=== PATIENT | female | born 1955 | race Caucasian/White ===

== ENCOUNTER 2020-05-28 08:36 | Outpatient (REF) | payer MEDICARE, OTHER, SELFPAY ==
--- NOTE | 2020-05-28 08:40 | MM_ITS ---
EXAMINATION: MM SCREENING DIGITAL BREAST TOMOSYNTHESIS, BILATERAL CLINICAL INFORMATION: Screening. Asymptomatic. The lifetime risk of breast cancer based on the Tyrer-Cuzick Model is 6.4%. COMPARISON: Mammography: April 06, 2019 and studies dating back to December 16, 2009 TECHNIQUE: Digital breast tomosynthesis is performed in both the craniocaudal and mediolateral oblique views along with computer-aided detection (CAD). Synthesized 2D images are generated from the tomosynthesis. FINDINGS: The breasts are almost entirely fatty (ACR BI-RADS breast composition Category a). There are no significant masses, abnormal calcifications, or other abnormalities. MM/MM tomosynthesis screening BI IMPRESSION: There are no significant changes from prior study. ASSESSMENT: BI-RADS 1: Negative RECOMMENDATION: Routine annual mammography screening. This patient's information was entered into a reminder system with a target due date for their next mammogram.
== END 2020-05-28 08:37 | disposition home or self-care (01) ==
LOC: HO.MAMMO 08:36
PROVIDERS: PCP Family Medicine; Visit Provider Family Medicine
DX: Z12.31 Encounter for screening mammogram for malignant neoplasm of breast (principal)
CPT/HCPCS: 77063; 77067

== ENCOUNTER 2021-03-03 17:36 | Emergency (ER) | payer MEDICARE, OTHER, SELFPAY ==
--- NOTE | ~2021-03-03 | XR_ITS ---
EXAMINATION: XR CHEST, 2 VIEWS CLINICAL INFORMATION: Right-sided pleuritic chest pain. COMPARISON: 03/21/2020 TECHNIQUE: PA and lateral views of the chest were obtained. FINDINGS: Lungs are clear. No consolidation, pneumothorax, or pleural effusion. Sternal wires and surgical clips overlie the cardiac and mediastinal contours. Cardiac and mediastinal contours are normal. Pulmonary vasculature is unremarkable. Trachea is midline. Osseous structures are unremarkable. ACDF hardware overlies the lower cervical spine. Minimal degenerative disc disease in the thoracic spine. No acute osseous findings. XR/XR chest 2V IMPRESSION: No acute cardiopulmonary findings.
[2021-03-03 17:42] VITALS: BP 156/60; PULSE 75; RESP 18; TEMP 36.8; O2SAT 97; BMI 30.1
--- NOTE | 2021-03-03 17:45 | ECG_ITS ---
Test Reason : DYSPNEA Blood Pressure : / mmHG Vent. Rate : 056 BPM Atrial Rate : 056 BPM P-R Int : 088 ms QRS Dur : 110 ms QT Int : 464 ms P-R-T Axes : 035 028 056 degrees QTc Int : 447 ms Sinus bradycardia with short NM ST & T wave abnormality, consider lateral ischemia Abnormal ECG When compared with ECG of 21-MAR-2020 15:48, T wave inversion now evident in Lateral leads Referred By: Deyvi Millard Electronically Signed By:BONNIE CLIFTON MD
--- NOTE | 2021-03-03 17:48 | ED.GENADULT ---
HPI - General Adult General Chief complaint: General Medical <KB Puentes - Last Filed: 03/05/21 00:10> Stated complaint: back pain from fall <KB Puentes - Last Filed: 03/05/21 00:10> Time Seen by Provider: 03/03/21 17:45 <KB Puentes - Last Filed: 03/05/21 00:10> Related Data Home medications: Previous Rx's Medication Instructions Recorded cyclobenzaprine 10 mg tablet 10 mg PO TID PRN #10 tab 03/04/21 tramadol 50 mg tablet 50 mg PO TID PRN #10 tab 03/04/21 <KB Puentes - Last Filed: 03/05/21 00:10> Allergies/adverse reactions: Allergies Allergy/AdvReac Type Severity Reaction Status Date / Time No Known Allergies Allergy Mild N/A Verified 03/03/21 17:42 <KB Puentes - Last Filed: 03/05/21 00:10> [facility], [facility] Past Medical History Medical History: Medical History Depression Heart disease High cholesterol Hypertension Insomnia <KB Puentes - Last Filed: 03/05/21 00:10> Social History Social History: Social History Advance Directives: No Advance Directives Information Provided: No <KB Puentes - Last Filed: 03/05/21 00:10> Physical Exam Vital Signs: Vital Signs: Last Vital Signs Temp 98.3 F 03/03/21 17:42 Pulse 75 03/03/21 17:42 Resp 18 03/03/21 17:42 BP 156/60 H 03/03/21 17:42 Pulse Ox 97 03/03/21 17:42 Body Mass Index 30.1 <KB Puentes - Last Filed: 03/05/21 00:10> Vital Signs: Last Vital Signs Temp 98.3 F 03/03/21 17:42 Pulse 75 03/03/21 17:42 Resp 18 03/03/21 17:42 BP 156/60 H 03/03/21 17:42 Pulse Ox 97 03/03/21 17:42 Body Mass Index 30.1 <Melia Alberts MD - Last Filed: 03/04/21 02:05> Course Course Course Narrative: Patient presents to the ED for right sided pleuretic chest pain. Patient denies any leg swelling or coughing up blood. EKG, labs and 2 view chest xray ordered. This is a rapid medical screening <KB Puentes - Last Filed: 03/05/21 00:10> Medical Decision Making Lab Data Result diagrams: : 03/03/21 20:39 03/03/21 20:39 <KB Puentes - Last Filed: 03/05/21 00:10> Labs: Lab Results 03/03/21 03/03/21 03/03/21 Range/Units 20:39 20:39 20:39 WBC 11.9 H (4.8-10.8) X10*3/uL RBC 4.05 L (4.20-5.50) X10*6/uL Hgb 13.3 (12.0-16.0) g/dl Hct 39.2 (37-47) % MCV 96.8 (80-98) fL MCH 32.8 (27.0-33.0) pg MCHC 33.9 (31.0-35.0) g/dl RDW 12.6 (11.0-16.0) % Plt Count 202 (160-400) X10*3/uL MPV 10.2 (9.4-12.3) fL Immature Gran % (Auto) 0.5 H (0.0-0.4) % Neut % (Auto) 64.8 (45-73) % Lymph % (Auto) 23.8 (20-40) % Cloud % (Auto) 6.9 (2-11) % Eos % (Auto) 3.3 (0-4) % Baso % (Auto) 0.7 (0-2) % Lymph # (Auto) 2.8 (1.2-4.9) X10*3/uL [place] # (Auto) 0.8 (0.1-1.2) X10*3/uL Eos # (Auto) 0.4 (0.0-0.4) X10*3/uL Baso # (Auto) 0.1 (0.0-0.2) X10*3/uL Abs Immat Gran (auto) 0.06 H (0.00-0.03) X10*3/uL Absolute Neuts (auto) 7.7 (2.0-8.3) X10*3/uL Absolute Nucleated RBC 0.000 (0.0-0.012) X10*3/uL Nucleated RBC % (auto) 0.0 (0.0-0.2) /100WBC Sodium 142 (135-145) mmol/L Potassium 4.0 (3.3-5.1) mmol/L Chloride 111 H (96-108) mmol/L Carbon Dioxide 23 (22-29) mmol/L Anion Gap 12 (12-20) BUN 17 H (9-16) mg/dL Creatinine 0.79 (0.5-1.4) mg/dL Estim Creat Clear Calc 69.8 Estimated GFR > 60 Random Glucose 96 (60-115) mg/dL Calcium 9.1 (8.4-10.2) mg/dL Total Bilirubin 0.3 (0.0-1.0) mg/dL AST 17 (5-31) U/L ALT 15 (0-31) U/L Alkaline Phosphatase 72 (39-117) U/L Troponin I High Sens 6.3 (<3.5-17.0) ng/L B-Natriuretic Peptide (<100) pg/mL Total Protein 6.4 L (6.5-8.0) g/dL Albumin 4.2 (3.5-5.0) g/dL 03/03/21 03/04/21 Range/Units 20:39 01:31 WBC (4.8-10.8) X10*3/uL RBC (4.20-5.50) X10*6/uL Hgb (12.0-16.0) g/dl Hct (37-47) % MCV (80-98) fL MCH (27.0-33.0) pg MCHC (31.0-35.0) g/dl RDW (11.0-16.0) % Plt Count (160-400) X10*3/uL MPV (9.4-12.3) fL Immature Gran % (Auto) (0.0-0.4) % Neut % (Auto) (45-73) % Lymph % (Auto) (20-40) % Cloud % (Auto) (2-11) % Eos % (Auto) (0-4) % Baso % (Auto) (0-2) % Lymph # (Auto) (1.2-4.9) X10*3/uL [place] # (Auto) (0.1-1.2) X10*3/uL Eos # (Auto) (0.0-0.4) X10*3/uL Baso # (Auto) (0.0-0.2) X10*3/uL Abs Immat Gran (auto) (0.00-0.03) X10*3/uL Absolute Neuts (auto) (2.0-8.3) X10*3/uL Absolute Nucleated RBC (0.0-0.012) X10*3/uL Nucleated RBC % (auto) (0.0-0.2) /100WBC Sodium (135-145) mmol/L Potassium (3.3-5.1) mmol/L Chloride (96-108) mmol/L Carbon Dioxide (22-29) mmol/L Anion Gap (12-20) BUN (9-16) mg/dL Creatinine (0.5-1.4) mg/dL Estim Creat Clear Calc Estimated GFR Random Glucose (60-115) mg/dL Calcium (8.4-10.2) mg/dL Total Bilirubin (0.0-1.0) mg/dL AST (5-31) U/L ALT (0-31) U/L Alkaline Phosphatase (39-117) U/L Troponin I High Sens 5.8 (<3.5-17.0) ng/L B-Natriuretic Peptide 101 H (<100) pg/mL Total Protein (6.5-8.0) g/dL Albumin (3.5-5.0) g/dL <KB Puentes - Last Filed: 03/05/21 00:10> Lab Results 03/03/21 03/03/21 03/03/21 Range/Units 20:39 20:39 20:39 WBC 11.9 H (4.8-10.8) X10*3/uL RBC 4.05 L (4.20-5.50) X10*6/uL Hgb 13.3 (12.0-16.0) g/dl Hct 39.2 (37-47) % MCV 96.8 (80-98) fL MCH 32.8 (27.0-33.0) pg MCHC 33.9 (31.0-35.0) g/dl RDW 12.6 (11.0-16.0) % Plt Count 202 (160-400) X10*3/uL MPV 10.2 (9.4-12.3) fL Immature Gran % (Auto) 0.5 H (0.0-0.4) % Neut % (Auto) 64.8 (45-73) % Lymph % (Auto) 23.8 (20-40) % Cloud % (Auto) 6.9 (2-11) % Eos % (Auto) 3.3 (0-4) % Baso % (Auto) 0.7 (0-2) % Lymph # (Auto) 2.8 (1.2-4.9) X10*3/uL [place] # (Auto) 0.8 (0.1-1.2) X10*3/uL Eos # (Auto) 0.4 (0.0-0.4) X10*3/uL Baso # (Auto) 0.1 (0.0-0.2) X10*3/uL Abs Immat Gran (auto) 0.06 H (0.00-0.03) X10*3/uL Absolute Neuts (auto) 7.7 (2.0-8.3) X10*3/uL Absolute Nucleated RBC 0.000 (0.0-0.012) X10*3/uL Nucleated RBC % (auto) 0.0 (0.0-0.2) /100WBC Sodium 142 (135-145) mmol/L Potassium 4.0 (3.3-5.1) mmol/L Chloride 111 H (96-108) mmol/L Carbon Dioxide 23 (22-29) mmol/L Anion Gap 12 (12-20) BUN 17 H (9-16) mg/dL Creatinine 0.79 (0.5-1.4) mg/dL Estim Creat Clear Calc 69.8 Estimated GFR > 60 Random Glucose 96 (60-115) mg/dL Calcium 9.1 (8.4-10.2) mg/dL Total Bilirubin 0.3 (0.0-1.0) mg/dL AST 17 (5-31) U/L ALT 15 (0-31) U/L Alkaline Phosphatase 72 (39-117) U/L Troponin I High Sens 6.3 (<3.5-17.0) ng/L B-Natriuretic Peptide (<100) pg/mL Total Protein 6.4 L (6.5-8.0) g/dL Albumin 4.2 (3.5-5.0) g/dL 03/03/21 03/04/21 Range/Units 20:39 01:31 WBC (4.8-10.8) X10*3/uL RBC (4.20-5.50) X10*6/uL Hgb (12.0-16.0) g/dl Hct (37-47) % MCV (80-98) fL MCH (27.0-33.0) pg MCHC (31.0-35.0) g/dl RDW (11.0-16.0) % Plt Count (160-400) X10*3/uL MPV (9.4-12.3) fL Immature Gran % (Auto) (0.0-0.4) % Neut % (Auto) (45-73) % Lymph % (Auto) (20-40) % Cloud % (Auto) (2-11) % Eos % (Auto) (0-4) % Baso % (Auto) (0-2) % Lymph # (Auto) (1.2-4.9) X10*3/uL Cloud # (Auto) (0.1-1.2) X10*3/uL Eos # (Auto) (0.0-0.4) X10*3/uL Baso # (Auto) (0.0-0.2) X10*3/uL Abs Immat Gran (auto) (0.00-0.03) X10*3/uL Absolute Neuts (auto) (2.0-8.3) X10*3/uL Absolute Nucleated RBC (0.0-0.012) X10*3/uL Nucleated RBC % (auto) (0.0-0.2) /100WBC Sodium (135-145) mmol/L Potassium (3.3-5.1) mmol/L Chloride (96-108) mmol/L Carbon Dioxide (22-29) mmol/L Anion Gap (12-20) BUN (9-16) mg/dL Creatinine (0.5-1.4) mg/dL Estim Creat Clear Calc Estimated GFR Random Glucose (60-115) mg/dL Calcium (8.4-10.2) mg/dL Total Bilirubin (0.0-1.0) mg/dL AST (5-31) U/L ALT (0-31) U/L Alkaline Phosphatase (39-117) U/L Troponin I High Sens 5.8 (<3.5-17.0) ng/L B-Natriuretic Peptide 101 H (<100) pg/mL Total Protein (6.5-8.0) g/dL Albumin (3.5-5.0) g/dL <Melia Alberts MD - Last Filed: 03/04/21 02:05> Discharge Plan Discharge Clinical Impression: Back pain <KB Puentes - Last Filed: 03/05/21 00:10> Patient Disposition: Home, Self-Care <KB Puentes - Last Filed: 03/05/21 00:10> Instructions: Back Pain (ED) <KB Puentes - Last Filed: 03/05/21 00:10> Additional Instructions: Please follow-up with your primary care physician tomorrow. If you have any worsening or new symptoms, please return to the emergency room or call 911 <KB Puentes - Last Filed: 03/05/21 00:10> Prescriptions: New cyclobenzaprine 10 mg tablet 10 mg PO TID PRN (Reason: muscle spasm) Qty: 10 RF: 0 tramadol 50 mg tablet 50 mg PO TID PRN (Reason: pain) Qty: 10 RF: 0 <KB Puentes - Last Filed: 03/05/21 00:10> Interventions: ED Discharge Assessment Last Done: 03/04/21 02:08 <KB Puentes - Last Filed: 03/05/21 00:10> Discharge Date/Time: 03/04/21 02:08 <KB Puentes - Last Filed: 03/05/21 00:10>
[2021-03-03 20:46] LABS: MANUAL DIFF FLAG NO
[2021-03-03 20:58] LABS: Basophils Absolute Auto 0.1 X10*3/uL (0.0-0.2); Basophils Percent Auto 0.7 % (0-2); Eosinophils Absolute Auto 0.4 X10*3/uL (0.0-0.4); Eosinophils Percent Auto 3.3 % (0-4); Hematocrit 39.2 % (37-47); Hemoglobin 13.3 g/dl (12.0-16.0); Imm Gran Abs Auto 0.06 X10*3/uL (0.00-0.03); Imm Gran Pct Auto 0.5 % (0.0-0.4); Lymphocytes Absolute Auto 2.8 X10*3/uL (1.2-4.9); Lymphocytes Percent Auto 23.8 % (20-40); Mean Corpuscular HGB Conc 33.9 g/dl (31.0-35.0); Mean Corpuscular Hemoglobin 32.8 pg (27.0-33.0); Mean Corpuscular Volume 96.8 fL (80-98); Mean Platelet Volume 10.2 fL (9.4-12.3); Monocytes Absolute Auto 0.8 X10*3/uL (0.1-1.2); Monocytes Percent Auto 6.9 % (2-11); Neutrophils Absolute Auto 7.7 X10*3/uL (2.0-8.3); Neutrophils Percent Auto 64.8 % (45-73); Platelet Count 202 X10*3/uL (160-400); Red Blood Count 4.05 X10*6/uL (4.20-5.50); Red Cell Distribution Width 12.6 % (11.0-16.0); White Blood Count 11.9 X10*3/uL (4.8-10.8)
[2021-03-03 21:11] LABS: Alanine Aminotransferase 15 U/L (0-31); Albumin Level 4.2 g/dL (3.5-5.0); Alkaline Phosphatase 72 U/L (39-117); Anion Gap 12 (12-20); Aspartate Amino Transferase 17 U/L (5-31); Bilirubin Total 0.3 mg/dL (0.0-1.0); Blood Urea Nitrogen 17 mg/dL (9-16); Calcium 9.1 mg/dL (8.4-10.2); Carbon Dioxide 23 mmol/L (22-29); Chloride 111 mmol/L (96-108); Creatinine Clr Calc Pharmacy 69.8; Estimated Glomerular Filt Rate > 60; Glucose Random 96 mg/dL (60-115); Sodium 142 mmol/L (135-145); Total Protein 6.4 g/dL (6.5-8.0)
[2021-03-03 21:13] LABS: Troponin-I High Sensitivity 6.3 ng/L (<3.5-17.0)
[2021-03-03 21:14] LABS: B Type Natriuretic Peptide 101 pg/mL (<100)
--- NOTE | 2021-03-04 00:24 | ED.FALL ---
HPI - Fall General Chief Complaint: General Medical Stated Complaint: back pain from fall Time Seen by Provider: 03/03/21 17:45 Source: patient Mode of arrival: ambulatory Limitations: no limitations History of Present Illness HPI Narrative: Patient comes emergency room complaining of right-sided back pain. Patient the February 23 she had a mechanical fall, landing on her right side posteriorly. Patient states that the pain has been present since then in the right side of the back and right middle back. Patient states that she does not move she has no pain, but if she turns certain ways or lays on her back it hurts significantly. Patient denies chest pain, no shortness of breath, it hurts the right side of the lower back when she takes a big breath. Patient denies hematuria or dysuria Related Data Allergies Allergy/AdvReac Type Severity Reaction Status Date / Time No Known Allergies Allergy Mild N/A Verified 03/03/21 17:42 Review of Systems Review of Systems: Constitutional : No Weight loss, No Fever, No Chills, No Night Sweats, No Fatigue, No Malaise ENT/Mouth : No Hearing loss, No Ear Pain, No Nasal Congestion, No Sinus Pain, No Hoarseness, No sore throat, No Rhinorrhea, No Swallowing Difficulty Eyes: No Eye Pain, No Swelling, No Redness, No Foreign Body, No Discharge, No Vision Changes Cardiovascular : No Chest Pain, No SOB, No Dyspnea on Exertion, No Orthopnea, No Edema, No Palpitations Respiratory : No Cough, No Sputum, No Wheezing, No Smoke Exposure, No Dyspnea Gastrointestinal : No Nausea, No Vomiting, No Diarrhea, No Constipation, No abdominal Pain, No Hematochezia, No Melena Genitourinary : no irregular bleeding, No Dysuria, No Urinary Frequency, No Hematuria, No Urinary Incontinence, No Urgency, No Flank Pain, No Urinary Flow Changes, No Hesitancy Musculoskeletal : Complaining of middle right back pain, No joint pain, No Myalgias, No Joint Swelling Skin : No Skin Lesions, No rash Neuro : No Weakness, No Numbness, No Paresthesias, No Loss of Consciousness, No Dizziness, No Headache Psych : No Anxiety/Panic, No Depression, No SI/HI/AH/VH, No Social Issues, Heme/Lymph: No Bruising, No Bleeding,No Lymphadenopathy Endocrine : No Polyuria, No Polydipsia, No Temperature Intolerance PMF Past Medical History Medical History Depression Heart disease High cholesterol Hypertension Insomnia Social History Social History Advance Directives: No Advance Directives Information Provided: No Physical Exam Vital Signs: Vital Signs: Last Vital Signs Temp 98.3 F 03/03/21 17:42 Pulse 75 03/03/21 17:42 Resp 18 03/03/21 17:42 BP 156/60 H 03/03/21 17:42 Pulse Ox 97 03/03/21 17:42 Body Mass Index 30.1 Const: Other: Appearance: Alert. Oriented X3. No acute distress. Eyes: Pupils equal, round and reactive to light. ENT: Pharynx normal. Neck: Normal inspection. Neck supple. No lymph nodes noted. No crepitus CVS: Normal heart rate and rhythm. Pulses normal. Normal S1 and S2 Respiratory: No respiratory distress. Breath sounds normal. No Wheezing. No rales Abdomen: Soft and nontender. No rigidity. No distention. Back: Mild pain to palpation over the thoracic back on the right side, pain to palpation over paraspinal muscles on the right side, no thoracic or lumbar spine pain Skin: Skin warm and dry. Normal skin color. Normal skin turgor. Extremities: No lower extremity edema. No lower extremity edema. No Lacerations. No Rash Neuro: Oriented X 3. No motor deficit. No sensory deficit. Moving all extermities. No slurred speech. Course Course Course Narrative: I discussed the x-rays and the labs with the patient, no acute findings. White blood cell count likely secondary to reactive leukocytosis. Patient's troponin was slightly bumped. EKG shows no changes. Troponin 2. Pending. Patient has no chest pain, no shortness of breath, unlikely to be of cardiac etiology. Patient's back pain consistent with injury/fall Ureterolithiasis not suspected, PE not suspected either, wells score for PE is 0 MDM - Fall Lab Data Result diagrams: 03/03/21 20:39 03/03/21 20:39 Labs: Lab Results 03/03/21 03/03/21 03/03/21 Range/Units 20:39 20:39 20:39 WBC 11.9 H (4.8-10.8) X10*3/uL RBC 4.05 L (4.20-5.50) X10*6/uL Hgb 13.3 (12.0-16.0) g/dl Hct 39.2 (37-47) % MCV 96.8 (80-98) fL MCH 32.8 (27.0-33.0) pg MCHC 33.9 (31.0-35.0) g/dl RDW 12.6 (11.0-16.0) % Plt Count 202 (160-400) X10*3/uL MPV 10.2 (9.4-12.3) fL Immature Gran % (Auto) 0.5 H (0.0-0.4) % Neut % (Auto) 64.8 (45-73) % Lymph % (Auto) 23.8 (20-40) % [place] % (Auto) 6.9 (2-11) % Eos % (Auto) 3.3 (0-4) % Baso % (Auto) 0.7 (0-2) % Lymph # (Auto) 2.8 (1.2-4.9) X10*3/uL [place] # (Auto) 0.8 (0.1-1.2) X10*3/uL Eos # (Auto) 0.4 (0.0-0.4) X10*3/uL Baso # (Auto) 0.1 (0.0-0.2) X10*3/uL Abs Immat Gran (auto) 0.06 H (0.00-0.03) X10*3/uL Absolute Neuts (auto) 7.7 (2.0-8.3) X10*3/uL Absolute Nucleated RBC 0.000 (0.0-0.012) X10*3/uL Nucleated RBC % (auto) 0.0 (0.0-0.2) /100WBC Sodium 142 (135-145) mmol/L Potassium 4.0 (3.3-5.1) mmol/L Chloride 111 H (96-108) mmol/L Carbon Dioxide 23 (22-29) mmol/L Anion Gap 12 (12-20) BUN 17 H (9-16) mg/dL Creatinine 0.79 (0.5-1.4) mg/dL Estim Creat Clear Calc 69.8 Estimated GFR > 60 Random Glucose 96 (60-115) mg/dL Calcium 9.1 (8.4-10.2) mg/dL Total Bilirubin 0.3 (0.0-1.0) mg/dL AST 17 (5-31) U/L ALT 15 (0-31) U/L Alkaline Phosphatase 72 (39-117) U/L Troponin I High Sens 6.3 (<3.5-17.0) ng/L B-Natriuretic Peptide (<100) pg/mL Total Protein 6.4 L (6.5-8.0) g/dL Albumin 4.2 (3.5-5.0) g/dL 03/03/21 Range/Units 20:39 WBC (4.8-10.8) X10*3/uL RBC (4.20-5.50) X10*6/uL Hgb (12.0-16.0) g/dl Hct (37-47) % MCV (80-98) fL MCH (27.0-33.0) pg MCHC (31.0-35.0) g/dl RDW (11.0-16.0) % Plt Count (160-400) X10*3/uL MPV (9.4-12.3) fL Immature Gran % (Auto) (0.0-0.4) % Neut % (Auto) (45-73) % Lymph % (Auto) (20-40) % [place] % (Auto) (2-11) % Eos % (Auto) (0-4) % Baso % (Auto) (0-2) % Lymph # (Auto) (1.2-4.9) X10*3/uL [place] # (Auto) (0.1-1.2) X10*3/uL Eos # (Auto) (0.0-0.4) X10*3/uL Baso # (Auto) (0.0-0.2) X10*3/uL Abs Immat Gran (auto) (0.00-0.03) X10*3/uL Absolute Neuts (auto) (2.0-8.3) X10*3/uL Absolute Nucleated RBC (0.0-0.012) X10*3/uL Nucleated RBC % (auto) (0.0-0.2) /100WBC Sodium (135-145) mmol/L Potassium (3.3-5.1) mmol/L Chloride (96-108) mmol/L Carbon Dioxide (22-29) mmol/L Anion Gap (12-20) BUN (9-16) mg/dL Creatinine (0.5-1.4) mg/dL Estim Creat Clear Calc Estimated GFR Random Glucose (60-115) mg/dL Calcium (8.4-10.2) mg/dL Total Bilirubin (0.0-1.0) mg/dL AST (5-31) U/L ALT (0-31) U/L Alkaline Phosphatase (39-117) U/L Troponin I High Sens (<3.5-17.0) ng/L B-Natriuretic Peptide 101 H (<100) pg/mL Total Protein (6.5-8.0) g/dL Albumin (3.5-5.0) g/dL ECG Data Attestation: I personally reviewed and interpreted this ECG as follows: (Sinus bradycardia, heart rate 56, no ST segment depression or elevation, nonspecific T-wave inversion in lead V2, QTC 447) Discharge Plan Discharge Clinical Impression: Back pain
[2021-03-04] MEDS: Ketorolac Tromethamine 60 MG/2 ML VIAL IM (00:34)
[2021-03-04 02:00] LABS: Troponin-I High Sensitivity 5.8 ng/L (<3.5-17.0)
== END 2021-03-04 02:08 | disposition home or self-care (01) ==
PROVIDERS: Physician Assistant; Emergency Provider Emergency Medicine
DX: M54.9 Dorsalgia, unspecified (principal); I10 Essential (primary) hypertension; R00.0 Tachycardia, unspecified
CPT/HCPCS: 36415; 71046; 80053; 83880; 84484; 85025; 93005; 96372; 99283; 99284; J1885

== ENCOUNTER 2021-05-23 08:00 | Outpatient (REF) | payer MEDICARE, OTHER, SELFPAY ==
--- NOTE | ~2021-05-23 | US_ITS ---
EXAMINATION: US ABDOMEN COMPLETE CLINICAL INFORMATION: Right upper quadrant pain. COMPARISON: No images are available for comparison. Comparison is made with reports from abdominal ultrasound April [address] of the abdomen and pelvis March 2012 TECHNIQUE: Real-time imaging of the abdominal viscera. FINDINGS: PANCREAS: Normal. ABDOMINAL AORTA: There is evidence of atherosclerotic disease. The abdominal aorta is normal in caliber. INFERIOR VENA CAVA: Visualized portions are normal. LIVER: Normal. The liver is normal in size. The liver contour is normal. Parenchymal echogenicity is normal. No focal hepatic lesion. There is no intrahepatic biliary duct dilatation seen. GALLBLADDER: There is a small amount of echogenic debris seen in the gallbladder. The gallbladder is physiologically distended without evidence of stones, polyps, wall thickening or pericholecystic fluid. COMMON BILE DUCT: Normal in caliber measuring 0.3 cm in diameter. RIGHT KIDNEY: There is a 9 x 6 x 7 mm echogenic lesion in the midpole. 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 Ultrasound and CT images from April 2012 are not available for comparison, however, 5 mm echogenic lesion in the cortex of the right kidney is described on ultrasound report. No hydronephrosis. No renal calculi. The kidney measures 11.2 cm in maximum dimension. LEFT KIDNEY: Normal. No hydronephrosis. No renal calculi or focal parenchymal lesions. The kidney measures 11.3 cm in maximum dimension. SPLEEN: Normal. The spleen measures 10.3 cm in maximum dimension. FREE FLUID: None. US/US abdomen complete IMPRESSION: 9 x 6 x 7 mm echogenic lesion in the midpole of the right kidney. 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
== END 2021-05-23 08:01 | disposition home or self-care (01) ==
LOC: HO.US 08:00
PROVIDERS: PCP Family Medicine; Visit Provider Family Medicine
DX: R10.11 Right upper quadrant pain (principal)
CPT/HCPCS: 76700

== ENCOUNTER 2022-01-26 16:11 | Emergency (ER) | payer MEDICARE, OTHER, SELFPAY ==
--- NOTE | ~2022-01-26 | XR_ITS ---
EXAMINATION: XR SHOULDER, LEFT CLINICAL INFORMATION: Left shoulder pain after fall COMPARISON: None TECHNIQUE: Four views of the left shoulder. FINDINGS: No fracture or dislocation is seen. Subchondral cystic changes are present overlying the area of the greater tubercle, significantly worse when compared to 2013. No calcifications seen in the rotator cuff. XR/XR shoulder LT min 2V IMPRESSION: No evidence of fracture or dislocation.
[2022-01-26 16:56] VITALS: BP 107/56; PULSE 58; RESP 16; TEMP 36.6; O2SAT 97; BMI 30.4
[2022-01-26 19:26] VITALS: BP 139/65; PULSE 62; RESP 18; TEMP 36.8; O2SAT 98
--- NOTE | 2022-01-26 19:36 | ED.EXTPRO ---
HPI - Extremity Problem General Chief complaint: Extremity Injury, Upper Stated complaint: shoulder pain Time Seen by Provider: 01/26/22 19:20 Source: patient Mode of arrival: ambulatory Limitations: no limitations History of Present Illness HPI Narrative: 66 yold female presents for left shoulder pain after falling unto shoulder 2 days ago. patient states fell down the stairs and hit her left shoulder. patient states ever since falling on left shoulder she has pain. patietnt denies hitting head, loss of conscisouness, nausea, emesis, fever, chills, chest pain, shortness of breath, or headache. Related Data Previous Rx's Medication Instructions Recorded cyclobenzaprine 10 mg tablet 10 mg PO TID PRN muscle spasm #10 03/04/21 tabs tramadol 50 mg tablet 50 mg PO TID PRN pain #10 tabs 03/04/21 naproxen 500 mg tablet 500 mg PO BID PRN pain 10 days #20 01/26/22 tabs prednisone 20 mg tablet 60 mg PO DAILY 5 days #15 tabs 01/26/22 Allergies Allergy/AdvReac Type Severity Reaction Status Date / Time No Known Allergies Allergy Mild N/A Verified 01/26/22 16:56 Review of Systems Review of Systems: left shoulder pain after fall Yes all other systems are reviewed and are negative [facility] Past Medical History Medical History Depression Heart disease High cholesterol Hypertension Insomnia Social History Social History Advance Directives: No Advance Directives Information Provided: No Physical Exam Vital Signs: Vital Signs: Last Vital Signs Temp 98.2 F 01/26/22 19:26 Pulse 62 01/26/22 19:26 Resp 18 01/26/22 19:26 BP 139/65 01/26/22 19:26 Pulse Ox 98 01/26/22 19:26 O2 Del Method 01/26/22 19:26 BMI result Body Mass Index 30.4 Const: General: cooperative, healthy appearing, comfortable, no acute distress, well developed, alert, awake and Physically active Orientation/consciousness: oriented to time and patient oriented x3 HEENT: Head: Yes normal to inspection, Yes No palpable skull fracture present, Yes normocephalic, Yes atraumatic, No abrasion, No Acrocyanosis present, No Pereyra's sign, No contusion, No cranial bruits, No hematoma, No laceration, No occipital foramen tenderness, No palpable skull fracture, No raccoon eyes, No scalp lesion, No scalp tenderness, No Temporal artery tenderness present and No periorbital ecchymosis Ears: hearing grossly normal bilaterally, external ears normal, TM's normal bilaterally, TM normal on the right, TM normal on the left, EAC's normal, mastoids normal and no periauricular adenopathy Eyes: General: appearance normal, both eyes and all related structures Neck: Neck: Yes normal visual inspection, Yes full ROM, Yes no lymphadenopathy, Yes no meningeal signs, Yes trachea midline, Yes supple, No anterior neck swelling and No tender Chest: Chest palpation & inspection: normal inspection of the chest and normal palpation of entire chest wall Resp: Effort & Inspection: normal respiratory effort and able to speak in complete sentences Auscultation: clear to auscultation bilaterally Cardio: Jugular venous distension: no JVD Heart sounds: S1 normal heart sound present and S2 normal heart sound present GI: Inspection: Yes normal to inspection and No abdominal wall ecchymosis Palpation (GI): Soft to palpation, not firm, nontender, no guarding and not rigid : General: No CVA tenderness and Yes no CVA tenderness Back/Spine/Pelvis: Back: no CVA tenderness, No CVA tenderness and No back tenderness Skin: General skin exam: no rashes or lesions noted and elasticity normal Neuro: General: oriented to time, patient oriented x3, gait normal, tone normal, moves all extremities, Normal light touch and pain sensation, no meningeal signs, no focal motor deficits and CN's II-XI intact bilaterally Extrem: General: Yes normal to inspection and Yes full ROM Shoulder/upper arm images: 1. tenderness on palpation. pain on range of motion. negative for any ecchymosis or erythema. Neuro/vascular/motor exam of whole extremity intact Psych: Appearance: grossly normal, well kempt and not disheveled Course Course Course Narrative: Shoulder xray ordered Reevaluation(s) Reevaluation #1: left shoulder xray negative for any fracutres or disclocation. Xray shows subcondrol cysts on greater tuburule which may indicate supraspinatur tear. Not suspecting any cardiac etiology. Time: 19:45 MDM - Extremity (Nontraumatic) MDM Narrative Medical decision making narrative: Shoulder contusion/srpain Discharge Plan Discharge Clinical Impression: Shoulder sprain, Contusion of shoulder, left Patient Disposition: Home, Self-Care Instructions: Contusion in Adults (ED), Shoulder Sprain (ED) Additional Instructions: X-ray came back negative for fracture or dislocation but does show subchondral cyst on on shoulder. You may need MRI to rule out any muscle tear of the shoulder. Please follow-up primary care provider. Return to the ED for any chest pain, shortness of breath, swelling of left upper extremity, paralysis, numbness, left jaw pain, left neck pain, hotness, coldness, numbness/tingling, or any other concerning symptoms. Prescriptions: New prednisone 20 mg tablet 60 mg PO DAILY 5 Days Qty: 15 0RF naproxen 500 mg tablet 500 mg PO BID PRN (Reason: pain) 10 Days Qty: 20 0RF No Action cyclobenzaprine 10 mg tablet 10 mg PO TID PRN (Reason: muscle spasm) Qty: 10 0RF tramadol 50 mg tablet 50 mg PO TID PRN (Reason: pain) Qty: 10 0RF Interventions: ED Discharge Assessment Last Done: 01/26/22 19:59 Discharge Date/Time: 01/26/22 19:59 Print Language: Citizen Of [place]
== END 2022-01-26 19:59 | disposition home or self-care (01) ==
PROVIDERS: Emergency Provider Internal Medicine; PCP Family Medicine
DX: S43.402A Unspecified sprain of left shoulder joint, initial encounter (principal); S40.012A Contusion of left shoulder, initial encounter; W10.8XXA Fall (on) (from) other stairs and steps, initial encounter; Y93.89 Activity, other specified; Y92.9 Unspecified place or not applicable; Y99.9 Unspecified external cause status
CPT/HCPCS: 73030; 99282; 99283

== ENCOUNTER 2022-02-25 14:49 | Outpatient (REF) | payer MEDICARE, OTHER, SELFPAY ==
--- NOTE | ~2022-02-25 | XR_ITS ---
EXAMINATION: XR CERVICAL SPINE CLINICAL INFORMATION: Neck pain. COMPARISON: None TECHNIQUE: 3 views of the cervical spine were obtained. FINDINGS: There is normal cervical lordosis. There are bone grafts for fusion at the C5-C6 and C6-C7 disc levels stabilized with ventral plate and screws from the C5 through C7 vertebrae. At the rest of the disc levels, all vertebral heights and alignment are preserved. There is moderate ventral spondylosis at the C4-C5 disc level. There is mild narrowing of the left neural foramina at the C5-C6 and right C6-C7 disc levels from uncovertebral hypertrophic changes. There is moderate facet joint arthropathy at the C2-C3, C3-C4 and C4-C5 disc levels. No lytic or sclerotic process seen. XR/XR cervical spine 4V IMPRESSION: C5-C6 and C6-C7 disc fusion stabilized with ventral plate and screws. There is no loosening. There is mild narrowing of the right C5-C6 and left C6-C7 neural foramina from uncovertebral hypertrophic changes. Moderate ventral spondylosis seen at the C4-C5 disc level.
== END 2022-02-25 14:50 | disposition home or self-care (01) ==
LOC: HO.XRAY 14:49
PROVIDERS: Absent Provider Family Medicine; PCP Family Medicine; Visit Provider Emergency Medicine
DX: M54.2 Cervicalgia (principal)
CPT/HCPCS: 72050

== ENCOUNTER → 2022-03-09 09:41 | Outpatient (BNVA) | payer MEDICARE, OTHER, SELFPAY | PROVIDERS: PCP Family Medicine; Visit Provider Orthopaedic Surgery | DX: M25.512 Pain in left shoulder (principal) | CPT/HCPCS: 20610; 99202; J1100 ==

== ENCOUNTER 2022-03-25 10:34 | Emergency (ER) | payer MEDICARE, OTHER, SELFPAY ==
--- NOTE | ~2022-03-25 | CT_ITS ---
EXAMINATION: CT CERVICAL SPINE WITHOUT CONTRAST CLINICAL INFORMATION: Neck pain, trauma COMPARISON: None TECHNIQUE: Axial imaging with coronal and sagittal reformatted images. This CT examination was performed using dose optimization techniques as appropriate, variously including the following: *Automated exposure control *Adjustment of mA and/or kV according to patient size (this includes techniques or standardized protocols for targeted exams where dose is matched to indication/reason for exam; i.e. extremities or head) *Use of iterative reconstruction technique DLP: 404 mGy-cm FINDINGS: Hardware is seen here from C5 to C7. There is no evidence for underlying fracture or dislocation. Some limitation from artifact from the hardware. CT/CT cervical spine wo IV con IMPRESSION: Hardware is noted. No evidence for fracture or dislocation of the cervical spine. Fleischner guidelines were followed.
--- NOTE | ~2022-03-25 | CT_ITS ---
EXAMINATION: CT HEAD WITHOUT CONTRAST CLINICAL INFORMATION: Patient fell in the shower and hit her head COMPARISON: None TECHNIQUE: Contiguous axial imaging was performed from the skull base to vertex without intravenous administration of contrast. This CT examination was performed using dose optimization techniques as appropriate, variously including the following: *Automated exposure control *Adjustment of mA and/or kV according to patient size (this includes techniques or standardized protocols for targeted exams where dose is matched to indication/reason for exam; i.e. extremities or head) *Use of iterative reconstruction technique DLP: 890.42 mGy-cm FINDINGS: There is no intra or extra-axial fluid collection or hemorrhage, mass or mass effect. Sulci and ventricles are normal. Calvarium intact. No fracture. There is mucoperiosteal thickening in the right maxillary sinus. The retrobulbar regions are intact. There is dense atherosclerotic calcification in the left vertebral artery. CT/CT head/brain wo IV con IMPRESSION: No acute intracranial abnormality.
[2022-03-25 10:37] VITALS: BP 115/62; PULSE 62; RESP 18; TEMP 36.9; O2SAT 100; BMI 31.1
--- NOTE | 2022-03-25 12:33 | ED_ITS ---
HPI - Fall General Chief Complaint: Fall Stated Complaint: fall, hit head 03/25/22 Time Seen by Provider: 03/25/22 11:22 Source: patient Mode of arrival: ambulatory History of Present Illness HPI Narrative: 66yo F with PMHx depression, heart disease, HLD, HTN, on baby ASA, presenting to the ED c/o TALAVERA and acute on chronic L sided neck pain s/p mechanical slip and fall while in the shower [employer]. Denies LOC. Denies sx prior to fall including lightheadedness, CP/SOB or TALAVERA. Denies numbness, tingling, weakness, N/V, abdominal pain, visual changes complaint: fall Onset (ago): hour(s) Related Data Home Medications Medication Instructions Recorded Confirmed amlodipine 5 mg tablet 5 mg PO DAILY 03/09/22 03/09/22 atorvastatin 80 mg tablet 80 mg PO DAILY 03/09/22 03/09/22 bupropion HCl 150 mg tablet,12 hr 150 mg PO BID 03/09/22 03/09/22 sustained-release fluoxetine 20 mg capsule 20 mg PO BID 03/09/22 03/09/22 isosorbide mononitrate 60 mg 60 mg PO DAILY 03/09/22 03/09/22 tablet,extended release 24 hr metoprolol succinate 25 mg 12.5 mg PO DAILY 03/09/22 03/09/22 tablet,extended release 24 hr ranolazine 1,000 mg 1,000 mg PO BID 03/09/22 03/09/22 tablet,extended release,12 hr trazodone 100 mg tablet 100 mg PO DAILY 03/09/22 03/09/22 Previous Rx's Medication Instructions Recorded cyclobenzaprine 10 mg tablet 10 mg PO TID PRN muscle spasm #10 03/04/21 tabs tramadol 50 mg tablet 50 mg PO TID PRN pain #10 tabs 03/04/21 naproxen 500 mg tablet 500 mg PO BID PRN pain 10 days #20 01/26/22 tabs prednisone 20 mg tablet 60 mg PO DAILY 5 days #15 tabs 01/26/22 acetaminophen 500 mg tablet 500 mg PO Q6H PRN fever or pain 03/25/22 (Tylenol Extra Strength) #14 tabs cyclobenzaprine 5 mg tablet 5 mg PO Q8H PRN pain (scale score 03/25/22 7-10) 5 days #14 tabs lidocaine 5 % topical patch 1 patch topical DAILY PRN pain #30 03/25/22 (Lidoderm) ea naproxen 500 mg tablet 500 mg PO BID PRN pain 10 days #20 03/25/22 tabs Allergies Allergy/AdvReac Type Severity Reaction Status Date / Time No Known Allergies Allergy Mild N/A Verified 03/09/22 09:48 Review of Systems Review of Systems: Constitutional: No Fever, No Chills, No Fatigue, No Malaise ENT/Mouth: No Ear Pain, No sore throat, No Rhinorrhea, No Swallowing Difficulty Eyes: No Eye Pain, No Swelling, No Redness, No Foreign Body, No Vision Changes Cardiovascular: No Chest Pain, No SOB, No Edema Respiratory: No Cough, No Sputum, No Dyspnea Gastrointestinal: No Nausea, No Vomiting, No Diarrhea, No Constipation, No Abdominal pain Genitourinary: No Dysuria, No Hematuria, No Urinary Incontinence/retention Musculoskeletal: No joint pain, No Myalgias, No Joint Swelling Skin: No Skin Lesions, No rash Neuro: No Weakness, No Numbness, No Loss of Consciousness, No Dizziness, + Headache, +head strike Yes all other systems are reviewed and are negative Constitutional: Constitutional: Reports as per HPI Neurologic: Denies Abnormal speech present [facility], [facility] Past Medical History Attestation statement: The following information was validated with the patient. Medical History Depression Heart disease High cholesterol Hypertension Insomnia Social History Social History Advance Directives: Yes Advance Directives Information Provided: No Advance Directives on File: No Physical Exam Vital Signs: Vital Signs: Last Vital Signs Temp 98.4 F 03/25/22 10:37 Pulse 62 03/25/22 10:37 Resp 18 03/25/22 10:37 BP 115/62 03/25/22 10:37 Pulse Ox 100 03/25/22 10:37 O2 Del Method 03/25/22 10:37 BMI result Body Mass Index 31.1 Const: General: cooperative, healthy appearing, comfortable and no acute di stress Orientation/consciousness: patient oriented x3 Limitations: no limitations HEENT: Head: Yes normal to inspection, Yes normocephalic, Yes atraumatic, No Pereyra's sign and No raccoon eyes Ears: hearing grossly normal bilaterally General nose exam: Normal external nose present Face and sinus: Yes normal facial exam Mouth: Normal oral and palatal mucosa present Throat: Yes posterior oropharynx normal and Yes uvula midline Eyes: General: appearance normal, both eyes and all related structures Pupils: Equal, round and reactive pupils present EOM: EOMs intact bilaterally Neck: Other: no midline spinous ttp, +L trapezius muscle ttp Neck: Yes normal visual inspection and Yes no meningeal signs Resp: Effort & Inspection: normal respiratory effort and no respiratory distress Auscultation: clear to auscultation bilaterally Cardio: Rate: regular rate Heart sounds: S1 normal heart sound present and S2 normal heart sound present GI: Inspection: Yes normal to inspection Palpation (GI): Soft to palpation, nontender, no guarding and not rigid Back/Spine/Pelvis: Other: No midline thoracic/lumbar spinous tenderness/step-off or deformity Skin: Rashes: no rashes Wounds: no wounds Neuro: Other: Strength intact throughout. No saddle anesthesia. Sensation intact to light t ouch. Neurovascular intact distally General: patient oriented x3, gait normal, tone normal, moves all extremities, no meningeal signs, no focal motor deficits and CN's II-XI intact bilaterally Cranial nerves: Yes CN's II-XII intact bilaterally and Yes Equal, round and reactive pupils present Cognition (Neuro): normal cognition Speech: No Abnormal speech present Gait exam (Neuro): Normal gait present Motor exam (neuro): 5/5 motor strength present throughout and no tremor noted Extrem: General: Yes normal to inspection Course Course Course Narrative: CT head/brain wo IV con IMPRESSION: No acute intracranial abnormality. CT cervical spine wo IV con IMPRESSION: Hardware is noted. No evidence for fracture or dislocation of the cervical spine.? ? Fleischner guidelines were followed. Results discussed with patient including worrisome signs and symptoms and strict return precautions, and when to return to the emergency department. They verbalized understanding and feel safe for discharge at this time. MDM - Fall MDM Narrative Medical decision making narrative: 66yo F with PMHx depression, heart disease, HLD, HTN, on baby ASA, presenting to the ED c/o TALAVERA and acute on chronic L sided neck pain s/p mechanical slip and fall while in the shower [employer]. On exam VSS, NAD, well appearing, no midline spinous ttp or red flag sx. PE as above. Concern for MSK pain/spasming or strain vs ICH vs concussion Plan: Head/C-spine CT, sx tx, reassess Differential Diagnosis Differential diagnosis: Likely concussion without loss of consciousness Medical Records Attestation: I reviewed the patient's medical records. Lab Data Attestation: I reviewed the patient's lab results. Discharge Plan Discharge Clinical Impression: Head injury, Acute neck pain Patient Disposition: Home, Self-Care Instructions: Head Injury (ED), Acute Neck Pain (ED) Additional Instructions: Your CAT scans do not show any acute fractures or bleeding Flexeril is a muscle relaxer, take at night as it makes you drowsy, do not drive, drink alcohol, or operate machinery while taking it Naproxen as an anti-inflammatory / pain medication, take with food Lidoderm patches are numbing patches, apply to painful area In addition take Tylenol at home If symptoms persist or worsen, pain becomes unbearable, you developed urinary retention or incontinence, or weakness return to the ED Prescriptions: New cyclobenzaprine 5 mg tablet 5 mg PO Q8H PRN (Reason: pain (scale score 7-10)) 5 Days Qty: 14 0RF lidocaine [Lidoderm] 5 % adhesive patch,medicated 1 patch topical DAILY MDD remove after 12 hours PRN (Reason: pain) Qty: 30 0RF Rx Instructions: leave on most painful area for up to 12 hrs acetaminophen [Tylenol Extra Strength] 500 mg tablet 500 mg PO Q6H PRN (Reason: fever or pain) Qty: 14 0RF naproxen 500 mg tablet 500 mg PO BID PRN (Reason: pain) 10 Days Qty: 20 0RF No Action cyclobenzaprine 10 mg tablet 10 mg PO TID PRN (Reason: muscle spasm) Qty: 10 0RF tramadol 50 mg tablet 50 mg PO TID PRN (Reason: pain) Qty: 10 0RF prednisone 20 mg tablet 60 mg PO DAILY 5 Days Qty: 15 0RF naproxen 500 mg tablet 500 mg PO BID PRN (Reason: pain) 10 Days Qty: 20 0RF bupropion HCl 150 mg tablet sustained-release 12 hr 150 mg PO BID trazodone 100 mg tablet 100 mg PO DAILY ranolazine 1,000 mg tablet extended release 12 hr 1,000 mg PO BID atorvastatin 80 mg tablet 80 mg PO DAILY isosorbide mononitrate 60 mg tablet extended release 24 hr 60 mg PO DAILY metoprolol succinate 25 mg tablet extended release 24 hr 12.5 mg PO DAILY amlodipine 5 mg tablet 5 mg PO DAILY fluoxetine 20 mg capsule 20 mg PO BID Rx Instructions: administer in the morning and at noon/midday Referrals: Jennifer Stewart MD [Primary Care Provider] - 5 days Interventions: ED Discharge Assessment Last Done: 03/25/22 14:51 Discharge Date/Time: 03/25/22 14:53
[2022-03-25] MEDS: Lidocaine 4 % Patch ADH..PATCH 1 PATCH TRANSDERMA (12:41)
[2022-03-25] MEDS: Cyclobenzaprine HCl 10 MG TABLET PO (12:41)
== END 2022-03-25 14:53 | disposition home or self-care (01) ==
PROVIDERS: Emergency Provider Emergency Medicine; PCP Family Medicine
DX: S09.90XA Unspecified injury of head, initial encounter (principal); R51.9 Headache, unspecified; M54.2 Cervicalgia; W18.2XXA Fall in (into) shower or empty bathtub, initial encounter; Y93.9 Activity, unspecified; Y92.002 Bathroom of unspecified non-institutional (private) residence as the place of occurrence of the external cause; Y99.9 Unspecified external cause status
CPT/HCPCS: 70450; 72125; 99283; 99284

== ENCOUNTER 2022-04-24 09:00 | Outpatient (RCR) | payer MEDICARE, OTHER, SELFPAY ==
--- NOTE | 2022-04-03 12:18 | MHC.PT.EP ---
[facility] [place] Office [place] Office [place] Office [address] Angela Morocho [address] [phone] F: [phone] F: [phone] F: [phone] F: [phone] Physical Therapy Plan of Care Date of Evaluation: Date of Surgery: NA Diagnosis: IMPINGEMENT SYNCROME L SHOULDER Assessment: Pt IS 66 YO RHD F REFERRED TO PT FROM [facility] (DR NOONAN) WITH L SHLDER IMPINGEMENT OF >6 MONTH DURATION THAT STARTED WHEN Pt PLAYING WITH GRANDCHILD. PRESENTS WITH LIMITED ROM AND STRENGTH L SHLDER. OF NOTE, Pt HAS HX OF CERVICAL FUSION AND RECENT TRIP TO ER BECAUSE OF NECK PAIN. PRESENTS WITH LIMITED CERVICAL ROM. Pt HAD CORTISONE INJECTION L SHLDER PER DR NOONAN WITHOUT RELIEF. GOOD PT CANDIDATE TO ADDRESS THESE ISSUES Frequency and Duration: The patient will be seen 2X/WK X 6 WKS Short Term Goals: 1. INCREASED POSTURE AWARENESS AND AWARENESS NECK/SHLDER CARE 2. IMPROVED SLEEP Mcfp Goals: 1. INCREASED L SHLDER ROM 10-20 DEGREES T/O 2. DECREASED L SHLDER PAIN AT LEAST 50% WITH ADLS 3. I HEP WITH DC EX PLAN 4. IMPROVED SPADI Treatment Plan: Modalities to reduce pain, spasms and effusion. Manual therapy to restore motion and function. Therapeutic exercise to improve strength and flexibility. Neuromuscular re-education for posture and balance. Therapeutic activities to return to functional activities of daily living. Electronically signed by: ADITYA SOLORZANO PT Please sign and return to therapist. Thank you for your referral.
--- NOTE | 2022-05-15 16:12 | MHC.PT.DC ---
[facility] [place] Office [place] Office [place] Office [address] Angela Morocho [address] [phone] F: [phone] F: [phone] F: [phone] F: [phone] Physical Therapy Discharge Report Diagnosis: IMPINGEMENT SYNCROME L SHOULDER Date of Surgery: NA Date of Evaluation: 04/03/22 Date of Discharge: 05/15/22 Treatments to Date: 5 Cancellations to Date: No Shows to Date: Discharge Status: Improved Function Independent with HEP Patient Elected to Stop Discharge Summary: Pt LAST SEEN ON 04/24/22 WITH ASSESSMENT GOOD PERFORMANCE OF EXS, MAY BE READY FOR DC SOON..REV GOALS NEXT SESSION . Pt THEN HAD 3 CANCELS (SHINGLES). SPOKE WITH Pt ON 05/15 WHO REPORTS OK FOR DC AT THIS TIME. ED TO CONTACT [facility]TH[facility] IF RETURN OR INCREASE IN SXS Electronically signed by: ADITYA SOLORZANO PT Please sign and return to therapist. Thank you for your referral.
== END 2022-05-15 16:12 | disposition home or self-care (01) ==
LOC: HO.PT 09:00
PROVIDERS: PCP Family Medicine; Visit Provider Orthopaedic Surgery
DX: M75.42 Impingement syndrome of left shoulder (principal)
CPT/HCPCS: 97110; 97140; 97162

== ENCOUNTER 2023-01-19 18:14 | Emergency (ER) | payer MEDICARE, OTHER, SELFPAY ==
[2023-01-19 18:21] VITALS: BP 156/95; PULSE 89; RESP 20; TEMP 36.3; O2SAT 97; BMI 28.7
--- NOTE | 2023-01-19 18:21 | ED_ITS ---
HPI - General Adult General Chief complaint: Dental/Oral Stated complaint: toothache Time Seen by Provider: 01/19/23 18:43 Source: patient Mode of arrival: ambulatory Limitations: no limitations History of Present Illness HPI narrative: Patient was seen by dentist on Wednesday, started on clindamycin 150mg QIDx 7 days and a mouthwash for dental abscess, as well as extra strength Tylenol. States pain has not improved at all and is now radiating to right ear. Did not call dentist today because she was hoping symptoms would improve. Chills yesterday and the night before. States has not been able to eat related to the pain. Denies drainage or discharge. States plan is to have tooth extracted. Patient states she is able to take NSAIDs but is unsure why dentist did not advise her to use this. States she is scheduled to have the affected tooth removed on the . MD complaint: dental pain Onset (ago): day(s) Location: mouth Radiation: other (right ear) Severity scale (1-10): 10 Quality: constant Relieving factors: none Exacerbating factors: eating Treatments prior to arrival: other (Tylenol, abx) Related Data Home Medications Medication Instructions Recorded Confirmed amlodipine 5 mg tablet 5 mg PO DAILY 03/09/22 03/09/22 atorvastatin 80 mg tablet 80 mg PO DAILY 03/09/22 03/09/22 bupropion HCl 150 mg tablet,12 hr 150 mg PO BID 03/09/22 03/09/22 sustained-release fluoxetine 20 mg capsule 20 mg PO BID 03/09/22 03/09/22 isosorbide mononitrate 60 mg 60 mg PO DAILY 03/09/22 03/09/22 tablet,extended release 24 hr metoprolol succinate 25 mg 12.5 mg PO DAILY 03/09/22 03/09/22 tablet,extended release 24 hr ranolazine 1,000 mg 1,000 mg PO BID 03/09/22 03/09/22 tablet,extended release,12 hr trazodone 100 mg tablet 100 mg PO DAILY 03/09/22 03/09/22 Previous Rx's Medication Instructions Recorded cyclobenzaprine 10 mg tablet 10 mg PO TID PRN muscle spasm #10 03/04/21 tabs tramadol 50 mg tablet 50 mg PO TID PRN pain #10 tabs 03/04/21 naproxen 500 mg tablet 500 mg PO BID PRN pain 10 days #20 01/26/22 tabs prednisone 20 mg tablet 60 mg PO DAILY 5 days #15 tabs 01/26/22 acetaminophen 500 mg tablet 500 mg PO Q6H PRN fever or pain 03/25/22 (Tylenol Extra Strength) #14 tabs cyclobenzaprine 5 mg tablet 5 mg PO Q8H PRN pain (scale score 03/25/22 7-10) 5 days #14 tabs lidocaine 5 % topical patch 1 patch topical DAILY PRN pain #30 03/25/22 (Lidoderm) ea naproxen 500 mg tablet 500 mg PO BID PRN pain 10 days #20 03/25/22 tabs clindamycin HCl 150 mg capsule 150 mg PO QID #12 caps 01/19/23 oxycodone 5 mg tablet 5 mg PO Q8H PRN pain #8 tabs 01/19/23 Allergies Allergy/AdvReac Type Severity Reaction Status Date / Time No Known Allergies Allergy Mild N/A Verified 01/19/23 18:20 Review of Systems Review of Systems: As per HPI. Yes all other systems are reviewed and are negative Constitutional: Constitutional: Reports as per HPI [facility] Past Medical History Medical History Depression Heart disease High cholesterol Hypertension Insomnia Social History Social History Advance Directives: No Advance Directives Information Provided: Yes Physical Exam ED Vital Signs: Vital Signs - 24 hr 01/19/23 18:21 Temperature 97.4 F Pulse Rate 89 Respiratory Rate 20 Blood Pressure 156/95 H Pulse Oximetry 97 Oxygen Delivery Method Room Air BMI result Body Mass Index 28.7 Vital signs have been reviewed and appear to be correct. Blood pressure elevated, likely related to pain. Heart rate normal. Respiratory rate normal. Temperature normal. Oxygen saturation normal. Const General: cooperative and healthy appearing Orientation/consciousness: oriented to person, oriented to place, oriented to time and patient oriented x3 Limitations: no limitations HENMT Head: Yes normocephalic and Yes atraumatic Ears: external ears normal, TM's normal bilaterally and EAC's normal General nose exam: Normal external nose present Face and sinus: Yes normal facial exam, Yes face symmetric, No edema, No fluctuance and Yes Facial tenderness on exam of face and sinuses (right posterior jaw) Mouth: oropharynx normal and moist mucous membranes Teeth and gingiva: abnormal tooth and associated gingiva lower right third molar tender; without sulcal bleeding, without any associated gingival edema and without associated gingival fluctuance and poor dentition Throat: Yes posterior oropharynx normal, Yes uvula midline and No uvular edema Eyes Pupils: Equal, round and reactive pupils present Neck Neck: Yes normal visual inspection and Yes supple Resp Effort & Inspection: normal respiratory effort and able to speak in complete sentences Auscultation: clear to auscultation bilaterally Cardio Rate: regular rate Rhythm: regular rhythm Heart sounds: S1 normal heart sound present and S2 normal heart sound present GI Palpation (GI): Soft to palpation and nontender Auscultation: normoactive bowel sounds General: Yes no CVA tenderness Back/Spine/Pelvis Back: no CVA tenderness Skin General skin exam: elasticity normal and turgor normal Neuro General: oriented to person, oriented to place, oriented to time, patient oriented x3, moves all extremities, no focal motor deficits and CN's II-XI intact bilaterally Cranial nerves: Yes Equal, round and reactive pupils present Cognition (Neuro): normal cognition Extrem General: Yes full ROM, Yes no pedal edema and Yes no calf tenderness Psych Mental Status: mental status grossly normal Affect: normal affect Thought process: Normal thought process present Medical Decision Making Medical Decision Making MDM Narrative: Patient was seen by dentist on Wednesday, started on clindamycin 150mg QIDx 7 days and a mouthwash for dental abscess, as well as extra strength Tylenol. On exam patient does not have erythema, fluctuance, or edema in area of tenderness, no external swelling to face. No lymphadenopathy. Will prescribe short course of oxycodone and instruct patient to follow up with dentist tomorrow morning. Will also extend clindamycin prescription to 10 days from 7. Return precautions discussed. Differential Diagnosis Differential Diagnoses: The differential diagnosis associated with the presentation includes dental pain, dental abscess External Record Review External record reviewed: Inpatient record, Office record and Outpatient record Prescription Management I considered prescription management with: Pain Medication (oxycodone) and Antibiotic (clindamycin) Discharge Plan Discharge Clinical Impression: Pain due to dental caries Patient Disposition: Home, Self-Care Instructions: Toothache (ED) Additional Instructions: Please call your dentist first thing in the morning to advise them of your ongoing pain. You are being prescribed additional antibiotics to extend your prescription to ten days. Return to the emergency department with worsening pain, swelling to your mouth or throat, difficulty managing your saliva, shortness of breath, or any other concerning symptoms. Prescriptions: New clindamycin HCl 150 mg capsule 150 mg PO QID Qty: 12 0RF Rx Instructions: Please being taking this when your prior prescription is complete to extend your treatment to a total of 10 days. oxycodone 5 mg tablet 5 mg PO Q8H PRN (Reason: pain) Qty: 8 0RF Rx Instructions: Partial Fill upon patient request. No Action cyclobenzaprine 10 mg tablet 10 mg PO TID PRN (Reason: muscle spasm) Qty: 10 0RF tramadol 50 mg tablet 50 mg PO TID PRN (Reason: pain) Qty: 10 0RF prednisone 20 mg tablet 60 mg PO DAILY 5 Days Qty: 15 0RF naproxen 500 mg tablet 500 mg PO BID PRN (Reason: pain) 10 Days Qty: 20 0RF cyclobenzaprine 5 mg tablet 5 mg PO Q8H PRN (Reason: pain (scale score 7-10)) 5 Days Qty: 14 0RF lidocaine [Lidoderm] 5 % adhesive patch,medicated 1 patch topical DAILY MDD remove after 12 hours PRN (Reason: pain) Qty: 30 0RF Rx Instructions: leave on most painful area for up to 12 hrs acetaminophen [Tylenol Extra Strength] 500 mg tablet 500 mg PO Q6H PRN (Reason: fever or pain) Qty: 14 0RF naproxen 500 mg tablet 500 mg PO BID PRN (Reason: pain) 10 Days Qty: 20 0RF bupropion HCl 150 mg tablet sustained-release 12 hr 150 mg PO BID trazodone 100 mg tablet 100 mg PO DAILY ranolazine 1,000 mg tablet extended release 12 hr 1,000 mg PO BID atorvastatin 80 mg tablet 80 mg PO DAILY isosorbide mononitrate 60 mg tablet extended release 24 hr 60 mg PO DAILY metoprolol succinate 25 mg tablet extended release 24 hr 12.5 mg PO DAILY amlodipine 5 mg tablet 5 mg PO DAILY fluoxetine 20 mg capsule 20 mg PO BID Rx Instructions: administer in the morning and at noon/midday
== END 2023-01-19 19:29 | disposition home or self-care (01) ==
PROVIDERS: Emergency Provider Emergency Medicine; PCP Family Medicine
DX: K02.9 Dental caries, unspecified (principal)
CPT/HCPCS: 99282; 99283

== ENCOUNTER 2023-05-17 10:58 | Outpatient (REF) | payer MEDICARE, OTHER, SELFPAY ==
[2023-05-17 13:30] LABS: MANUAL DIFF FLAG NO
[2023-05-17 13:43] LABS: Basophils Absolute Auto 0.1 X10*3/uL (0.0-0.2); Basophils Percent Auto 1.1 % (0-2); Eosinophils Absolute Auto 0.4 X10*3/uL (0.0-0.4); Eosinophils Percent Auto 4.7 % (0-4); Hemoglobin 13.8 g/dl (12.0-16.0); Imm Gran Abs Auto 0.03 X10*3/uL (0.00-0.03); Imm Gran Pct Auto 0.3 % (0.0-0.4); Lymphocytes Absolute Auto 2.1 X10*3/uL (1.2-4.9); Lymphocytes Percent Auto 23.9 % (20-40); Mean Corpuscular HGB Conc 32.9 g/dl (31.0-35.0); Mean Corpuscular Hemoglobin 32.2 pg (27.0-33.0); Mean Corpuscular Volume 97.9 fL (80.0-98.0); Mean Platelet Volume 10.4 fL (9.4-12.3); Monocytes Absolute Auto 0.6 X10*3/uL (0.1-1.2); Monocytes Percent Auto 6.9 % (2-11); Neutrophils Absolute Auto 5.5 x10*3/uL (2.0-8.3); Neutrophils Percent Auto 63.1 % (45-73); Platelet Count 224 X10*3/uL (160-400); Red Blood Count 4.29 X10*6/uL (4.20-5.50); Red Cell Distribution Width 13.2 % (11.0-16.0); White Blood Count 8.7 X10*3/uL (4.8-10.8)
[2023-05-17 14:10] LABS: Anion Gap 12 (12-20); Blood Urea Nitrogen 11 mg/dL (9-16); Calcium 9.5 mg/dL (8.4-10.2); Carbon Dioxide 26 mmol/L (22-29); Chloride 106 mmol/L (96-108); Cholesterol 259 mg/dL (<200); Estimated Glomerular Filt Rate > 60; Glucose Random 76 mg/dL (60-115); HDL Cholesterol 57 mg/dL (>40); LDL Cholesterol Calculated 162 mg/dL (<100); Potassium 4.4 mmol/L (3.3-5.1); Sodium 140 mmol/L (135-145); Triglycerides 200 mg/dL (<150)
[2023-05-17 14:28] LABS: TSH reflex Free T4 0.84 uIU/mL (0.32-4.0)
[2023-05-18 09:21] LABS: ~HepC Num1 0.05 S/CO (0.00-0.79); ~Hepatitis C Antibody Nonreactive (Nonreactive)
[2023-05-21 14:09] LABS: VITAMIN D (1,25 OH) D3 35 pg/mL; Vit D (1,25-Dihydroxy) Total 35 pg/mL (18-72); Vitamin D (1,25 OH) D2 <8 pg/mL
== END 2023-05-17 10:59 | disposition home or self-care (01) ==
LOC: HO.HHCL 10:58
PROVIDERS: Visit Provider Family Medicine
DX: I48.91 Unspecified atrial fibrillation (principal); I11.0 Hypertensive heart disease with heart failure; I50.9 Heart failure, unspecified; E55.9 Vitamin D deficiency, unspecified; Z11.59 Encounter for screening for other viral diseases
CPT/HCPCS: 36415; 80048; 80061; 82652; 84443; 85025; 86803

== ENCOUNTER 2023-07-01 10:25 | Observation (INO) | payer MEDICARE, OTHER, SELFPAY ==
[2023-07-01] VITALS (8 sets, daily range): BP systolic 101–138; BP diastolic 54–87; PULSE 68–91; RESP 17–32; TEMP 36.4–37.2; O2SAT 94–96; BMI 27.6; BMI 27.0
--- NOTE | ~2023-07-01 | XR_ITS ---
EXAMINATION: XR CHEST CLINICAL INFORMATION: Difficulty breathing COMPARISON: Chest 03/03/2021 TECHNIQUE: 2 views of the chest were obtained. FINDINGS: No significant abnormality is noted involving the heart, lungs, mediastinum, bony thorax or soft tissues. There are median sternotomy sutures and mediastinal spencer from previous CABG. There is lower cervical spine fusion with ventral hardware. XR/XR chest 2V IMPRESSION: No acute cardiopulmonary process seen.
--- NOTE | 2023-07-01 10:32 | ECG_ITS ---
Test Reason : diff breathing Blood Pressure : / mmHG Vent. Rate : 068 BPM Atrial Rate : 068 BPM P-R Int : 152 ms QRS Dur : 096 ms QT Int : 432 ms P-R-T Axes : 077 036 079 degrees QTc Int : 459 ms Normal sinus rhythm Nonspecific ST and T wave abnormality Borderline ECG When compared with ECG of 03-MAR-2021 20:31, No significant changes seen Referred By: Generic ED Physician Electronically Signed By:WINSTON CAPPS
[2023-07-01] MEDS: Albuterol Sulfate 2.5 MG, Albuterol Sulfate (0.083%) 2.5 MG 5 MG INHALE ×2 (11:05→12:05)
[2023-07-01 11:14] LABS: MANUAL DIFF FLAG NO
[2023-07-01 11:21] LABS: Basophils Absolute Auto 0.1 X10*3/uL (0.0-0.2); Eosinophils Absolute Auto 0.6 X10*3/uL (0.0-0.4); Eosinophils Percent Auto 7.1 % (0-4); Hematocrit 37.4 % (37.0-47.0); Hemoglobin 12.9 g/dl (12.0-16.0); Imm Gran Abs Auto 0.02 X10*3/uL (0.00-0.03); Imm Gran Pct Auto 0.2 % (0.0-0.4); Lymphocytes Absolute Auto 1.8 X10*3/uL (1.2-4.9); Lymphocytes Percent Auto 19.7 % (20-40); Mean Corpuscular HGB Conc 34.5 g/dl (31.0-35.0); Mean Corpuscular Hemoglobin 32.2 pg (27.0-33.0); Mean Corpuscular Volume 93.3 fL (80.0-98.0); Monocytes Absolute Auto 0.8 X10*3/uL (0.1-1.2); Monocytes Percent Auto 8.6 % (2-11); Neutrophils Absolute Auto 5.7 x10*3/uL (2.0-8.3); Neutrophils Percent Auto 63.4 % (45-73); Platelet Count 207 X10*3/uL (160-400); Red Blood Count 4.01 X10*6/uL (4.20-5.50); Red Cell Distribution Width 12.8 % (11.0-16.0)
--- NOTE | 2023-07-01 11:22 | ED_ITS ---
HPI - SOB/Dyspnea General Chief Complaint: Dyspnea Stated Complaint: Difficulty breathing Time Seen by Provider: 07/01/23 10:46 Source: patient, RN notes reviewed and old records reviewed Mode of arrival: ambulatory History of Present Illness HPI Narrative: 67-year-old female with a past medical history of HLD, HTN, insomnia, depression, presenting to the ED complaining of increasing SOB/difficulty breathing and cough x3 days. Denies known history of asthma/COPD. Reports associated chest tightness. Denies fever/chills, abdominal pain, pedal edema, calf tenderness, recent travel, sick contacts. MD elicited complaint: shortness of breath and cough Related Data Home Medications Medication Instructions Recorded Confirmed amlodipine 5 mg tablet 5 mg PO DAILY 03/09/22 07/01/23 atorvastatin 80 mg tablet 80 mg PO DAILY 03/09/22 07/01/23 bupropion HCl 150 mg tablet,12 hr 150 mg PO BID 03/09/22 07/01/23 sustained-release fluoxetine 20 mg capsule 40 mg PO DAILY 03/09/22 07/01/23 isosorbide mononitrate 60 mg 60 mg PO DAILY 03/09/22 07/01/23 tablet,extended release 24 hr metoprolol succinate 25 mg 25 mg PO DAILY 03/09/22 07/01/23 tablet,extended release 24 hr ranolazine 1,000 mg 1,000 mg PO BID 03/09/22 07/01/23 tablet,extended release,12 hr trazodone 100 mg tablet 100 mg PO BEDTIME 03/09/22 07/01/23 amoxicillin 500 mg capsule 500 mg PO Q8H 07/01/23 07/01/23 aspirin 81 mg tablet,delayed 81 mg PO QAM 07/01/23 07/01/23 release Previous Rx's Medication Instructions Recorded acetaminophen 500 mg tablet 500 mg PO Q6H PRN fever or pain 03/25/22 (Tylenol Extra Strength) #14 tabs Allergies Allergy/AdvReac Type Severity Reaction Status Date / Time No Known Allergies Allergy Mild N/A Verified 01/19/23 18:20 Review of Systems 2 Review of Systems: Constitutional: No Fever, No Chills ENT/Mouth: No Ear Pain, No Nasal Congestion, No sore throat, No Rhinorrhea, No Swallowing Difficulty Cardiovascular: + Chest Pain, + SOB Respiratory: + Cough, No Sputum, + Wheezing Gastrointestinal: No Nausea, No Vomiting, No Diarrhea, No Constipation, No Abdominal pain Musculoskeletal: No joint pain, No Myalgias, No Joint Swelling Skin: No Skin Lesions, No rash Neuro: No Weakness, No Numbness, No Paresthesias Yes all other systems are reviewed and are negative Constitutional: Constitutional: Reports as per [facility] Past Medical History Attestation statement: The following information was validated with the patient. Source: old records reviewed Medical History Depression High cholesterol Hypertension Insomnia Heart disease Social History Social History Advance Directives: No Physical Exam 2 Vital Signs: Vital Signs: Last Vital Signs Temp 98.2 F 07/01/23 10:28 Pulse 68 07/01/23 12:05 Resp 18 07/01/23 12:05 BP 138/87 07/01/23 10:28 Pulse Ox 96 07/01/23 10:28 O2 Del Method Room Air 07/01/23 10:28 BMI result Body Mass Index 27.6 Const: General: cooperative, healthy appearing and no acute distress O rientation/consciousness: patient oriented x3 Limitations: no limitations HEENT: Head: Yes normal to inspection and Yes atraumatic Ears: hearing grossly normal bilaterally General nose exam: Normal external nose present Face and sinus: Yes normal facial exam Eyes: General: appearance normal, both eyes and all related structures EOM: EOMs intact bilaterally Neck: Neck: Yes normal visual inspection and Yes no meningeal signs Resp: Effort & Inspection: no respiratory distress Auscultation: rhonchi throughout and wheezes expiratory wheezes and throughout Cardio: Rate: regular rate Heart sounds: S1 normal heart sound present and S2 normal heart sound present GI: Inspection: Yes normal to inspection Palpation (GI): Soft to palpation, nontender, no guarding and not rigid Skin: Rashes: no rashes Wounds: no wounds Neuro: General: patient oriented x3, tone normal and no meningeal signs C ranial nerves: Yes CN's II-XII intact bilaterally Gait exam (Neuro): Normal gait present Extrem: General: Yes normal to inspection, Yes no pedal edema and Yes no calf tenderness Course Course Course Narrative: -1240--no leukocytosis. Labs otherwise reassuring. COVID/flu/RSV negative >1241--on re-evaluation after 2nd DuoNeb and IV Solu-Medrol patient still with diffuse expiratory wheeze. IV magnesium an additional DuoNeb ordered. Anticipate admission >1414--on re-evaluation patient is still with diffuse expiratory wheeze/rhonchi. Plan for admission XR chest 2V IMPRESSION: No acute cardiopulmonary process seen. Medications Administered Discontinued Medications Generic Name Dose Route Start Last Admin Trade Name German PRN Reason Stop Dose Admin Albuterol Sulfate 2.5 mg/ 5 mg 07/01/23 11:02 07/01/23 11:05 Albuterol Sulfate 2.5 mg INHALE 07/01/23 11:03 5 mg ONCE ONE Administration Albuterol Sulfate 2.5 mg/ 5 mg 07/01/23 12:01 07/01/23 12:05 Albuterol Sulfate 2.5 mg INHALE 07/01/23 12:02 5 mg ONCE ONE Administration Albuterol Sulfate 5 mg 07/01/23 12:41 07/01/23 13:35 Albuterol Sulfate 2.5 Mg/0.5 Ml Vial.Neb INHALE 07/01/23 12:42 5 mg ONCE ONE Administration Magnesium Sulfate 2 gm in 50 mls @ 25 mls/hr 07/01/23 12:41 07/01/23 13:24 Magnesium Sulfate/H2o IV 07/01/23 14:40 Infused ONCE ONE Infusion Methylprednisolone Sodium Succinate 125 mg 07/01/23 11:04 07/01/23 11:40 Methylprednisolone Sod Succ 125 Mg/2 Ml Vial IVPUSH 07/01/23 11:05 125 mg ONCE ONE Administration Medical Decision Making Medical Decision Making MDM Narrative: 67-year-old female with a past medical history of HLD, HTN, insomnia, depression, presenting to the ED complaining of increasing SOB/difficulty breathing and cough x3 days. On exam initially tachypneic, NAD/nontoxic appearing, diffuse expiratory wheeze and rhonchi noted. No pitting edema or calf tenderness. Concern for viral illness vs pneumonia/bronchitis vs CHF. Low suspicion for ACS/PE or dissection Plan: EKG, labs, CXR, viral testing, ED bronch protocol, IV Solu-Medrol, re- evaluate Please refer to course for remaining clinical decision making, interpretation of labs/imaging results, and discussions with consultants and/or family members. Differential Diagnosis Differential Diagnoses: The differential diagnosis associated with the presentation includes As above Admission/Observation Consideration of admission/observation: Escalation of care including admission/observation considered Lab Data MDM Lab Attestation statement: I reviewed the patient's lab results. 07/01/23 11:07 07/01/23 11:07 Labs: Lab Results 07/01/23 07/01/23 07/01/23 Range/Units 11:07 11:08 14:29 WBC 9.0 (4.8-10.8) X10*3/uL RBC 4.01 L (4.20-5.50) X10*6/uL Hgb 12.9 (12.0-16.0) g/dl Hct 37.4 (37.0-47.0) % MCV 93.3 (80.0-98.0) fL MCH 32.2 (27.0-33.0) pg MCHC 34.5 (31.0-35.0) g/dl RDW 12.8 (11.0-16.0) % Plt Count 207 (160-400) X10*3/uL MPV 10.0 (9.4-12.3) fL Immature Gran % (Auto) 0.2 (0.0-0.4) % Neut % (Auto) 63.4 (45-73) % Lymph % (Auto) 19.7 L (20-40) % Finney % (Auto) 8.6 (2-11) % Eos % (Auto) 7.1 H (0-4) % Baso % (Auto) 1.0 (0-2) % Lymph # (Auto) 1.8 (1.2-4.9) X10*3/uL Finney # (Auto) 0.8 (0.1-1.2) X10*3/uL Eos # (Auto) 0.6 H (0.0-0.4) X10*3/uL Baso # (Auto) 0.1 (0.0-0.2) X10*3/uL Abs Immat Gran (auto) 0.02 (0.00-0.03) X10*3/uL Absolute Neuts (auto) 5.7 (2.0-8.3) x10*3/uL Absolute Nucleated RBC 0.000 (0.0-0.012) X10*3/uL Nucleated RBC % (auto) 0.0 (0.0-0.2) /100WBC PT 11.7 (11.1-13.3) SEC INR 1.0 (0.9-1.1) VBG pH 7.49 H (7.32-7.43) VBG pCO2 30 mmHg VBG pO2 67 mmHg VBG HCO3 23 (22-26) mmol/L VBG O2 Saturation 94.0 % VBG Base Excess 0.8 mmol/L Sodium 141 (135-145) mmol/L Potassium 3.9 (3.3-5.1) mmol/L Chloride 107 (96-108) mmol/L Carbon Dioxide 24 (22-29) mmol/L Anion Gap 14 (12-20) BUN 11 (9-16) mg/dL Creatinine 0.74 (0.5-1.4) mg/dL Estim Creat Clear Calc 69.5 Estimated GFR > 60 Random Glucose 98 (60-115) mg/dL Calcium 9.5 (8.4-10.2) mg/dL Total Bilirubin 0.4 (0.0-1.0) mg/dL Direct Bilirubin 0.2 (0.0-0.5) mg/dL AST 17 (5-31) U/L ALT 14 (0-31) U/L Alkaline Phosphatase 72 (39-117) U/L Troponin I High Sens 8.0 (<3.5-17.0) ng/L B-Natriuretic Peptide 40 (<100) pg/mL Total Protein 6.6 (6.5-8.0) g/dL Albumin 4.1 (3.5-5.0) g/dL Influenza Type A (PCR) NEGATIVE (Negative) Influenza Type B (PCR) NEGATIVE (Negative) RSV RNA Qual (PCR) NEGATIVE (Negative) SARS-CoV-2 RNA (RT-PCR) NEGATIVE (Negative) Independent Interpretation I performed an independent interpretation of an: EKG (My interpretation normal sinus rhythm inverted T-wave in V1 and V2. [place] interval 152. No STEMI.) Radiology Impression Discussion of test interpretation with radiology: I have reviewed the radiologist's reading. External Record Review External record reviewed: Inpatient record, Office record, Outpatient record, Prior outpatient labs, Prior outpatient radiology, Primary care record and Outside ED record Tests considered The following testing was considered but not selected: As above Critical Care Time Critical Care Time Critical Care Time: Yes Total Critical Care Time: 40 Attestation: I have personally provided critical care time exclusive of time spent on separately billable procedures. Time includes review of lab data, radiology results, discussion with consultants, and monitoring for potential decompensation. Intervention performed as documented. Discharge Plan Discharge Clinical Impression: Bronchitis Patient Disposition: Admitted As Inpatient
[2023-07-01 11:29] LABS: Prothrombin Time 11.7 SEC (11.1-13.3)
[2023-07-01 11:32] LABS: Anion Gap 14 (12-20); Blood Urea Nitrogen 11 mg/dL (9-16); Calcium 9.5 mg/dL (8.4-10.2); Carbon Dioxide 24 mmol/L (22-29); Chloride 107 mmol/L (96-108); Creatinine Clr Calc Pharmacy 69.5; Estimated Glomerular Filt Rate > 60; Glucose Random 98 mg/dL (60-115); Potassium 3.9 mmol/L (3.3-5.1); Sodium 141 mmol/L (135-145)
[2023-07-01] MEDS: methylPREDNISolone Sod Succ 125 MG/2 ML VIAL IVPUSH (11:40)
[2023-07-01 11:43] LABS: Alanine Aminotransferase 14 U/L (0-31); Albumin Level 4.1 g/dL (3.5-5.0); Alkaline Phosphatase 72 U/L (39-117); Aspartate Amino Transferase 17 U/L (5-31); Bilirubin Direct 0.2 mg/dL (0.0-0.5); Bilirubin Total 0.4 mg/dL (0.0-1.0); Total Protein 6.6 g/dL (6.5-8.0)
[2023-07-01 12:00] LABS: B Type Natriuretic Peptide 40 pg/mL (<100)
[2023-07-01 12:02] LABS: Influenza A PCR NEGATIVE (Negative); Influenza B PCR NEGATIVE (Negative); Resp Syncy Virus RNA Qual PCR NEGATIVE (Negative); SARS COV2 PCR INHOUSE NEGATIVE (Negative)
[2023-07-01] MEDS: Magnesium Sulfate/H2O 2 GM/50 ML PIGGYBACK IV (13:06)
[2023-07-01] MEDS: Albuterol Sulfate 2.5 MG/0.5 ML VIAL.NEB 5 MG INHALE (13:35)
[2023-07-01 14:35] LABS: Venous Blood Gas Refer to POC result
[2023-07-01 14:35] LABS: VBG Base Excess 0.8 mmol/L; VBG HCO3 23 mmol/L (22-26); VBG pCO2 30 mmHg; VBG pH 7.49 (7.32-7.43); VBG pO2 67 mmHg
--- NOTE | 2023-07-01 14:38 | PHA.MEDREC ---
Pharmacy Consult ? Medication Reconciliation Pharmacy has completed the medication reconciliation. Patient confirmed medications. Reports 3 more day of amoxicillin due to a tooth infection. Licha Flowers, RigobertoD
[2023-07-01 14:56] LABS: Troponin-I High Sensitivity 5.9 ng/L (<3.5-17.0)
--- NOTE | 2023-07-01 16:00 | PM.IMHP ---
History of Present Illness Date of Service: 07/01/23 Attending physician on admission: [facility] Chief Complaint: SOB Pt is a 67-year-old female with a PMH significant for?HTN, HLD, CAD s/p CABG, anxiety, and depression who presents to the ED with?shortness of breath, difficulty breathing, and PALMA for the past 3 days. Patient states symptoms began at night when she awoke from sleep; they persisted throughout the day and were not alleviated by inhalers. Also complains of wheezing, chest tightness associated with breathing, and occasional nonproductive cough. Patient presents today after symptoms worsened and patient felt like she could not breathe at all. Patient states she has had at least 1 similar episode in her past where she has been hospitalized. Has apparently tested negative for both asthma and COPD. Is a lifelong nonsmoker. Denies chest pain/pressure, palpitations. No fever, chills, nausea, vomiting, abdominal pain. Of note, patient recently had 2 teeth extracted and 1 site of extraction became infected. Patient is on day 7 of doxycycline. In the ED pt was initially tachypneic up to 32, but otherwise vitals WNL, satting at 96% on RA. Labs were grossly unremarkable. Tested negative for influenza type a and B, RSV, COVID. CXR showed no acute cardiopulmonary process seen. EKG demonstrated normal sinus rhythm with nonspecific T-wave inversions in V1 and V2 but no significant ST elevations or depressions. Pt was treated with DuoNebs, Solu-Medrol, and Mag sulfate. Pt will be admitted to the hospital under observation for treatment of acute bronchitis. Review of Systems Review of Systems: Shortness of breath, PALMA, wheezing Nonproductive cough Chest tightness associated with breathing Denies fever, chills, nausea,, diarrhea, abdominal pain No chest pain/pressure, palpitations [facility] Medical History (Updated 07/01/23 @ 16:38 by KB Michele) CAD (coronary artery disease) Depression High cholesterol Hypertension Insomnia Heart disease Surgical History (Updated 07/01/23 @ 16:38 by KB Michele) Hx of CABG Social History Advance Directives: No Meds Allergies Allergy/AdvReac Type Severity Reaction Status Date / Time No Known Allergies Allergy Mild N/A Verified 01/19/23 18:20 Home Medications Medication Instructions Recorded Confirmed Last Taken Type amlodipine 5 mg tablet 5 mg PO DAILY 03/09/22 07/01/23 06/30/23 History atorvastatin 80 mg tablet 80 mg PO DAILY 03/09/22 07/01/23 06/30/23 History bupropion HCl 150 mg tablet,12 hr 150 mg PO BID 03/09/22 07/01/23 06/30/23 History sustained-release fluoxetine 20 mg capsule 40 mg PO DAILY 03/09/22 07/01/23 06/30/23 History isosorbide mononitrate 60 mg 60 mg PO DAILY 03/09/22 07/01/23 06/30/23 History tablet,extended release 24 hr metoprolol succinate 25 mg 25 mg PO DAILY 03/09/22 07/01/23 06/30/23 History tablet,extended release 24 hr ranolazine 1,000 mg 1,000 mg PO BID 03/09/22 07/01/23 06/30/23 History tablet,extended release,12 hr trazodone 100 mg tablet 100 mg PO BEDTIME 03/09/22 07/01/23 06/30/23 History amoxicillin 500 mg capsule 500 mg PO Q8H 07/01/23 07/01/23 06/30/23 History aspirin 81 mg tablet,delayed 81 mg PO QAM 07/01/23 07/01/23 06/30/23 History release Physical Exam Vital Signs and Narrative: Vital Signs: Last Vital Signs Temp 98.2 F 07/01/23 10:28 Pulse 68 07/01/23 12:05 Resp 18 07/01/23 12:05 BP 138/87 07/01/23 10:28 Pulse Ox 96 07/01/23 10:28 O2 Del Method Room Air 07/01/23 10:28 BMI result Body Mass Index 27.6 Constitutional: Alert, in no acute distress. Mental Status: Oriented to person, place and time. Eyes: Pupils are equal, round, and reactive to light. Ear, Nose, and Throat: Oropharynx clear, mucous membranes moist. No signs of dental infection or abscess. Ears and nose without deformities. Trachea midline. Respiratory: Audibly wheezing with no increased work of breathing. Capable of speaking in complete sentences. Diffuse wheezing and rhonchi upon auscultation. Cardiovascular: S1, S2 regular. No murmurs, rubs, or gallops. Gastrointestinal: Abdomen soft, non-tender, non-distended. Normal bowel sounds. Neurologic: Cranial nerves II-XII are grossly intact bilaterally. No focal neurological deficits. Moves all extremities spontaneously. Skin: Warm, dry. Musculoskeletal: No cyanosis or clubbing. Extremities: No edema. Psychiatric: Normal mood and affect. Results Labs 07/01/23 11:07 07/01/23 11:07 Labs: Laboratory Results - last 24 hr 07/01/23 07/01/23 07/01/23 11:07 11:08 14:29 MCV 93.3 MCH 32.2 MCHC 34.5 RDW 12.8 Plt Count 207 MPV 10.0 Immature Gran % (Auto) 0.2 Neut % (Auto) 63.4 Lymph % (Auto) 19.7 L [place] % (Auto) 8.6 Eos % (Auto) 7.1 H Baso % (Auto) 1.0 Lymph # (Auto) 1.8 [place] # (Auto) 0.8 Eos # (Auto) 0.6 H Baso # (Auto) 0.1 Abs Immat Gran (auto) 0.02 Absolute Neuts (auto) 5.7 Absolute Nucleated RBC 0.000 Nucleated RBC % (auto) 0.0 PT 11.7 INR 1.0 VBG pH 7.49 H VBG pCO2 30 VBG pO2 67 VBG HCO3 23 VBG O2 Saturation 94.0 VBG Base Excess 0.8 Anion Gap 14 Estim Creat Clear Calc 69.5 Estimated GFR > 60 Random Glucose 98 Calcium 9.5 Total Bilirubin 0.4 Direct Bilirubin 0.2 AST 17 ALT 14 Alkaline Phosphatase 72 B-Natriuretic Peptide 40 Total Protein 6.6 Albumin 4.1 Influenza Type A (PCR) NEGATIVE Influenza Type B (PCR) NEGATIVE RSV RNA Qual (PCR) NEGATIVE SARS-CoV-2 RNA (RT-PCR) NEGATIVE Imaging Radiologist's Impressions: Impressions Chest X-Ray 07/01/23 10:48 IMPRESSION: No acute cardiopulmonary process seen. Assessment and Plan (1) Bronchitis: Status: Acute Plan Pt is a 67-year-old female with a PMH significant for?HTN, HLD, CAD s/p CABG, anxiety, and depression who presents to the ED with?shortness of breath, difficulty breathing, and PALMA for the past 3 days. Pt will be admitted to the hospital under observation for treatment of acute bronchitis. Bronchitis Patient with SOB, PALMA, wheezing, nonproductive cough x3 days Received DuoNebs, Solu-Medrol, Mag sulfate in ED, but still diffusely rhonchorous on auscultation and with continued SOB Will continue to treat with DuoNebs and Solu-Medrol Patient not hypoxic, not on supplemental O2 HLD/CAD Continue ranolazine, isosorbide mononitrate Continue aspirin, statin Dental infection Two teeth pulled 2 weeks ago, one site became infected Continue amoxicillin, currently on day 7 of 10 Mood disorder Continue home meds Full Code Attending:?Dr. Montoya DVT Prophylaxis: Lovenox Pt will be admitted to the hospital under observation for treatment of bronchitis. Quality Stroke Does the patient have a stroke diagnosis?: No VTE Prior VTE?: No VTE Risk Level:: Medical - moderate - high VTE Device Contraindication: Treatment Not Indicated VTE Drug Contraindication: N/A - Med Ordered
[2023-07-01] MEDS: Enoxaparin Sodium 40 MG/0.4 ML SYRINGE SUBCUT (17:38)
[2023-07-01] MEDS: Isosorbide Mononitrate 60 MG TAB.ER.24H PO (17:38)
[2023-07-01] MEDS: Aspirin Enteric Coated 81 MG TABLET.DR PO (17:39)
[2023-07-01] MEDS: Atorvastatin Calcium 80 MG TABLET PO (17:39)
[2023-07-01] MEDS: FLUoxetine HCl 20 MG CAPSULE 40 MG PO (17:39)
[2023-07-01] MEDS: Metoprolol Succinate ER 25 MG TAB.ER.24H PO (17:40)
--- NOTE | 2023-07-01 17:45 | PC.NURSE ---
p medicated per Sep meds- pt is calm and cooperative- plan to move to ID for cont obs
[2023-07-01] MEDS: Albuterol/Iprat 2.5/0.5MG 3 ML AMPUL.NEB INHALE (19:18)
[2023-07-01] MEDS: Acetaminophen 325 MG TABLET 650 MG PO (19:56)
[2023-07-01] MEDS: 0.9 % Sodium Chloride Flush 3 ML SYRINGE IVFLUSH (19:57)
[2023-07-01] MEDS: traZODone HCL 100 MG TABLET PO (20:45)
[2023-07-01] MEDS: Ranolazine 500 MG TAB.ER.12H 1000 MG PO (20:45)
[2023-07-01] MEDS: Amoxicillin 500 MG CAPSULE PO (20:46)
[2023-07-01] MEDS: methylPREDNISolone Sod Succ 40 MG/ML VIAL IVPUSH (22:38)
[2023-07-02 04:00] VITALS: BP 130/59; PULSE 77; RESP 18; TEMP 36.7; O2SAT 97
[2023-07-02] MEDS: Amoxicillin 500 MG CAPSULE PO (04:54)
[2023-07-02 07:19] VITALS: BP 149/68; PULSE 77; RESP 18; TEMP 36.8; O2SAT 95
[2023-07-02] MEDS: Albuterol/Iprat 2.5/0.5MG 3 ML AMPUL.NEB INHALE (07:30)
[2023-07-02] MEDS: FLUoxetine HCl 20 MG CAPSULE 40 MG PO (08:49)
[2023-07-02] MEDS: Metoprolol Succinate ER 25 MG TAB.ER.24H PO (08:49)
[2023-07-02] MEDS: 0.9 % Sodium Chloride Flush 3 ML SYRINGE IVFLUSH (08:49)
[2023-07-02] MEDS: Atorvastatin Calcium 80 MG TABLET PO (08:49)
[2023-07-02] MEDS: Ranolazine 500 MG TAB.ER.12H 1000 MG PO (08:49)
[2023-07-02] MEDS: amLODIPine Besylate 5 MG TABLET PO (08:49)
[2023-07-02] MEDS: Aspirin Enteric Coated 81 MG TABLET.DR PO (08:50)
[2023-07-02] MEDS: Isosorbide Mononitrate 60 MG TAB.ER.24H PO (08:50)
[2023-07-02] MEDS: buPROPion HCl XL 300 MG TAB.ER.24H PO (08:50)
--- NOTE | 2023-07-02 09:57 | MHC.CM.PN ---
IMM DELIVERED. PATIENT FROM HOME ALONE, INDEPENDENT, NO SERVICES OR EQUIPMENT. PCP: MORA MILLAN HCP: CM PROVIDED ASSISTANCE TO COMPLETE, PT NAMED AGENTS: 1) SON BALWINDER AND 2) DAUGHTER MAGGY DP: GOAL IS HOME SELF CARE, ? TODAY, DAUGHTER TO TRANSPORT. CM WILL FOLLOW.
--- NOTE | 2023-07-02 10:29 | P.DS_ITS ---
DS: Providers Provider Date of Service: 07/02/23 Date of admission: 07/01/23 16:53 Primary care physician: Jennifer Stewart MD DS: Diagnosis Discharge Diagnosis (1) Bronchitis: Status: Acute DS: Summary Hospital Course Hospital Course: from initial hpi: 67-year-old female with a PMH significant for?HTN, HLD, CAD s/p CABG, anxiety, and depression who presents to the ED with?shortness of breath, difficulty breathing, and PALMA for the past 3 days. Patient states symptoms began at night when she awoke from sleep; they persisted throughout the day and were not alleviated by inhalers. Also complains of wheezing, chest tightness associated with breathing, and occasional nonproductive cough. Patient presents today after symptoms worsened and patient felt like she could not breathe at all. Patient states she has had at least 1 similar episode in her past where she has been hospitalized. Has apparently tested negative for both asthma and COPD. Is a lifelong nonsmoker. Denies chest pain/pressure, palpitations. No fever, chills, nausea, vomiting, abdominal pain. Of note, patient recently had 2 teeth extracted and 1 site of extraction became infected. Patient is on day 7 of doxycycline. In the ED pt was initially tachypneic up to 32, but otherwise vitals WNL, satting at 96% on RA. Labs were grossly unremarkable. Tested negative for influenza type a and B, RSV, COVID. CXR showed no acute cardiopulmonary process seen. EKG demonstrated normal sinus rhythm with nonspecific T-wave inversions in V1 and V2 but no significant ST elevations or depressions. Pt was treated with DuoNebs, Solu-Medrol, and Mag sulfate. Pt will be admitted to the hospital under observation for treatment of acute bronchitis. hospital course: patient was admitted for acute bronchitis. She was treated with IV Solu-Medrol, DuoNebs, magnesium. Symptoms significantly improved. Will be discharged on 5 more days of prednisone. For coronary disease was continued on Ranexa, Imdur, aspirin, statin. Recent dental infection will continue on Amoxil. For mood disorder was continued on bupropion and fluoxetine. Time Attestation Discharge coordination time: Greater than 30 minutes Quality: Safe Use of Opioids Does Pt have an Active Cancer Diagnosis on the Problem List?: No Quality: Stroke Does the patient have a stroke diagnosis?: No Physical Exam Vital Signs: Vital Signs: Last Vital Signs Temp 98.2 F 07/02/23 07:19 Pulse 77 07/02/23 07:19 Resp 18 07/02/23 07:19 BP 149/68 H 07/02/23 07:19 Pulse Ox 95 07/02/23 07:19 O2 Del Method Room Air 07/02/23 07:19 BMI result Body Mass Index 27.0 General: AO X 3, no acute distress Resp: mild exp wheezes bilateral, no accessory muscles used CVS: S1,S2,RRR GI: soft, non tender, non distended Neuro: motor grossly intact, alert Psych: appropriate affect, appropriate insight DS: Data Data Completed and Pending Labs on day of discharge: Laboratory Results - last 24 hr 07/01/23 07/01/23 07/01/23 11:07 11:08 14:26 WBC 9.0 RBC 4.01 L Hgb 12.9 Hct 37.4 MCV 93.3 MCH 32.2 MCHC 34.5 RDW 12.8 Plt Count 207 MPV 10.0 Immature Gran % (Auto) 0.2 Neut % (Auto) 63.4 Lymph % (Auto) 19.7 L [place] % (Auto) 8.6 Eos % (Auto) 7.1 H Baso % (Auto) 1.0 Lymph # (Auto) 1.8 [place] # (Auto) 0.8 Eos # (Auto) 0.6 H Baso # (Auto) 0.1 Abs Immat Gran (auto) 0.02 Absolute Neuts (auto) 5.7 Absolute Nucleated RBC 0.000 Nucleated RBC % (auto) 0.0 PT 11.7 INR 1.0 VBG pH VBG pCO2 VBG pO2 VBG HCO3 VBG O2 Saturation VBG Base Excess Sodium 141 Potassium 3.9 Chloride 107 Carbon Dioxide 24 Anion Gap 14 BUN 11 Creatinine 0.74 Estim Creat Clear Calc 69.5 Estimated GFR > 60 Random Glucose 98 Calcium 9.5 Total Bilirubin 0.4 Direct Bilirubin 0.2 AST 17 ALT 14 Alkaline Phosphatase 72 Troponin I High Sens 8.0 5.9 B-Natriuretic Peptide 40 Total Protein 6.6 Albumin 4.1 Influenza Type A (PCR) NEGATIVE Influenza Type B (PCR) NEGATIVE RSV RNA Qual (PCR) NEGATIVE SARS-CoV-2 RNA (RT-PCR) NEGATIVE 07/01/23 14:29 WBC RBC Hgb Hct MCV MCH MCHC RDW Plt Count MPV Immature Gran % (Auto) Neut % (Auto) Lymph % (Auto) [place] % (Auto) Eos % (Auto) Baso % (Auto) Lymph # (Auto) [place] # (Auto) Eos # (Auto) Baso # (Auto) Abs Immat Gran (auto) Absolute Neuts (auto) Absolute Nucleated RBC Nucleated RBC % (auto) PT INR VBG pH 7.49 H VBG pCO2 30 VBG pO2 67 VBG HCO3 23 VBG O2 Saturation 94.0 VBG Base Excess 0.8 Sodium Potassium Chloride Carbon Dioxide Anion Gap BUN Creatinine Estim Creat Clear Calc Estimated GFR Random Glucose Calcium Total Bilirubin Direct Bilirubin AST ALT Alkaline Phosphatase Troponin I High Sens B-Natriuretic Peptide Total Protein Albumin Influenza Type A (PCR) Influenza Type B (PCR) RSV RNA Qual (PCR) SARS-CoV-2 RNA (RT-PCR) Discharge Plan Discharge Anticipated Discharge Date/Time: 07/02/23 10:27 Patient Disposition: Home, Self-Care Discharge Diagnosis: bronchitis Referrals: Jennifer Stewart MD [Primary Care Provider] - 1 Week Discharge Medications: New prednisone 20 mg tablet 40 mg PO DAILY Qty: 10 0RF Continued acetaminophen [Tylenol Extra Strength] 500 mg tablet 500 mg PO Q6H PRN (Reason: fever or pain) Qty: 14 0RF amoxicillin 500 mg capsule 500 mg PO Q8H Rx Instructions: FINISH 0N 07/03/23 aspirin 81 mg tablet,delayed release (DR/EC) 81 mg PO QAM bupropion HCl 150 mg tablet sustained-release 12 hr 150 mg PO BID trazodone 100 mg tablet 100 mg PO BEDTIME ranolazine 1,000 mg tablet extended release 12 hr 1,000 mg PO BID atorvastatin 80 mg tablet 80 mg PO DAILY isosorbide mononitrate 60 mg tablet extended release 24 hr 60 mg PO DAILY metoprolol succinate 25 mg tablet extended release 24 hr 25 mg PO DAILY amlodipine 5 mg tablet 5 mg PO DAILY fluoxetine 20 mg capsule 40 mg PO DAILY Rx Instructions: administer in the morning and at noon/midday Discharge Orders: Discharge Order (Routine); Ordered 07/02/23 Ordered By: Jose Mcneal Diet: Advance to usual diet Activity on Discharge: As tolerated Stand Alone Forms: Patient Portal Discharge page Care Plan Goals: recovery Health Concerns: bronchitis Plan of Treatment: prednisone 5 days Assessment: see above
--- NOTE | 2023-07-02 10:45 | MHC.CM.PN ---
Patient is discharged to home today self care. She has arranged transportation home.
[2023-07-02] MEDS: methylPREDNISolone Sod Succ 40 MG/ML VIAL IVPUSH (10:47)
== END 2023-07-02 11:44 | disposition home or self-care (01) ==
LOC: HO.ED 14:15 → HO.EDOVER 17:02 → HO.S3 17:31
PROVIDERS: Physician Assistant; Admitting Provider Student in an Organized Health Care Education/Training Program; Emergency Provider Emergency Medicine Emergency Medical Services; PCP Family Medicine; Visit Provider Internal Medicine
DX: J40 Bronchitis, not specified as acute or chronic (principal); K04.7 Periapical abscess without sinus; R05.9 Cough, unspecified; I10 Essential (primary) hypertension; E78.5 Hyperlipidemia, unspecified; I25.10 Atherosclerotic heart disease of native coronary artery without angina pectoris; Z95.1 Presence of aortocoronary bypass graft; Z20.822 Contact with and (suspected) exposure to COVID-19; Z20.828 Contact with and (suspected) exposure to other viral communicable diseases
CPT/HCPCS: 0241U; 36415; 71046; 80048; 80076; 82803; 83880; 84484; 85025; 85610; 93005; 94640; 96365; 96372; 96375; 96376; 99221; 99285; J1650; J2920; J2930; J3475

== ENCOUNTER → 2023-07-01 10:32 | Outpatient (BNV) | payer MEDICARE, SELFPAY | PROVIDERS: Emergency Provider Emergency Medicine Emergency Medical Services; PCP Family Medicine; Visit Provider Internal Medicine | DX: R06.02 Shortness of breath (principal) | CPT/HCPCS: 93010 ==

== ENCOUNTER → 2023-07-01 16:53 | Outpatient (BNV) | payer MEDICARE, MEDICAID, SELFPAY | PROVIDERS: Admitting Provider Student in an Organized Health Care Education/Training Program; Emergency Provider Emergency Medicine Emergency Medical Services; PCP Family Medicine; Visit Provider Internal Medicine | DX: J20.9 Acute bronchitis, unspecified (principal) | CPT/HCPCS: 99222; 99239 ==

== ENCOUNTER 2024-03-17 11:25 | Outpatient (REF) | payer MEDICARE, MEDICAID, SELFPAY ==
[2024-03-17 13:23] LABS: MANUAL DIFF FLAG NO
[2024-03-17 13:37] LABS: Basophils Absolute Auto 0.1 X10*3/uL (0.0-0.2); Basophils Percent Auto 0.6 % (0-2); Eosinophils Absolute Auto 0.2 X10*3/uL (0.0-0.4); Hematocrit 36.4 % (37.0-47.0); Hemoglobin 12.4 g/dl (12.0-16.0); Imm Gran Abs Auto 0.05 X10*3/uL (0.00-0.03); Imm Gran Pct Auto 0.5 % (0.0-0.4); Lymphocytes Absolute Auto 1.7 X10*3/uL (1.2-4.9); Lymphocytes Percent Auto 16.9 % (20-40); Mean Corpuscular HGB Conc 34.1 g/dl (31.0-35.0); Mean Corpuscular Hemoglobin 32.5 pg (27.0-33.0); Mean Corpuscular Volume 95.5 fL (80.0-98.0); Mean Platelet Volume 10.4 fL (9.4-12.3); Monocytes Absolute Auto 0.5 X10*3/uL (0.1-1.2); Monocytes Percent Auto 5.2 % (2-11); Neutrophils Absolute Auto 7.6 x10*3/uL (2.0-8.3); Neutrophils Percent Auto 74.8 % (45-73); Platelet Count 218 X10*3/uL (160-400); Red Blood Count 3.81 X10*6/uL (4.20-5.50); Red Cell Distribution Width 13.2 % (11.0-16.0); White Blood Count 10.2 X10*3/uL (4.8-10.8)
[2024-03-17 14:05] LABS: Alanine Aminotransferase 13 U/L (0-31); Albumin Level 4.2 g/dL (3.5-5.0); Alkaline Phosphatase 71 U/L (39-117); Anion Gap 13 (12-20); Aspartate Amino Transferase 16 U/L (5-31); Bilirubin Direct 0.2 mg/dL (0.0-0.5); Bilirubin Total 0.6 mg/dL (0.0-1.0); Blood Urea Nitrogen 12 mg/dL (9-16); Calcium 9.6 mg/dL (8.4-10.2); Carbon Dioxide 23 mmol/L (22-29); Chloride 108 mmol/L (96-108); Cholesterol 138 mg/dL (<200); Estimated Glomerular Filt Rate > 60; Glucose Random 91 mg/dL (60-115); HDL Cholesterol 57 mg/dL (>40); LDL Cholesterol Calculated 63 mg/dL (<100); Potassium 3.9 mmol/L (3.3-5.1); Sodium 140 mmol/L (135-145); Total Protein 6.5 g/dL (6.5-8.0); Triglycerides 92 mg/dL (<150)
== END 2024-03-17 11:26 | disposition home or self-care (01) ==
LOC: HO.HHCL 11:25
PROVIDERS: Referring Provider Nurse Practitioner Family; Visit Provider Family Medicine
DX: I21.4 Non-ST elevation (NSTEMI) myocardial infarction (principal); I25.10 Atherosclerotic heart disease of native coronary artery without angina pectoris
CPT/HCPCS: 36415; 80048; 80061; 80076; 85025

== ENCOUNTER 2024-04-17 07:03 | Emergency (ER) | payer MEDICARE, OTHER, SELFPAY ==
--- NOTE | ~2024-04-17 | XR_ITS ---
EXAMINATION: XR KNEE, RIGHT CLINICAL INFORMATION: Status post fall. Right knee pain. COMPARISON: April 11, 2015 TECHNIQUE: Four views of the right knee. FINDINGS: Alignment is anatomic. Moderate patellofemoral cartilage space loss. Tricompartmental osteophytes are present. There is possible loss of normal contour of the quadriceps tendon insertion on the lateral projection. Large suprapatellar joint effusion. Arterial vascular calcifications are present. There is a surgical clip in the posterior soft tissues. XR/XR knee RT 4V IMPRESSION: Possible loss of contour of the quadriceps tendon insertion on the lateral projection. Large suprapatellar joint effusion. The possibility of tendon rupture cannot be excluded. Advise clinical correlation and MRI as clinically indicated. Electronically signed by: Jarad Walton MD 04/17/2024 08:50 AM EDT
[2024-04-17 07:23] VITALS: BP 124/56; PULSE 65; RESP 18; TEMP 36.9; O2SAT 98; BMI 26.6
--- NOTE | 2024-04-17 07:36 | ED_ITS ---
HPI - General Adult General Chief complaint: Extremity Injury, Lower Stated complaint: fall r knee inj Time Seen by Provider: 04/17/24 07:32 Source: patient Mode of arrival: ambulatory Limitations: no limitations History of Present Illness ED Provider: Marianela AMARO HPI narrative: This is a 68-year-old female hx htn,hld, depression presenting to the emergency department complaints of right knee pain status post trip and fall on Wednesday, patient reports she fell right onto her right knee, no head strike no loss of consciousness, she states she fell when she was trying to step over a baby gate. She tells me she is on blood thinners however on her med rec I can only see aspirin. She tells me since then she has been having pain and swelling, swelling fluctuates throughout the day. Pain is worse with movement and better at rest. She has not been taking anything for pain or discomfort. Has not been icing or elevating her extremity. Denies numbness and tingling. No fevers or chills. Denies headache, chest pain, shortness of breath, vision changes, dizziness, weakness, preceding symptoms to fall Related Data Home Medications ?Medication ?Instructions ?Recorded ?Confirmed amlodipine 5 mg tablet 5 mg PO DAILY 03/09/22 07/01/23 atorvastatin 80 mg tablet 80 mg PO DAILY 03/09/22 07/01/23 bupropion HCl 150 mg tablet,12 hr 150 mg PO BID 03/09/22 07/01/23 sustained-release fluoxetine 20 mg capsule 40 mg PO DAILY 03/09/22 07/01/23 isosorbide mononitrate 60 mg 60 mg PO DAILY 03/09/22 07/01/23 tablet,extended release 24 hr metoprolol succinate 25 mg 25 mg PO DAILY 03/09/22 07/01/23 tablet,extended release 24 hr ranolazine 1,000 mg 1,000 mg PO BID 03/09/22 07/01/23 tablet,extended release,12 hr trazodone 100 mg tablet 100 mg PO BEDTIME 03/09/22 07/01/23 amoxicillin 500 mg capsule 500 mg PO Q8H 07/01/23 07/01/23 aspirin 81 mg tablet,delayed 81 mg PO QAM 07/01/23 07/01/23 release Previous Rx's ?Medication ?Instructions ?Recorded acetaminophen 500 mg tablet 500 mg PO Q6H PRN fever or pain 03/25/22 (Tylenol Extra Strength) #14 tabs prednisone 20 mg tablet 40 mg (2 x 20 mg) PO DAILY #10 tabs 07/02/23 acetaminophen 325 mg capsule 650 mg (2 x 325 mg) PO Q6H PRN 04/17/24 (Tylenol) pain #30 caps prednisone 20 mg tablet 40 mg (2 x 20 mg) PO DAILY 5 days 04/17/24 #10 tabs Allergies Allergy/AdvReac Type Severity Reaction Status Date / Time No Known Allergies Allergy Mild N/A Verified 04/17/24 07:26 Review of Systems Review of Systems: Yes all other systems are reviewed and are negative [facility] Past Medical History Attestation statement: The following information was validated with the patient. Source: old records reviewed and nursing notes reviewed Medical History (Updated 04/17/24 @ 07:58 by KB Duong) CAD (coronary artery disease) Depression High cholesterol Hypertension Insomnia Heart disease Surgical History (Updated 07/01/23 @ 16:38 by KB Mihcele) Hx of CABG Social History Social History Comment: independently ambulate Patient Tobacco Use Status: Never used Tobacco Advance Directives: Yes Advance Directives Information Provided: Yes Advance Directives on File: No Do you have a plan to hurt others: No Plan service: No Physical Exam ED Vital Signs: Vital Signs - 24 hr 04/17/24 07:23 Temperature 98.5 F Pulse Rate 65 Respiratory Rate 18 Blood Pressure 124/56 L Pulse Oximetry 98 Oxygen Delivery Method Room Air BMI result Body Mass Index 26.6 vss Appearance: Alert.? Oriented X3.? No acute distress.? Head: Normocephalic, atraumatic, no step-offs or deformities Eyes: Pupils equal, round and reactive to light.? Neck: Normal inspection.? Neck supple.? CVS: Normal heart rate and rhythm.? Pulses normal.? Respiratory: No respiratory distress.? Breath sounds normal.? Abdomen: Soft and nontender.? Skin: Skin warm and dry.? Normal skin color.? Normal skin turgor.? Extremities: No lower extremity edema.? No calf ttp. 5/5 strength to bilateral upper and lower extremities Neuro: Oriented X 3.? No motor deficit.? No sensory deficit. CN 2-12 intact Course Reevaluation(s) Reevaluation #1: X-ray pending, Myron wrap placed to right knee by nursing. Time: 07:56 Reevaluation #2: Patient evaluated by the orthopedic team, she will follow up with them outpatient. Minimal weight-bearing with a knee immobilizer. Educated patient on diagnosis and treatment plan, answered all question, patient verbalizes understanding. At this time patient will be discharged home, advised to return with new or worsening symptoms. Educated on worrisome signs and symptoms and when to return. At this time I feel comfortable discharge home. Time: 11:13 Medications Administered Discontinued Medications Generic Name Dose Route Start Last Admin Trade Name Freq PRN Reason Stop Dose Admin Acetaminophen 650 mg 04/17/24 07:54 04/17/24 08:12 Acetaminophen 325 Mg Tablet PO 04/17/24 07:55 650 mg ONCE ONE Administration Medical Decision Making Medical Decision Making MDM Narrative: 60-year-old female presents with right knee pain, she fell onto her right knee Wednesday complaining of pain at this time. On exam moderate to large r knee effusion w/ mild overlying ecchymosiis. Normal distal sensation b/l. 2+ DP,AT,PT pulses equal and b/l. No foot drop. Full rom b/l but r knee w/ painful rom. Patient ambulating w/ cane. History and physical exam concerning for traumatic bursitis with possible contusion versus sprain or strain. Unlikely fracture, dislocation no signs of neurovascular compromise or acute threat to limb. No signs of septic joint. Plan imaging, pain control Differential Diagnosis Differential Diagnoses: The differential diagnosis associated with the presentation includes (History and physical exam concerning for traumatic bursitis with possible contusion versus sprain or strain. Unlikely fracture, dislocation no signs of neurovascular compromise or acute threat to limb. No signs of septic joint.) Admission/Observation Consideration of admission/observation: Escalation of care including admission/observation considered (no indication ) Independent Interpretation I performed an independent interpretation of an: Plain X-Ray ( XR/XR knee RT 4V IMPRESSION: Possible loss of contour of the quadriceps tendon insertion on the lateral projection. Large suprapatellar joint effusion. The possibility of tendon rupture cannot be excluded. Advise clinical correlation and MRI as clinically indicated.) Radiology Impression Discussion of test interpretation with radiology: I have reviewed the radiologist's reading. External Record Review External record reviewed: Inpatient record, Office record, Outpatient record, Prior outpatient labs, Prior outpatient radiology and Primary care record Tests considered The following testing was considered but not selected: I considered doing a knee aspiration however this is a traumatic bursitis, patient is on aspirin, she has not yet tried compression. First will try compression and steroids if it worsened she has been advised to return. No signs of septic joint or threat to limb. Discharge Plan Discharge Clinical Impression: Bursitis due to trauma Patient Disposition: Home, Self-Care Instructions: R.I.C.E. Treatment (ED) Additional Instructions: Take your medications as prescribed. If you were prescribed antibiotics today, it is important that you take your medication to their entirety, do not skip any doses, do not finish them early. Follow-up with your primary care provider this week. Return to the emergency department with new or worsening symptoms. Such as fevers, chills, chest pain, shortness of breath, nausea, vomiting, dizziness, headache, vision changes, lethargy In case of emergency call 911 Follow up with orthopedics within a week you can take the brace of to sleep Minimal weightbearing recommended XR/XR knee RT 4V IMPRESSION: Possible loss of contour of the quadriceps tendon insertion on the lateral projection. Large suprapatellar joint effusion. The possibility of tendon rupture cannot be excluded. Advise clinical correlation and MRI as clinically indicated. Prescriptions: New acetaminophen [Tylenol] 325 mg capsule 650 mg PO Q6H PRN (Reason: pain) Qty: 30 0RF prednisone 20 mg tablet 40 mg PO DAILY 5 Days Qty: 10 0RF No Action acetaminophen [Tylenol Extra Strength] 500 mg tablet 500 mg PO Q6H PRN (Reason: fever or pain) Qty: 14 0RF amoxicillin 500 mg capsule 500 mg PO Q8H Rx Instructions: FINISH 0N 07/03/23 aspirin 81 mg tablet,delayed release (DR/EC) 81 mg PO QAM prednisone 20 mg tablet 40 mg PO DAILY Qty: 10 0RF bupropion HCl 150 mg tablet sustained-release 12 hr 150 mg PO BID trazodone 100 mg tablet 100 mg PO BEDTIME ranolazine 1,000 mg tablet extended release 12 hr 1,000 mg PO BID atorvastatin 80 mg tablet 80 mg PO DAILY isosorbide mononitrate 60 mg tablet extended release 24 hr 60 mg PO DAILY metoprolol succinate 25 mg tablet extended release 24 hr 25 mg PO DAILY amlodipine 5 mg tablet 5 mg PO DAILY fluoxetine 20 mg capsule 40 mg PO DAILY Rx Instructions: administer in the morning and at noon/midday Referrals: [facility] Orth[facility] Surgeons [Provider Group] - 2 days Jennifer Stewart MD [Primary Care Provider] - 1 day Print Language: [place]
[2024-04-17] MEDS: Acetaminophen 325 MG TABLET 650 MG PO (08:12)
[2024-04-17 11:50] VITALS: BP 124/56; PULSE 65; RESP 18; TEMP 36.9; O2SAT 98
== END 2024-04-17 11:50 | disposition home or self-care (01) ==
PROVIDERS: Emergency Provider Emergency Medicine Emergency Medical Services; PCP Family Medicine
DX: M71.561 Other bursitis, not elsewhere classified, right knee (principal); M25.561 Pain in right knee
CPT/HCPCS: 73564; 99283

== ENCOUNTER 2024-04-28 09:55 | Outpatient (REF) | payer MEDICARE, OTHER, SELFPAY ==
--- NOTE | ~2024-04-28 | XR_ITS ---
EXAMINATION: XR KNEE, RIGHT CLINICAL INFORMATION: M25.569 - Pain in unspecified knee COMPARISON: 04/17/2024. TECHNIQUE: Two views of the right knee. FINDINGS: There is normal bone mineralization. No fracture, dislocation, or suspicious bone lesion. Probable bone island in the lateral tibial plateau. There is normal alignment. Moderate medial compartment joint space narrowing, mild lateral compartment and moderate patellofemoral compartment narrowing. Marginal osteophytic spurs most prominent patellofemoral and lateral compartment. Mild spurring of the tibial spines. Cannot assess for joint effusion without a lateral projection. Soft tissues demonstrate vascular calcifications. There is a solitary surgical clip overlying the medial knee. IMPRESSION: 1. No acute findings right knee. 2. Tricompartmental osteoarthritis, moderate in the medial and patellofemoral compartments. Electronically signed by: Casper Pereira MD 07/06/2024 03:52 PM NABILA
== END 2024-04-28 09:56 | disposition home or self-care (01) ==
LOC: HO.HOSX 09:55
PROVIDERS: Visit Provider Physician Assistant
DX: M25.569 Pain in unspecified knee (principal); M17.11 Unilateral primary osteoarthritis, right knee
CPT/HCPCS: 73560; 99212

== ENCOUNTER 2024-04-28 10:31 | Outpatient (AMB) | payer MEDICARE, SELFPAY ==
--- NOTE | 2024-04-28 10:43 | MHC.OFFVIS ---
Intake Visit Reasons: NewProb- right knee pain Intake Note: Vivian is a 68 year old female who presents today for a new problem visit with complaints of right knee pain s/p fall DOI: 04/15/2024. Pt states she tripped over a baby gate and fell on her knee. Pt states the pain has improved but states she has difficulty using the stairs and when she drives it becomes painful when she is pushing the gas and brake pedals. Allergies No Known Allergies Allergy (Mild, Verified 04/28/24 10:43) N/A HPI HPI NewProb- right knee pain: Details: 68-year-old female who presents in the office today for an evaluation of right knee pain. The patient presented to the ED on 04/17/24 status post a trip and fall when trying to step over a baby gate which occurred on 04/15/24. She reported experiencing fluctuating right knee pain and edema. X-rays of the right knee were obtained. She was placed in an BARTOLOME wrap. She was prescribed acetaminophen 325 mg 2 tabs PO Q6H and prednisone 40 mg PO daily for 5 days. She was recommended minimal weight bearing. While in the office today, the patient reports improved right knee pain; however, she has difficulty ambulating the stairs. She complains that the pain aggravates with driving and when she pushes the gas and brake pedals. The patient is on aspirin 81 mg PO QAM. PFS Medical History (Updated 04/28/24 @ 12:04 by Bela Soto) CAD (coronary artery disease) Depression High cholesterol Hypertension Insomnia Heart disease Surgical History (Updated 07/01/23 @ 16:38 by KB Michele) Hx of CABG Social History Comment: independently ambulate Patient Tobacco Use Status: Never used Tobacco service: No Review of Systems Const All systems reviewed & are unremarkable except as noted in HPI and below Physical Exam Const General: cooperative, healthy appearing and no acute distress Resp Effort & Inspection: normal respiratory effort and able to speak in complete sentences Cardio Rate: regular rate Peripheral pulses: Peripheral pulses 2+ throughout GI Palpation (GI): Soft to palpation Skin Lesions: no lesions Rashes: no rashes Extrem Other: Right knee: Normal to inspection. No ecchymosis, erythema, or joint effusion. No tenderness to palpation along the medial or lateral joint lines. Full knee extension and flexion. NVI. Assessment & Plan Assessment & Plan (1) Osteoarthritis of right knee: Code(s): M17.11 - Unilateral primary osteoarthritis, right knee Category: Medical (2) Contusion of knee, right: Code(s): S80.01XA - Contusion of right knee, initial encounter Category: Medical Plan Ms. Hayes is a 68-year-old female who presents in the office today for an evaluation of right knee pain. The patient presented to the ED on 04/17/24 status post a trip and fall when trying to step over a baby gate which occurred on 04/15/24. She reported experiencing fluctuating right knee pain and edema. X-rays of the right knee were obtained. She was placed in an BARTOLOME wrap. She was prescribed acetaminophen 325 mg 2 tabs PO Q6H and prednisone 40 mg PO daily for 5 days. She was recommended minimal weight bearing. While in the office today, the patient reports improved right knee pain; however, she has difficulty ambulating the stairs. She complains that the pain aggravates with driving and when she pushes the gas and brake pedals. The patient is on aspirin 81 mg PO QAM. We discussed the role of physical therapy and cortisone injections; however, the patient deferred at this time. She can return back to normal activities as tolerated. Follow up will be PRN, or sooner if needed. X-rays of the right knee which were obtained while in the office today and were reviewed by me, Alina Lynch PA-C, revealed: Patellofemoral arthritis. X-rays of the right knee, obtained on 04/17/24, revealed: Possible loss of contour of the quadriceps tendon insertion on the lateral projection. Large suprapatellar joint effusion. The possibility of tendon rupture cannot be excluded. Advise clinical correlation and MRI as clinically indicated. Patient Instructions: Scribed by Bela Soto phlebotomist medical lab assistant, for Alina Lynch PA-C on 04/28/24 at 10:58 am EST. Coding Level of Care Code Est Pt Level 3 (04099) Diagnoses Osteoarthritis of right knee M17.11 Contusion of knee, right S80.01XA
== END 2024-04-28 11:10 | disposition home or self-care (01) ==
PROVIDERS: PCP Family Medicine; Visit Provider Physician Assistant
DX: M17.11 Unilateral primary osteoarthritis, right knee (principal); S80.01XA Contusion of right knee, initial encounter; W01.0XXA Fall on same level from slipping, tripping and stumbling without subsequent striking against object, initial encounter
CPT/HCPCS: 99213

== ENCOUNTER → 2024-04-28 10:36 | Outpatient (BNV) | payer MEDICARE, SELFPAY | PROVIDERS: Visit Provider Radiology Diagnostic Radiology | DX: M25.561 Pain in right knee (principal) | CPT/HCPCS: 73560 ==

== ENCOUNTER 2024-05-20 19:41 | Emergency (ER) | payer MEDICARE, OTHER, SELFPAY ==
--- NOTE | ~2024-05-20 | XR_ITS ---
EXAMINATION: XR ANKLE, RIGHT CLINICAL INFORMATION: Pain. COMPARISON: Radiographs dated 07/31/2015. TECHNIQUE: AP, lateral, and mortise views of the right ankle. FINDINGS: Bony alignment and mineralization are normal. The ankle mortise is intact. No fracture or dislocation is seen. There is a moderately large right ankle joint effusion, with anterior teardrop sign. Boehler's angle is normal. There is a small plantar calcaneal spur. There is moderate soft tissue swelling adjacent to the lateral malleolus. No soft tissue gas or foreign body is seen. XR/XR ankle RT min 3V IMPRESSION: 1. No fracture or dislocation is seen. 2. There is a moderately large right ankle joint effusion. 3. There is moderate soft tissue swelling adjacent to the lateral malleolus. Electronically signed by: Fredrick Rao MD 05/20/2024 09:35 PM EDT
--- NOTE | ~2024-05-20 | CT_ITS ---
EXAMINATION: CT HEAD WITHOUT CONTRAST CLINICAL INFORMATION: Headache status-post fall; anticoagulant therapy. COMPARISON: CT head dated 03/25/2022. TECHNIQUE: Contiguous axial imaging was performed from the skull base to vertex without intravenous administration of contrast. Multiplanar reformatted images are submitted. This CT examination was performed using dose optimization techniques as appropriate, variously including the following: *Automated exposure control *Adjustment of mA and/or kV according to patient size (this includes techniques or standardized protocols for targeted exams where dose is matched to indication/reason for exam; i.e. extremities or head) *Use of iterative reconstruction technique DLP: 1304 mGy-cm FINDINGS: There is no acute intracranial hemorrhage or evidence of territorial infarction. No abnormal mass effect or midline shift is seen. Larry to white matter differentiation is well preserved. There is no abnormal attenuation within the brain parenchyma. The ventricles are normal in size. No extra-axial fluid collections are identified. The calvarium and scalp soft tissues are normal. The middle ear cavity and mastoid air cells are clear. There is mild left maxillary sinusitis. CT/CT head/brain wo IV con IMPRESSION: 1. No acute intracranial pathology. 2. There is mild left maxillary sinusitis. Electronically signed by: Fredrick Rao MD 05/20/2024 09:27 PM EDT
--- NOTE | ~2024-05-20 | XR_ITS ---
EXAMINATION: XR SHOULDER, RIGHT CLINICAL INFORMATION: Pain status-post fall. COMPARISON: None available. TECHNIQUE: AP external rotation, Grashey and scapular Y views of the right. FINDINGS: The bones and soft tissues are normal. No fracture. Glenohumeral and acromioclavicular alignment is anatomic with normal joint space. No abnormal soft tissue calcifications. Cervicothoracic orthopedic hardware is incompletely covered in the [id number]. XR/XR shoulder RT min 2V IMPRESSION: Normal right shoulder. Electronically signed by: Fredrick Rao MD 05/20/2024 09:38 PM EDT
--- NOTE | ~2024-05-20 | CT_ITS ---
EXAMINATION: CT CERVICAL SPINE WITHOUT CONTRAST CLINICAL INFORMATION: Pain status-post fall. COMPARISON: CT cervical spine dated 03/25/2022. TECHNIQUE: Without the addition of intravenous contrast, multiple contiguous multidetector axial sections are obtained through the cervical spine. Multiplanar reformatted images are submitted. This CT examination was performed using dose optimization techniques as appropriate, variously including the following: *Automated exposure control *Adjustment of mA and/or kV according to patient size (this includes techniques or standardized protocols for targeted exams where dose is matched to indication/reason for exam; i.e. extremities or head) *Use of iterative reconstruction technique DLP: 928 mGy-cm FINDINGS: Vertebral body heights are normal. At C2-3, a 3 mm anterolisthesis is seen. At C3-4, a 2 mm anterolisthesis is seen. At C4-5, a 2 mm anterolisthesis is seen. There is well-maintained alignment status-post C5-C7 anterior fusions and discectomies, with intact anterior fixator plate and fixator screws. No hardware failure or loosening is seen. At C7-T1, a 2 mm anterolisthesis is seen. At T1-2, there is mild to moderate disc space narrowing and a 3 mm anterolisthesis. No acute fracture or spondylolisthesis is seen. The posterior elements are intact. The dens is intact. No prevertebral soft tissue swelling or gas is seen. The lung apices are clear. CT/CT cervical spine wo IV con IMPRESSION: There is well-maintained alignment status-post C5-C7 anterior fusions and discectomies. No acute fracture or spondylolisthesis is seen. Fleischner guidelines were followed. Electronically signed by: Fredrick Rao MD 05/20/2024 09:32 PM EDT
[2024-05-20 19:46] VITALS: BP 129/63; PULSE 62; RESP 18; TEMP 36.8; O2SAT 97; BMI 26.7
--- NOTE | 2024-05-20 19:49 | ED_ITS ---
HPI - Fall General Chief Complaint: Fall Stated Complaint: fell backwards down stairs Time Seen by Provider: 05/20/24 20:16 History of Present Illness ED Provider: Marko HAIR Narrative: The patient is a 68-year-old female who was on clopidogrel because she had a cardiac stent placed several months ago. This afternoon she was at her daughter's house. Her daughter's house has a winding stair case. She says that she was going up the stair case carrying a bag. She says that going up the stair case caring the bag was difficult. Her daughter called up to hurt a put down the bag. The patient says that she turned to look at her daughter while she was putting down the bag when she lost her balance and fell backwards. She fell down several steps and ultimately landed on the wooden floor at the base of the stair case. She assumed she hit her head. She does not have loss of consciousness. She laid on the floor for awhile before her daughter helped her get up. She had some pain in her right shoulder right away. She also had some right ankle pain. The patient initially did not want to come to the hospital because she had to go to a different family members [facility]. She went to the libertarian but had worsening pain in her right shoulder and her right ankle and ultimately came to the emergency room. Related Data Home Medications ?Medication ?Instructions ?Recorded ?Confirmed amlodipine 5 mg tablet 5 mg PO DAILY 03/09/22 07/01/23 atorvastatin 80 mg tablet 80 mg PO DAILY 03/09/22 07/01/23 bupropion HCl 150 mg tablet,12 hr 150 mg PO BID 03/09/22 07/01/23 sustained-release fluoxetine 20 mg capsule 40 mg PO DAILY 03/09/22 07/01/23 ranolazine 1,000 mg 1,000 mg PO BID 03/09/22 07/01/23 tablet,extended release,12 hr trazodone 100 mg tablet 100 mg PO BEDTIME 03/09/22 07/01/23 aspirin 81 mg tablet,delayed 81 mg PO QAM 07/01/23 07/01/23 release Previous Rx's ?Medication ?Instructions ?Recorded acetaminophen 500 mg tablet 500 mg PO Q6H PRN fever or pain 03/25/22 (Tylenol Extra Strength) #14 tabs acetaminophen 325 mg capsule 650 mg (2 x 325 mg) PO Q6H PRN 04/17/24 (Tylenol) pain #30 caps Allergies Allergy/AdvReac Type Severity Reaction Status Date / Time No Known Allergies Allergy Mild N/A Verified 05/20/24 19:51 Review of Systems Review of Systems: Yes all other systems are reviewed and are negative [facility] Past Medical History Medical History (Updated 05/20/24 @ 22:24 by Terry Zhu MD) CAD (coronary artery disease) Depression High cholesterol Hypertension Insomnia Heart disease Surgical History (Updated 07/01/23 @ 16:38 by KB Michele) Hx of CABG Social History Social History Comment: independently ambulate Patient Tobacco Use Status: Never used Tobacco Smoked in Last 30 Days: No Use of substances other than those prescribed or required for medical reasons: No Advance Directives: No Advance Directives Information Provided: No service: No Physical Exam Vital Signs: Vital Signs: Last Vital Signs Temp 98 F 05/20/24 22:44 Pulse 66 05/20/24 22:44 Resp 18 05/20/24 22:44 BP 130/66 05/20/24 22:44 Pulse Ox 97 05/20/24 22:44 O2 Del Method Room Air 05/20/24 22:44 BMI result Body Mass Index 26.7 Const: Other: The patient is awake and alert. She has a fairly vigorous appearance. She does not appear in acute distress or seem obviously significantly injured. HEENT: Other: No obvious signs of trauma to the head or the face. Face is symmetrical. No raccoon eyes or davis sign. Mucous membranes moist. Eyes: General: appearance normal, both eyes and all related structures Neck: Other: Mild posterior C-spine tenderness, there is also right-sided paraspinous tenderness. Chest: Other: No crepitus or subcutaneous emphysema or significant chest wall tenderness. Resp: Effort & Inspection: normal respiratory effort Auscultation: clear to auscultation bilaterally Cardio: Rate: regular rate Rhythm: regular rhythm Heart sounds: S1 normal heart sound present and S2 normal heart sound present GI: Other: Abdomen is soft and nontender Back/Spine/Pelvis: Other: No midline vertebral tenderness in the back Skin: Other: There is swelling over the right lateral malleolus. Otherwise the skin is unremarkable. The skin is intact. Neuro: Other: The patient is awake and alert with a normal mental status. She has a very pleasant demeanor. Cranial nerves 2-12 are grossly intact. She has intact strength and sensation in her extremities. Extrem: Other: The patient has tenderness about the right shoulder without gross deformity. The patient has soft tissue swelling of the lateral malleolus without associated additional deformities. She is able to move the hip swell and the knees well. She moves the arms well despite the right shoulder tenderness. Course Course Course Narrative: This is a Rapid Medical Examination (RME) performed by Taz Rios PA-C in triage. Full HPI, ROS, assessment and treatment plan per primary provider in the Main ED. 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 Patient reports recent surgery on knee. since this time has had her medications adjusted which has caused her to feel dizzy. reports walking up stairs today when her daughter said something to her, causing her to turn around abruptly and feel dizzy. she stumbled down a few steps. cannot recall if she hit her head however denies LOC. endorses TALAVERA. on eliquis. + no midline spinous tenderness. exam nonfocal. ambulating with limping gait. Plan: xr, ct Medications Administered Discontinued Medications Generic Name Dose Route Start Last Admin Trade Name German PRN Reason Stop Dose Admin Acetaminophen 975 mg 05/20/24 21:15 05/20/24 21:23 Acetaminophen 325 Mg Tablet PO 05/20/24 21:16 975 mg ONCE ONE Administration Medical Decision Making Medical Decision Making MDM Narrative: The patient describes a fairly impressive fall downstairs that seems to have been a mechanical fall. She is on clopidogrel. She believes that she hit her head. She has a right-sided neck pain and right shoulder pain. Head CT is negative. A cervical spine CT is negative. Right shoulder x-ray is negative. The patient has primary injury seems to be swelling to the lateral malleolus of the right leg. X-ray of the right ankle is negative. The patient was given a walking boot and a cane. She believes she will be able to access a walker at her building where there are a lot of elderly people. She should follow up with her PCP. Discharge Plan Discharge Clinical Impression: Right ankle sprain, Contusion of right shoulder, Fall, Head injury, Cervical strain Patient Disposition: Home, Self-Care Instructions: Ankle Sprain (ED) Additional Instructions: Your most significant injury seems to be the injury to your right ankle, an ankle sprain. Please wear the orthopedic boot for support. You has been given a cane to help you walk around with the orthopedic boot but if you are able to get a walker that would be even better. That will probably allow you to take more weight off the foot. Over the next few days please try to stay off her feet as much as possible and keep the right leg elevated. You may ice the ankle several times a day. Use acetaminophen (Tylenol) as needed for pain. Please follow up with your regular doctor this week for a recheck. Return to the emergency room if significantly worse at any time. Prescriptions: No Action acetaminophen [Tylenol Extra Strength] 500 mg tablet 500 mg PO Q6H PRN (Reason: fever or pain) Qty: 14 0RF aspirin 81 mg tablet,delayed release (DR/EC) 81 mg PO QAM acetaminophen [Tylenol] 325 mg capsule 650 mg PO Q6H PRN (Reason: pain) Qty: 30 0RF bupropion HCl 150 mg tablet sustained-release 12 hr 150 mg PO BID trazodone 100 mg tablet 100 mg PO BEDTIME ranolazine 1,000 mg tablet extended release 12 hr 1,000 mg PO BID atorvastatin 80 mg tablet 80 mg PO DAILY amlodipine 5 mg tablet 5 mg PO DAILY fluoxetine 20 mg capsule 40 mg PO DAILY Rx Instructions: administer in the morning and at noon/midday Referrals: Jennifer Stewart MD [Primary Care Provider] - (Right ankle sprain) Interventions: ED Discharge Assessment Last Done: 05/20/24 22:44 Discharge Date/Time: 05/20/24 22:44 Print Language: Sinhala
--- NOTE | 2024-05-20 20:40 | ECG_ITS ---
Test Reason : FALL Blood Pressure : / mmHG Vent. Rate : 060 BPM Atrial Rate : 060 BPM P-R Int : 162 ms QRS Dur : 100 ms QT Int : 454 ms P-R-T Axes : 072 011 071 degrees QTc Int : 454 ms Normal sinus rhythm Normal ECG When compared with ECG of 01-JUL-2023 10:41, No significant change was found Referred By: Terry Zhu Electronically Signed By:Vincent Edwards
[2024-05-20] MEDS: Acetaminophen 325 MG TABLET 975 MG PO (21:23)
[2024-05-20 21:27] VITALS: BP 134/59; PULSE 58; RESP 18; TEMP 36.6; O2SAT 96
[2024-05-20 22:09] VITALS: BP 130/66; PULSE 66; RESP 18; TEMP 36.6; O2SAT 97
[2024-05-20 22:44] VITALS: BP 130/66; PULSE 66; RESP 18; TEMP 36.6; O2SAT 97
== END 2024-05-20 22:44 | disposition home or self-care (01) ==
PROVIDERS: Emergency Provider Emergency Medicine; PCP Family Medicine
DX: S93.401A Sprain of unspecified ligament of right ankle, initial encounter (principal); S40.011A Contusion of right shoulder, initial encounter; S16.1XXA Strain of muscle, fascia and tendon at neck level, initial encounter; W10.8XXA Fall (on) (from) other stairs and steps, initial encounter; Y93.89 Activity, other specified; Y92.018 Other place in single-family (private) house as the place of occurrence of the external cause; Y99.9 Unspecified external cause status
CPT/HCPCS: 70450; 72125; 73030; 73610; 93005; 99284; 99285

== ENCOUNTER → 2024-05-20 20:40 | Outpatient (BNV) | payer MEDICARE, SELFPAY | PROVIDERS: Emergency Provider Emergency Medicine; PCP Family Medicine; Visit Provider Internal Medicine Cardiovascular Disease | DX: M25.511 Pain in right shoulder (principal) | CPT/HCPCS: 93010 ==

== ENCOUNTER 2024-10-04 15:37 | Outpatient (REF) | payer MEDICARE, SELFPAY ==
--- OUTSIDE RECORDS SUMMARY | 2024-10-04 18:19 | XMS_ITS | Encounter Summary ---
Author Organization [employer] Address [address] [place] [address] Care Team Providers Care Advisory Software Engineer Name Role Phone Jennifer Stewart MD Primary Care Provider + [phone] Zayda Rader PharmD Unavailable [phone] Alina Lynch Unavailable Moshe Bran MD Unavailable [phone] Reason for Visit * Reason Comments Pre-op Exam Encounter Details Date Type Department Care Team (Late st Contact Info) Description 10/04/2024 2:45 PM EDT Office Visit [facility] [address], [place] [id number] Darcy Ordonez FNP [address] [place], [place] [phone] Preop examination (Primary Dx); Congestive heart failure, unspecified HF chronicity, unspecified heart failure type (CMS/HCC); Hypertension, unspecified type; Systolic and diastolic CHF, chronic (CMS/HCC); Atrial fibrillation, unspecified type (CMS/HCC) Social History Tobacco Use Types Packs/Day Years Used Date Smoking Tobacco: Never Passive Smoke Exposure: Never Smokeless Tobacco: Never Alcohol Use Standard Drinks/Week Comments Never 0 (1 standard drink = 0.6 oz pur e alcohol) Alcohol Answer Date Recorded Frequency of Alcohol Consumption Not on file 02/03/2024 Average Number of Drinks Not on file 024 Frequency of Binge Drinking Not on file 01/23 Score 0 02/03/2024 Depression Answer Date Recorded Patient Health Questionnaire-9 Score 0 02/03/2024 Patient Health Questionnaire-9 Score 0 02/03/2024 Last PHQ-9: Questionnaire Data Not on file 0 02/03/2024 Housing Stability Answer Date Recorded What is your housing situation today? I have gus van 02/03/[address] you li ve. Do you have problems with any of the following? None of the above 02/03/2024 Food Insecurity Answer Date Recorded Within the past 12 months, y ou worried that your food would run out before you got money to buy more: Often true 03/15/2024 Within the past 12 months,th e food you bought just didn't last and you didn't have enough money to get more: Often true Transportation Answer Date Recorded In the past 12 months, has l ack of transportation kept you from medical appts, meetings, work or from getting things needed for daily living? No 02/03/2024 Utilities Answer Date Recorded In the past 12 months, has t he electric, gas, oil or water company threatened to shut off services in your home? No 02/03/2024 Depression Answer Date Recorded Patient Health Questionnaire-2 Score 0 02/03/2024 Internet Access Answer Date Recorded Internet Access Q1 Yes 03/27/2024 Internet Access Q2 I do not want or need it 08/2023 Comments Unknown Sex and Gender Information Value Date Recorded Sex Assigned at Female 05/25/2022 10:19 AM EDT Legal Sex Female 10:19 AM EDT Gender Identity Female 05/25/2022 10:19 AM EDT Sexual Orientation Straight 05/25/2022 10 :19 AM EDT documented as of this encounter Last Filed Vital Signs Vital Sign Reading Time Taken Comments Blood Pressure 114/64 10/04/2024 2:40 PM EDT Pulse 68 10/04/2024 2:40 PM EDT Temperature 36.8 ??C (98.2 ??F) 10/04/2024 2:40 PM ED T Respiratory Rate 17 10/04/2024 2:40 PM EDT Oxygen Saturation 98% 10/04/2024 2:40 PM EDT Inhaled Oxygen Concentration - - Weight 66 kg (145 lb 9.6 oz) 10/04/2024 2:40 PM EDT Height 160 cm (5' 3 ) 10/04/2024 2:40 PM EDT Body Mass Index 25.79 10/04/2024 2:40 PM EDT documented in this encounter Progress Notes * WON Galloway - 10/04/2024 2:45 PM EDT Vivian Hayes is a 69 y.o. year old female patient who presents for preop evaluation prior to Cataract Surgery Date of Surgery: 10/25/24 and 11/08/24 Surgical procedure being done: Cataract Surgery bilaterally Type of anesthesia: local anesthesia Lab needed: Yes EKG: Yes Surgeon's name: Dr. Brarios Facility name: [facility] Surgeon's office number: [phone] Surgeon's office fax number: [phone] (per paperwork pt brought with her: [facility], attn: Surgical Dept fax [phone], not # as noted in TC for scheduling) Contact name (person you spoke with): Vivian Hayes Last office note from surgeon requested: No Cardiac Risk History of ischemic heart disease: Yes (history of myocardial infarction or a positive exercise test, current complaint of chest pain considered to be secondary to myocardial ischemia, use of nitratetherapy, or ECG with pathological Q waves): NSTEMI 02/23/2024. History of heart failure: Yes History of cerebrovascular disease: NO Diabetes mellitus requiring treatment with insulin: NO Preoperative serum creatinine >2.0 mg/dL : NO Activity tolerance >4 METS: Yes climb up a flight of stairs, walk up a hill, walk at ground level at 4 miles per hour, or perform heavy work around the house. Bleeding Risk: Chronic anticoagulation: DAPT Daily aspirin: YES Blood clotting disorder: NO Pulmonary History: Negative BMI > 40: NO Smoking History: Denies current/former tobacco use ETOH: None Substance Use: None Personal or family history of anesthesia reaction: NO Chronic Medical Conditions: AFIB HTN (hypertension) Congestive heart failure (CMS/HCC) Systolic and diastolic CHF, chronic (CMS/HCC) Review of Systems Constitutional: Negative for appetite change, diaphoresis, fatigue and fever. Respiratory: Negative for cough, chest tightness, shortness of breath and wheezing. Cardiovascular: Negative for chest pain and palpitations. Gastrointestinal: Negative for abdominal distention, abdominal pain, constipation and vomiting. Neurological: Negative for dizziness, syncope, speech difficulty, weakness, light-headedness, numbness and headaches. OBJECTIVE Visit Vitals BP 114/64 (BP Location: Right arm, Patient Position: Sitting, BP Cuff Size: Large adult) Pulse 68 Temp 98.2 ??F (36.8 ??C) (Oral) Resp 17 Ht 5' 3 (1.6 m) Wt 145 lb 9.6 oz (66 kg) SpO2 98% BMI 25.79 kg/m?? Smoking Status Never BSA 1.71 m?? Physical Exam Vitals reviewed. Constitutional: Appearance: Normal appearance. HENT: Head: Atraumatic. Cardiovascular: Rate and Rhythm: Normal rate and regular rhythm. Pulses: Normal pulses. Heart sounds: Normal heart sounds. No murmur heard. Pulmonary: Effort: Pulmonary effort is normal. Breath sounds: Normal breath sounds. No wheezing. Skin: Capillary Refill: Capillary refill takes less than 2 seconds. Neurological: Mental Status: She is alert and oriented to person, place, and time. Psychiatric: Mood and Affect: Mood normal. Behavior: Behavior normal. Problem List Items Addressed This Visit Preop examination - Primary - Provider considers procedure to be low risk -Reviewed cardiac risk factors based on RCRI. Patient has 3 risk factors corresponding to 5.4%risk of a major cardiac event during surgery. - Pt was advised to call her cardiology to clarify aspirin instructions before surgery and avoid NSAIDs starting 3 days before surgery - Pt may safely hold all other medications day of surgery - Patient may proceed with surgery and anesthesia without further risk stratification at this time - Pt will contact health center with questions or concerns Atrial fibrillation (CMS/HCC) Denies recent episodes HR 68 CAD, Congestive heart failure (CMS/HCC) Systolic and diastolic CHF, chronic (CMS/HCC) Stable, asymptomatic today On Imdur, clopidogrel and aspirin No edema, lung sound clear HTN (hypertension) BP: 114/64 with in goal Stable, 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 I, Sully FONTANA , have reviewed the resident's note and agree with the assessment & plan of care as documented above. documented in this encounter Plan of Treatment Scheduled Orders Name Type Priority Associated Diagnoses Orde r Schedule Basic Metabolic Panel Lab Routine Preop examination Hypertension, unspecified type Expected: 10/04/2024 (Approximate), Expires: 10/04/2025 documented as of this encounter Procedures Procedure Name Priority Date/Time Associated Diagnosis Comments ECG 12-LEAD Routine 10/04/2024 5:12 PM EDT Preop examination documented in this encounter Results * ECG 12 lead (10/04/2024 5:12 PM EDT) Narrative Darcy Ordonez FNP - 10/04/2024 5:12 PM EDT Sinus rhythm Normal ECG HR 68 bpm Darcy Ordonez CALCINER FEEDER ECG ORDERABLES Final Result documented in this encounter Visit Diagnoses Diagnosis Preop examination- Primary Unspecified pre-operative examination Congestive heart failure, unspecified HF chronicity, unspecified heart failure type (CMS/HCC) Hypertension, unspecified type Systolic and diastolic CHF, chronic (CMS/HCC) Atrial fibrillation, unspecified type (CMS/HCC) documented in this encounter Additional Health Concerns Assessment Noted Time PHQ-9 Depression Total Score: 0 02/03/20 24 10:01 AM EDT documented as of this encounter Care Teams Advisory Software Engineer Relationship Specialty Start Date End Date Jennifer Stewart MD [address] [place] [id number] PCP - General Family Medicine 07/26/18 Zayda Rader, PharmD [address] [place] [phone] Pharmacist Internal Medicine 04/27/24 Alina Lynch [address] [place] [phone] Orthopaedic Surgery 09/26/24 Moshe Bran MD [address] [place] [phone] Cardiology 09/26/24 Wade Tyson MD [facility] [address] [place] [id number] Ophthalmology 08/22/24 documented as of this encounter
--- OUTSIDE RECORDS SUMMARY | 2024-10-04 18:19 | XMS_ITS | Encounter Summary ---
Author Organization [employer] Address [address] 7t [place] [address] Care Team Providers Care Classroom Teacher Name Role Phone Jennifer Stewart MD Primary Care Provider + [phone] Zayda Rader PharmD Unavailable [phone] Alina Lynch Unavailable Moshe Bran MD Unavailable +[phone] Encounter Details Date Type Department Care Team (Late st Contact Info) Description 05/04/2024 Orders Only [facility] [address] [place], [place] [phone] Jennifer Stewart MD [address] [place], [place] [phone] Major depressive disorder with single episode, in full remission (CMS/HCC) (Primary Dx) Social History Tobacco Use Types Packs/Day Years [...] AM EDT documented as of this encounter Plan of Treatment Not on file documented as of this encounter Procedures Procedure Name Priority Date/Time Associated Diagnosis Comments CT CERVICAL SPINE WO CONTRAST Routine 05/20/2024 8:[address] HEAD WO CONTRAST Routine 05/20/2024 8 :22 PM EDT XR ANKLE 3+ VIEWS RIGHT Routine 05/20/2024 7:48 PM EDT XR SHOULDER 2+ VIEWS RIGHT Routine 05/20/2024 7:48 PM EDT documented in this encounter Results * CT Cervical Spine w/o Contrast (05/20/2024 8:22 PM EDT) Anatomical Region Laterality Modality Spine, C-spine Computed Tomogra phy 05/20/2024 8:22 PM EDT Narrative 05/20/2024 9:36 PM EDT ? [facility] ?[address] ?[place] [address] ? CT Scan Report ? Signed ? Patient: Gavrdelia,Vivian ?MR#: [id number] ?? 879 ? : 1955 ?Acct:[id number] ? Age/Sex: 68 / F ?ADM Date: 05/20/24 ? Loc: HO.ED ? Attending Dr: ? Ordering Physician: Ondina Rios ?? Date of Service: 05/20/24 ?? Procedure(s): CT cervical spine wo IV con ?? Accession Number(s): [id number] ? cc: Jennifer Stewart MD; Ondina Rios ? EXAMINATION: ?? CT CERVICAL SPINE WITHOUT CONTRAST ? CLINICAL INFORMATION: ?? Pain status-post fall. ? COMPARISON: ?? CT cervical spine dated 03/25/2022. ? TECHNIQUE: ?? Without the addition of intravenous contrast, multiple contiguous ?? multidetector axial sections are obtained through the cervical spine. ?? Multiplanar reformatted images are submitted. ? This CT examination was performed using dose optimization techniques as ?? appropriate, variously including the following: ?? *Automated exposure control ?? *Adjustment of mA and/or kV according to patient size (this includes ?? techniques or standardized protocols for targeted exams where dose is ?? matched to indication/reason for exam; i.e. extremities or head) ?? *Use of iterative reconstruction technique ? DLP: ?? 928 mGy-cm ? FINDINGS: ?? Vertebral body heights are normal. At C2-3, a 3 mm anterolisthesis is ?? seen. At C3-4, a 2 mm anterolisthesis is seen. At C4-5, a 2 mm ?? anterolisthesis is seen. There is well-maintained alignment status-post ?? C5-C7 anterior fusions and discectomies, with intact anterior fixator ?? plate and fixator screws. No hardware failure or loosening is seen. At ?? C7-T1, a 2 mm anterolisthesis is seen. At T1-2, there is mild to ?? moderate disc space narrowing and a 3 mm anterolisthesis. No acute ?? fracture or spondylolisthesis is seen. The posterior elements are ?? intact. The dens is intact. No prevertebral soft tissue swelling or gas ?? is seen. ? The lung apices are clear. ? CT/CT cervical spine wo IV con ?? IMPRESSION: ?? There is well-maintained alignment status-post C5-C7 anterior fusions ?? and discectomies. No acute fracture or spondylolisthesis is seen. ? Fleischner guidelines were followed. ? Electronically signed by: ??Fredrick Rao MD ??05/20/2024 09:32 PM EDT RP ? Dictated By: ?Fredrick Rao MD ? Signed By: ?<Electronically signed by Fredrick Rao MD in OV> ? 05/20/242131 ? DD/ 21 ? TD/TT: 05/20/242021 ? Burial Vault Setter: JEANNETTE ? Procedure Note Erika Vaz - 05/20/[address] [address] [address] Scan Report Signed Patient: Vivian HayesMR#: [id number] 879 : 1955cct:[id number] Age/Sex: 68 / FADM Date: 05/20/24 Loc: HO.ED Attending Dr: Ordering Physician: Ondina Rios Date of Service: 05/20/24 Procedure(s): CT cervical spine wo IV con Accession Number(s): [id number] cc: Jennifer Stewart MD; Ondina Rios EXAMINATION: CT CERVICAL SPINE WITHOUT CONTRAST CLINICAL INFORMATION: Pain status-post fall. COMPARISON: CT cervical spine dated 03/25/2022. TECHNIQUE: Without the addition of intravenous contrast, multiple contiguous multidetector axial sections are obtained through the cervical spine. Multiplanar reformatted images are submitted. This CT examination was performed using dose optimization techniques as appropriate, variously including the following: *Automated exposure control *Adjustment of mA and/or kV according to patient size (this includes techniques or standardized protocols for targeted exams where dose is matched to indication/reason for exam; i.e. extremities or head) *Use of iterative reconstruction technique DLP: 928 mGy-cm FINDINGS: Vertebral body heights are normal. At C2-3, a 3 mm anterolisthesis is seen. At C3-4, a 2 mm anterolisthesis is seen. At C4-5, a 2 mm anterolisthesis is seen. There is well-maintained alignment status-post C5-C7 anterior fusions and discectomies, with intact anterior fixator plate and fixator screws. No hardware failure or loosening is seen. At C7-T1, a 2 mm anterolisthesis is seen. At T1-2, there is mild to moderate disc space narrowing and a 3 mm anterolisthesis. No acute fracture or spondylolisthesis is seen. The posterior elements are intact. The dens is intact. No prevertebral soft tissue swelling or gas is seen. The lung apices are clear. CT/CT cervical spine wo IV con IMPRESSION: There is well-maintained alignment status-post C5-C7 anterior fusions and discectomies. No acute fracture or spondylolisthesis is seen. Fleischner guidelines were followed. Electronically signed by: Fredrick Rao MD 05/20/2024 09:32 PM EDT Dictated By: Fredrick Rao MD Signed By: <Electronically signed by Fredrick Rao MD in OV> 05/20/242131 DD/ 21 TD/TT: 05/20/242021 Burial Vault Setter: JEANNETTE [facility] External Provider IMG CT PROCEDURES Final Result * CT Head w/o Contrast (05/20/2024 8:22 PM EDT) Anatomical Region Laterality Modality Head, Neck Computed Tomogra phy 05/20/2024 8:22 PM EDT Narrative 05/20/2024 9:30 PM EDT ? [facility] ?[address] ?[place] [address] ? CT Scan Report ? Signed ? Patient: Gavron,Vivian ?MR#: [id number] ?? 879 ? : 1955 ?Acct:[id number] ? Age/Sex: 68 / F ?ADM Date: 10/26/24 ? Loc: HO.ED ? Attending Dr: ? Ordering Physician: Ondina Rios ?? Date of Service: 05/20/24 ?? Procedure(s): CT head/brain wo IV con ?? Accession Number(s): [id number] ? cc: Jennifer Stewart MD; Ondina Rios ? EXAMINATION: ?? CT HEAD WITHOUT CONTRAST ? CLINICAL INFORMATION: ?? Headache status-post fall; anticoagulant therapy. ? COMPARISON: ?? CT head dated 03/25/2022. ? TECHNIQUE: ?? Contiguous axial imaging was performed from the skull base to vertex ?? without intravenous administration of contrast. Multiplanar reformatted ?? images are submitted. ? This CT examination was performed using dose optimization techniques as ?? appropriate, variously including the following: ?? *Automated exposure control ?? *Adjustment of mA and/or kV according to patient size (this includes ?? techniques or standardized protocols for targeted exams where dose is ?? matched to indication/reason for exam; i.e. extremities or head) ?? *Use of iterative reconstruction technique ? DLP: ?? 1304 mGy-cm ? FINDINGS: ?? There is no acute intracranial hemorrhage or evidence of territorial ?? infarction. No abnormal mass effect or midline shift is seen. Larry to ?? white matter differentiation is well preserved. There is no abnormal ?? attenuation within the brain parenchyma. ? The ventricles are normal in size. No extra-axial fluid collections are ?? identified. ? The calvarium and scalp soft tissues are normal. ? The middle ear cavity and mastoid air cells are clear. ? There is mild left maxillary sinusitis. ? CT/CT head/brain wo IV con ?? IMPRESSION: ? 1. No acute intracranial pathology. ? 2. There is mild left maxillary sinusitis. ? Electronically signed by: ??Fredrick Rao MD ??05/20/2024 09:27 PM EDT RP ? Dictated By: ?Fredrick Rao MD ? Signed By: ?<Electronically signed by Fredrick Rao MD in OV> ? 05/20/242126 ? DD/ 21 ? TD/TT: 05/20/242021 ? Burial Vault Setter: JEANNETTE ? Procedure Note Donotuseinterpreter, Image - 05/20/[address] [address] [address] Scan Report Signed Patient: Vivian HayesMR#: [id number] 879 : 6Acct:[id number] Age/Sex: 68 / FADM Date: 05/20/24 Loc: HO.ED Attending Dr: Ordering Physician: Ondina Rios Date of Service: 05/20/24 Procedure(s): CT head/brain wo IV con Accession Number(s): [id number] cc: Jennifer Stewart MD; Ondina Rios EXAMINATION: CT HEAD WITHOUT CONTRAST CLINICAL INFORMATION: Headache status-post fall; anticoagulant therapy. COMPARISON: CT head dated 03/25/2022. TECHNIQUE: Contiguous axial imaging was performed from the skull base to vertex without intravenous administration of contrast. Multiplanar reformatted images are submitted. This CT examination was performed using dose optimization techniques as appropriate, variously including the following: *Automated exposure control *Adjustment of mA and/or kV according to patient size (this includes techniques or standardized protocols for targeted exams where dose is matched to indication/reason for exam; i.e. extremities or head) *Use of iterative reconstruction technique DLP: 1304 mGy-cm FINDINGS: There is no acute intracranial hemorrhage or evidence of territorial infarction. No abnormal mass effect or midline shift is seen. Larry to white matter differentiation is well preserved. There is no abnormal attenuation within the brain parenchyma. The ventricles are normal in size. No extra-axial fluid collections are identified. The calvarium and scalp soft tissues are normal. The middle ear cavity and mastoid air cells are clear. There is mild left maxillary sinusitis. CT/CT head/brain wo IV con IMPRESSION: 1. No acute intracranial pathology. 2. There is mild left maxillary sinusitis. Electronically signed by: Fredrick Rao MD 05/20/2024 09:27 PM EDT Dictated By: Fredrick Rao MD Signed By: <Electronically signed by Fredrick Rao MD in OV> 05/20/242126 DD/ 21 TD/TT: 05/20/242021 Burial Vault Setter: JEANNETTE us [facility] External Provider IMG CT PROCEDURES Final Result * XR Shoulder 2+ Views Right (05/20/2024 7:48 PM EDT) Anatomical Region Laterality Modality Upper Extremities, Shoulder Right Radi ographic Imaging 05/20/2024 7:48 PM EDT Narrative 05/20/2024 9:40 PM EDT ? [facility] ?[address] ?[place] [address] ?XRay Report ? Signed ? Patient: JosiasfranciscodeliaVivian ?MR#: [id number] ?? 879 ? : 1955 ?Acct:[id number] ? Age/Sex: 68 / F ?ADM Date: 05/20/24 ? Loc: HO.ED ? Attending Dr: ? Ordering Physician: Ondina Rios ?? Date of Service: 05/20/24 ?? Procedure(s): XR shoulder RT min 2V ?? Accession Number(s): [id number] ? cc: Jennifer Stewart MD; Ondina Rios ? EXAMINATION: ?? XR SHOULDER, RIGHT ? CLINICAL INFORMATION: ?? Pain status-post fall. ? COMPARISON: ?? None available. ? TECHNIQUE: ?? AP external rotation, Grashey and scapular Y views of the right. ? FINDINGS: ?? The bones and soft tissues are normal. No fracture. Glenohumeral and ?? acromioclavicular alignment is anatomic with normal joint space. No ?? abnormal soft tissue calcifications. Cervicothoracic orthopedic ?? hardware is incompletely covered in the [id number]. ? XR/XR shoulder RT min 2V ?? IMPRESSION: ?? Normal right shoulder. ? Electronically signed by: ??Fredrick Rao MD ??05/20/2024 09:38 PM EDT RP ? Dictated By: ?Fredrick Rao MD ? Signed By: ?<Electronically signed by Fredrick Rao MD in OV> ? 05/20/248 ? DD/ 47 ? TD/TT: 05/20/242032 ? Burial Vault Setter: JEANNETTE ? Procedure Note Donotuseinterpreter, Image - 05/20/[address] [address] XRay Report Signed Patient: Vivian HayesMR#: [id number] 879 : 6Acct:[id number] Age/Sex: 68 / FADM Date: 05/20/24 Loc: HO.ED Attending Dr: Ordering Physician: Ondina Rios Date of Service: 05/20/24 Procedure(s): XR shoulder RT min 2V Accession Number(s): [id number] cc: Jennifer Stewart MD; Ondina Rios EXAMINATION: XR SHOULDER, RIGHT CLINICAL INFORMATION: Pain status-post fall. COMPARISON: None available. TECHNIQUE: AP external rotation, Grashey and scapular Y views of the right. FINDINGS: The bones and soft tissues are normal. No fracture. Glenohumeral and acromioclavicular alignment is anatomic with normal joint space. No abnormal soft tissue calcifications. Cervicothoracic orthopedic hardware is incompletely covered in the [id number]. XR/XR shoulder RT min 2V IMPRESSION: Normal right shoulder. Electronically signed by: Fredrick Rao MD 05/20/2024 09:38 PM EDT Dictated By: Fredrick Rao MD Signed By: <Electronically signed by Fredrick Rao MD in OV> 05/20/242137 DD/ 47 TD/TT: 05/20/242032 Burial Vault Setter: JEANNETTE [facility] External Provider IMG XR PROCEDURES Final Result * XR Ankle 3+ Views Right (05/20/2024 7:48 PM EDT) Anatomical Region Laterality Modality Lower Extremities, Ankle Right Radiogr aphic Imaging 05/20/2024 7:48 PM EDT Narrative 05/20/2024 9:38 PM EDT ? [facility] ?[address] ?[place] [address] ?XRay Report ? Signed ? Patient: Gavron,Vivian ?MR#: [id number] ?? 879 ? : 1955 ?Acct:[id number] ? Age/Sex: 68 / F ?ADM Date: 05/20/24 ? Loc: HO.ED ? Attending Dr: ? Ordering Physician: Ondina Rios ?? Date of Service: 05/20/24 ?? Procedure(s): XR ankle RT min 3V ?? Accession Number(s): [id number] ? cc: Jennifer Stewart MD; Ondina Rios ? EXAMINATION: ?? XR ANKLE, RIGHT ? CLINICAL INFORMATION: ?? Pain. ? COMPARISON: ?? Radiographs dated 07/31/2015. ? TECHNIQUE: ?? AP, lateral, and mortise views of the right ankle. ? FINDINGS: ?? Bony alignment and mineralization are normal. The ankle mortise is ?? intact. No fracture or dislocation is seen. There is a moderately large ?? right ankle joint effusion, with anterior teardrop sign. Boehler's ?? angle is normal. There is a small plantar calcaneal spur. There is ?? moderate soft tissue swelling adjacent to the lateral malleolus. No ?? soft tissue gas or foreign body is seen. ? XR/XR ankle RT min 3V ?? IMPRESSION: ? 1. No fracture or dislocation is seen. ? 2. There is a moderately large right ankle joint effusion. ? 3. There is moderate soft tissue swelling adjacent to the lateral ?? malleolus. ? Electronically signed by: ??Fredrick Rao MD ??05/20/2024 09:35 PM EDT RP ? Dictated By: ?Fredrick Rao MD ? Signed By: ?<Electronically signed by Fredrick Rao MD in OV> ? 05/20/245 ? DD/ ? TD/TT: 05/20/242032 ? Burial Vault Setter: JEANNETTE ? Procedure Note Erika Vaz - 05/20/20[address] [place] [address] XRay Report Signed Patient: Vivian HayesMR#: [id number] 879 : 6Acct:[id number] Age/Sex: 68 / FADM Date: 05/20/24 Loc: HO.ED Attending Dr: Ordering Physician: Ondina Rios Date of Service: 05/20/24 Procedure(s): XR ankle RT min 3V Accession Number(s): [id number] cc: Jennifer Stewart MD; Ondina Rios EXAMINATION: XR ANKLE, RIGHT CLINICAL INFORMATION: Pain. COMPARISON: Radiographs dated 07/31/2015. TECHNIQUE: AP, lateral, and mortise views of the right ankle. FINDINGS: Bony alignment and mineralization are normal. The ankle mortise is intact. No fracture or dislocation is seen. There is a moderately large right ankle joint effusion, with anterior teardrop sign. Boehler's angle is normal. There is a small plantar calcaneal spur. There is moderate soft tissue swelling adjacent to the lateral malleolus. No soft tissue gas or foreign body is seen. XR/XR ankle RT min 3V IMPRESSION: 1. No fracture or dislocation is seen. 2. There is a moderately large right ankle joint effusion. 3. There is moderate soft tissue swelling adjacent to the lateral malleolus. Electronically signed by: Fredrick Rao MD 05/20/2024 09:35 PM EDT Dictated By: Fredrick Rao MD Signed By: <Electronically signed by Fredrick Rao MD in OV> 05/20/242134 DD/ 47 TD/TT: 05/20/242032 Burial Vault Setter: JEANNETTE Authorvimal Provider Result Type Result Stat [facility] External Provider IMG XR PROCEDURES Final Result documented in this encounter Visit Diagnoses Diagnosis Major depressive disorder with single episode, in full remission (CMS/HCC)- Primary documented in this encounter Additional Health Concerns Assessment Noted Time PHQ-9 Depression Total Score: 0 02/03/20 24 10:01 AM EDT documented as of this encounter Care Teams Classroom Teacher Relationship Specialty Start Date End Date Jennifer Stewart MD [address] [place] [address] PCP - General Family Medicine 07/26/18 Zayda Rader, PharmD [address] [place] [address] Pharmacist Internal Medicine 04/27/24 Alina Lynch [address] [place] [address] Orthopaedic Surgery 09/26/24 Moshe Bran MD [address] [place] [address] Cardiology 09/26/24 Wade Tyson MD [facility] [address] [place] [address] Ophthalmology 08/22/24 documented as of this encounter
--- OUTSIDE RECORDS SUMMARY | 2024-10-04 18:19 | XMS_ITS | Encounter Summary ---
Author Organization [employer] Address [address] [facility] 7t [place] [address] Care Team Providers Care Scout Name Role Phone Jennifer Stewart MD Primary Care Provider +- [phone] Zayda Rader PharmD Unavailable Alina Lynch Unavailable Moshe Bran MD Unavailable [phone] Reason for Visit * Reason Onset Date Comments Appointment 01/21/2023 Encounter Details Date Type Department Care Team (Late st Contact Info) Description 01/21/2023 Telephone [facility] [address] [place], [place] [phone] Alma March DDS [address] [place], [place] [phone] Appointment Social History Tobacco Use Types Packs/Day Years Used Date Smoking Tobacco: Never Smokeless Tobacco: Never Depression Answer Date Recorded Patient Health Questionnaire-9 Score 0 09/24/2022 Depression Answer Date Recorded Patient Health Questionnaire-2 Score 0 09/24/2022 Comments Unknown Sex and Gender Information Value Date Recorded Sex Assigned at Female 05/25/2022 10:19 AM EDT Legal Sex Female 10:19 AM EDT Gender Identity Female 05/25/2022 10:19 AM EDT Sexual Orientation Straight 05/25/2022 10 :19 AM EDT COVID-19 Exposure Response Date Recorded In the last 10 days, have yo u been in contact with someone who was confirmed or suspected to have Coronavirus/COVID-19? No / Unsure 01/15/2023 11:15 AM EDT documented as of this encounter Miscellaneous Notes * Telephone Encounter - Alma March DDS - 01/21/2023 11:18 AM EDT Perfect, thank you. I have reached the patient as well and she will wait until the appt day. Thanks, Dr. Finnegan * Telephone Encounter - Mira Montenegro - 01/21/2023 10:26 AM EDT Vivian Josiastherese 1955 Patient called in this morning for Emergency visit and stated that she was seen on 12/16/2022 and 01/15/[address] Finnegan patient received antibiotic and stated that she took all the medication and still hasn't felt better so I give patient emergency appt for 01/21/23with Dr Finnegan and Kain called me and stated that patient will not feel better into patient has extraction. Patient has a appt for extraction with Dr Rodriges on 02/05/2023 so I reached out to patient and explained what Kain told me so I canceled emergency appt for today. documented in this encounter Plan of Treatment Not on file documented as of this encounter Visit Diagnoses Not on filedocumented in this encounter Additional Health Concerns Assessment Noted Time PHQ-9 Depression Total Score: 0 09/25/19 10:58 AM EST documented as of this encounter Care Teams Scout Relationship Specialty Start Date End Date Jennifer Stewart MD [address] [place] [address] PCP - General Family Medicine 07/26/18 Zayda Rader PharmD [address] [place] [address] Pharmacist Internal Medicine 04/27/24 [facility] Alina [address] [place] [address] [place] [address] Orthopaedic Surgery 09/26/24 Moshe Bran MD [address] [place] [address] Cardiology 09/26/24 Wade Tyson MD [facility] [address] [place] [phone] Ophthalmology 08/22/24 documented as of this encounter
--- OUTSIDE RECORDS SUMMARY | 2024-10-04 18:19 | XMS_ITS | Encounter Summary ---
Author Organization [employer] Address [address] [facility] 7t [place] [address] Care Team Providers Care Enterprise Software Developer Name Role Phone Jennifer Stewart MD Primary Care Provider +- [phone] Zayda Rader PharmD Unavailable [phone] Alina Lynch Unavailable Moshe Bran MD Unavailable [phone] Encounter Details Date Type Department Care Team (Latest Contact Info) Description 10/04/2024 Travel Social History Tobacco Use Types Packs/Day Years [...] documented as of this encounter Care Teams Enterprise Software Developer Relationship Specialty Start Date End Date Jennifer Stewart MD [address] [place] [address] PCP - General Family Medicine 07/26/18 Zayda Rader, PharmD [address] [place] [address] Pharmacist Internal Medicine 04/27/24 Alina Lynch [address] [place] [address] Orthopaedic Surgery 09/26/24 Moshe Bran MD [address] [place] [address] Cardiology 09/26/24 Wade Tyson MD [facility] [address] [place] [address] Ophthalmology 08/22/24 documented as of this encounter
--- OUTSIDE RECORDS SUMMARY | 2024-10-04 18:19 | XMS_ITS | Encounter Summary ---
Author Organization [employer] Address [address] [facility] 7t [place] [address] Care Team Providers Care Cod Clerk Name Role Phone Jennifer Stewart MD Primary Care Provider [phone] Zayda Rader PharmD Unavailable Alina Lynch Unavailable Moshe Bran MD Unavailable [phone] Encounter Details Date Type Department Care Team (Late st Contact Info) Description 08/12/2022 Abstract [facility] [address] [place] [address] Jennifer Stewart MD [address] [place], [place] [phone] Social History Tobacco Use Types Packs/Day Years Used Date Smoking Tobacco: Never Assessed Comments Unknown Sex and Gender Information Value Date Recorded Sex Assigned at Female 05/25/2022 10:19 AM EDT Legal Sex Female 10:19 AM EDT Gender Identity Female 05/25/2022 10:19 AM EDT Sexual Orientation Straight 05/25/2022 10 :19 AM EDT documented as of this encounter Plan of Treatment Not on file documented as of this encounter Procedures Procedure Name Priority Date/Time Associated Diagnosis Comments MAMMOGRAPHY Routine 05/28/2020 COLONOSCOPY Routine 12/27/2019 PAP SMEAR Routine 09/19/2014 12:00 AM EST documented in this encounter Results * Mammography (05/28/2020) Mammogram BIRADS 1 Anatomical Region Laterality Modality Other Historical Provider HEALTH MAINTENANCE Final Result * Colonoscopy (12/27/2019) Colonoscopy Tubular Adenoma with Dr. Angel Historical Provider HEALTH MAINTENANCE Final Result * Pap Smear (09/19/2014 12:00 AM EST) Swab Historical Provider LAB CYTOLOGY ORDERABLES F inal Result IMAGING documented in this encounter Visit Diagnoses Not on filedocumented in this encounter Care Teams Cod Clerk Relationship Specialty Start Date End Date Jennifer Stewart MD [address] [place] [address] PCP - General Family Medicine 07/26/18 Zayda Rader, RigobertoD [address] [place] [address] Pharmacist Internal Medicine 04/27/24 Alina Lynch [address] [place] [address] Orthopaedic Surgery 09/26/24 Moshe Bran MD [address] [place] [address] Cardiology 09/26/24 Wade Tyson MD [facility] [address] [place] [address] Ophthalmology 08/22/24 documented as of this encounter
--- OUTSIDE RECORDS SUMMARY | 2024-10-04 18:19 | XMS_ITS | Encounter Summary ---
Author Organization [employer] Address [address] 7t [place] [address] Care Team Providers Care Upholstery Technician Name Role Phone Jennifer Stewart MD Primary Care Provider +- [phone] Zayda Rader PharmD Unavailable [phone]- [phone] Alina Lynch Unavailable Moshe Bran MD Unavailable [phone] Reason for Visit * Reason Onset Date Comments Appointment Request 07/31/2024 Encounter Details Date Type Department Care Team (Late st Contact Info) Description 07/31/2024 Telephone [facility] MED[facility]INE [address] [place], [place] [phone] Jennifer Stewart MD [address] [place], [place] [phone] Appointment Request Social History Tobacco Use Types Packs/Day Years [...] encounter Miscellaneous Notes * Telephone Encounter - Zayda Rader PharmD - 07/31/2024 9:39 AM EST Please see request of patient to r/s apt. Thank you! * Telephone Encounter - Conrado Gates - 07/31/2024 8:23 AM EST Tc from pt requesting to r/s appt from 07/31. Contact pt to R/s at [phone] documented in this encounter Plan of Treatment Not on file documented as of this encounter Visit Diagnoses Not on filedocumented in this encounter Additional Health Concerns Assessment Noted Time PHQ-9 Depression Total Score: 0 02/03/20 24 10:01 AM EDT documented as of this encounter Care Teams Upholstery Technician Relationship Specialty Start Date End Date Jennifer Stewart MD [address] [place] [address] PCP - General Family Medicine 07/26/18 Zayda Rader, PharmD [address] [place] [address] Pharmacist Internal Medicine 04/27/24 Alina Lynch [address] [place] [address] Orthopaedic Surgery 09/26/24 Moshe Bran MD [address] [place] [address] Cardiology 09/26/24 Wade Tyson MD [facility] [address] [place] [address] Ophthalmology 08/22/24 documented as of this encounter
--- OUTSIDE RECORDS SUMMARY | 2024-10-04 18:19 | XMS_ITS | Encounter Summary ---
Author Organization [employer] Address [address] 7t [place] [address] Care Team Providers Care Waste Collection Driver Name Role Phone Jennifer Stewart MD Primary Care Provider + [phone] Zayda Rader PharmD Unavailable [phone] Alina Lynch Unavailable Moshe Bran MD Unavailable [phone] Encounter Details Date Type Department Care Team (Late st Contact Info) Description 04/17/2024 Telephone [facility] MEDICINE 230 [place], [place] [phone] Zayda Rader, PharmD [address] [place] [address] Social History Tobacco Use Types Packs/Day Years [...] Telephone Encounter - Zayda Rader PharmD - 04/17/2024 8:28 AM EDT Please consider providing a new CDTM referral for HTN which has been pended onto this TC note. Thank you! documented in this encounter Plan of Treatment Not on file documented as of this encounter Visit Diagnoses Not on filedocumented in this encounter Additional Health Concerns Assessment Noted Time PHQ-9 Depression Total Score: 0 02/03/20 24 10:01 AM EDT documented as of this encounter Care Teams Waste Collection Driver Relationship Specialty Start Date End Date Jennifer Stewart MD [address] [place] [address] PCP - General Family Medicine 07/26/18 Zayda Rader, RigobertoD [address] [place] [address] Pharmacist Internal Medicine 04/27/24 Alina Lynch [address] [address] Orthopaedic Surgery 09/26/24 Moshe Bran MD [address] [place] [address] Cardiology 09/26/24 Wade Tyson MD [facility] [address] [place] [address] Ophthalmology 08/22/24 documented as of this encounter
--- OUTSIDE RECORDS SUMMARY | 2024-10-04 18:19 | XMS_ITS | Encounter Summary ---
Author Organization [employer] Address [address] 7[address] [place] [address] Care Team Providers Care Security Infrastructure Engineer Name Role Phone Jennifer Stewart MD Primary Care Provider +- [phone] Zayda Rader PharmD Unavailable [phone] Reason for Visit * Reason Onset Date Comments Chart Prep 09/25/2024 Encounter Details Date Type Department Care Team ([facility] st Contact Info) Description 09/25/[address] [facility] MEDICINE [address] [place], [place] [phone] Bernadette Singh MA Chart Prep Social History Tobacco Use Types Packs/Day Years [...] encounter Miscellaneous Notes * Telephone Encounter - Bernadette Singh MA - 09/25/2024 11:20 AM EST Chart Prep Labs: not applicable Images: done Vaccines due: Jeana Gilbert Referrals: Radiology no show on 04/12/2024 at 1pm Screenings: none Overdue care gaps: none documented in this encounter Plan of Treatment Not on file documented as of this encounter Visit Diagnoses Not on filedocumented in this encounter Additional Health Concerns Assessment Noted Time PHQ-9 Depression Total Score: 0 02/03/20 24 10:01 AM EDT documented as of this encounter Care Teams Security Infrastructure Engineer Relationship Specialty Start Date End Date Jennifer Stewart MD 230 [place] [address] PCP - General Family Medicine 07/26/18 Zayda Rader PharmD [address] [place] [address] Pharmacist Internal Medicine 04/27/24 Wade Tyson MD [facility] [place] [address] Ophthalmology 08/22/24 documented as of this encounter
--- OUTSIDE RECORDS SUMMARY | 2024-10-04 18:19 | XMS_ITS | Encounter Summary ---
Author Organization [employer] Address [address] [facility] 7t [place] [address] Care Team Providers Care Lab Asst Name Role Phone Jennifer Stewart MD Primary Care Provider +- [phone] Zayda Rader PharmD Unavailable [phone]- [phone] Alina Lynch Unavailable Moshe Bran MD Unavailable [phone] Reason for Visit * Reason Comments SDOH Concerns C3CM/CHW GUILLERMINA Pope SDOH food insecurities Encounter Details Date Type Department Care Team (Late st Contact Info) Description 09/28/2024 Patient Outreach [facility] MEDICINE 230 [place], [place] [phone] Jennifer Stewart MD 230 [place], [place] [phone] SDOH Concerns (ZackCM/GUILLERMINA Flores SDOH food insecurities) Social History Tobacco Use Types Packs/Day Years [...] AM EDT documented as of this encounter Progress Notes * Tacho Henry - 09/28/2024 3:41 PM EST Patient came in to [facility] inquiring about food vouchers for food as patient has some food insecurities. Patient was receiving food voucher from [employer] last year. Patient was eligible in the past as patient had [employer]. Patient no longer has [employer]. Patient no longereligible. Patient stated that she will work on getting [employer] as a secondary insurance and call [facility] back. [facility] mailed a food pantry list to the patient today. Patient verbalized understanding andagrees with today's encounter. documented in this encounter Plan of Treatment Not on file documented as of this encounter Visit Diagnoses Not on filedocumented in this encounter Additional Health Concerns Assessment Noted Time PHQ-9 Depression Total Score: 0 02/03/20 24 10:01 AM EDT documented as of this encounter Care Teams Lab Asst Relationship Specialty Start Date End Date Jennifer Stewart MD [address] [place] [address] PCP - General Family Medicine 07/26/18 Zayda Rader, RigobertoD 230 [place] [address] Pharmacist Internal Medicine 04/27/24 Alina Lynch [address] [place] [address] Orthopaedic Surgery 09/26/24 Moshe Bran MD [address] [place] [address] Cardiology 09/26/24 Wade Tyson MD [facility] [address] [place] [address] Ophthalmology 08/22/24 documented as of this encounter
--- OUTSIDE RECORDS SUMMARY | 2024-10-04 18:19 | XMS_ITS | Encounter Summary ---
Author Organization [employer] Address [address] 7t [place] [address] Care Team Providers Care Paper Reclaiming Machine Operator Name Role Phone Jennifer Stewart MD Primary Care Provider + [phone] Zayda Rader PharmD Unavailable [phone] Alina Lynch Unavailable Moshe Bran MD Unavailable [phone] Encounter Details Date Type Department Care Team (Late st Contact Info) Description 09/26/2024 Orders Only [facility] 230 [place], [place] [phone] Jennifer Stewart MD [address] [place], [place] [phone] Social History Tobacco Use Types Packs/Day Years [...] documented as of this encounter Care Teams Paper Reclaiming Machine Operator Relationship Specialty Start Date End Date Jennifer Stewart MD [address] [place] [address] PCP - General Family Medicine 07/26/18 Zayda Rader PharmD [address] [place] [address] Pharmacist Internal Medicine 04/27/24 Alina Lynch [address] [place] [address] [place] [address] Orthopaedic Surgery 09/26/24 Moshe Bran MD [address] [place] [address] Cardiology 09/26/24 Wade Tyson MD [facility] [address] [place] [address] Ophthalmology 08/22/24 documented as of this encounter
--- OUTSIDE RECORDS SUMMARY | 2024-10-04 18:19 | XMS_ITS | Encounter Summary ---
Author Organization [employer] Address [address] [facility] 7t [place] [address] Care Team Providers Care Line Closer Name Role Phone Jennifer Stewart MD Primary Care Provider +- [phone] Zayda Rader PharmD Unavailable [phone] Alina Lynch Unavailable Moshe Bran MD Unavailable [phone] Reason for Visit * Reason Onset Date Comments appt Oral Surgery 06/01/2023 Encounter Details Date Type Department Care Team (Late st Contact Info) Description 06/01/2023 Telephone [facility] [address] [place], [place] [phone] Osmin Correia, SRAVANTHI [address] [place], [place] [phone] appt Oral Surgery Social History Tobacco Use Types Packs/Day Years Used Date Smoking Tobacco: Never Passive Smoke Exposure: Never Smokeless Tobacco: Never Alcohol Use Standard Drinks/Week Comments Never 0 (1 standard drink = 0.6 oz pur e alcohol) Depression Answer Date Recorded Patient Health Questionnaire-9 Score 0 09/24/2022 Housing Stability Answer Date Recorded What is your housing situation today? I have gus van 05/17/[address] you li ve. Do you have problems with any of the following? None of the above 05/17/2023 Food Insecurity Answer Date Recorded Within the past 12 months, y ou worried that your food would run out before you got money to buy more: Never True 05/17/2023 Within the past 12 months,th e food you bought just didn't last and you didn't have enough money to get more: Never True Transportation Answer Date Recorded In the past 12 months, has l ack of transportation kept you from medical appts, meetings, work or from getting things needed for daily living? No 05/17/2023 Utilities Answer Date Recorded In the past 12 months, has t he electric, gas, oil or water company threatened to shut off services in your home? No 05/17/2023 Depression Answer Date Recorded Patient Health Questionnaire-2 Score 0 09/24/2022 Comments Unknown Sex and Gender Information Value Date Recorded Sex Assigned at Female 05/25/2022 10:19 AM EDT Legal Sex Female 10:19 AM EDT Gender Identity Female 05/25/2022 10:19 AM EDT Sexual Orientation Straight 05/25/2022 10 :19 AM EDT documented as of this encounter Miscellaneous Notes * Telephone Encounter - Priyanka Schmitt - 06/01/2023 11:48 AM EST Patient on waiting list/active request with Dr. Correia since November through the [facility]. She didhave to have an emergency ext done but is now still waiting for the other appts for continued treatment DR documented in this encounter Plan of Treatment Not on file documented as of this encounter Visit Diagnoses Not on filedocumented in this encounter Additional Health Concerns Assessment Noted Time PHQ-9 Depression Total Score: 0 09/25/19 10:58 AM EST documented as of this encounter Care Teams Line Closer Relationship Specialty Start Date End Date Jennifer Stewart MD [address] [place] [address] PCP - General Family Medicine 07/26/18 Zayda Rader, Georgie [address] [place] [address] Pharmacist Internal Medicine 04/27/24 Alina Lynch [address] [place] [address] [address] [place] [address] Orthopaedic Surgery 09/26/24 Moshe Bran MD [address] [place] [address] Cardiology 09/26/24 Wade Tyson MD [facility] Eye [address] [address] Ophthalmology 08/22/24 documented as of this encounter
--- OUTSIDE RECORDS SUMMARY | 2024-10-04 18:19 | XMS_ITS | Encounter Summary ---
Author Organization [employer] Address [address] [facility] 7t [place] [address] Care Team Providers Care Grad Intern Name Role Phone Jennifer Stewart MD Primary Care Provider +1- [phone] Zayda Rader PharmD Unavailable [phone] Reason for Visit * Reason Onset Date Comments Pre-op Visit 09/05/2024 Encounter Details Date Type Department Care Team ([facility] Contact Info) Description 09/05/2024 Telephone [facility] MEDICINE [address] [place], [place] [phone] Jennifer Stewart MD [address] [place], [place] [phone] Pre-op Visit Social History Tobacco Use Types Packs/Day Years [...] encounter Miscellaneous Notes * Telephone Encounter - Herrera Anderson - 09/07/2024 11:39 AM EST Agreed to 10/04 with LAILA Taveras * Telephone Encounter - Conrado Gates - 09/05/2024 2:25 PM EST Date of Surgery: 10/25/24 Surgical procedure being done: Cataract Surgery Type of anesthesia: local anesthesia Lab needed: Yes EKG: Yes Surgeon's name: Facility name: [facility] Surgeon's office number: [phone] Surgeon's office fax number: [phone] Contact name (person you spoke with): Vivian Hayes Last office note from surgeon requested: No Send Message to Anastacia Nicole and Herrera Anderson Contact pt at [phone] documented in this encounter Plan of Treatment Not on file documented as of this encounter Visit Diagnoses Not on filedocumented in this encounter Additional Health Concerns Assessment Noted Time PHQ-9 Depression Total Score: 0 02/03/20 10:01 AM EDT documented as of this encounter Care Teams Grad Intern Relationship Specialty Start Date End Date Jennifer Stewart MD [address] [place] [address] PCP - General Family Medicine 07/26/18 Zayda Rader, RigobertoD [address] [place] [address] Pharmacist Internal Medicine 04/27/24 Wade Tyson MD [facility] [address] [place] [address] Ophthalmology 08/22/24 documented as of this encounter
--- OUTSIDE RECORDS SUMMARY | 2024-10-04 18:19 | XMS_ITS | Encounter Summary ---
Author Organization [employer] Address [address] 7t [place] [address] Care Team Providers Care Computer Network Specialist Name Role Phone Jennifer Stewart MD Primary Care Provider +- [phone] Zayda Rader PharmD Unavailable [phone] Alina Lynch Unavailable Moshe Bran MD Unavailable [phone] Encounter Details Date Type Department Care Team (Late st Contact Info) Description 03/16/2024 Orders Only [facility] MEDICINE 230 [place] [address] Jennifer Stewart MD [address] [place] [address] Social History Tobacco Use Types Packs/Day Years [...] Recorded Patient Health Questionnaire-2 Score 0 02/03/2024 Comments Unknown Sex and Gender Information Value [...] documented as of this encounter Care Teams Computer Network Specialist Relationship Specialty Start Date End Date Jennifer Stewart MD [address] [place] [address] PCP - General Family Medicine 07/26/18 Zayda Rader, PharmD [address] [place] [address] Pharmacist Internal Medicine 04/27/24 Alina Lynch [address] [place] [address] [place] [address] Orthopaedic Surgery 09/26/24 Moshe Bran MD [address] [place] [address] Cardiology 09/26/24 Wade Tyson MD [facility] [address] [place] [address] Ophthalmology 08/22/24 documented as of this encounter
--- OUTSIDE RECORDS SUMMARY | 2024-10-04 18:19 | XMS_ITS | Clinical Summary ---
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 aspirin (Edmund Low Dose) 81 MG EC tabletIndications :Atrial fibrillation, unspecified type (CMS/HCC),History of coronary artery bypass surgery Take 1 tablet (81 mg) by mouth Once per day. 90 tablet 3 024 Active atorvastatin (Lipitor) 80 MG tabletIndications :History of coronary artery bypass surgery Take 1 tablet (80 mg) by mouth Once per day. 90 tablet 3 024 Active amLODIPine (Norvasc) 5 MG tabletIndications :Hypertension, unspecified type Take 1 tablet (5 mg) by mouth Once per day. 90 tablet 024 Active buPROPion SR (Wellbutrin SR) 150 MG 12 hr tabletIndications :Major depressive disorder with single episode, in full remission (CMS/HCC) Take 1 tablet (150 mg) by mouth 2 times daily. 180 tablet 024 Active isosorbide mononitrate ER (Imdur) 60 MG 24 hr tabletIndications :Hypertension, unspecified type,Coronary artery disease, unspecified vessel or lesion type, unspecified whether angina present, unspecified whether [place] or transplanted heart Take 1 tablet (60 mg) by mouth Once per day. 90 tablet 3 Active ranolazine (Ranexa) 1000 MG 12 hr tabletIndications :Coronary artery disease, unspecified vessel or lesion type, unspecified whether angina present, unspecified whether [place] or transplanted heart Take 1 tablet (1,000 mg) by mouth every 12 (twelve) hours. 180 tablet 3 Active nitroglycerin (Nitrostat) 0.4 MG SL tabletIndications :Coronary artery disease, unspecified vessel or lesion type, unspecified whether angina present, unspecified whether [place] or transplanted heart Place 1 tablet (0.4 mg) under the tongue every 5 (five) minutes if needed for chest pain. 25 tablet Active clopidogrel (Plavix) 75 MG tabletIndications :Coronary artery disease, unspecified vessel or lesion type, unspecified whether angina present, unspecified whether [place] or transplanted heart Take 75 mg by mouth 2 times daily. Per cardiology Active famotidine (Pepcid) 40 MG tabletIndications :Gastroesophageal reflux disease without esophagitis Take 0.5 tablets (20 mg) by mouth 2 times daily. 30 tablet 11 024 2024 Active sertraline (Zoloft) 50 MG tabletIndications :Major depressive disorder with single episode, in full remission (CMS/[facility]) Take 1 tablet (50 mg) by mouth Once per day. waiting 7 days after stopping fluoxetine before starting sertraline 50mg once daily 90 tablet 3 024 2024 Active traZODone (Desyrel) 100 MG tabletIndications :Primary insomnia TAKE 1 TABLET BY MOUTH AT BEDTIME 30 tablet 3 Active ezetimibe (Zetia) 10 MG tabletIndications :Hyperlipidemia, unspecified hyperlipidemia type TAKE 1 TABLET BY MOUTH EVERY MORNING 90 tablet Active acetaminophen (Tylenol) 325 MG tablet Take 650 mg by mouth every 6 (six) hours if needed. 024 2024 Discontinued(M ed list cleanup (will not trigger notification to Pharmacy)) Active Problems Problem Noted Date Diagnosed Date Preop examination 10/04/2024 Cervical strain 09/25/2024 Contusion of knee, right 09/25/2024 Contusion of right shoulder 09/25/2024 Osteoarthritis of right knee 09/25/2024 History of fall 04/19/2024 Overview (04/19/2024): -seen in [facility] ER 04/19/24 for fall Gastroesophageal reflux disease without esophagi tis 04/05/2024 Overview (04/05/2024): -refilled Pepcid 04/05/24 Assessment & Plan (04/05/2024 9:21 AM EDT): -refilled Pepcid 04/05/24 Encounter for screening for malignant neoplasm o f colon 04/05/2024 Abnormal bone density screening 04/05/2024 Overview (04/05/2024): Never had DEXA previously. Meets requirements. -ordered DEXA 04/05/24 Assessment & Plan (04/05/2024 9:19 AM EDT): Never had DEXA previously. Meets requirements. -ordered DEXA 04/05/24 Gastroesophageal reflux disease with esophagitis 03/17/2024 NSTEMI (non-ST elevated myocardial infarction) 0 03/17/2024 Assessment & Plan (04/02/2024 5:36 PM EDT): Pt with likely orthostatic hypotension given bps in office. Metoprolol reduced to 12.5 mg, if symptoms persist return or worsen, reminded pt of urgency of immediate evaluation given recent nstemi Continue plavix and aspirin, meds reconciled Postprocedural hypotension 03/17/2024 Assessment & Plan (04/02/2024 5:35 PM EDT): Hold losartan, continue home bp readings Primary insomnia 02/04/2024 Breast cancer screening by mammogram 02/04/2024 Overview (04/05/2024): -mammo ordered 02/03/24, no done yet 04/05/24 -replaced order 04/05/24 Assessment & Plan (04/05/2024 9:20 AM EDT): -mammo ordered 02/03/24, no done yet 04/05/24 -replaced order 04/05/24 Major depressive disorder wi th single episode, in full remission 02/02/2024 Overview (05/04/2024): Doing better. Had exacerbation of symptom 09/2023. No suicidial or homacidial ideation. -behavior health referral placed 02/03/24, I continued to prescribe her psychiatric meds but changed due to potential drug interaction. potential DDIs with her: fluoxetine and ranexa (potential DDI is increased risk of QTc prolongation with major level of DDI per clinical pharmacology ). She agrees for SSRI switch to sertraline which does not have the same potential DDI if sertraline is dosed within the usual dosing range. Due to fluoxetine's long half life, consider discontinuation of fluoxetine and waiting 7 days for washout to start sertraline 50mg once daily (starting dose). Assessment & Plan (02/04/2024 8:40 AM EDT): Doing better. Had exacerbation of symptom 09/2023. No suicidial or homacidial ideation. -behavior health referral placed 02/03/24 Preventative health care 05/19/2023 Overview (02/03/2024): -next physical exam due after 05/19/2024 -eye care facilitated by [facility] -health care proxy filed 02/03/24 Assessment & Plan (02/04/2024 8:41 AM EDT): -next physical exam due after 05/19/2024 -eye care facilitated by [facility] -health care proxy filed 02/03/24 Assessment & Plan (05/19/2023 10:47 AM EDT): -next physical exam due after -eye care facilitated by [facility] Dental caries 02/05/2023 Periodontal disease 02/05/2023 Dyspnea 01/31/2018 Overview (05/19/2023): Likely multifactorial, I suspect related to cardiovascular disease, vocal cord paralysis, obesity and deconditioning. The good news is that her chest CT, PFT, spirometry and methacholine challenge testing are all unremarkable, and therefore there is no evidence of clinically significant pulmonary parenchymal or airways disease (no asthma, no COPD). In that context, bronchodilators or other inhalers are likely not indicated. Assessment & Plan (05/19/2023 10:35 AM EDT): Likely multifactorial, I suspect related to cardiovascular disease, vocal cord paralysis, obesity and deconditioning. The good news is that her chest CT, PFT, spirometry and methacholine challenge testing are all unremarkable, and therefore there is no evidence of clinically significant pulmonary parenchymal or airways disease (no asthma, no COPD). In that context, bronchodilators or other inhalers are likely not indicated. Snoring 01/31/2018 Overview (05/19/2023): Suspect LUZ, will refer to sleep medicine as she would be willing to consider nasal pillows. Educated patient on risks of stroke / heart attacks related to untreated sleep apnea. Assessment & Plan (05/19/2023 10:34 AM EDT): Suspect LUZ, will refer to sleep medicine as she would be willing to consider nasal pillows. Educated patient on risks of stroke / heart attacks related to untreated sleep apnea. Systolic and diastolic CHF, chronic 01/31/2018 Unilateral vocal cord paralysis 01/31/2018 Overview (05/19/2023): Defer to ENT for further management. Assessment & Plan (05/19/2023 10:35 AM EDT): Defer to ENT for further management. History of coronary artery bypass surgery 2014 Atrial fibrillation 08/28/2013 Overview (04/21/2023): New onset during hospitalization for CHF Jul 2013. Possibly due to CHF in the setting of holding metoprolol during hospitlation. S/p 30 day holter. If negative for a fib. Coumadin discontued per cardiology after 3 months of Tx. Assessment & Plan (02/04/2024 8:40 AM EDT): New onset during hospitalization for CHF Jul 2013. Possibly due to CHF in the setting of holding metoprolol during hospitlation. S/p 30 day holter. If negative for a fib. Coumadin discontued per cardiology after 3 months of Tx. Assessment & Plan (05/19/2023 10:36 AM EDT): New onset during hospitalization for CHF Jul 2013. Possibly due to CHF in the setting of holding metoprolol during hospitlation. S/p 30 day holter. If negative for a fib. Coumadin discontued per cardiology after 3 months of Tx. Assessment & Plan (09/24/2022 11:32 AM EST): New onset during hospitalization for CHF Jul 2013. Possibly due to CHF in the setting of holding metoprolol during hospitlation. S/p 30 day holter. If negative for a fib. Coumadin discontued per cardiology after 3 months of Tx. Congestive heart failure 08/28/2013 Coronary artery disease 08/23/2013 Overview (04/05/2024): Patient followed at [facility] with Dr. Judah Bran DO. Note from 03/30/24 refoewed/ -s/p CABG x [address] 06[address] Cho -s/p NSTEMI s/p LMCA atherectomy and ERWIN Dr Diop -grade 1 diastolic congestive heart failure with LVEF 50-55% JESI -admitted for chest pain to [facility] 03/18/24 neg for ACS -continue ASA, plavix, amlodipine, isosorbide, ranolazine, atrovastatin, ezetimbine -Per Dr Bran at cardiology (per TAMERA Martin), patient to first take HR and if >50 BPM, to take metoprolol. Metoprolol previously decreased to ER 12.5mg once daily by [facility]. Per Mario, no response regarding losartan so to hold in the meantime. Cardiology follow up scheduled 03/30/24 1pm and holter monitor application appointment 03/31/24 at 11:45am. Pulse ox prescribed by CD[facility]. Patient made aware of this plan and stated understanding. Assessment & Plan (04/05/2024 9:21 AM EDT): Patient followed at [facility] with Dr. Judah Bran DO. Note from 03/30/24 refoewed/ -s/p CABG x 2 06/[address] Cho -s/p NSTEMI s/p LMCA atherectomy and ERWIN Dr Diop -grade 1 diastolic congestive heart failure with LVEF 50-55% JESI -admitted for chest pain to [facility] 03/18/24 neg for ACS -continue ASA, plavix, amlodipine, isosorbide, ranolazine, atrovastatin, ezetimbine -Per Dr Bran at cardiology (per TAMERA Martin), patient to first take HR and if >50 BPM, to take metoprolol. Metoprolol previously decreased to ER 12.5mg once daily by [facility]. Per Mario, no response regarding losartan so to hold in the meantime. Cardiology follow up scheduled 03/30/24 1pm and holter monitor application appointment 03/31/24 at 11:45am. Pulse ox prescribed by [facility]. Patient made aware of this plan and stated understanding. Assessment & Plan (05/19/2023 10:36 AM EDT): Follow up with cardiology as scheduled. Appears stable at this time. Assessment & Plan (09/24/2022 11:32 AM EST): Hx CABG x 26 Jun 2012 and Afib in the setting of CHF Jul 2013. Repeat cath at [facility] 02/2016 revealed very short left main stenosis difficult to ascertain, probably 60% stenosis of left main, diffuse 75% mid LCx, 50% mid LAD and patent SVG to OM. CRAVEN to LAD is atretic and did not perfuse to the LAD. Normal LVEDP. It was advised to manage with aggressive medical therapy at this point as no easy stenting option for her left main disease. Hospitalized 04/2019 for non-ST elevation [place]. Continue ASA, bisoprolol, statin, and ranolazine and follow up with Dr. Bran HLD (hyperlipidemia) 05/05/2012 HTN (hypertension) 05/05/2012 Overview (04/05/2024): -Blood pressure is at goal -Follows with [facility] -Continue lifestyle modifications -Continue current medications Assessment & Plan (04/05/2024 9:09 AM EDT): -Blood pressure is at goal -Follows with [facility] -Continue lifestyle modifications -Continue current medications Assessment & Plan (02/04/2024 8:40 AM EDT): -Blood pressure is not at goal -She was not able to take her meds for several months due to depression that is now improving. We sent refills on meds and MTM referral for med box 02/03/24 -Collaborative Drug Therapy Managment Program with our PharmD referral placed 02/03/24 -Continue lifestyle modifications -Continue current medications Assessment & Plan (09/24/2022 11:28 AM EST): BP at goal. Obesity 05/05/2012 Allergic rhinitis 03/30/2012 Anxiety 03/30/2012 Cervical spondylosis 03/30/2012 Elevated fasting glucose 03/30/2012 Vertigo 03/30/2012 Tubular adenoma 04/05/2008 Overview (09/24/2022): Hx tubular adenoma 2007. Overdue for follow up with Dr. Angel. Stool cards sent but she understands she is to call Dr. Angel for colonoscopy. Repeat colonoscopy on 12/27/2019 which showed another tubular adenoma. Next colonoscopy due 12/26/2024. Assessment & Plan (04/05/2024 9:21 AM EDT): Hx tubular adenoma 2007. Overdue for follow up with Dr. Angel. Stool cards sent but she understands she is to call Dr. Angel for colonoscopy. Repeat colonoscopy on 12/27/2019 which showed another tubular adenoma. Next colonoscopy due 12/26/2024. Assessment & Plan (05/19/2023 10:44 AM EDT): Hx tubular adenoma 2007. Overdue for follow up with Dr. Angel. Stool cards sent but she understands she is to call Dr. Angel for colonoscopy. Repeat colonoscopy on 12/27/2019 which showed another tubular adenoma. Next colonoscopy due 12/26/2024. Assessment & Plan (09/24/2022 11:31 AM EST): Hx tubular adenoma 2007. Overdue for follow up with Dr. Angel. Stool cards sent but she understands she is to call Dr. Angel for colonoscopy. Repeat colonoscopy on 12/27/2019 which showed another tubular adenoma. Next colonoscopy due 12/26/2024. Resolved Problems Problem Noted Date Diagnosed Date Resolved Date Fall 09/25/2024 09/26/2024 Right ankle sprain 09/25/2024 Physical exam 05/19/2023 09/26/2024 Overview (05/19/2023): -Normal growth and development. -Anticipatory guidance discussed. -Preventative care / harm reduction discussed. Assessment & Plan (05/19/2023 10:47 AM EDT): -Normal growth and development. -Anticipatory guidance discussed. -Preventative care / harm reduction discussed. Hypotension 09/24/2022 05/19/2023 Assessment & Plan (09/24/2022 11:35 AM EST): BP at goal. Not currently on metoprolo, she will call for refill and monitoring. Depression 03/30/2012 09/26/2024 Encounters Date Type Department Care Team Description 10/04/2024 2:45 PM EDT Office Visit [facility] [address] [place] [phone] Darcy Ordonez FNP Preop examination (Primary Dx); Congestive heart failure, unspecified HF chronicity, unspecified heart failure type (CMS/HCC); Hypertension, unspecified type; Systolic and diastolic CHF, chronic (CMS/HCC); Atrial fibrillation, unspecified type (CMS/HCC) 10/04/2024 Travel 09/28/2024 Patient Outreach [facility] [address] [place] [phone] Jennifer Stewart MD SDOH Concerns (C3CM/CHW GUILLERMINA Mera SDOH food insecurities) 09/26/2024 Orders Only [facility] [address] [place] [phone] Jennifer Stewart MD 09/25/2024 Telephone [facility] [address] [place] [phone] Bernadette Singh MA Chart Prep 09/05/[address] [phone] Jennifer Stewart MD Pre-op Visit 08/24/[address] [phone] Zayda Rader, RigobertoD Hyperlipidemia, unspecified hyperlipidemia type 08/11/2024 Telephone [facility] [address] [place], [place] [phone] Caprice Foley MA Breast Cancer Screening 07/31/[address] [phone] Jennifer Stewart MD Appointment Request from Last 3 Months Immunizations Name Administration Dates Next Due Influenza High-dose Quadriva lent Preservative Free 05/19/2023 Influenza injectable quadriv alent IIV4 with preservative 06/03/2017,06/08/2016 Influenza injectable quadriv alent preservative free 09/24/2022,04/26/2019,05/31/2018,05/01 Influenza, High Dose Seasona l, Preservative Free 04/05/2024 Influenza, IIV3, injectable 05/25/2014, 0 Influenza, Split (incl. tasha fied surface antigen) 05/01/2013,05/05/2012 Moderna Covid-19 Vaccine 12+ 03/14/2021 Pfizer Covid-19 Vaccine 12+ 03/14/2021 Pneumococcal Conjugate PCV 20 09/24/2022 Pneumococcal Polysaccharide PPSV23 08/10/2014, RSV Bivalent 05/17/2024 TD (adult), 2 Lf tetanus tox oid, preservative free, adsorbed 04/20/2019 Tdap 05/05/2012 Zoster, Recombinant 05/17/2024 Social History Tobacco Use Types Packs/Day Years Used Date Smoking Tobacco: Never Passive Smoke Exposure: Never Smokeless Tobacco: Never Tobacco Cessation:Counseling Given: Not Answered Alcohol Use Standard Drinks/Week Comments Never 0 [...] Orientation Straight 05/25/2022 10 :19 AM EDT Last Filed Vital Signs Vital Sign Reading [...] Mass Index 25.79 10/04/2024 2:40 PM EDT Plan of Treatment Health Maintenance Due Date Last Done Comments CT Colonography 1955 Dental Prophylaxis 1955 FIT DNA/Cologuard 1955 FIT 1955 FOBT 1955 Sigmoidoscopy 1955 Mammogram 05/28/2022 05/28/2020, 09/2019, 04/07/2019 Dental Oral Exam 06/19/2023 12/16/2022 Dental X-Ray: Bitewings 12/18/2023 12/16/2022 COVID-19 Vaccine ( season) 2024 03/14/2021, 03/14/2021, 10/22/2020, Additional history exists Zoster Vaccines (2 of 2) 07/12/2024 05/17/2024 Colonoscopy 12/26/2024 12/27/2019 Colorectal Cancer Screening 12/26/2024 Alcohol/Substance Use Screening 02/02/2025 02/03/2024 Depression Screening 02/02/2025 02/03/2024, 02/03/20 SDOH Screening 03/15/2025 03/15/2024 Tobacco Screening 10/04/2025 10/04/2024 Dental X-Ray: Full Mouth 12/17/2025 12/16/2022 Lipid Panel 03/17/2029 03/17/2024, 05/17/2023 DTaP/Tdap/Td Vaccines (3 - Td or Tdap) 04/20/2029 04/20/2019, 05/05/2012 Pneumococcal Vaccine: 50+ Years Completed 09/24/2022, 08/10/2014, 03/03/2007 Hepatitis C Screening Completed 05/17/2023 Influenza Vaccine Completed 04/05/2024, , 09/24/2022, Additional history exists RSV Patients and Patients Aged 60 years or older Completed 05/17/2024 HIB Vaccines Aged Out No longer eligi ble based on patient's age to complete this topic HPV Vaccines Aged Out No longer eligi ble based on patient's age to complete this topic Hepatitis A Vaccines Aged Out No long er eligible based on patient's age to complete this topic Hepatitis B Vaccines Aged Out No long er eligible based on patient's age to complete this topic IPV Vaccines Aged Out No longer eligi ble based on patient's age to complete this topic Meningococcal Vaccine Aged Out No alesha jose eligible based on patient's age to complete this topic RSV under 20 months Aged Out No longe r eligible based on patient's age to complete this topic Rotavirus Vaccines Aged Out No longer eligible based on patient's age to complete this topic Procedures Procedure Name Priority Date/Time Associated Diagnosis Comments ECG 12-LEAD Routine 10/04/2024 5:12 PM EDT Preop examination LIPID PANEL, STANDARD Routine 03/17/2024 11:32 AM EDT HEPATITIS C ANTIBODY Routine 05/17/2023 11:01 AM EDT Encounter for hepatitis C screening test for low risk patient INTRAORAL - COMPLETE SERIES OF RADIOGRAPHIC IMAGES Routine 12/16/2022 11:30 AM EDT Encounter for dental examination Dental abscess Dental caries Bruxism COMPREHENSIVE ORAL EVALUATION - NEW OR ESTABLISHED PATIENT Routine 12/16/2022 11:30 AM EDT Encounter for dental examination Dental abscess Dental caries Bruxism HM MAMMOGRAPHY Routine 05/28/2020 HM COLONOSCOPY Routine 12/27/2019 from Last 3 Months or Most Recently Relevant to Health Maintenance Results * ECG 12 lead (10/04/2024 5:12 PM EDT) Narrative Darcy Ordonez FNP - 10/04/2024 5:12 PM EDT Sinus rhythm Normal ECG HR 68 bpm Darcy Ordonez [employer]LECT[employer]LE [employer]IVER ECG ORDERABLES Final Result * Lipid Panel, Standard (03/17/2024 11:32 AM EDT) Triglycerides 92 <150 mg/dL [facility] Comment:Desirable Triglyceri de: less than 150 mg/dLBorderline High Triglyceride 150-199 mg/dLHigh Triglyceride: 200-499 mg/dLVery High Triglyceride: greater than or equal to 5OO mg/dL Cholesterol 138 <200 mg/dL [facility] Comment:Desirable Cholestero l: less than 200 mg/dLBorderline High Cholesterol: 200-239 mg/dLHigh Cholesterol: greater than 239 mg/dL LDL Cholesterol Calculated 63 <100 mg/dL [facility] Comment:Desirable LDL: less than 100 mg/dLNear Optimal/Above Optimal LDL: 110- 129 mg/dLBorderline High LDL: 130-159 mg/dLHigh LDL: 160-189 mg/dLVery High LDL: greater than or equal to 190 mg/dL HDL Cholesterol 57 >40 mg/dL [facility] Comment:Desirable HDL: great er than 40 mg/dL Note: This HDL assay may give artificially low results in patients with liver disease. 03/17/2024 11:3 2 AM EDT 03/17/2024 1:15 PM EDT us Jennifer Stewart MD LAB BLOOD ORDERABLES Final Result [facility] [address] [place] [address] [phone] * Hepatitis C Ab (05/17/2023 11:01 AM EDT) Hepatitis C Antibody Nonreactive Nonreactive [facility] Comment:Antibodies to HCV no t detected; does not exclude early acuteHCV infection. Blood 05/17/2023 11:0 1 AM EDT 05/17/2023 1:28 PM EDT Jennifer Stewart MD LAB BLOOD ORDERABLES Final Result [facility] [address] [place] [address] [phone] * Mammography (05/28/2020) Mammogram BIRADS 1 Anatomical Region Laterality Modality Other Historical Provider HEALTH MAINTENANCE Final Result * Colonoscopy (12/27/2019) Colonoscopy Tubular Adenoma with Dr. 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
[2024-10-04 18:39] LABS: Anion Gap 11 (12-20); Blood Urea Nitrogen 14 mg/dL (9-16); Calcium 9.6 mg/dL (8.4-10.2); Carbon Dioxide 26 mmol/L (22-29); Chloride 105 mmol/L (96-108); Estimated Glomerular Filt Rate > 60; Glucose Random 87 mg/dL (60-115); Potassium 4.8 mmol/L (3.3-5.1); Sodium 137 mmol/L (135-145)
== END 2024-10-04 15:38 | disposition home or self-care (01) ==
LOC: HO.HHCL 15:37
PROVIDERS: Visit Provider Nurse Practitioner Primary Care
DX: Z01.818 Encounter for other preprocedural examination (principal); I10 Essential (primary) hypertension
CPT/HCPCS: 36415; 80048

== ENCOUNTER 2025-01-24 08:26 | Outpatient (REF) | payer MEDICARE, OTHER, SELFPAY ==
--- OUTSIDE RECORDS SUMMARY | 2025-01-24 08:30 | XMS_ITS | Patient Health Record ---
Author Organization [facility] Address [address] [place] [address] Care Team Providers Care Bottle Gauger Name Role Phone Jennifer Stewart MD Primary Care Provider Zoila Bhupendra Guzman Unavailable [phone] Reason For Referral No Information Medications Medication SIG (Take, Route, Frequency, Duration) Notes Start Date End Date Status Ranexa 500 MG 1 tablet Orally Twice a day Cardiac medication Active FLUoxetine HCl 20 MG 2 capsule Orally a day Active Aspirin Adult Low Dose 81 MG 1 tablet Orally Once a day Active Atorvastatin Calcium 40 MG 1 tablet Orally Once a day Active Nitrostat 0.3 MG Sublingual Ac tive Wellbutrin SR 150 MG 1 tablet Orally Twice a day Active traZODone HCl 100 MG 1 tablet at bedtime Orally Once a day Active Metoprolol Succinate ER 25 MG TAKE 1 TABLET BY MOUTH EVERY DAY Oral for 30 Active buPROPion HCl ER (SR) 150 MG TAKE 1 TABLET BY MOUTH TWICE DAILY Oral for 30 Active Isosorbide Mononitrate 10 MG 1 tablet Orally Twice a day Active Immunizations Vaccine Route Administration Date Status Comme nts Influenza Unknown 03/26/2019 Administered Social History Tobacco Use: Social History Observation Description Date Details (start date - stop date) Never Smoker NA - NA Tobacco Use/Smoking Question Answer Notes Patient is a nonsmoker Alcohol Screen Question Answer Notes Did you have a drink containing alcohol in the p ast year? No Points 0 Interpretation Negative Section Notes: Nonsmoker; no sig alcohol Nonsmoker; no sig alcohol Problems Problem Type SNOMED Code ICD Code Onset Dates Problem Status W/U Status Risk Notes Problem 051073613 Encounter for screening for malignant neoplasm of colon (Z12.11) Active confirmed Problem 188239845 History of adenomatous polyp of colon (Z86.010) Active confirmed Problem 772526170270920 Preprocedural examination (Z01.818) Active confirmed Problem 208431709 Aspirin long-ter m use (Z79.82) Active confirmed Problem 009818748 Long-term use of aspirin therapy (Z79.82) Active confirmed Problem 271312584 Hx of adenomatou s colonic polyps (Z86.010) Active confirmed Plan Of Treatment Future Test Test Name Order Date COLONOSCOPY 12/23/2016 COLONOSCOPY 12/22/2019 Insurance Providers Payer Name Payer Address Payer Phone Subscriber Number Group Number Insured Name Patient Relationship to Insured Coverage Start Date Coverage End Date MEDICARE OF [place] [address] [place] [address] [id number] RAZA ESTRADA Self - patient is the insured [facility] [facility] [employer] [facility] [address] [place] [address] [id number] RAZA ESTRADA Self - patient is the insured Medical (General) History Medical History History ICD Code Screening Colonoscopy 04-02-20 08--1 small tubular adenoma removed, diverticulosis, internal hemorrhoids Anxiety/depression Vertigo Hypertension Hypercholesterolemia CHF Afib--resolved LUNG COLLAPSED X 2 Denies SC,DM,CVA,Lung disease,renal dise ase CAD with previous CABG--Dr. Wong--ETT in 2015--cardiac cath with blockage of 1 graft---no stent nor angioplasty Takotsubo Cardiomyopathy- Br oken heart syndrome -- in 04/2019--no problems since-she reports that her heart has improved since then Surgical History Surgery Date(Month/Year) x 2 Umbilical hernia surgery Anal fissure that was treated surgically C-spine disc 2V-CABG 2012
--- OUTSIDE RECORDS SUMMARY | 2025-01-24 08:30 | XMS_ITS | Encounter Summary ---
Author Organization [employer] Address [address] [facility] [address] [place] [address] Care Team Providers Care Floor Associate Name Role Phone Jennifer Stewart MD Primary Care Provider + [phone] Zayda Rader PharmD Unavailable Alina Lynch Unavailable Moshe Bran MD Unavailable [phone] Reason for Visit * Reason Onset Date Comments appt Oral Surgery 06/01/2023 Encounter Details Date Type Department Care Team (Late st Contact Info) Description 06/01/2023 Telephone [facility] ADULT DENTAL [address] [place], [place] [id number] Osmin Correia, SRAVANTHI [address] [place], [place] [id number] appt Oral Surgery Social History Tobacco Use [...] with Dr. Correia since November through the [place] office. She didhave to have an emergency ext done but is now still waiting for the other appts for continued treatment DR documented in this encounter Plan of Treatment Upcoming Encounters Date Type Department Care Team (Late st Contact Info) Description 01/24/2025 9:30 AM EDT Office Visit [facility] MEDICINE [address] [place] [address] Jennifer Stewart MD [address] [place] [address] documented as of this encounter Visit Diagnoses Not on filedocumented in this encounter Additional Health Concerns Assessment Noted Time PHQ-9 Depression Total Score: 0 09/25/19 10:58 AM EST documented as of this encounter Care Teams Floor Associate Relationship Specialty Start Date End Date Jennifer Stewart MD [address] [place] [id number] PCP - General Family Medicine 07/26/18 Zayda Rader, Georgie [address] [place] [address] Pharmacist Internal Medicine 04/27/24 Alina Lynch [facility] Perla [address] [place] [address] Orthopaedic Surgery 09/26/24 Moshe Bran MD [address] [place] [address] Cardiology 09/26/24 Wade Tyson MD [facility] [address] [place] [address] Ophthalmology 08/22/24 documented as of this encounter
[2025-01-24 12:35] LABS: Cholesterol 140 mg/dL (<200); HDL Cholesterol 58 mg/dL (>40); Triglycerides 64 mg/dL (<150)
== END 2025-01-24 08:27 | disposition home or self-care (01) ==
LOC: HO.HHCL 08:26
PROVIDERS: PCP Family Medicine; Visit Provider Internal Medicine Cardiovascular Disease
DX: R06.02 Shortness of breath (principal); I51.81 Takotsubo syndrome
CPT/HCPCS: 36415; 80061

== ENCOUNTER 2025-01-31 09:42 | Emergency (ER) | payer MEDICARE, OTHER, SELFPAY ==
--- OUTSIDE RECORDS SUMMARY | 2025-01-25 23:59 | XMS_ITS | Continuity of Care Document ---
Author Organization [facility] Address [address] [place] [address] Care Team Providers Care Supervisor Jewelry Department Name Role Phone Terry Jennifer VELAZQUEZ Primary Care Physician Encounter [facility] ACCT R [id number] Date(s): 12/17/24 - 01/25/[address] [address] [[email or web address]] Attending Physician: Moshe Bran DO Admitting Physician: Moshe Bran DO Referring Physician: Moshe Bran DO Encounter Type: Pre-Outpt Allergies, Adverse Reactions, Alerts No Known Allergies Medications aspirin 81 mg oral delayed release tablet 81 mg, By Mouth, Daily, # 30 tablet, Refills 0, Tot. Refills 0, Maintenance, 11/15/24 10:30:00 AM EDT, Route to Pharmacy Electronically, [facility], 159, cm, 11/15/24 10:18:00 EDT, Height, 64.497, kg, 11/11/24 14:31:00 EDT, Dry Weight Start Date: 11/15/24 Stop Date: 12/15/24 Status: Ordered Quantity: 30.0 Unit: tablet Repeat number: 1 atorvastatin 80 mg oral tablet 1 tablet = 80 mg, By Mouth, Daily at bedtime, 0 Refills, Maintenance, Tablet Start Date: 02/28/16 Status: Ordered Repeat number: 1 isosorbide mononitrate 30 mg oral tablet, extended release = 30 mg, By Mouth, Daily, # 30 tablet, 0 Refills, Maintenance, 11/15/24 10:33:00 AM EDT, ER Tablet, [facility], Partial fill upon patient request if the prescription is for a schedule IIopioid drug., 159, cm, 11/15/24 10:18:00 EDT, Height, 64.497, kg, 11/11/24 14:31:00 EDT, Dry Weight Start Date: 11/15/24 Status: Ordered Quantity: 30.0 Unit: tablet Repeat number: 1 metoprolol 25 mg oral tablet, extended release 25 mg, By Mouth, Daily, # 30 tablet, Refills 0, Tot. Refills 0, Maintenance, 10/16/18 1:26:01 PM EDT, Route to Pharmacy Electronically, [facility] Start Date: 10/16/18 Status: Ordered Quantity: 30.0 Unit: tablet Repeat number: 1 nitroglycerin 0.4 mg sublingual tablet = 0.4 mg, Sublingual, Every 5 minutes, PRN Chest Pain, Call MD after 3 doses, # 100 tablet, 0 Refills, Maintenance, 04/20/14 12:19:12 PM EDT, Tablet, [facility] Start Date: 04/20/14 Status: Ordered Quantity: 100.0 Unit: tablet Repeat number: 1 Norvasc 5 mg oral tablet 5 mg, 1, tablet, By Mouth, Daily, # 30 tablet, Refills 0, Tot. Refills 0, Maintenance, 02/04/22 3:36:00 PM EDT, Route to Pharmacy Electronically, [facility], Partial fill upon patient request if the prescription is for a schedule II opioid drug., 160, cm, 02/04/22 15:21:00 EDT, Height, 76.2, kg, 02/03/22 22:20:00 EDT, Dry Weight Start Date: 02/04/22 Status: Ordered Quantity: 30.0 Unit: tablet Repeat number: 1 Plavix 75 mg oral tablet 75 mg, By Mouth, Daily, # 90 tablet, Refills 0, Tot. Refills 0, Maintenance, 02/23/24 8:37:00 AM EDT, Route to Pharmacy Electronically, [facility], Partial fill upon patient request if the prescription is for a schedule II opioid drug., 160, cm, 02/23/24 7:29:00 EDT, Height, 69, kg, 02/17/24 17:20:00 EDT, Dry Weight Start Date: 02/23/24 Stop Date: 05/23/24 Status: Ordered Quantity: 90.0 Unit: tablet Repeat number: 1 Ranexa 1000 mg oral tablet, extended release 1 tablet = 1,000 mg, By Mouth, 2 times a day, # 60 tablet, 0 Refills, Maintenance, 12/25/16 10:16:16 AM EDT, ER Tablet, [facility] Start Date: 12/25/16 Status: Ordered Quantity: 60.0 Unit: tablet Repeat number: 1 trazodone 100 mg oral tablet 1 tablet = 100 mg, By Mouth, Daily at bedtime, # 30 tablet, 0 Refills, Maintenance, 08/23/13 12:10:11 PM EST, Tablet Start Date: 08/23/13 Status: Ordered Quantity: 30.0 Unit: tablet Repeat number: 1 Wellbutrin SR 150 mg/12 hours oral tablet, extended release 1 tablet = 150 mg, By Mouth, 2 times a day, 0 Refills, Maintenance, 02/27/16 4:36:55 PM EDT Start Date: 02/27/16 Status: Ordered Repeat number: 1 Zetia 10 mg oral tablet 1 tablet = 10 mg, By Mouth, Daily, # 90 tablet, 0 Refills, Maintenance, 02/23/24 8:38:00 AM EDT, Tablet, [facility], Partial fill upon patient request if the prescription is for a schedule II opioid drug., 160, cm, 02/23/24 7:29:00 EDT, Height, 69, kg, 02/17/24 17:20:00 EDT, Dry Weight Start Date: 02/23/24 Status: Ordered Quantity: 90.0 Unit: tablet Repeat number: 1 Problem List Condition Confirmation Course Effective Dates Status Health St atus Informant Anxiety Confirmed 08/23/13 Active Coronary artery disease (CAD) Confirmed 08/23/13 Active History of atrial fibrillation Confirmed Active HLD (hyperlipidemia) Confirmed 08/23/13 Active HTN (hypertension) Confirmed 08/23/13 Active Obesity Confirmed 08/23/13 Active Social History Social History Type Response Smoking Status Never smoker entered on: 02/27/16 Sex Sex Representation Female (finding) Patient Care team information Care Team Personnel Name: Jennifer Stewart MD Position: [facility] Outreach Member Role: PCP Address: [address] [place] [address] [address] [place], [place] [address] [[email or web address]] Telecom: Name: Kia Dawn RN Position: [facility] RN Member Role: Primary Care Nurse Name: Yen Yañez RN Position: [facility] SN RN Member Role: Primary Care Nurse Name: Kelsey Perez RN Position: [facility] RN Member Role: Primary Care Nurse Name: Ludivina Tracy RN Position: [facility] Onco RN Member Role: Primary Care Nurse Name: Jennifer Peacock RN Position: [facility] RN Member Role: Primary Care Nurse Name: Steph Scott RN Position: [facility] RN Member Role: Primary Care Nurse Name: Jessika Patrick RN Position: [facility] SN RN Member Role: Primary Care Nurse Name: Dion Rock RN Position: [facility] RN Member Role: Primary Care Nurse Name: Ludiivna Zamora Position: [facility] RN Member Role: Primary Care Nurse Name: Ami tSrong RN Position: [facility] RN Member Role: Primary Care Nurse Name: Galileo Owens RN Position: [facility] RN Member Role: Primary Care Nurse Name: Buck Espinosa RN Position: [facility] AMB Nurse Member Role: Primary Care Nurse Name: Hortensia Gonzalez RN Position: [facility] RN Member Role: Primary Care Nurse Name: Elizabeth Díaz RN Position: [facility] RN Member Role: Primary Care Nurse Name: Bev Alberts RN Position: [facility] RN Member Role: Primary Care Nurse Name: Macey Kwan RN Position: [facility] RN Member Role: Primary Care Nurse Name: Bassam Foley RN Position: [facility] RN Member Role: Primary Care Nurse Name: Casper Cornelius RN Position: [facility] RN Member Role: Primary Care Nurse Name: Ashia Blankenship RN Position: [facility] RN Member Role: Primary Care Nurse Care Team Related Persons Name: MAGGY ESTRADA Name: BALWINDER ESTRADA Name: LUIS FORREST Name: BRYAN FORREST Insurance Providers Guarantor name: RAZA ESTRADA Tripl Plan Information #: 1 Payer: MEDICARE B Payer Identifier: KEARA Member Number: [id number] Group Number: [id number] Subscriber Identifier: [id number] Relationship to Subscriber: self Coverage Type: NA Coverage Verification Date: NA Telecom: KEARA Address: NA
[2025-01-31] VITALS (8 sets, daily range): BP systolic 97–111; BP diastolic 50–59; PULSE 58–63; RESP 15–18; TEMP 36.6–36.7; O2SAT 97–98; BMI 25.6
--- NOTE | ~2025-01-31 | XR_ITS ---
EXAMINATION: XR CHEST CLINICAL INFORMATION: dyspnea COMPARISON: July 01, 2023. TECHNIQUE: 2 views of the chest were obtained. FINDINGS: Pulmonary reticular pattern. Opacities in the costophrenic angles bilaterally. No pneumothorax. Cardiomediastinal silhouette size is normal. Sternal wires and mediastinal vascular clips likely CABG procedure. Calcified plaque thoracic aorta. Multilevel thoracolumbar spondylosis. Osteopenia versus osteoporosis. Metallic plate lower cervical spine no fully included in the [id number]. XR/XR chest 2V IMPRESSION: Mild interstitial edema and bilateral small volume pleural effusions. Consider cardiogenic. Probable chronic interstitial lung disease. Electronically signed by: Bijan Schneider MD 01/31/2025 10:52 AM EDT
--- NOTE | 2025-01-31 09:44 | ECG_ITS ---
Test Reason : cp Blood Pressure : */* mmHG Vent. Rate : 59 BPM Atrial Rate : 59 BPM P-R Int : 152 ms QRS Dur : 98 ms QT Int : 450 ms P-R-T Axes : 77 23 51 degrees QTcB Int : 445 ms Sinus bradycardia Otherwise normal ECG When compared with ECG of 20-May-2024 21:54, No significant change was found Referred By: Generic ED Physician Electronically Signed By: Vincent Edwards
--- NOTE | 2025-01-31 09:56 | ED.CHESTPAIN ---
HPI - Chest Pain General Chief Complaint: Chest Pain Stated Complaint: from cardiac rehab, Time Seen by Provider: 01/31/25 09:50 Source: patient Mode of arrival: ambulatory Limitations: no limitations History of Present Illness ED Provider: HPI narrative: 69-year-old woman with history of CABG, reports 2 MIs after that, last a my reported to be in October of 2024, sees tire design engineer Dr. Moshe Bran who started her on cardiac rehab, she had a session 2 days ago which was unremarkable but the day after she started having persistent chest pressure it has been fairly continuous, she does take medications for angina and has been using all her regular medications without relief. Related Data Home Medications ?Medication ?Instructions ?Recorded ?Confirmed amlodipine 5 mg tablet 5 mg PO DAILY 03/09/22 07/01/23 atorvastatin 80 mg tablet 80 mg PO DAILY 03/09/22 07/01/23 bupropion HCl 150 mg tablet,12 hr 150 mg PO BID 03/09/22 07/01/23 sustained-release fluoxetine 20 mg capsule 40 mg PO DAILY 03/09/22 07/01/23 ranolazine 1,000 mg 1,000 mg PO BID 03/09/22 07/01/23 tablet,extended release,12 hr trazodone 100 mg tablet 100 mg PO BEDTIME 03/09/22 07/01/23 aspirin 81 mg tablet,delayed 81 mg PO QAM 07/01/23 07/01/23 release Previous Rx's ?Medication ?Instructions ?Recorded acetaminophen 500 mg tablet 500 mg PO Q6H PRN fever or pain 03/25/22 (Tylenol Extra Strength) #14 tabs acetaminophen 325 mg capsule 650 mg (2 x 325 mg) PO Q6H PRN 04/17/24 (Tylenol) pain #30 caps Allergies Allergy/AdvReac Type Severity Reaction Status Date / Time No Known Allergies Allergy Mild N/A Verified 01/31/25 09:57 Review of Systems Constitutional: Constitutional: Reports as per [facility] Past Medical History Medical History (Updated 01/31/25 @ 14:13 by Placido Garcia DO) CAD (coronary artery disease) Depression High cholesterol Hypertension Insomnia Heart disease Surgical History (Updated 07/01/23 @ 16:38 by KB Michele) Hx of CABG Social History Social History Comment: independently ambulate Patient Tobacco Use Status: Never used Tobacco Smoked in Last 30 Days: No Use of substances other than those prescribed or required for medical reasons: No Advance Directives: No Advance Directives Information Provided: Yes service: No Physical Exam Vital Signs: Vital Signs: Last Vital Signs Temp 98.1 F 01/31/25 13:59 Pulse 59 01/31/25 13:59 Resp 17 01/31/25 13:59 BP 99/50 L 01/31/25 13:59 Pulse Ox 97 01/31/25 13:59 O2 Del Method Room Air 01/31/25 13:59 BMI result Body Mass Index 25.6 Const: Other: Gen: ?Overall well-appearing patient HEENT: PERRLA, EOMI, MMM, Neck: Supple, no LAD CV: RRR, no obvious murmurs appreciated, scar from prior open heart surgery appreciated Resp: ?No wheezing rales rhonchi no stridor moving air well Abd: ?Bowel sounds are present, no tenderness no rebound no rigidity MSK: FROM, strength 5/5 all extremities Skin: Warm, dry, intact, Neuro: ?Alert and oriented x3, moving upper and lower extremities symmetrically, no obvious facial asymmetry noted Medications Administered Generic Name Dose Route Start Last Admin Trade Name Freq PRN Reason Stop Dose Admin Nitroglycerin 0.4 mg 01/31/25 10:14 01/31/25 12:13 Nitroglycerin 0.4 Mg Tab.Subl SUBLINGUAL 0.4 mg Q5MX3 PRN Administration Chest Pain Discontinued Medications Generic Name Dose Route Start Last Admin Trade Name Freq PRN Reason Stop Dose Admin Al Hydroxide/Mg Hydroxide 30 ml 01/31/25 13:15 01/31/25 14:01 Magnesium Hydrox/Alum Hydrox 30 Ml Oral.Susp PO 01/31/25 13:16 30 ml ONCE ONE Administration Lidocaine HCl 15 ml 01/31/25 13:15 01/31/25 14:01 Lidocaine Hcl Viscous 2 % 15 Ml Solution PO 01/31/25 13:16 15 ml ONCE ONE Administration Medical Decision Making Medical Decision Making MDM Narrative: Patient does have significant cardiac history, does take aspirin in the morning, she also takes ranolazine and has history of angina, but states this angina has been persistent usually she has a exertional angina, no ECG changes at this time to suspect underlying ACS, we will provide with nitro for her symptoms, will consult Cardiology after cardiac workup to determine disposition and she continues to have chest discomfort I suspect she will need to be admitted. 12:00 patient re-evaluated, she is still having chest pressure, consulting Cardiology, she did receive nitroglycerin, but no EKG changes no trop elevation, anticipated admission and we will consider additional medications for her symptoms 1222: Patient's 2nd ECG 58 beats per minute, no changes that would make me suspect underlying ACS, Dr. Edwards is going to evaluate the patient shortly 14:10 had a very extensive discussion with Dr. Edwards about patient's prior cardiac history and workup and procedures that she has had, given the fact that she has had symptoms for the past 2 days with no cardiac enzyme elevation, no EKG changes he feels comfortable this patient can be discharged, I agree with that, I spoke to patient's she also feels comfortable with the if which recommendation she states she is going to follow up with the tire design engineer but we are going to hold her off from cardiac rehab Differential Diagnosis Differential Diagnoses: The differential diagnosis associated with the presentation includes ACS, pneumothorax, aortic dissection, PE, Boerhaave syndrome Admission/Observation Consideration of admission/observation: Escalation of care including admission/observation considered Consult Healthcare Provider Management of the patient was discussed with: Commercial Kitchen Service Technician (Dr. Edwards cardiology) Lab Data MDM Lab Attestation statement: I reviewed the patient's lab results. 01/31/25 10:14 01/31/25 10:14 Labs: Lab Results 01/31/25 01/31/25 Range/Units 10:14 12:23 WBC 9.3 (4.8-10.8) X10*3/uL RBC 3.87 L (4.20-5.50) X10*6/uL Hgb 12.8 (12.0-16.0) g/dl Hct 36.9 L (37.0-47.0) % MCV 95.3 (80.0-98.0) fL MCH 33.1 H (27.0-33.0) pg MCHC 34.7 (31.0-35.0) g/dl RDW 12.5 (11.0-16.0) % Plt Count 228 (160-400) X10*3/uL MPV 9.7 (9.4-12.3) fL Immature Gran % (Auto) 0.4 (0.0-0.4) % Neut % (Auto) 64.6 (45-73) % Lymph % (Auto) 23.6 (20-40) % [place] % (Auto) 6.6 (2-11) % Eos % (Auto) 3.8 (0-4) % Baso % (Auto) 1.0 (0-2) % Lymph # (Auto) 2.2 (1.2-4.9) X10*3/uL [place] # (Auto) 0.6 (0.1-1.2) X10*3/uL Eos # (Auto) 0.4 (0.0-0.4) X10*3/uL Baso # (Auto) 0.1 (0.0-0.2) X10*3/uL Abs Immat Gran (auto) 0.04 H (0.00-0.03) X10*3/uL Absolute Neuts (auto) 6.0 (2.0-8.3) x10*3/uL Absolute Nucleated RBC 0.000 (0.0-0.012) X10*3/uL Nucleated RBC % (auto) 0.0 (0.0-0.2) /100WBC Sodium 140 (135-145) mmol/L Potassium 4.0 (3.3-5.1) mmol/L Chloride 108 (96-108) mmol/L Carbon Dioxide 25 (22-29) mmol/L Anion Gap 11 L (12-20) BUN 14 (9-16) mg/dL Creatinine 0.90 (0.5-1.4) mg/dL Estim Creat Clear Calc 51.7 Estimated GFR > 60 Random Glucose 100 (60-115) mg/dL Calcium 9.3 (8.4-10.2) mg/dL Troponin I High Sens < 2.7 D 2.9 (<3.5-17.0) ng/L B-Natriuretic Peptide 79 (<100) pg/mL Independent Interpretation I performed an independent interpretation of an: EKG (59 beats per minute otherwise normal ECG without dysrhythmia, AV dinora blocks or ST-T changes to suspect underlying ACS, my independent interpretation) Critical Care Time Critical Care Time Total Critical Care Time: 60 Attestation: Time is exclusive of separately billable procedures. Time includes: direct patient care, patient reassessment, coordination of patient care, interpretation of data (laboratory data, pulse oximetry, arterial blood gases and chest xrays), review of patient's medical records, medical consultation and documentation of patient care. Procedures excluded from critical care time: central intravenous line placement and electrocardiography. Discharge Plan Discharge Clinical Impression: Chest pressure, CAD (coronary artery disease) Patient Disposition: Home, Self-Care Additional Instructions: As discussed your workup today has been reassuring which included EKG x2, cardiac enzymes chest x-ray among other blood work, I also discussed the case with the tire design engineer, we both feel comfortable that giving your prior workup and workup in the emergency department that your symptoms are not affecting your heart, we do recommend that you hold off cardiac rehab and follow up with your tire design engineer for re-evaluation and an echo before returning to cardiac rehab, of course if anything else changes in you have worsening symptoms please do not hesitate to come back to the ER for re-evaluation Prescriptions: No Action acetaminophen [Tylenol Extra Strength] 500 mg tablet 500 mg PO Q6H PRN (Reason: fever or pain) Qty: 14 0RF aspirin 81 mg tablet,delayed release (DR/EC) 81 mg PO QAM acetaminophen [Tylenol] 325 mg capsule 650 mg PO Q6H PRN (Reason: pain) Qty: 30 0RF bupropion HCl 150 mg tablet sustained-release 12 hr 150 mg PO BID trazodone 100 mg tablet 100 mg PO BEDTIME ranolazine 1,000 mg tablet extended release 12 hr 1,000 mg PO BID atorvastatin 80 mg tablet 80 mg PO DAILY amlodipine 5 mg tablet 5 mg PO DAILY fluoxetine 20 mg capsule 40 mg PO DAILY Rx Instructions: administer in the morning and at noon/midday Print Language: Tamazight
[2025-01-31 10:22] LABS: MANUAL DIFF FLAG NO
[2025-01-31 10:25] LABS: Hematocrit 36.9 % (37.0-47.0); Hemoglobin 12.8 g/dl (12.0-16.0); Imm Gran Abs Auto 0.04 X10*3/uL (0.00-0.03); Imm Gran Pct Auto 0.4 % (0.0-0.4); Lymphocytes Absolute Auto 2.2 X10*3/uL (1.2-4.9); Mean Corpuscular HGB Conc 34.7 g/dl (31.0-35.0); Mean Corpuscular Hemoglobin 33.1 pg (27.0-33.0); Mean Corpuscular Volume 95.3 fL (80.0-98.0); NRBC Abs Auto 0.000 X10*3/uL (0.0-0.012); NRBC Pct Auto 0.0 /100WBC (0.0-0.2); Platelet Count 228 X10*3/uL (160-400); Red Blood Count 3.87 X10*6/uL (4.20-5.50); White Blood Count 9.3 X10*3/uL (4.8-10.8)
--- NOTE | 2025-01-31 10:29 | PC.NURSE ---
Pt brought down to the ED from cardiac rehab. She is alert and oriented. Stated she began having chest pain, tightness and pressure since yesterday. She stated to wanted to go to cardiac rehab today and see if pain would subside, no change in pain so she told cardiac rehab staff and they brought her to ED. She reports pain being a 4/10, experiencing slight shortness of breath and lightheadedness. She took 81 mg of ASA this AM and her prescribed nitro x3 in cardiac rehab with little change. Pt is breathing normally, unlabored. Skin is pink, warm and dry. Pt placed on tele. 20g IV placed in right AC. Blood work obtained and sent to lab. BPs are soft, Pt given another nitro per MD order. No change after one dose.
[2025-01-31 10:49] LABS: Anion Gap 11 (12-20); Blood Urea Nitrogen 14 mg/dL (9-16); Calcium 9.3 mg/dL (8.4-10.2); Carbon Dioxide 25 mmol/L (22-29); Chloride 108 mmol/L (96-108); Creatinine Clr Calc Pharmacy 51.7; Estimated Glomerular Filt Rate > 60; Potassium 4.0 mmol/L (3.3-5.1); Sodium 140 mmol/L (135-145)
[2025-01-31 10:55] LABS: B Type Natriuretic Peptide 79 pg/mL (<100)
[2025-01-31 11:04] LABS: Troponin-I High Sensitivity < 2.7 ng/L (<3.5-17.0)
--- NOTE | 2025-01-31 12:02 | ECG_ITS ---
Test Reason : CP Blood Pressure : */* mmHG Vent. Rate : 58 BPM Atrial Rate : 58 BPM P-R Int : 160 ms QRS Dur : 96 ms QT Int : 464 ms P-R-T Axes : 66 0 49 degrees QTcB Int : 455 ms Sinus bradycardia Otherwise normal ECG When compared with ECG of 31-Jan-2025 09:52, No significant change was found Referred By: Placido Garcia Electronically Signed By: Vincent Edwards
--- OUTSIDE RECORDS SUMMARY | 2025-01-31 12:15 | XMS_ITS | Encounter Summary ---
Author Organization [employer] Address [address] [facility] [address] [place] [address] Care Team Providers Care Roof Foreman Name Role Phone Jennifer Stewart MD Primary Care Provider + [phone] Zayda Rader PharmD Unavailable Alina Lynch Unavailable Moshe Bran MD Unavailable +[phone] Bhupendra Angel MD Unavailable Reason for Visit * Reason Onset Date Comments appt Oral Surgery 06/01/2023 Encounter Details Date Type Department Care Team (Late st Contact Info) Description 06/01/2023 Telephone [facility] ADULT DENTAL [address] [place], [place] [id number] Osmin Correia, DMD [address] [place], [place] [id number] appt Oral Surgery Social History Tobacco Use [...] with Dr. Correia since November through the [facility] office. She didhave to have an emergency ext done but is now still waiting for the other appts for continued treatment DR documented in this encounter Plan of Treatment Not on file documented as of this encounter Visit Diagnoses Not on filedocumented in this encounter Additional Health Concerns Assessment Noted Time PHQ-9 Depression Total Score: 0 09/25/19 23 10:58 AM EST documented as of this encounter Care Teams Roof Foreman Relationship Specialty Start Date End Date Jennifer Stewart MD [address] [place] [address] PCP - General Family Medicine 07/26/18 Zayda Rader, Georgie [address] [place] [address] Pharmacist Internal Medicine 04/27/24 Alina Lynch [address] [place] [address] Dr [address] [place] [address] Orthopaedic Surgery 09/26/24 Moshe Bran MD [address] [place] [address] Cardiology 09/26/24 Bhupendra Angel MD [address] [place] [address] Drive [address] [place] [address] Gastroenterology 01/24/25 Wade Tyson MD [facility] [address] [address] Ophthalmology 08/22/24 documented as of this encounter
--- OUTSIDE RECORDS SUMMARY | 2025-01-31 12:15 | XMS_ITS | Patient Health Record ---
Author Organization [facility] Address [address] [place] [address] Care Team Providers Care Line Helper Name Role Phone Jennifer Stewart MD Primary Care Provider Zoila Bhupendra Guzman Unavailable [phone] Reason For Referral No Information Medications Medication [...] Problem Status W/U Status Risk Notes Problem 048944819 Encounter for screening for malignant neoplasm of colon (Z12.11) Active confirmed Problem 042758778 History of adenomatous polyp of colon (Z86.010) Active confirmed Problem 201332407909380 Preprocedural examination (Z01.818) Active confirmed Problem 232032689 Aspirin long-ter m use (Z79.82) Active confirmed Problem 906698731 Long-term use of aspirin therapy (Z79.82) Active confirmed Problem 016137552 Hx of adenomatou s colonic polyps (Z86.010) Active confirmed Plan Of Treatment Future Test Test Name Order Date COLONOSCOPY 12/23/2016 COLONOSCOPY 12/22/2019 Insurance Providers Payer Name Payer Address Payer Phone Subscriber Number Group Number Insured Name Patient Relationship to Insured Coverage Start Date Coverage End Date MEDICARE OF [place] [address] [place] [address] [id number] RAZA ESTRADA Self - patient is the insured [facility] [address] [place] [address] [id number] RAZA ESTRADA Self - patient is the insured Medical (General) History Medical History History ICD Code Screening Colonoscopy 04-02-20 08--1 small tubular adenoma removed, diverticulosis, internal hemorrhoids Anxiety/depression Vertigo Hypertension Hypercholesterolemia CHF Afib--resolved LUNG COLLAPSED X 2 Denies IN,DM,CVA,Lung disease,renal dise ase CAD with previous CABG--Dr. [...]
[2025-01-31 12:52] LABS: Troponin-I High Sensitivity 2.9 ng/L (<3.5-17.0)
[2025-01-31] MEDS: Lidocaine HCl Viscous 2 % 15 ML SOLUTION PO (14:01)
[2025-01-31] MEDS: Magnesium Hydrox/Alum Hydrox 30 ML ORAL.SUSP PO (14:01)
--- NOTE | 2025-01-31 14:05 | PM.CNCAR ---
History of Present Illness History of Present Illness Date of Service: 01/31/25 Requesting physician: Placido Garcia Chief complaint: from cardiac rehab, Narrative: [age] year female with history of coronary artery disease with previous CRAVEN to LAD and vein graft to OM for left main stenosis. She was subsequently found to have atretic CRAVEN and underwent left main into LAD PCI. October 2024 she had episode of chest pain and ruled in for NSTEMI and underwent cardiac catheterization showing patent left main stent with diffuse moderate disease in the mid LAD. She also had a patent graft to OM at that time. No significant RCA stenosis. She has been underwent cardiac rehabilitation and today presented from cardiac rehabilitation with chest discomfort ongoing since yesterday afternoon. She is describing a pressure-like feeling in the chest which is 3 to 5/10 in intensity. She is saying that when she walks the pain appears to be little worse. No relationship with food. She took nitroglycerin at home and also received nitroglycerin here in the emergency department without any change in the pressure. She also received a GI cocktail which did not improve his symptoms. Her EKGs has nonspecific T-wave changes but no evolution noticed on serial EKGs. Her high sensitivity troponin levels are negative at less than 2.7 and 2.9. She is saying when she had heart attack previously the pain was excruciating and this pain is different than her previous presentations. [facility] Past Medical History Medical History (Updated 01/31/25 @ 14:12 by Vincent Edwards MD) CAD (coronary artery disease) Depression High cholesterol Hypertension Insomnia Heart disease Surgical History Surgical History (Updated 07/01/23 @ 16:38 by KB Michele) Hx of CABG Social History Social History Comment: independently ambulate Patient Tobacco Use Status: Never used Tobacco Smoked in Last 30 Days: No Use of substances other than those prescribed or required for medical reasons: No Advance Directives: No Advance Directives Information Provided: Yes service: No Meds Allergies Allergy/AdvReac Type Severity Reaction Status Date / Time No Known Allergies Allergy Mild N/A Verified 01/31/25 09:57 Active Medications: Current Medications Nitroglycerin (Nitroglycerin 0.4 Mg Tab.Subl) 0.4 mg SUBLINGUAL Q5MX3 PRN PRN Reason: Chest Pain Last Admin: 01/31/25 12:13 Dose: 0.4 mg Home Medications ?Medication ?Instructions ?Recorded ?Confirmed ?Last Taken ?Type amlodipine 5 mg tablet 5 mg PO DAILY 03/09/22 07/01/23 06/30/23 History atorvastatin 80 mg tablet 80 mg PO DAILY 03/09/22 07/01/23 06/30/23 History bupropion HCl 150 mg tablet,12 hr 150 mg PO BID 03/09/22 07/01/23 06/30/23 History sustained-release fluoxetine 20 mg capsule 40 mg PO DAILY 03/09/22 07/01/23 06/30/23 History ranolazine 1,000 mg 1,000 mg PO BID 03/09/22 07/01/23 06/30/23 History tablet,extended release,12 hr trazodone 100 mg tablet 100 mg PO BEDTIME 03/09/22 07/01/23 06/30/23 History aspirin 81 mg tablet,delayed 81 mg PO QAM 07/01/23 07/01/23 06/30/23 History release Physical Exam Vital Signs: Vital Signs: Last Vital Signs Temp 98.1 F 01/31/25 13:59 Pulse 59 01/31/25 13:59 Resp 17 01/31/25 13:59 BP 99/50 L 01/31/25 13:59 Pulse Ox 97 01/31/25 13:59 O2 Del Method Room Air 01/31/25 13:59 BMI result Body Mass Index 25.6 GENERAL APPEARANCE: in no acute distress, pleasant. NECK: no carotid bruit, no jugular venous distention. SKIN: no suspicious lesions, warm and dry. HEART: no murmurs, regular rate and rhythm. LUNGS: clear to auscultation bilaterally. ABDOMEN: soft, nontender. EXTREMITIES: no edema. PERIPHERAL PULSES: equal. NEUROLOGIC: No gross deficits, AAO X 3 Objective Labs and Meds 01/31/25 10:14 01/31/25 10:14 Lab results: Laboratory Results - last 24 hr 01/31/25 01/31/25 10:14 12:23 WBC 9.3 RBC 3.87 L Hgb 12.8 Hct 36.9 L MCV 95.3 MCH 33.1 H MCHC 34.7 RDW 12.5 Plt Count 228 MPV 9.7 Immature Gran % (Auto) 0.4 Neut % (Auto) 64.6 Lymph % (Auto) 23.6 Gulf % (Auto) 6.6 Eos % (Auto) 3.8 Baso % (Auto) 1.0 Lymph # (Auto) 2.2 Gulf # (Auto) 0.6 Eos # (Auto) 0.4 Baso # (Auto) 0.1 Abs Immat Gran (auto) 0.04 H Absolute Neuts (auto) 6.0 Absolute Nucleated RBC 0.000 Nucleated RBC % (auto) 0.0 Sodium 140 Potassium 4.0 Chloride 108 Carbon Dioxide 25 Anion Gap 11 L BUN 14 Creatinine 0.90 Estim Creat Clear Calc 51.7 Estimated GFR > 60 Random Glucose 100 Calcium 9.3 Troponin I High Sens < 2.7 D 2.9 B-Natriuretic Peptide 79 Imaging Radiologist's impression: Impressions Chest X-Ray 01/31/25 09:49 IMPRESSION: Mild interstitial edema and bilateral small volume pleural effusions. Consider cardiogenic. Probable chronic interstitial lung disease. Electronically signed by: Bijan Schneider MD 01/31/2025 10:52 AM EDT Assessment and Plan (1) Chest pain: Status: Acute Plan Chest pain in his 69-year-old female with known history of coronary disease with previous bypass surgery, atretic CRAVEN and left main into LAD PCI and recent NSTEMI in October of 2024 with no obvious culprit was noted on angiography. EKG does not have any dynamic changes. Her biomarkers are negative despite having symptoms close to 24 hours in duration. Overall her presentation does not appear to be due to acute coronary syndrome at this point. She can continue her medications and can be discharged back home. Would consider a trial of omeprazole. She follows with Dr. Bran and will follow with him. Thank you for allowing me to participate in the care of your patient. Please feel free to contact me if you have any questions. Procedures Date of Service Date of Service: 01/31/25
--- NOTE | 2025-01-31 14:13 | PC.NURSE ---
Pt medicated per SEP. Continuing to report chest tightness. Provider aware. VSS. Pt OOB ambulating independently to bathroom, denies any dizziness. No new orders at this time.
== END 2025-01-31 14:23 | disposition home or self-care (01) ==
PROVIDERS: Emergency Provider Emergency Medicine; PCP Family Medicine
DX: R07.89 Other chest pain (principal); I25.10 Atherosclerotic heart disease of native coronary artery without angina pectoris; R00.1 Bradycardia, unspecified; Z79.899 Other long term (current) drug therapy
CPT/HCPCS: 36415; 71046; 80048; 83880; 84484; 85025; 93005; 99285; 99291

== ENCOUNTER → 2025-01-31 09:57 | Outpatient (BNV) | payer MEDICARE, MEDICAID, SELFPAY | PROVIDERS: Emergency Provider Emergency Medicine; PCP Family Medicine; Visit Provider Radiology Diagnostic Radiology | DX: R06.00 Dyspnea, unspecified (principal) | CPT/HCPCS: 71046 ==

== ENCOUNTER → 2025-01-31 10:59 | Outpatient (BNV) | payer MEDICARE, MEDICAID, SELFPAY | PROVIDERS: Emergency Provider Emergency Medicine; PCP Family Medicine; Visit Provider Internal Medicine Cardiovascular Disease | DX: R07.9 Chest pain, unspecified (principal); Z95.1 Presence of aortocoronary bypass graft | CPT/HCPCS: 99284 ==

== ENCOUNTER 2025-03-02 07:00 | Outpatient (RCR) | payer MEDICARE, OTHER, SELFPAY | END 2025-03-23 06:33 | disposition home or self-care (01) | LOC: HO.CR 07:00 | PROVIDERS: PCP Family Medicine; Visit Provider Internal Medicine Cardiovascular Disease | DX: I25.10 Atherosclerotic heart disease of native coronary artery without angina pectoris (principal); I21.4 Non-ST elevation (NSTEMI) myocardial infarction; I42.9 Cardiomyopathy, unspecified | CPT/HCPCS: 93798 ==

== ENCOUNTER 2025-03-16 10:43 | Emergency (ER) | payer MEDICARE, MEDICAID, SELFPAY ==
[2025-03-16 10:50] VITALS: BP 137/63; PULSE 86; RESP 16; TEMP 36.7; O2SAT 96; BMI 27.5
--- NOTE | 2025-03-16 11:17 | ED.GENADULT ---
HPI - General Adult General Chief complaint: Wound/Laceration Stated complaint: Left Leg Lac Time Seen by Provider: 03/16/25 11:17 Source: patient Mode of arrival: ambulatory Limitations: no limitations History of Present Illness ED Provider: Mally Barraza PA-C HPI narrative: Patient is a 69 year old assigned female at with a history of CAD, HTN, and HLD presenting to the emergency department today with a left lower leg laceration. 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 Patient states that she has no other complaints and she is up to date on her vaccinations - including tetanus. Patient denies any left lower leg numbness or tingling. Patient denies any other complaints at this time. Relieving factors: none Exacerbating factors: none Associated symptoms: denies other symptoms Treatments prior to arrival: none Related Data Home Medications ?Medication ?Instructions ?Recorded ?Confirmed amlodipine 5 mg tablet 5 mg PO DAILY 03/09/22 07/01/23 atorvastatin 80 mg tablet 80 mg PO DAILY 03/09/22 07/01/23 bupropion HCl 150 mg tablet,12 hr 150 mg PO BID 03/09/22 07/01/23 sustained-release fluoxetine 20 mg capsule 40 mg PO DAILY 03/09/22 07/01/23 ranolazine 1,000 mg 1,000 mg PO BID 03/09/22 07/01/23 tablet,extended release,12 hr trazodone 100 mg tablet 100 mg PO BEDTIME 03/09/22 07/01/23 aspirin 81 mg tablet,delayed 81 mg PO QAM 07/01/23 07/01/23 release Previous Rx's ?Medication ?Instructions ?Recorded acetaminophen 500 mg tablet 500 mg PO Q6H PRN fever or pain 03/25/22 (Tylenol Extra Strength) #14 tabs acetaminophen 325 mg capsule 650 mg (2 x 325 mg) PO Q6H PRN 04/17/24 (Tylenol) pain #30 caps amoxicillin 875 mg-potassium 1 tab PO BID 5 days #10 tabs 03/16/25 clavulanate 125 mg tablet Allergies Allergy/AdvReac Type Severity Reaction Status Date / Time No Known Allergies Allergy Mild N/A Verified 03/16/25 10:50 Review of Systems Constitutional: Constitutional: Reports as per HPI Eyes: Eyes: Reports as per HPI ENT: Reports as per HPI Cardiovascular: Cardiovascular: Reports as per HPI Respiratory: Respiratory: Reports as per HPI Gastrointestinal: Gastrointestinal: Reports as per HPI Genitourinary: Genitourinary: Reports as per HPI Musculoskeletal: Comments: left lower leg laceration Integumentary/Breasts: Skin/Breast: Reports as per HPI Neurologic: Reports as per HPI Psychiatric: Psychiatric: Reports as per HPI Endocrine: Endocrine: Reports as per HPI Hematologic/Lymphatic: Hematologic/Lymphatic: Reports as per HPI Allergic/Immunologic: Allergic/Immunologic: Reports as per HPI [facility] Past Medical History Attestation statement: The following information was validated with the patient. Source: old records reviewed and nursing notes reviewed Medical History CAD (coronary artery disease) Depression High cholesterol Hypertension Insomnia Heart disease Surgical History Hx of CABG Social History Social History Comment: independently ambulate Patient Tobacco Use Status: Never used Tobacco Advance Directives: Yes Advance Directives on File: Yes Advance Directives Date on File: 07/05/23 service: No Physical Exam ED Vital Signs: Vital Signs - 24 hr 03/16/25 10:50 03/16/25 11:41 Temperature 98.0 F 98.0 F Pulse Rate 86 86 Respiratory Rate 16 16 Blood Pressure 137/63 137/63 Pulse Oximetry 96 96 Oxygen Delivery Method Room Air Room Air BMI result Body Mass Index 27.5 Const General: cooperative, no acute distress, alert and awake Nutritional Appearance: well nourished Orientation/consciousness: patient oriented x3 HENMT Head: Yes normal to inspection and Yes atraumatic Ears: hearing grossly normal bilaterally and external ears normal General nose exam: Normal external nose present, no nasal discharge noted and no epistaxis Face and sinus: Yes normal facial exam, No abrasion and No laceration Mouth: Normal oral and palatal mucosa present, no drooling and no muffled voice Eyes General: appearance normal, both eyes and all related structures Periorbital: periorbital findings normal Eyelids: Yes eyelids normal Conjunctivae: conjunctivae normal Pupils: Equal, round and reactive pupils present EOM: EOMs intact bilaterally Neck Neck: Yes normal visual inspection and Yes full ROM Resp Effort & Inspection: normal respiratory effort and able to speak in complete sentences Neuro General: patient oriented x3, moves all extremities and CN's II-XI intact bilaterally Cranial nerves: Yes Equal, round and reactive pupils present Cognition (Neuro): normal cognition Extrem Other: General: Yes full ROM and Yes capillary refill normal Psych Appearance: grossly normal Mental Status: mental status grossly normal Affect: normal affect Attitude: cooperative Thought process: Normal thought process present Thought content: Normal thought content present Insight: Good insight present (Psych) Procedures Laceration Laceration 1: Site: lower extremity Side (If applicable): left Size (cm): 5 Description: linear Depth: simple, single layer Pre-repair: wound explored, irrigated extensively and deep structures intact Skin layer closed with: other (dermabond) Size (cm): other (dermabond) Technique: other (dermabond) Medical Decision Making Medical Decision Making MDM Narrative: Patient is a 69 year old assigned female at with a history of CAD, HTN, and HLD presenting to the emergency department today with a left lower leg laceration. Patient's physical exam was as noted in the physical exam portion of this note. Patient's laceration was very superficial and already fairly well approximated. I explained my physical exam findings to the patient. I answered all questions asked by the patient. I applied dermabond to the wound, without incident. Patient's PMS was intact prior to and after dermabond placement. I stressed the importance of the patient taking her medication as directed (either prescribed or as the over the counter packaging recommends). I stressed the importance of the patient following up with her primary care provider. I stressed the importance of the patient returning to the emergency department immediately if her symptoms were to worsen or if she were to develop any dizziness, shortness of breath, difficulty breathing, chest pain, blurry vision, loss of vision, nausea, vomiting, abdominal pain, fever, chills, back pain, or any other complaints. Patient verbalized agreement and understanding with this treatment plan and discharge. Differential Diagnosis Differential Diagnoses: The differential diagnosis associated with the presentation includes Laceration Abrasion Admission/Observation Consideration of admission/observation: Escalation of care including admission/observation considered Patient would have been admitted to the hospital had her clinical presentation warranted hospital admission. Prescription Management I considered prescription management with: Antibiotic (Given patient's mechanism of injury, patient prescribed a prophylactic ABX) Chronic Conditions Patient?s care impacted by: Hypertension Discharge Plan Discharge Clinical Impression: Laceration of leg Patient Disposition: Home, Self-Care Instructions: Laceration (ED), Skin Adhesive Care (ED) Additional Instructions: Do NOT get the affected area wet for at LEAST 7 days. Given the mechanism of injury, you've been prescribed a prophylactic antibiotic. Please take this as prescribed. IF you are prescribed home medications and/or you are taking over the counter medications at home - it is very important you continue to do so as prescribed / directed unless told otherwise. Follow up with your primary care provider. Return to the emergency department immediately if your symptoms worsen or if you develop any numbness, tingling, dizziness, shortness of breath, difficulty breathing, chest pain, blurry vision, loss of vision, nausea, vomiting, abdominal pain, fever, chills, back pain, or any other complaints. Please see the information below about our Patient Portal. If you are not yet enrolled in the [facility] Patient Portal, you will receive an enrollment email invitation following your visit to any [facility] care setting. You may also self-enroll in the Patient Portal by visiting our website: [email or web address] The following information is required to access the Patient Portal: - Your [facility] Medical Record Number - Your personal home email address (must match what is in your electronic medical record, Registration staff can assist with this) - Name - Date of Capabilities of the Patient Portal: - Message some providers - View upcoming appointments - Access your health summary, medical history, and visit history - View current conditions and allergies - View procedure and lab results - View your medications, including guidelines, side effects, and precautions - Complete pre-appointment questionnaires requested by your provider - Ready summary reports of your office visits and procedures To access the Patient Portal Mobile [employer], follow these directions: - Search [employer] in the [employer] Store or [employer] Store - Download the [employer] - Search for [facility] - Enter your login/password Prescriptions: New amoxicillin-pot clavulanate 875-125 mg tablet 1 tab PO BID 5 Days Qty: 10 0RF No Action acetaminophen [Tylenol Extra Strength] 500 mg tablet 500 mg PO Q6H PRN (Reason: fever or pain) Qty: 14 0RF aspirin 81 mg tablet,delayed release (DR/EC) 81 mg PO QAM acetaminophen [Tylenol] 325 mg capsule 650 mg PO Q6H PRN (Reason: pain) Qty: 30 0RF bupropion HCl 150 mg tablet sustained-release 12 hr 150 mg PO BID trazodone 100 mg tablet 100 mg PO BEDTIME ranolazine 1,000 mg tablet extended release 12 hr 1,000 mg PO BID atorvastatin 80 mg tablet 80 mg PO DAILY amlodipine 5 mg tablet 5 mg PO DAILY fluoxetine 20 mg capsule 40 mg PO DAILY Rx Instructions: administer in the morning and at noon/midday Referrals: Jennifer Stewart MD [Primary Care Provider, Family Practice] Interventions: ED Discharge Assessment Last Done: 03/16/25 11:41 Discharge Date/Time: 03/16/25 11:42 Print Language: Guatemalan
--- OUTSIDE RECORDS SUMMARY | 2025-03-16 11:37 | XMS_ITS | Encounter Summary ---
Author Organization [facility] Address [address] [place] [address] Phone Care Team Providers Care Press Shop Supervisor Name Role Phone Jennifer Stewart MD Primary Care Provi sharmila Encounter Details Date Type Department Care Team (Late st Contact Info) Description 12/28/2017 Transcribe Orders [facility] [address] [place] [address] Abhinav Ledesma MD, [place] [address] [address] [email or web address] Social History Tobacco Use Types Packs/Day Years Used Date Smoking Tobacco: Never Assessed Comments Unknown Sex and Gender Information Value Date Recorded Sex Assigned at Female 11/24/2021 8:43 AM EDT Legal Sex Female 9:55 PM EDT Gender Identity Female 11/24/2021 8:43 AM EDT Sexual Orientation Not on file documented as of this encounter Plan of Treatment Not on file documented as of this encounter Visit Diagnoses Not on filedocumented in this encounter Care Teams Press Shop Supervisor Relationship Specialty Start Date End Date Jennifer Stewart MD [address] [place] [address] PCP - General 07/29/17 documented as of this encounter Additional Source Comments The information contained in this document represents components of the legal health record. It is not the complete legal health record.[facility]
--- OUTSIDE RECORDS SUMMARY | 2025-03-16 11:37 | XMS_ITS | Encounter Summary ---
Author Organization [employer] Address [address] [facility] [address] [place] [address] Care Team Providers Care New Autos Delivery Driver Name Role Phone Jennifer Stewart MD Primary Care Provider [phone] Zayda Rader PharmD Unavailable Alina Lynch Unavailable Moshe Bran MD Unavailable [phone] Bhupendra Angel MD Unavailable Reason for Visit * Reason Onset Date Comments appt Oral Surgery 06/01/2023 Encounter Details Date Type Department Care Team (Late st Contact Info) Description 06/01/2023 Telephone [facility]ULT D[facility] [address] [place], [place] [id number] Osmin Correia, DMD [address] [place], [place] [id number] appt Oral Surgery Social History Tobacco Use [...] with Dr. Correia since November through the [place] office. She didhave to have an emergency [...] documented as of this encounter Care Teams New Autos Delivery Driver Relationship Specialty Start Date End Date Jennifer Stewart MD [address] [place] [address] PCP - General Family Medicine 07/26/18 Zayda Rader, RigobertoD [address] [place] [address] Pharmacist Internal Medicine 04/27/24 Alina Lynch [address] [place] [address] [place] [address] Orthopaedic Surgery 09/26/24 Moshe Bran MD [address] [place] [address] Cardiology 09/26/24 Bhupendra Angel MD [address] [place] [address] Drive [address] [place] [address] Gastroenterology 01/24/25 Wade Tyson MD [facility] [address] [place] [address] Ophthalmology 08/22/24 documented as of this encounter
--- OUTSIDE RECORDS SUMMARY | 2025-03-16 11:38 | XMS_ITS | Patient Health Record ---
Author Organization [facility] Address [address] [place] [address] Care Team Providers Care Reinsurance Clerk Name Role Phone Jennifer Stewart MD Primary Care Provider Zoila Bhupendra Guzman Unavailable [phone] Reason For Referral No Information Medications Medication [...] Problem Status W/U Status Risk Notes Problem 886051791 Encounter for screening for malignant neoplasm of colon (Z12.11) Active confirmed Problem 797711296 History of adenomatous polyp of colon (Z86.010) Active confirmed Problem 181241473801874 Preprocedural examination (Z01.818) Active confirmed Problem 747926178 Aspirin long-ter m use (Z79.82) Active confirmed Problem 795638906 Long-term use of aspirin therapy (Z79.82) Active confirmed Problem 017334662 Hx of adenomatou s colonic polyps (Z86.010) Active confirmed Plan Of Treatment Future Test Test Name Order Date COLONOSCOPY 12/23/2016 COLONOSCOPY 12/22/2019 Next Appt Details Provider Name:Bhupendra Angel , 06/14/2025 10:40:00 AM, [address] [facility], [address], [place], [address], Insurance Providers Payer Name Payer Address Payer Phone Subscriber Number Group Number Insured Name Patient Relationship to Insured Coverage Start Date Coverage End Date MEDICARE OF [place] [address] [place] [address] [id number] RAZA ESTRADA Self - patient is the insured MEDICAID OF [facility] [facility] [address] [place] [address] [id number] RAZA ESTRADA Self - patient is the insured Medical (General) History Medical History History ICD Code Screening Colonoscopy 04-02-20 08--1 small tubular adenoma removed, diverticulosis, internal hemorrhoids Anxiety/depression Vertigo Hypertension Hypercholesterolemia CHF Afib--resolved LUNG COLLAPSED X 2 Denies PR,DM,CVA,Lung disease,renal dise ase CAD with previous CABG--Dr. [...]
[2025-03-16 11:41] VITALS: BP 137/63; PULSE 86; RESP 16; TEMP 36.7; O2SAT 96
== END 2025-03-16 11:42 | disposition home or self-care (01) ==
PROVIDERS: Emergency Provider Emergency Medicine; PCP Family Medicine
DX: S81.812A Laceration without foreign body, left lower leg, initial encounter (principal); X58.XXXA Exposure to other specified factors, initial encounter; Y93.9 Activity, unspecified; Y92.9 Unspecified place or not applicable; I10 Essential (primary) hypertension; I25.10 Atherosclerotic heart disease of native coronary artery without angina pectoris; E78.5 Hyperlipidemia, unspecified
CPT/HCPCS: 12002; 99282; 99283

== ENCOUNTER 2025-03-16 14:06 | Emergency (ER) | payer MEDICARE, MEDICAID, SELFPAY ==
[2025-03-16 14:16] VITALS: BP 132/61; PULSE 78; RESP 16; TEMP 36.7; O2SAT 97; BMI 27.5
--- NOTE | 2025-03-16 14:28 | ED_ITS ---
HPI - General Adult General Chief complaint: Wound/Laceration Stated complaint: L Ankle Suture Split Open Time Seen by Provider: 03/16/25 14:21 Source: patient Mode of arrival: ambulatory Limitations: no limitations History of Present Illness ED Provider: Mally Barraza PA-C HPI narrative: Patient is a 69 year old assigned female at with a history of CAD, HTN, and HLD presenting to the emergency department today with a left lower leg laceration. Patient states that she was attempting to cut a box with a dust box tender when she accidentally caught her left lower leg. Patient states that she was evaluated here earlier today and got her wound repaired with dermabond but it opened up some so she is back. Patient denies any other complaints at this time. Treatments prior to arrival: other (dermabond applied earlier) Related Data Home Medications ?Medication ?Instructions ?Recorded ?Confirmed amlodipine 5 mg tablet 5 mg PO DAILY 03/09/2207/01 atorvastatin 80 mg tablet 80 mg PO DAILY 03/09/2202/14 bupropion HCl 150 mg tablet,12 hr 150 mg PO BID 07/01/23 sustained-release fluoxetine 20 mg capsule 40 mg PO DAILY 03/09/2202/14 ranolazine 1,000 mg 1,000 mg PO BID 03/09/2202/14 tablet,extended release,12 hr trazodone 100 mg tablet 100 mg PO BEDTIME 03/09/22 1 09/01/22 aspirin 81 mg tablet,delayed 81 mg PO QAM 07/01/2302/14 release Previous Rx's ?Medication ?Instructions ?Recorded acetaminophen 500 mg tablet 500 mg PO Q6H PRN fever or pain 03/25/22 (Tylenol Extra Strength) #14 tabs acetaminophen 325 mg capsule 650 mg (2 x 325 mg) PO Q6 H PRN 04/17/24 (Tylenol) pain #30 caps amoxicillin 875 mg-potassium 1 tab PO BID 5 days #10 t abs 03/16/25 clavulanate 125 mg tablet Allergies Allergy/AdvReac Type Severity Reaction Status Date / Time No Known Allergies Allergy Mild N/A Verified 03/16/25 14:18 Review of Systems Constitutional: Constitutional: Reports as per HPI Eyes: Eyes: Reports as per HPI ENT: Reports as per HPI Cardiovascular: Cardiovascular: Reports as per HPI Respiratory: Respiratory: Reports as per HPI Gastrointestinal: Gastrointestinal: Reports as per HPI Genitourinary: Genitourinary: Reports as per HPI Musculoskeletal: Musculoskeletal: Reports as per HPI Integumentary/Breasts: Skin/Breast: Reports as per HPI Neurologic: Reports as per HPI Psychiatric: Psychiatric: Reports as per HPI Endocrine: Endocrine: Reports as per HPI Hematologic/Lymphatic: Hematologic/Lymphatic: Reports as per HPI Allergic/Immunologic: Allergic/Immunologic: Reports as per HPI [facility] Past Medical History Attestation statement: The following information was validated with the patient. Source: old records reviewed and nursing notes reviewed Medical History CAD (coronary artery disease) Depression High cholesterol Hypertension Insomnia Heart disease Surgical History Hx of CABG Social History Social History Comment: independently ambulate Patient Tobacco Use Status: Never used Tobacco Advance Directives: Yes Advance Directives on File: Yes Advance Directives Date on File: 07/05/23 service: No Physical Exam ED Vital Signs: Vital Signs - 24 hr 03/16/25 14:16 Temperature 98.0 F Pulse Rate 78 Respiratory Rate 16 Blood Pressure 132/61 Pulse Oximetry 97 Oxygen Delivery Method Room Air BMI result Body Mass Index 27.5 Const General: cooperative, no acute distress, alert and awake Nutritional Appearance: well nourished Orientation/consciousness: patient oriented x3 HENMT Head: Yes normal to inspection and Yes atraumatic Ears: hearing grossly normal bilaterally and external ears normal General nose exam: Normal external nose present, no nasal discharge noted and no epistaxis Face and sinus: Yes normal facial exam, No abrasion and No laceration Mouth: Normal oral and palatal mucosa present, no drooling and no muffled voice Eyes General: appearance normal, both eyes and all related structures Periorbital: periorbital findings normal Eyelids: Yes eyelids normal Conjunctivae: conjunctivae normal Pupils: Equal, round and reactive pupils present EOM: EOMs intact bilaterally Neck Neck: Yes normal visual inspection and Yes full ROM Resp Effort & Inspection: normal respiratory effort and able to speak in complete sentences Neuro General: patient oriented x3, moves all extremities and CN's II-XI intact bilaterally Cranial nerves: Yes Equal, round and reactive pupils present Cognition (Neuro): normal cognition Extrem Other: left lower leg laceration - partially closed with dermabond, mild oozing. General: Yes full ROM and Yes capillary refill normal Psych Appearance: grossly normal Mental Status: mental status grossly normal Affect: normal affect Attitude: cooperative Thought process: Normal thought process present Thought content: Normal thought content present Insight: Good insight present (Psych) Medical Decision Making Medical Decision Making MDM Narrative: Patient is a 69 year old assigned female at with a history of CAD, HTN, and HLD presenting to the emergency department today with a left lower leg laceration. Patient's physical exam was as noted in the physical exam portion of this note. Patient's left lower leg wound had a small area of blood oozing from the wound. I explained my physical exam findings to the patient. I answered all questions asked by the patient. Patient's laceration was repaired again - however, this time, a mix of dermabond and steri strips were used. Patient was able to ambulate on the lower extremity without any opening of the wound. I stressed the importance of the patient taking her medication as directed (either prescribed or as the over the counter packaging recommends). I stressed the importance of the patient following up with her primary care provider. I stressed the importance of the patient returning to the emergency department immediately if her symptoms were to worsen or if she were to develop any dizziness, shortness of breath, difficulty breathing, chest pain, blurry vision, loss of vision, nausea, vomiting, abdominal pain, fever, chills, back pain, or any other complaints. Patient verbalized agreement and understanding with this treatment plan and discharge. Differential Diagnosis Differential Diagnoses: The differential diagnosis associated with the presentation includes Laceration re-opening Dehiss of wound Discharge Plan Discharge Clinical Impression: Laceration of left leg Qualifiers: Encounter type: subsequent encounter Qualified Code(s): S81.812D - Laceration without foreign body, left lower leg, subsequent encounter Patient Disposition: Home, Self-Care Instructions: Laceration (DC), Skin Adhesive Strips (ED) Additional Instructions: Do NOT get the affected area wet for at LEAST 7 days. Given the mechanism of injury, you were prescribed a prophylactic antibiotic earlier today. Please take this as prescribed. IF you are prescribed home medications and/or you are taking over the counter medications at home - it is very important you continue to do so as prescribed / directed unless told otherwise. Follow up with your primary care provider. Return to the emergency department immediately if your symptoms worsen or if you develop any numbness, tingling, dizziness, shortness of breath, difficulty breathing, chest pain, blurry vision, loss of vision, nausea, vomiting, abdominal pain, fever, chills, back pain, or any other complaints. Please see the information below about our Patient Portal. If you are not yet enrolled in the [facility] Patient Portal, you will receive an enrollment email invitation following your visit to any [facility] setting. You may also self-enroll in the Patient Portal by visiting our website: [email or web address] The following information is required to access the Patient Portal: - Your [facility] Medical Record Number - Your personal home email address (must match what is in your electronic medical record, Registration staff can assist with this) - Name - Date of Capabilities of the Patient Portal: - Message some providers - View upcoming appointments - Access your health summary, medical history, and visit history - View current conditions and allergies - View procedure and lab results - View your medications, including guidelines, side effects, and precautions - Complete pre-appointment questionnaires requested by your provider - Ready summary reports of your office visits and procedures To access the Patient Portal Mobile Giorgio, follow these directions: - Search Shop Hers in the Giorgio Store or Google Medprivé Store - Download the Giorgio - Search for [facility] - Enter your login/password Prescriptions: No Action acetaminophen [Tylenol Extra Strength] 500 mg tablet 500 mg PO Q6H PRN (Reason: fever or pain) Qty: 14 0RF aspirin 81 mg tablet,delayed release (DR/EC) 81 mg PO QAM acetaminophen [Tylenol] 325 mg capsule 650 mg PO Q6H PRN (Reason: pain) Qty: 30 0RF amoxicillin-pot clavulanate 875-125 mg tablet 1 tab PO BID 5 Days Qty: 10 0RF bupropion HCl 150 mg tablet sustained-release 12 hr 150 mg PO BID trazodone 100 mg tablet 100 mg PO BEDTIME ranolazine 1,000 mg tablet extended release 12 hr 1,000 mg PO BID atorvastatin 80 mg tablet 80 mg PO DAILY amlodipine 5 mg tablet 5 mg PO DAILY fluoxetine 20 mg capsule 40 mg PO DAILY Rx Instructions: administer in the morning and at noon/midday Referrals: Jennifer Stewart MD [Primary Care Provider, Family Practice] Discharge Date/Time: 03/16/25 14:39 Print Language: Citizen Of [place]
== END 2025-03-16 14:39 | disposition home or self-care (01) ==
PROVIDERS: Emergency Provider Emergency Medicine; PCP Family Medicine
DX: Z48.1 Encounter for planned postprocedural wound closure (principal)
CPT/HCPCS: 99281

== ENCOUNTER 2025-05-24 14:09 | Outpatient (REF) | payer MEDICARE, MEDICAID, SELFPAY ==
--- OUTSIDE RECORDS SUMMARY | 2025-05-23 15:45 | XMS_ITS | Encounter Summary ---
Author Organization [employer] Address [address] [facility] 7t [place] [address] Care Team Providers Care Supervisor Purification Name Role Phone Jennifer Stewart MD Primary Care Provider + [phone] Zayda Rader PharmD Unavailable [phone] Alina Lynch Unavailable Moshe Bran MD Unavailable [phone] Bhupendra Angel MD Unavailable Reason for Visit * Reason Comments right knee injury Encounter Details Date Type Department Care Team (Late st Contact Info) Description 05/23/2025 3:45 PM EDT Office Visit [facility] [address] [place] [address] Darcy Ordonez FNP [address] [place] [address] Acute pain of right knee (Primary Dx) Social History Tobacco Use Types [...] Answer Date Recorded Patient Health Questionnaire-9 Score 6 11/27/2024 Patient Health Questionnaire-9 Score 6 11/27/2024 Last PHQ-9: Questionnaire Data Not on file 0 11/27/2024 Housing Stability Answer Date Recorded What is your housing situation today? I have gus sing 02/03/[address] you li [...] Answer Date Recorded Patient Health Questionnaire-2 Score 3 11/27/2024 Internet Access Answer Date Recorded Internet Access Q1 Yes 02/07/2025 Internet Access Q2 Not on file 02/07/2025 Comments Unknown Sex and Gender Information Value Date Recorded Sex Assigned at Female 05/25/2022 10:19 AM EDT Legal Sex Female 10:19 AM EDT Gender Identity Female 05/25/2022 10:19 AM EDT Sexual Orientation Straight 05/25/2022 10 :19 AM EDT documented as of this encounter Last Filed Vital Signs Vital Sign Reading Time Taken Comments Blood Pressure 119/60 05/23/2025 4:13 PM EDT Pulse 68 05/23/2025 4:13 PM EDT Temperature 36.4 C (97.5 F) 05/23/2025 4:13 PM EDT Respiratory Rate 20 05/23/2025 4:13 PM EDT Oxygen Saturation 98% 05/23/2025 4:13 PM EDT Inhaled Oxygen Concentration - - Weight 66.3 kg (146 lb 3.2 oz) 05/23/2025 4:13 P M EDT Height 157.5 cm (5' 2 ) 05/23/2025 4:13 PM EDT Body Mass Index 26.74 05/23/2025 4:13 PM EDT documented in this encounter Plan of Treatment Not on file documented as of this encounter Procedures Procedure Name Priority Date/Time Associated Diagnosis Comments XR KNEE 4+ VIEWS RIGHT Routine 05/24/2025 2:20 PM EDT documented in this encounter Results * XR Knee 4+ Views Right (05/24/2025 2:20 PM EDT) Anatomical Region Laterality Modality Lower Extremities, Knee Right Radiogra phic Imaging 05/24/2025 2:20 PM EDT Narrative 05/24/2025 2:36 PM EDT [facility] [address] [place] [address] XRay Report Signed Patient: Vivian Hayes MR#: [id number] : 1955 Acct:[id number] Age/Sex: 69 / F ADM Date: 05/24/25 Loc: HO.HHCX Attending Dr: Darcy UPTON Ordering Physician: Darcy Ordonez Date of Service: 05/24/25 Procedure(s): XR knee RT 4V Accession Number(s): [id number] cc: Jennifer Stewart MD; Darcy Ordonez Reason for Exam: contursion of the right knee with increasing pain EXAMINATION: XR KNEE, RIGHT CLINICAL INFORMATION: contursion of the right knee with increasing pain COMPARISON: April 28, 2024 TECHNIQUE: AP oblique and lateral views of the right knee. FINDINGS: Joint space narrowing involving mostly the medial compartment with marginal osteophyte formation and sclerosis along the articular surface. Chondrocalcinosis in the menisci. Suprapatellar bursa joint effusion, small to moderate volume. Vascular calcifications. Vascular clips in the popliteal region. No lytic or blastic lesions. No acute fracture or dislocation. XR/XR knee RT 4V IMPRESSION: Tricompartmental osteoarthrosis involving mostly the medial compartment. Suprapatellar bursa joint effusion, moderate volume. Probable CPPD. Atherosclerosis disease, peripheral. Electronically signed by: Bijan Schneider MD 05/24/2025 02:33 PM EDT Dictated By: Bijan Lakhani MD Signed By: <Electronically signed by Bijan Ruff MD in OV> 05/24/25 1433 DD/ 142 TD/TT: 05/24/251428 Principal Android Developer: Procedure Note Oswaldopoter, Image - 05/24/[address] [address] XRay Report Signed Patient: Vivian Hayes RMR#: [id number] : 1955cct:[id number] Age/Sex: 69 / FADM Date: 05/24/25 Loc: HO.HHCX Attending Dr: Darcy UPTON Ordering Physician: Darcy Ordonez Date of Service: 05/24/25 Procedure(s): XR knee RT 4V Accession Number(s): [id number] cc: Jennifer Stewart MD; Darcy Ordonez Reason for Exam: contursion of the right knee with increasing pain EXAMINATION: XR KNEE, RIGHT CLINICAL INFORMATION: contursion of the right knee with increasing pain COMPARISON: April 28, 2024 TECHNIQUE: AP oblique and lateral views of the right knee. FINDINGS: Joint space narrowing involving mostly the medial compartment with marginal osteophyte formation and sclerosis along the articular surface. Chondrocalcinosis in the menisci. Suprapatellar bursa joint effusion, small to moderate volume. Vascular calcifications. Vascular clips in the popliteal region. No lytic or blastic lesions. No acute fracture or dislocation. XR/XR knee RT 4V IMPRESSION: Tricompartmental osteoarthrosis involving mostly the medial compartment. Suprapatellar bursa joint effusion, moderate volume. Probable CPPD. Atherosclerosis disease, peripheral. Electronically signed by: Bijan Schneider MD 05/24/2025 02:33 PM EDT Dictated By: Bijan Lakhani MD Signed By: <Electronically signed by Bijan Ruff MDin OV> 05/24/25 1433 DD/ 1420 TD/TT: 05/24/251428 Principal Android Developer: Darcy Ordonez SAGGER MAKER IMG XR PROCEDURES Final Result documented in this encounter Visit Diagnoses Diagnosis Acute pain of right knee- Primary documented in this encounter Additional Health Concerns Assessment Noted Time PHQ-9 Depression Total Score: 6 11/28/19 25 9:31 AM EDT documented as of this encounter Care Teams Supervisor Purification Relationship Specialty Start Date End Date Jennifer Stewart MD [address] [place] [address] PCP - General Family Medicine 07/26/18 Zayda Rader, RigobertoD [address] [place] [address] Pharmacist Internal Medicine 04/27/24 Alina Lynch [address] [place] [address] Dr [address] [place] [address] Orthopaedic Surgery 09/26/24 Moshe Bran MD [address] [place] [address] Cardiology 09/26/24 Bhupendra Angel MD [address] [place] [address] Gastroenterology 01/24/25 Wade Tyson MD [facility] [address] [place] [address] Ophthalmology 08/22/24 documented as of this encounter
--- NOTE | ~2025-05-24 | XR_ITS ---
EXAMINATION: XR KNEE, RIGHT CLINICAL INFORMATION: contursion of the right knee with increasing pain COMPARISON: April 28, 2024 TECHNIQUE: AP oblique and lateral views of the right knee. FINDINGS: Joint space narrowing involving mostly the medial compartment with marginal osteophyte formation and sclerosis along the articular surface. Chondrocalcinosis in the menisci. Suprapatellar bursa joint effusion, small to moderate volume. Vascular calcifications. Vascular clips in the popliteal region. No lytic or blastic lesions. No acute fracture or dislocation. XR/XR knee RT 4V IMPRESSION: Tricompartmental osteoarthrosis involving mostly the medial compartment. Suprapatellar bursa joint effusion, moderate volume. Probable CPPD. Atherosclerosis disease, peripheral. Electronically signed by: Bijan Schneider MD 05/24/2025 02:33 PM EDT
--- OUTSIDE RECORDS SUMMARY | 2025-05-24 17:13 | XMS_ITS | Encounter Summary ---
Author Organization [employer] Address [address] [facility] 7t [place] [address] Care Team Providers Care Mixed Livestock Farm Worker Name Role Phone Jennifer Stewart MD Primary Care Provider Zayda Rader PharmD Unavailable Alina Lynch Unavailable Moshe Bran MD Unavailable [phone] Bhupendra Angel MD Unavailable Encounter Details Date Type Department Care Team (Late st Contact Info) Description 03/16/2024 Orders Only [facility] [address] [place], [place] [phone] Jennifer Stewart MD [address] [place] [address] Social History Tobacco Use Types Packs/Day Years [...] documented as of this encounter Care Teams Mixed Livestock Farm Worker Relationship Specialty Start Date End Date Jennifer Stewart MD [address] [place] [address] PCP - General Family Medicine 07/26/18 Zayda Rader, RigobertoD [address] [place] [address] Pharmacist Internal Medicine 04/27/24 Alina Lynch [address] [place] [address] Orthopaedic Surgery 09/26/24 Moshe Bran MD [address] [place] [address] Cardiology 09/26/24 Bhupendra Angel MD [address] [place] [address] Gastroenterology 01/24/25 Wade Tyson MD [facility] [address] [address] Ophthalmology 08/22/24 documented as of this encounter
--- OUTSIDE RECORDS SUMMARY | 2025-05-24 17:13 | XMS_ITS | Encounter Summary ---
Author Organization [employer] Address [address] [facility] 7t [place] [address] Care Team Providers Care Support Associate Name Role Phone Jennifer Stewart MD Primary Care Provider [phone] Zayda Rader PharmD Unavailable Alina Lynch Unavailable Moshe Bran MD Unavailable [phone] Bhupendra Angel MD Unavailable Reason for Visit * Reason Onset Date Comments Appointment 01/21/2023 Encounter Details Date Type Department Care Team (Late st Contact Info) Description 01/21/2023 Telephone [facility] ADULT DENTAL [address] [place], [place] [phone] Alma March, DDS [address] [place], [place] [phone] Appointment Social History Tobacco Use Types Packs/Day [...] [place] - 01/21/2023 10:26 AM EDT Vivian Hayes 1955 Patient called in this morning for [...] documented as of this encounter Care Teams Support Associate Relationship Specialty Start Date End Date Jennifer Stewart MD [address] [place] [address] PCP - General Family Medicine 07/26/18 Zayda Rader PharmD [address] [place] [address] Pharmacist Internal Medicine 04/27/24 Alina Lynch [address] [place] [address] Dr [address] [place] [address] Orthopaedic Surgery 09/26/24 Moshe Bran MD [address] [place] [address] Cardiology 09/26/24 Bhupendra Angel MD [address] [place] [address] Drive [address] [place] [address] Gastroenterology 01/24/25 Wade Tyson MD [facility] [address] [place] [address] Ophthalmology 08/22/24 documented as of this encounter
--- OUTSIDE RECORDS SUMMARY | 2025-05-24 17:13 | XMS_ITS | Encounter Summary ---
Author Organization [employer] Address [address] [facility] 7t [place] [address] Care Team Providers Care Plant Specialist Name Role Phone Jennifer Stewart MD Primary Care Provider + [phone] Zayda Rader PharmD Unavailable [phone] Alina Lynch Unavailable Moshe Bran MD Unavailable [phone] Bhupendra Angel MD Unavailable Reason for Visit * Reason Comments Med Refill Encounter Details Date Type Department Care Team (Late st Contact Info) Description 03/07/2025 Refill [facility] [address] [place] [address] Juanita Gonsalez MD [address] [place] [address] Hyperlipidemia, unspecified hyperlipidemia type Social History Tobacco Use Types Packs/Day Years [...] documented as of this encounter Visit Diagnoses Diagnosis Hyperlipidemia, unspecified hyperlipidemia type documented in this encounter Additional Health Concerns Assessment Noted Time PHQ-9 Depression Total Score: 6 11/28/19 25 9:31 AM EDT documented as of this encounter Care Teams Plant Specialist Relationship Specialty Start Date End Date Jennifer Stewart MD [address] [place] [address] PCP - General Family Medicine 07/26/18 Zayda Rader, RigobertoD [address] [place] [address] Pharmacist Internal Medicine 04/27/24 Alina Lynch [address] [place] [address] [address] [place] [address] Orthopaedic Surgery 09/26/24 Moshe Bran MD [address] [place] [address] Cardiology 09/26/24 Bhupendra Angel MD [address] [place] [address] Drive [address] [place] [address] Gastroenterology 01/24/25 Wade Tyson MD [facility] [address] [place] [address] Ophthalmology 08/22/24 documented as of this encounter
--- OUTSIDE RECORDS SUMMARY | 2025-05-24 17:13 | XMS_ITS | Encounter Summary ---
Author Organization [facility] Address [address] [facility] [address] [place] [address] Phone Care Team Providers Care Laundry Sorter Name Role Phone Jennifer Stewart MD Primary Care Provi sharmila Encounter Details Date Type Department Care Team (Late st Contact Info) Description 12/28/2017 Transcribe Orders [facility] [address] [place] [address] Abhinav Ledesma MD, [place] [address] [address] [email or web address] Social History Tobacco Use Types Packs/Day Years [...] on filedocumented in this encounter Care Teams Laundry Sorter Relationship Specialty Start Date End Date Jennifer Stewart MD [address] [place] [address] PCP - General 07/29/17 documented as of this encounter Additional Source Comments The information contained in this document represents components of the legal health record. It is not the complete legal health record.[facility]
--- OUTSIDE RECORDS SUMMARY | 2025-05-24 17:13 | XMS_ITS | Encounter Summary ---
Author Organization [employer] Address [address] [facility] [address] [place] [address] Care Team Providers Care Senior Biostatistician/Group Leader Name Role Phone Jennifer Stewart MD Primary Care Provider [phone] Zayda Rader PharmD Unavailable [phone] Alina Lynch Unavailable Moshe Bran MD Unavailable [phone] Bhupendra Angel MD Unavailable Reason for Visit * Reason Onset Date Comments Nurse Triage 05/23/2025 Encounter Details Date Type Department Care Team (Late st Contact Info) Description 05/23/2025 Telephone [facility] [address] [place], [place] [phone] Jennifer Stewart MD [address] [place], [place] [phone] Nurse Triage Social History Tobacco Use Types Packs/Day Years [...] encounter Miscellaneous Notes * Telephone Encounter - Xiao Ruff RN - 05/23/2025 11:26 AM EDT T/C returned to pt to triage. Pt reports ~ 1.5 weeks ago she was trying to help an elderly man stand up as he was struggling to get off of a bench. He fell back onto the bench and twisted her leg. She heard a pop and since then has been in pain and unable to walk. She reports when she elevates and rests it it improves a little but that is very painful to walk. It is her right knee and she reports the right side of her right knee keeps giving out on her. Denies any bruising or visible swelling. Booked for this afternoon with charleen. Pt states will have her daughter drive her. Pt agrees with disposition. Protocol Used: Knee Injury (Adult) Protocol-Based Disposition: See in Office or Video Visit Today Video visit offer not recorded Positive Triage Question: * Patient wants to be seen * All higher-acuity triage questions were negative * Telephone Encounter - Konradryan Estela - 05/23/2025 11:00 AM EDT Symptom: Knee Injury Outcome: Talk to a nurse or provider within 15 minutes Reason: Severe pain now The caller accepted this outcome. Contact pt at [phone] documented in this encounter Plan of Treatment Not on file documented as of this encounter Visit Diagnoses Not on filedocumented in this encounter Additional Health Concerns Assessment Noted Time PHQ-9 Depression Total Score: 6 11/28/19 25 9:31 AM EDT documented as of this encounter Care Teams Senior Biostatistician/Group Leader Relationship Specialty Start Date End Date Jennifer Stewart MD [address] [place] [address] PCP - General Family Medicine 07/26/18 Zayda Rader, RigobertoD [address] [place] [address] Pharmacist Internal Medicine 04/27/24 Alina yLnch [address] [place] [address] Dr [address] [place] [address] Orthopaedic Surgery 09/26/24 Moshe Bran MD [address] [place] [address] Cardiology 09/26/24 Bhupendra Angel MD [address] [place] [address] Drive [address] [place] [address] Gastroenterology 01/24/25 Wade Tyson MD [facility] [address] [address] Ophthalmology 08/22/24 documented as of this encounter
--- OUTSIDE RECORDS SUMMARY | 2025-05-24 17:13 | XMS_ITS | Encounter Summary ---
Author Organization [employer] Address [address] [facility] [address] [place] [address] Care Team Providers Care Infrastructure Design Engineer Name Role Phone Jennifer Stewart MD Primary Care Provider [phone]- [phone] Zayda Rader PharmD Unavailable [phone] Alina Lynch Unavailable Moshe Bran MD Unavailable [phone] Bhupendra Angel MD Unavailable Encounter Details Date Type Department Care Team (Latest Contact Info) Description 05/23/2025 Travel Social History Tobacco Use Types Packs/Day [...] documented as of this encounter Care Teams Infrastructure Design Engineer Relationship Specialty Start Date End Date Jennifer Stewart MD [address] [place] [address] PCP - General Family Medicine 07/26/18 Zayda Rader, PharmD [address] [place] [address] Pharmacist Internal Medicine 04/27/24 Alina Lynch [address] [place] [address] [place] [address] Orthopaedic Surgery 09/26/24 Moshe Bran MD [address] [place] [address] Cardiology 09/26/24 Bhupendra Angel MD [address] [place] [address] Gastroenterology 01/24/25 Wade Tyson MD [facility] [address] [address] Ophthalmology 08/22/24 documented as of this encounter
--- OUTSIDE RECORDS SUMMARY | 2025-05-24 17:13 | XMS_ITS | Patient Health Record ---
Author Organization [facility] Address [address] [place] [address] Care Team Providers Care Cleaning Professional Name Role Phone Jennifer Stewart MD Primary Care Provider Zoila Bhupendra Guzman Unavailable [phone] Reason For Referral No Information Medications Medication [...] TAKE 1 TABLET BY MOUTH EVERY DAY Oral; Duration: 30 Active buPROPion HCl ER (SR) 150 MG TAKE 1 TABLET BY MOUTH TWICE DAILY Oral; Duration: 30 Active Isosorbide Mononitrate 10 MG 1 [...] Problem Status W/U Status Risk Notes Problem Screening for malignant neoplasm of colon (493827613) Encounter for screening for malignant neoplasm of colon (Z12.11) Active confirmed Problem History of adenomatous polyp of colon (706549063) History of adenomatous polyp of colon (Z86.010) Active confirmed Problem Preprocedural examination (806653631555724) Preprocedural examination (Z01.818) Active confirmed Problem Long-term current use of aspirin (966653445680362) Aspirin long-term use (Z79.82) Active confirmed Problem Long-term current use of antiplatelet drug (456653735108513) Long-term use of aspirin therapy (Z79.82) Active confirmed Problem History of adenomatous polyp of colon (054943654) Hx of adenomatous colonic polyps (Z86.010) Active confirmed Plan Of Treatment Future Test Test Name Order Date COLONOSCOPY 12/23/2016 COLONOSCOPY 12/22/2019 Next Appt Details Provider Name:Bhupendra Angel , 06/14/2025 10:40:00 AM, [address] [place] [address], [address], [place], [address], Insurance Providers Payer Name Payer Address Payer Phone Subscriber Number Group Number Insured Name Patient Relationship to Insured Coverage Start Date Coverage End Date MEDICARE OF [place] [address] [place] [address] [id number] RAZA ESTRADA Self - patient is the insured MEDICAID OF [facility] [address] [place] [address] [id number] RAZA ESTRADA Self - patient is the insured Medical (General) History Medical History History ICD Code Screening Colonoscopy 04-02-20 08--1 small tubular adenoma removed, diverticulosis, internal hemorrhoids Anxiety/depression Vertigo Hypertension Hypercholesterolemia CHF Afib--resolved LUNG COLLAPSED X 2 Denies AL,DM,CVA,Lung disease,renal dise ase CAD with previous CABG--Dr. [...]
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
--- OUTSIDE RECORDS SUMMARY | 2025-05-24 17:13 | XMS_ITS | Encounter Summary ---
Author Organization [employer] Address [address] [facility] [address] [place] [address] Care Team Providers Care Scraper Hand Name Role Phone Jennifer Stewart MD Primary Care Provider [phone] Zayda Rader PharmD Unavailable Alina Lynch Unavailable Moshe Bran MD Unavailable Bhupendra Angel MD Unavailable Encounter Details Date Type Department Care Team (Late st Contact Info) Description 08/12/2022 Abstract [facility] [address] [place], [place] [phone] Jennifer Stewart MD [address] [place], [place] [phone] Social History Tobacco Use Types Packs/Day Years [...] on filedocumented in this encounter Care Teams Scraper Hand Relationship Specialty Start Date End Date Jennifer Stewart MD [address] [place] [phone] PCP - General Family Medicine 07/26/18 Zayda Rader, PharmD [address] [place] [phone] Pharmacist Internal Medicine 04/27/24 Alina Lynch [address] [place] [address] [address] [place] [address] Orthopaedic Surgery 09/26/24 Moshe Bran MD [address] [place] [address] Cardiology 09/26/24 Bhupendra Angel MD [address] [place] [address] Gastroenterology 01/24/25 Wade Tyson MD [facility] [address] [address] Ophthalmology 08/22/24 documented as of this encounter
--- OUTSIDE RECORDS SUMMARY | 2025-05-24 17:13 | XMS_ITS | Encounter Summary ---
Author Organization [employer] Address 75 [facility] 7t [place] [address] Care Team Providers Care Director Business Development Name Role Phone Jennifer Stewart MD Primary Care Provider Zayda Rader PharmD Unavailable Alina Lynch Unavailable Moshe Bran MD Unavailable [phone] Bhupendra Angel MD Unavailable Encounter Details Date Type Department Care Team (Late st Contact Info) Description 04/17/2024 Telephone [facility] [address] [place], [place] [phone] Zayda Rader, PharmD 230 [place] [address] Social History Tobacco Use Types Packs/Day Years [...] documented as of this encounter Care Teams Director Business Development Relationship Specialty Start Date End Date Jennifer Stewart MD [address] [place] [address] PCP - General Family Medicine 07/26/18 Zayda Rader, RigobertoD 230 [place] [address] Pharmacist Internal Medicine 04/27/24 Alina Lynch [address] [place] [address] Dr [address] [place] [address] Orthopaedic Surgery 09/26/24 Moshe Bran MD [address] [place] [address] Cardiology 09/26/24 Bhupendra Angel MD [address] [place] [address] Gastroenterology 01/24/25 Wade Tyson MD [facility] [address] [place] [address] Ophthalmology 08/22/24 documented as of this encounter
--- OUTSIDE RECORDS SUMMARY | 2025-05-24 17:13 | XMS_ITS | Encounter Summary ---
Author Organization [employer] Address 75 [facility] 7t [place] [address] Care Team Providers Care Sales And Marketing Administrator Name Role Phone Jennifer Stewart MD Primary Care Provider [phone]- [phone] Zayda Rader PharmD Unavailable [phone]- [phone] Alina Lynch Unavailable Moshe Bran MD Unavailable [phone] Bhupendra Angel MD Unavailable Encounter Details Date Type Department Care Team (Late st Contact Info) Description 02/07/2025 Orders Only [facility] 230 [place] [address] Provider, MD Matti Social History Tobacco Use Types Packs/Day Years [...] Procedure Name Priority Date/Time Associated Diagnosis Comments TRANSTHORACIC ECHO (TTE) COMPLETE Routine 02/06/2025 10:01 AM EDT documented in this encounter Results * Transthoracic echo (TTE) complete (02/06/2025 10:01 AM EDT) Historical Provider CV ECHO PROCEDURES Final Result documented in this encounter Visit Diagnoses Not on filedocumented in this encounter Additional Health Concerns Assessment Noted Time PHQ-9 Depression Total Score: 6 11/28/19 25 9:31 AM EDT documented as of this encounter Care Teams Sales And Marketing Administrator Relationship Specialty Start Date End Date Jennifer Stewart MD 230 [place] [address] PCP - General Family Medicine 07/26/18 Zayda Rader, Georgie [address] [place] [address] Pharmacist Internal Medicine 04/27/24 Alina Lynch [address] [place] [address] [address] [place] [address] Orthopaedic Surgery 09/26/24 Moshe Bran MD 5[address] [place] [address] Cardiology 09/26/24 Bhupendra Angel MD [address] [place] [address] Drive [address] [place] [address] Gastroenterology 01/24/25 Wade Tyson MD [facility] [address] [place] [address] Ophthalmology 08/22/24 documented as of this encounter
--- OUTSIDE RECORDS SUMMARY | 2025-05-24 17:13 | XMS_ITS | Encounter Summary ---
Author Organization [employer] Address 75 [facility] 7t [place] [address] Care Team Providers Care Dispensing Optician Name Role Phone Jennifer Stewart MD Primary Care Provider [phone]- [phone] Zayda Rader PharmD Unavailable [phone] Alina Lynch Unavailable Moshe Bran MD Unavailable [phone] Bhupendra Angel MD Unavailable Reason for Visit * Reason Onset Date Comments appt Oral Surgery 06/01/2023 Encounter Details Date Type Department Care Team (Late st Contact Info) Description 06/01/2023 Telephone [facility] [address] [place], [place] [phone] Osmin Correia, DMD [address] [place], [place] [phone] appt Oral Surgery Social History Tobacco Use [...] Dr. Correia since November through the [place] office. She didhave to have an emergency [...] documented as of this encounter Care Teams Dispensing Optician Relationship Specialty Start Date End Date Jennifer Stewart MD 230 [place] [address] PCP - General Family Medicine 07/26/18 Zayda Rader, RigobertoD 230 [place] [address] Pharmacist Internal Medicine 04/27/24 Alina Lynch [address] [place] [address] [place] [address] Orthopaedic Surgery 09/26/24 Moshe Bran MD [address] [place] [address] Cardiology 09/26/24 Bhupendra Angel MD [address] [place] [address] Drive [address] [place] [address] Gastroenterology 01/24/25 Wade Tyson MD [facility] [address] [place] [address] Ophthalmology 08/22/24 documented as of this encounter
--- OUTSIDE RECORDS SUMMARY | 2025-05-24 17:13 | XMS_ITS | Encounter Summary ---
Author Organization [employer] Address [address] [facility] [address] 7t [place] [address] Care Team Providers Care Central Office Operator Name Role Phone Jennifer Stewart MD Primary Care Provider Zayda Rader PharmD Unavailable Alina Lynch Unavailable Moshe Bran MD Unavailable [phone] Bhupendra Angel MD Unavailable Encounter Details Date Type Department Care Team (Late st Contact Info) Description 05/04/2024 Orders Only [facility] 230 [place], [place] [phone] Jennifer Stewart MD 230 [place], [place] [phone] Major depressive disorder with single episode, in [...] PM EDT Narrative 05/20/2024 9:36 PM EDT [address] [address] [address] Scan Report Signed Patient: Vivian Hayes MR#: [id number] 879 : 1955 Acct:[id number] Age/Sex: 68 / F ADM Date: 05/20/24 Loc: HO.ED Attending Dr: Ordering Physician: Ondina Rios Date of Service: 05/20/24 Procedure(s): CT cervical spine wo IV con Accession Number(s): [id number] cc: Jennifer Stewart MD; Ondina iRos EXAMINATION: CT CERVICAL SPINE WITHOUT CONTRAST CLINICAL [...] Fredrick Rao MD 05/20/2024 09:32 PM EDT RP Dictated By: Fredrick Rao MD Signed By: <Electronically signed by Fredrick Rao MD in OV> 05/20/242131 DD/ 21 TD/TT: 05/20/242021 Cardiopulmonary Technologist: JEANNETTE Procedure Note Donotuseinterpreter, Image - 05/20/[address] [place] [address] [address] Scan Report Signed Patient: Martin Hayes#: [id number] 879 : 1955cct:[id number] Age/Sex: 68 / FADM Date: 05/20/24 Loc: HO.ED Attending Dr: Ordering Physician: Ondina Rios Date of Service: 05/20/24 Procedure(s): CT cervical spine wo IV con Accession Number(s): [id number] cc: Jennifer Stewart MD; Ondina Rios EXAMINATION: [...] in OV> 05/20/242131 DD/ 21 TD/TT: 05/20/242021 Cardiopulmonary Technologist: JEANNETTE Authorvimal Provider Result Type Result Stat [facility] External Provider IMG CT PROCEDURES Final Result * CT Head w/o Contrast (05/20/2024 8:22 PM EDT) Anatomical Region Laterality Modality Head, Neck Computed Tomogra phy 05/20/2024 8:22 PM EDT Narrative 05/20/2024 9:30 PM EDT [place] [address] CT Scan Report Signed Patient: Vivian Hayes MR#: [id number] 879 : 1955 Acct:[id number] Age/Sex: 68 / F ADM Date: 05/20/24 Loc: HO.ED Attending Dr: Ordering Physician: Ondina Rios Date of Service: 05/20/24 Procedure(s): CT head/brain wo IV con Accession Number(s): [id number] cc: Jennifer Stewart MD; Ondina Rios EXAMINATION: [...] in OV> 05/20/242126 DD/ 21 TD/TT: 05/20/242021 Cardiopulmonary Technologist: JEANNETTE Procedure Note Donotuseinterpreter, Image - 05/20/[address] [address] [address] Scan Report Signed Patient: Vivian HayesMR#: [id number] 879 : 6Acct:[id number] Age/Sex: 68 / FADM Date: 05/20/24 Loc: HO.ED Attending Dr: Ordering Physician: Ondina Rios Date of Service: 05/20/24 Procedure(s): CT head/brain wo IV con Accession Number(s): [id number] cc: Jennifer Stewart MD; Ondina Rios EXAMINATION: [...] in OV> 05/20/242126 DD/ 21 TD/TT: 05/20/242021 Cardiopulmonary Technologist: JEANNETTE Authorvimal Provider Result Type Result Stat [facility] External Provider IMG CT PROCEDURES Final Result * XR Shoulder 2+ Views Right (05/20/2024 7:48 PM EDT) Anatomical Region Laterality Modality Upper Extremities, Shoulder Right Radi ographic Imaging 05/20/2024 7:48 PM EDT Narrative 05/20/2024 9:40 PM EDT [address] [address] XRay Report Signed Patient: Vivian Hayes MR#: [id number] 879 : 1955 Acct:[id number] Age/Sex: 68 / F ADM Date: 05/20/24 Loc: HO.ED Attending Dr: Ordering Physician: Ondina Rios Date of Service: 05/20/24 Procedure(s): XR shoulder RT min 2V Accession Number(s): [id number] cc: Jennifer Stewart MD; Ondina Rios EXAMINATION: XR SHOULDER, RIGHT CLINICAL INFORMATION: Pain status-post fall. COMPARISON: None available. TECHNIQUE: AP external rotation, Grashey and scapular Y views of the right. FINDINGS: The bones and soft tissues are normal. No fracture. Glenohumeral and acromioclavicular alignment is anatomic with normal joint space. No abnormal soft tissue calcifications. Cervicothoracic orthopedic hardware is incompletely covered in the [id number]-wd-[id number]. XR/XR shoulder RT min 2V IMPRESSION: Normal right shoulder. Electronically signed by: Fredrick Rao MD 05/20/2024 09:38 PM EDT Dictated By: Fredrick Rao MD Signed By: <Electronically signed by Fredrick Rao MD in OV> 05/20/242137 DD/ 47 TD/TT: 05/20/242032 Cardiopulmonary Technologist: [facility] Procedure Note Donotuseinterpreter, Image - 05/20/[address] [address] XRay Report Signed Patient: Vivian HayesMR#: [id number] 879 : 1955cct:[id number] Age/Sex: 68 / FADM Date: 05/20/24 Loc: .ED Attending Dr: Ordering Physician: Ondina Rios Date of Service: 05/20/24 Procedure(s): XR shoulder RT min 2V Accession Number(s): [id number] cc: Jennifer Stewart MD; Ondina Rios EXAMINATION: XR SHOULDER, RIGHT CLINICAL INFORMATION: Pain status-post fall. COMPARISON: None available. TECHNIQUE: AP external rotation, Grashey and scapular Y views of the right. FINDINGS: The bones and soft tissues are normal. No fracture. Glenohumeral and acromioclavicular alignment is anatomic with normal joint space. No abnormal soft tissue calcifications. Cervicothoracic orthopedic hardware is incompletely covered in the bturh-ix-vsyj. XR/XR shoulder RT min 2V IMPRESSION: Normal right shoulder. Electronically signed by: Fredrick Rao MD 05/20/2024 09:38 PM EDT Dictated By: Fredrick Rao MD Signed By: <Electronically signed by Fredrick Rao MD in OV> 05/20/242137 DD/ 47 TD/TT: 05/20/242032 Cardiopulmonary Technologist: JEANNETTE [facility] External Provider IMG XR PROCEDURES Final Result * XR Ankle 3+ Views Right (05/20/2024 7:48 PM EDT) Anatomical Region Laterality Modality Lower Extremities, Ankle Right Radiogr aphic Imaging 05/20/2024 7:48 PM EDT Narrative 05/20/2024 9:38 PM EDT [place] [address] XRay Report Signed Patient: Vivian Hayes MR#: [id number] 879 : 1955 Acct:[id number] Age/Sex: 68 / F ADM Date: 05/20/24 Loc: HO.ED Attending Dr: Ordering Physician: Ondina Rios Date of Service: 05/20/24 Procedure(s): XR ankle RT min 3V Accession Number(s): [id number] cc: Jennifer Stewart MD; Ondina Rios EXAMINATION: [...] Fredrick Rao MD 05/20/2024 09:35 PM EDT RP Dictated By: Fredrick Rao MD Signed By: <Electronically signed by Fredrick Rao MD in OV> 05/20/242134 DD/ 47 TD/TT: 05/20/242032 Cardiopulmonary Technologist: JEANNETTE Procedure Note Donotuseinterpreter, Image - 05/20/2024 [place] [address] XRay Report Signed Patient: Vivian HayesMR#: [id number] 879 : 1955cct:[id number] Age/Sex: 68 / FADM Date: 05/20/24 Loc: .ED Attending Dr: Ordering Physician: Ondina Rios Date of Service: 05/20/24 Procedure(s): XR ankle RT min 3V Accession Number(s): [id number] cc: Jennifer Stewart MD; Ondina Rios EXAMINATION: [...] Fredrick Rao MD 05/20/2024 09:35 PM EDT RP Dictated By: Fredrick Rao MD Signed By: <Electronically signed by Fredrick Rao MD in OV> 05/20/242134 DD/ 47 TD/TT: 05/20/242032 Cardiopulmonary Technologist: JEANNETTE [facility] External Provider IMG XR PROCEDURES Final Result documented in this encounter Visit Diagnoses Diagnosis Major depressive disorder with single episode, in full remission (CMS/HCC)- Primary documented in this encounter Additional Health Concerns Assessment Noted Time PHQ-9 Depression Total Score: 0 02/03/20 10:01 AM EDT documented as of this encounter Care Teams Central Office Operator Relationship Specialty Start Date End Date Jennifer Stewart MD [address] [place] [address] PCP - General Family Medicine 07/26/18 Zayda Rader, PharmD [address] [place] [address] Pharmacist Internal Medicine 04/27/24 Alina Lynch [address] [place] [address] [address] [place] [address] Orthopaedic Surgery 09/26/24 Moshe Bran MD [address] [place] [address] Cardiology 09/26/24 Bhupendra Angel MD [address] [place] [address] Gastroenterology 01/24/25 Wade Tyson MD [facility] [address] [place] [address] Ophthalmology 08/22/24 documented as of this encounter
--- OUTSIDE RECORDS SUMMARY | 2025-05-24 17:14 | XMS_ITS | Encounter Summary ---
Author Organization [employer] Address 75 [facility] 7t [place] [address] Care Team Providers Care Women'S Apparel Salesperson Name Role Phone Jennifer Stewart MD Primary Care Provider [phone]- [phone] Zayda Rader PharmD Unavailable Alina Lynch Unavailable Moshe Bran MD Unavailable [phone] Bhupendra Angel MD Unavailable Reason for Visit * Reason Onset Date Comments Hospital Follow-up 11/16/2024 Encounter Details Date Type Department Care Team (Late st Contact Info) Description 11/16/2024 Telephone [facility] 230 [place], [place] [phone] Jennifer Stewart MD 230 [place], [place] [phone] Hospital Follow-up Social History Tobacco Use Types Packs/Day Years [...] encounter Miscellaneous Notes * Telephone Encounter - Krista Love - 11/16/2024 11:17 AM EDT Tc from pt requesting a HDF appt. Hospital: [facility] Date of admission: 11/11 Discharge date: 11/15 Diagnosed: Heart problems (Heart Attack) *Send message to [facility] Clinical Care Coordinators documented in this encounter Plan of Treatment Not on file documented as of this encounter Visit Diagnoses Not on filedocumented in this encounter Additional Health Concerns Assessment Noted Time PHQ-9 Depression Total Score: 0 02/03/20 24 10:01 AM EDT documented as of this encounter Care Teams Women'S Apparel Salesperson Relationship Specialty Start Date End Date Jennifer Stewart MD 230 [place] [address] PCP - General Family Medicine 07/26/18 Zayda Rader, PharmD 230 [place] [address] Pharmacist Internal Medicine 04/27/24 Alina Lynch [address] [place] [address] Dr [facility] 203 [place] [address] Orthopaedic Surgery 09/26/24 Moshe Bran MD 5[address] [place] [address] Cardiology 09/26/24 Bhupendra Angel MD [address] [place] [address] Drive [address] [place] [address] Gastroenterology 01/24/25 Wade Tyson MD [facility] [address] [place] [address] Ophthalmology 08/22/24 documented as of this encounter
--- OUTSIDE RECORDS SUMMARY | 2025-05-24 17:14 | XMS_ITS | Encounter Summary ---
Author Organization [employer] Address 75 [facility] 7t [place] [address] Care Team Providers Care Primer Inserting Machine Operator Name Role Phone Jennifer Stewart MD Primary Care Provider [phone]- [phone] Zayda Rader PharmD Unavailable Alina Lynch Unavailable Moshe Bran MD Unavailable [phone] Bhupendra Angel MD Unavailable Reason for Visit * Reason Onset Date Comments Appointment Request 07/31/2024 Encounter Details Date Type Department Care Team (Late st Contact Info) Description 07/31/2024 Telephone [facility] 230 [place], [place] [phone] Jennifer Stewart MD 230 [place], [place] [phone] Appointment Request Social History Tobacco Use Types [...] from 07/31. Contact pt to R/s at [phone] documented in this encounter Plan of Treatment Not on file documented as of this encounter Visit Diagnoses Not on filedocumented in this encounter Additional Health Concerns Assessment Noted Time PHQ-9 Depression Total Score: 0 02/03/20 24 10:01 AM EDT documented as of this encounter Care Teams Primer Inserting Machine Operator Relationship Specialty Start Date End Date Jennifer Stewart MD 230 [place] [address] PCP - General Family Medicine 07/26/18 Zayda Rader, RigobertoD 230 [place] [address] Pharmacist Internal Medicine 04/27/24 Alina Lynch [address] [place] [address] Dr [facility] 203 [place] [address] Orthopaedic Surgery 09/26/24 Moshe Bran MD [address] [place] [address] Cardiology 09/26/24 Bhupendra Angel MD [address] [place] [address] Drive [address] [place] [address] Gastroenterology 01/24/25 Wade Tyson MD [facility] [address] [place] [address] Ophthalmology 08/22/24 documented as of this encounter
--- OUTSIDE RECORDS SUMMARY | 2025-05-24 17:14 | XMS_ITS | Clinical Summary ---
Author Organization [facility] Address [address] [address] Phone Care Team Providers Care Street Light Mechanic Name Role Phone Jennifer Stewart MD Primary Care Provi sharmila Allergies No known active allergies Medications aspirin 81 MG EC tablet Take 1 tablet by mouth daily. Active traZODone (DESYREL) 100 MG tablet Take 1 tablet by mouth nightly. Active FLUoxetine (PROZAC) 20 MG capsule Take 1 capsule by mouth every morning. Active atorvastatin (LIPITOR) 40 MG tablet Take 80 mg by mouth daily. Active chlorthalidone (HYGROTON) 25 MG tablet Take 1 tablet by mouth every morning. Active buPROPion (WELLBUTRIN SR) 150 MG SR 12 hr tablet Orally Active amLODIPine (NORVASC) 2.5 MG tablet Take 1 tablet by mouth daily. Active ranolazine (RANEXA) 1,000 mg SR tablet Take 1,000 mg by mouth 2 (two) times a day. Active metoprolol succinate (TOPROL-XL) 25 MG 24 hr tablet Take 25 mg by mouth daily. Active Active Problems Problem Noted Date Diagnosed Date Coronary artery disease 01/31/2018 Assessment & Plan (01/31/2018 9:17 AM EDT): Follow up with cardiology as scheduled. Appears stable at this time. Unilateral vocal cord paralysis 01/31/2018 Assessment & Plan (01/31/2018 9:20 AM EDT): Defer to ENT for further management. 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 Educated patient on risks of stroke / heart attacks related to untreated sleep apnea. Dyspnea 01/31/2018 Assessment & Plan (01/31/2018 9:19 AM EDT): Likely multifactorial, I suspect related to cardiovascular disease, vocal cord paralysis, obesity and deconditioning. The good news is that her chest CT, PFT, spirometry and methacholine challenge testing are all unremarkable, and therefore there is no evidence of clinically significant pulmonary parenchymal or airways disease (no asthma, no COPD). In that context, bronchodilators or other inhalers are likely not indicated. Depression 01/31/2018 Family History Medical History Relation Comments CV disease Father Lung disease Neg Hx Relation Status Comments Father Social History Tobacco Use Types Packs/Day Years Used Date Smoking Tobacco: Never Smokeless Tobacco: Never Alcohol Use Standard Drinks/Week Comments Yes 0 (1 standard drink = 0.6 oz pur e alcohol) once every few months Education Answer Date Recorded Are you interested in more education? Not on tanvi e 11/20/2022 Are you concerned about learning? Not on file 11/20/2022 No 11/20/2022 No 11/20/2022 Digital Access Answer Date Recorded No 12/19/2022 No 12/19/2022 Reliable internet access at home? Not on file 12/19/2022 Device with a working camera? Not on file Comments Unknown Sex and Gender Information Value Date Recorded Sex Assigned at Female 11/24/2021 8:43 AM EDT Legal Sex Female 9:55 PM EDT Gender Identity Female 11/24/2021 8:43 AM EDT Sexual Orientation Not on file Last Filed Vital Signs Vital Sign Reading Time Taken Comments Blood Pressure 134/85 11/24/2021 11:07 AM EDT Pulse 66 11/24/2021 11:07 AM EDT Temperature 35.6 C (96.1 F) 11/24/2021 11:07 AM EDT Respiratory Rate 18 11/24/2021 11:07 AM EDT Oxygen Saturation 96% 11/24/2021 11:07 AM EDT Inhaled Oxygen Concentration - - Weight 78 kg (172 lb) 11/24/2021 8:38 AM EDT Height 160 cm (5' 3 ) 11/24/2021 8:38 AM EDT Body Mass Index 30.47 11/24/2021 8:38 AM EDT Plan of Treatment Health Maintenance Due Date Last Done Comments POTASSIUM LEVEL 1955 DEPRESSION SCREENING 1967 HEPATITIS C SCREENING 1973 PNEUMOCOCCAL VACCINES (50+ years) (1 of 2 - PCV) 1974 MAMMOGRAM 1995 COLOGUARD 2000 COLONOSCOPY 2000 COLORECTAL CANCER SCREENING 2000 FIT TEST 2000 FOBT 2000 SIGMOIDOSCOPY 2000 VIRTUAL COLONOSCOPY 2000 RSV VACCINE (1 - Risk 50-74 years 1-dose series) 2005 ZOSTER VACCINES (1 of 2) 2005 OSTEOPOROSIS SCREENING INITI AL (ONE-TIME) 2020 INFLUENZA VACCINE (#1) 2025 9, 05/31/2018 COVID-19 VACCINE (2 - 2024-2 6 season) 2025 09/24/2020 Adult Td,Tdap Booster 04/20/2029 04/20/2019 SMOKING STATUS SCREENING (On ce After 26 Yrs) Completed 11/24/2021 HEPATITIS A VACCINES Aged Out No long er eligible based on patient's age to complete this topic HIB VACCINES Aged Out No longer eligi ble based on patient's age to complete this topic MENINGOCOCCAL VACCINES (ACWY) Aged Out No longer eligible based on patient's age to complete this topic MENINGOCOCCAL VACCINES (B) Aged Out N o longer eligible based on patient's age to complete this topic Medical Devices Not on file Insurance MEDICARE PART A & B NET FULL MEDICARE PART A & B FULL MEDICARE PART A & B [employer] SAFETY NET FULL MEDICARE PART A & B [employer] S[employer] NET FULL MEDICARE PART A & B [employer] FULL MEDICARE PART A & B LIA NET FULL MEDICARE PART A & B Member Subscriber Plan / Payer (Ef fective 2010-Present) Name:Vivian Hayes Member ID:[id number] Relation to Subscriber:Self Name:Vivian Hayes Subscriber ID:[id number] Payer ID:[id number] Group ID:Not on file Type:Medicare Address: [facility].[address] [address] [facility] FULL MEDICARE PART A & B HEALTH SAFETY NET FULL MEDICARE PART A & B [employer] SAFETY NET FULL Care Teams Street Light Mechanic Relationship Specialty Start Date End Date [place], Jennifer Blackman MD [address] [place] [address] PCP - General 07/29/17 Additional Source Comments The information contained in this document represents components of the legal health record. It is not the complete legal health record.[facility]
== END 2025-05-24 14:10 | disposition home or self-care (01) ==
LOC: HO.HHCX 14:09
PROVIDERS: PCP Family Medicine; Visit Provider Nurse Practitioner Family
DX: M25.561 Pain in right knee (principal)
CPT/HCPCS: 73564

== ENCOUNTER → 2025-05-24 14:14 | Outpatient (BNV) | payer MEDICARE, MEDICAID, SELFPAY | PROVIDERS: PCP Family Medicine; Visit Provider Radiology Diagnostic Radiology | DX: S80.01XA Contusion of right knee, initial encounter (principal) | CPT/HCPCS: 73564 ==

== ENCOUNTER 2025-06-21 13:12 | Observation (INO) | payer MEDICARE, OTHER, SELFPAY ==
--- OUTSIDE RECORDS SUMMARY | 2025-06-14 05:40 | XMS_ITS ---
Author Organization [facility] Address [address] [place] [address] Care Team Providers Care Clinical Laboratory Service Teacher Name Role Phone Jennifer Stewart MD Primary Care Provider Bhupendra Cedillo [phone] REASON FOR VISIT Patient presents today for recall colonoscopy Medications Medication SIG (Take, Route, Frequency, Duration) Notes Start Date End Date Status Wellbutrin SR 150 MG Tablet Extended Release 12 Hour 1 tablet Orally Twice a day Not-Taking/P RN Metoprolol Succinate ER 25 MG Tablet Extended Release 24 Hour TAKE 1 TABLET BY MOUTH EVERY DAY Oral; Duration: 30 Not-Taking/P RN Nitrostat 0.3 MG Tablet Sublingual Sublingual Active Isosorbide Mononitrate 10 MG Tablet 1 tablet Orally Twice a day Not-Taking/P RN FLUoxetine HCl 20 MG Tablet 2 capsule Orally a day Not-Taking/P RN Ranolazine ER 1000 MG Tablet Extended Release 12 Hour Oral; Duration: 90 Days Active Ranexa 500 MG Tablet Extended Release 12 Hour 1 tablet Orally twice a day Cardiac medication Active Ezetimibe 10 MG Tablet Oral; Duration: 90 Days Active Famotidine 20 MG Tablet Oral; Duration: 90 Days Active traZODone HCl 100 MG Tablet 1 tablet at bedtime Orally Once a day Active buPROPion HCl ER (SR) 150 MG Tablet Extended Release 12 Hour TAKE 1 TABLET BY MOUTH TWICE DAILY Oral; Duration: 30 Active Clopidogrel Bisulfate 75 MG Tablet Oral; Duration: 90 Days Active amLODIPine Besylate 5 MG Tablet Oral; Duration: 90 Days Active Atorvastatin Calcium 80 MG Tablet Oral; Duration: 90 Days Active Isosorbide Mononitrate ER 60 MG Tablet Extended Release 24 Hour 1 tablet in the morning Orally Once a day Active Aspirin Adult Low Dose 81 MG Tablet Delayed Release 1 tablet Orally Once a day Active Social History Tobacco Use: Social History Observation Description Date Details (start date - stop date) Never Smoker NA - NA Social History Drugs/Alcohol: Social Info Question Answer Notes Alcohol Screen Did you have a drink containing alcohol in the past year? No Points 0 Interpretation Negative Drug/Alcohol: Social Info Question Answer Notes AUDIT-C (Standard) Did you have a drink containing alcohol in the past year? No Points 0 Interpretation Negative Tobacco Use: Social Info Question Answer Notes Tobacco Use/Smoking Patient is a nonsmoker Section Notes: Nonsmoker; no sig alcohol Vital Signs Blood pressure systolic 001 mm Hg 06/14/20 25 Blood pressure diastolic 01 mm Hg 025 Height 62.5 in 06/14/2025 Weight 143.6 lbs 06/14/2025 BMI 25.84 kg/m2 06/14/2025 Procedures Procedure Date Ordered Date Performed Result Body Sit e COLONOSCOPY 06/14/2025 N/A Encounters Encounter Location Date Provider Diagnosis [facility] [address] [place] [address] 06/14/2025 Bhupendra Angel History of adenomato us polyp of colon Z86.010 ; Encounter for screening for malignant neoplasm of colon Z12.11 ; Aspirin long-term use Z79.82 and Preprocedural examination Z01.818 Assessments Encounter Date Diagnosis (ICD Code) Assessment Notes Treatment Notes Treatment Clinical Notes Section Notes 06/14/2025 History of adenomatous polyp of colon (ICD-10 - Z86.010) Overall, Raza appears quite well and is not having any new or worrisome GI complaints. Based on her previous history of tubular adenomas and her last colonoscopy being over 5 years ago I did recommend a follow-up colonoscopy for further screening purposes. We did review the rationale for this in regard to colon cancer prevention. Full consent has been taken for this, including risks of bleeding and perforation. She was given the below instructions regarding adjustment of her medication for the procedure. The procedure will be done with monitored anesthesia care. We will obtain clearance from her header machine operator and she will have a PAT appointment before the procedure as well. Raza was comfortable with this plan. Thank you again for allowing me to participate in Raza's care. I shall continue to keep you advised of her progress. 06/14/2025 Encounter for screening for malignant neoplasm of colon (ICD-10 - Z12.11) Overall, Raza appears quite well and is not having any new or worrisome GI complaints. Based on her previous history of tubular adenomas and her last colonoscopy being over 5 years ago I did recommend a follow-up colonoscopy for further screening purposes. We did review the rationale for this in regard to colon cancer prevention. Full consent has been taken for this, including risks of bleeding and perforation. She was given the below instructions regarding adjustment of her medication for the procedure. The procedure will be done with monitored anesthesia care. We will obtain clearance from her header machine operator and she will have a PAT appointment before the procedure as well. Raza was comfortable with this plan. Thank you again for allowing me to participate in Raza's care. I shall continue to keep you advised of her progress. 06/14/2025 Aspirin long-term use (ICD-10 - Z79.82) Overall, Raza appears quite well and is not having any new or worrisome GI complaints. Based on her previous history of tubular adenomas and her last colonoscopy being over 5 years ago I did recommend a follow-up colonoscopy for further screening purposes. We did review the rationale for this in regard to colon cancer prevention. Full consent has been taken for this, including risks of bleeding and perforation. She was given the below instructions regarding adjustment of her medication for the procedure. The procedure will be done with monitored anesthesia care. We will obtain clearance from her header machine operator and she will have a PAT appointment before the procedure as well. Raza was comfortable with this plan. Thank you again for allowing me to participate in Raza's care. I shall continue to keep you advised of her progress. 06/14/2025 Preprocedural examination (ICD-10 - Z01.818) Overall, Raza appears quite well and is not having any new or worrisome GI complaints. Based on her previous history of tubular adenomas and her last colonoscopy being over 5 years ago I did recommend a follow-up colonoscopy for further screening purposes. We did review the rationale for this in regard to colon cancer prevention. Full consent has been taken for this, including risks of bleeding and perforation. She was given the below instructions regarding adjustment of her medication for the procedure. The procedure will be done with monitored anesthesia care. We will obtain clearance from her header machine operator and she will have a PAT appointment before the procedure as well. Raza was comfortable with this plan. Thank you again for allowing me to participate in Raza's care. I shall continue to keep you advised of her progress. Plan Of Treatment Pending Test Test Name Order Date COLONOSCOPY 06/14/2025 Next Appt Details Provider Name:Bhupendra Angel , 08/20/2025 11:50:00 AM, [address] [place] [address], [phone], History and Physical Notes * HPI (History of Present Illness) Category Sub-Category Detail Notes Category Not es incontinence I saw Raza in the office today for evaluation of her personal history of tubular adenomas of the colon and discussion of colorectal cancer screening. I last saw Raza in December 2019, at which time she underwent a follow-up colonoscopy with removal of 2 tubular adenomas. Since that time she has been doing well from a GI standpoint. She enjoys a good appetite and denies any significant heartburn or dysphagia. Her bowel movements have been regular and without any hematochezia or melena. She denies any abdominal pain, signs of jaundice, nor unintentional weight loss. She denies any known family history of colorectal cancer. As you know, she has had significant problems with coronary artery disease and had a NH back in October. She had a new stent placed at that time and has been following up with her header machine operator closely. She has her next appointment in June. She has remained on daily aspirin and has been on clopidogrel since her stent placement. She reports that she has not had any subsequent cardiac problems since the NH in October. Laboratories from earlier this year revealed a hemoglobin of 12.8 with a normal MCV, and normal chemistries and renal function. Progress Notes * RAZA ESTRADADOB:[birth year] (69 yo F)Acc No.[id number]:06/14/2025 Progress Notes Patient: RAAZ MORELAND Provider: Annabel Angel MD :1955 A ge:69 Y S ex:Female Date:06/14/2025 Address:[address] [place], [place] [id number] Pcp:Jennifer Stewart MD Subjective: * Chief Complaints: * P atient presents today for recall colonoscopy * HPI: i ncontinence: I saw Raza in the office today for evaluation of her personal history of tubular adenomas of the colon and discussion of colorectal cancer screening. I last saw Raza in December 2019, at which time she underwent a follow-up colonoscopy with removal of 2 tubular adenomas. Since that time she has been doing well from a GI standpoint. She enjoys a good appetite and denies any significant heartburn or dysphagia. Her bowel movements have been regular and without any hematochezia or melena. She denies any abdominal pain, signs of jaundice, nor unintentional weight loss. She denies any known family history of colorectal cancer. As you know, she has had significant problems with coronary artery disease and had a NH back in October. She had a new stent placed at that time and has been following up with her header machine operator closely. She has her next appointment in June. She has remained on daily aspirin and has been on clopidogrel since her stent placement. She reports that she has not had any subsequent cardiac problems since the NH in October. Laboratories from earlier this year revealed a hemoglobin of 12.8 with a normal MCV, and normal chemistries and renal function. * Medical History: Screening Colonoscopy 04-02-2008- 1 small tubular adenoma removed, diverticulosis, internal hemorrhoids Anxiety/depression Vertigo Hypertension Hypercholesterolemia CHF Afib- resolved LUNG COLLAPSED X 2 Denies DM,CVA,Lung disease,renal disease CAD with previous CABG- Dr. Wong- ETT in 2015- cardiac cath with blockage of 1 graft- -no stent nor angioplasty Takotsubo Cardiomyopathy- Broken heart syndrome - in 04/2019- no problems since- she reports that her heart has improved since then NH 01/2024 and in 10/2024- had a new stent placed in 10/2024- Colonoscopy 12/2019 with 2 tubular adenomas removed Medical History Verified * Surgical History: x 2 Umbilical hernia surgery Anal fissure that was treated surgically C-spine disc 2V-CABG 2013 Right knee Surgical History verified. * Hospitalization/Major Diagno stic Procedure: heart attck 10/2024 Hospitalization Verified. * Family History: F ather: , diagnosed with Heart disease. M other: , diagnosed with Heart disease. F amily History Verified.. No known hx of colon cancer or liver cancer. * Social History: T obacco Use: T obacco Use/Smoking P atient is a n onsmoker. D rugs/Alcohol: A lcohol Screen D id you have a drink containing alcohol in the past year? N o, P oints 0 , I nterpretation N egative. D rug/Alcohol: A DENTON-C (Standard) D id you have a drink containing alcohol in the past year? N o,?Points 0 , I nterpretation N egative. Social History Verified. N onsmoker; no sig alcohol. * Medications: T akingIsosorbide Mononitrate ER 60 MG Tablet Extended Release 24 Hour 1 tablet in the morning Orally Once a day Aspirin Adult Low Dose 81 MG Tablet Delayed Release 1 tablet Orally Once a day traZODone HCl 100 MG Tablet 1 tablet at bedtime Orally Once a day buPROPion HCl ER (SR) 150 MG Tablet Extended Release 12 Hour TAKE 1 TABLET BY MOUTH TWICE DAILY Oral amLODIPine Besylate 5 MG Tablet Oral Atorvastatin Calcium 80 MG Tablet Oral Clopidogrel Bisulfate 75 MG Tablet Oral Ezetimibe 10 MG Tablet Oral Famotidine 20 MG Tablet Oral Ranolazine ER 1000 MG Tablet Extended Release 12 Hour Oral Ranexa 500 MG Tablet Extended Release 12 Hour 1 tablet Orally twice a day , Notes to Pharmacist: Cardiac medicationNitrostat 0.3 MG Tablet Sublingual Sublingual Taking Isosorbide Mononitrate ER 60 MG Tablet Extended Release 24 Hour 1 tablet in the morning Orally Once a day Taking Aspirin Adult Low Dose 81 MG Tablet Delayed Release 1 tablet Orally Once a day Taking traZODone HCl 100 MG Tablet 1 tablet at bedtime Orally Once a day Taking buPROPion HCl ER (SR) 150 MG Tablet Extended Release 12 Hour TAKE 1 TABLET BY MOUTH TWICE DAILY Oral Taking amLODIPine Besylate 5 MG Tablet Oral Taking Atorvastatin Calcium 80 MG Tablet Oral Taking Clopidogrel Bisulfate 75 MG Tablet Oral Taking Ezetimibe 10 MG Tablet Oral Taking Famotidine 20 MG Tablet Oral Taking Ranolazine ER 1000 MG Tablet Extended Release 12 Hour Oral Taking Ranexa 500 MG Tablet Extended Release 12 Hour 1 tablet Orally twice a day , Notes to Pharmacist: Cardiac medicationTaking Nitrostat 0.3 MG Tablet Sublingual Sublingual Not-Taking/PRNFLUoxetine HCl 20 MG Tablet 2 capsule Orally a day Wellbutrin SR 150 MG Tablet Extended Release 12 Hour 1 tablet Orally Twice a day Metoprolol Succinate ER 25 MG Tablet Extended Release 24 Hour TAKE 1 TABLET BY MOUTH EVERY DAY Oral Isosorbide Mononitrate 10 MG Tablet 1 tablet Orally Twice a day Not-Taking/PRN FLUoxetine HCl 20 MG Tablet 2 capsule Orally a day Not-Taking/PRN Wellbutrin SR 150 MG Tablet Extended Release 12 Hour 1 tablet Orally Twice a day Not-Taking/PRN Metoprolol Succinate ER 25 MG Tablet Extended Release 24 Hour TAKE 1 TABLET BY MOUTH EVERY DAY Oral Not-Taking/PRN Isosorbide Mononitrate 10 MG Tablet 1 tablet Orally Twice a day DiscontinuedAtorvastatin Calcium 40 MG Tablet 1 tablet Orally Once a day Medication List reviewed and reconciled with the patientDiscontinued Atorvastatin Calcium 40 MG Tablet 1 tablet Orally Once a day Medication List reviewed and reconciled with the patient * Allergies: y esAllergies Verified. Objective: * Vitals: W t: 143.6 lbs, Ht: 62.5 in, BMI: 25.84 Index, BP: 001/01 mm Hg, Ht-cm: 158.75 cm, Wt-k.14 kg. Assessment: * Assessment: 1. H istory of adenomatous polyp of colon - Z86.010 (Primary) 2 . E ncounter for screening for malignant neoplasm of colon - Z12.11 3 . A spirin long-term use - Z79.82 4 . P reprocedural examination - Z01.818 Overall, Raza appears qu ite well and is not having any new or worrisome GI complaints. Based on her previous history of tubular adenomas and her last colonoscopy being over 5 years ago I did recommend a follow-up colonoscopy for further screening purposes. We did review the rationale for this in regard to colon cancer prevention. Full consent has been taken for this, including risks of bleeding and perforation. She was given the below instructions regarding adjustment of her medication for the procedure. The procedure will be done with monitored anesthesia care. We will obtain clearance from her header machine operator and she will have a PAT appointment before the procedure as well. Raza was comfortable with this plan. Thank you again for allowing me to participate in Raza's care. I shall continue to keep you advised of her progress. Plan: * Treatment: 2.?Encounter for screening for malignant neoplasm of colon?Procedure: COLONOSCOPY* WITH MAC AND A PAT.DO NOT TA KE THE ASPIRIN ON THE MORNING OF THE COLONOSCOPY.STOP CLOPIDOGREL 5 DAYS BEFORE THE COLONOSCOPY IF CLEARED BY YOUR HEAD IRRIGATOR.sched for 08/20/25 at 11:50 ampablo,miralax * Procedure Codes: 4 5378 DIAGNOSTIC COLONOSCOPY * Preventive Medicine: Counseling: C are goal follow-up plan: A madi Normal BMI Follow-up D ietary management education, guidance, and counseling, B NH management provided Y es. Urinary Incontinence: U rinary Incontinence A ssessment: A bsent, P stevie of care documented: N o, reason not specified. Screenings: F all Risk Screening F all Risk Assessment: N o falls in the past year, S creening: N o falls in the past year, A ssessment: N ot performed, no reason specified, P stevie of Care: N ot documented, no reason specified. Billing Information: * Procedure Codes: 90851 DIAGNOSTIC COLONOSCOPY. * The named appointment provid er may or may not be the originator of this progress note, and it is not deemed complete until electronically signed by the appointment provider. Sign off status: Pending * Provider: Annabel Angel MD Date: 08/14/2024 Generated for Nayely valdovinos/Efrain/Lemuelitting on: 08/21/2024 02:12 PM EST
--- NOTE | 2025-06-21 13:12 | ECG_ITS ---
Test Reason : OD Blood Pressure : */* mmHG Vent. Rate : 69 BPM Atrial Rate : 69 BPM P-R Int : 158 ms QRS Dur : 96 ms QT Int : 444 ms P-R-T Axes : 72 10 85 degrees QTcB Int : 475 ms Normal sinus rhythm Left atrial enlargement Nonspecific T wave abnormality Prolonged QT Abnormal ECG When compared with ECG of 31-Jan-2025 12:10, Nonspecific T wave abnormality, worse in Lateral leads Referred By: Anatoly Gaytan Electronically Signed By: Vincent Edwards
[2025-06-21 13:20] VITALS: BP 138/74; BP 142/94; PULSE 82; PULSE 88; RESP 16; TEMP 36.6; O2SAT 95; O2SAT 96; BMI 25.8
--- NOTE | 2025-06-21 13:25 | ED_ITS ---
HPI - Psych General Chief Complaint: Psychiatric Symptoms Stated Complaint: TEXTED SI STS TO DTR,TOOK 3-4 TRAZADONE W/UNK PILL Time Seen by Provider: 06/21/25 13:13 Source: patient, EMS and police Mode of arrival: EMS Limitations: no limitations History of Present Illness ED Provider: KB Gaytan HPI Narrative: Chief Complaint: ?I don?t think I want to be around anymore? after ingesting multiple pills about an hour ago; reports chest pressure and mild nausea. History of Present Illness: Adult female history of AFib, CABG, NSTEMI brought to the ED by police for medical evaluation after texting her daughter statements of hopelessness and passive suicidal thoughts (?I give up? don?t think I want to be around anymore?). Patient reports longstanding interpersonal stress with her daughter and feeling like ?a burden.? She lives independently and does not live with her daughter. Earlier today she ingested an unknown quantity of her own medications including approximately 3?4 trazodone, some random pills, in addition to her usual morning medications (8 pills) taken as prescribed. She estimates the ingestion occurred ~1 hour prior to arrival. Denies a specific plan still feeling suicidal at this time. Endorses chest ?pressure? (not jonathan pain) and mild nausea that began after the ingestion. No acute shortness of breath, focal neurologic deficits, or other new symptoms reported. The patient reports that her daughter called the police after receiving her text messages. Related Data Home Medications ?Medication ?Instructions ?Recorded ?Confirmed amlodipine 5 mg tablet 5 mg PO DAILY 03/09/2207/01 atorvastatin 80 mg tablet 80 mg PO DAILY 03/09/2205/27 bupropion HCl 150 mg tablet,12 hr 150 mg PO BID 06/21/25 sustained-release fluoxetine 20 mg capsule 40 mg PO DAILY 03/09/2202/14 ranolazine 1,000 mg 1,000 mg PO BID 03/09/2202/14 tablet,extended release,12 hr trazodone 100 mg tablet 100 mg PO BEDTIME 03/09/22 1 09/01/22 aspirin 81 mg tablet,delayed 81 mg PO QAM 07/01/2302/14 release clopidogrel 75 mg tablet 75 mg PO DAILY 06/21/2505/27 isosorbide mononitrate 30 mg 30 mg PO DAILY 06/21/25 1 08/21/24 tablet,extended release 24 hr Previous Rx's ?Medication ?Instructions ?Recorded acetaminophen 500 mg tablet 500 mg PO Q6H PRN fever or pain 03/25/22 (Tylenol Extra Strength) #14 tabs acetaminophen 325 mg capsule 650 mg (2 x 325 mg) PO Q6 H PRN 04/17/24 (Tylenol) pain #30 caps amoxicillin 875 mg-potassium 1 tab PO BID 5 days #10 t abs 03/16/25 clavulanate 125 mg tablet Allergies Allergy/AdvReac Type Severity Reaction Status Date / Time No Known Allergies Allergy Mild N/A Verified 06/21/25 13:22 Review of Systems 2 Review of Systems: Review of Systems: ? Cardiovascular: (+) chest pressure. ? GI: (+) mild nausea. ? Psychiatric: (+) feelings of hopelessness, passive suicidal ideation. All other systems not discussed. Family History: Not specifically discussed during this encounter. Yes all other systems are reviewed and are negative [facility] Past Medical History Attestation statement: The following information was validated with the patient. Source: old records reviewed and nursing notes reviewed Medical History CAD (coronary artery disease) Depression High cholesterol Hypertension Insomnia Heart disease Surgical History Hx of CABG Social History Social History Comment: independently ambulate Patient Tobacco Use Status: Never used Tobacco Smoked in Last 30 Days: No Use of substances other than those prescribed or required for medical reasons: No Advance Directives: Yes Advance Directives on File: Yes Advance Directives Date on File: 07/05/23 Do you have a plan to hurt others: No Plan service: No Physical Exam 2 Exam: Exam: Appearance: Alert.? Oriented X3.? No acute distress.? Head: Normocephalic, atraumatic, no step-offs or deformities Eyes: Pupils equal, round and reactive to light.? ENT: Pharynx normal.??External ears normal, TMs normal bilaterally and EAC's normal. No pain with manipulation of external ears bilaterally. No mastoid tenderness. Neck: Normal inspection.? Neck supple.? CVS: Normal heart rate and rhythm.? Pulses normal.? Respiratory: No respiratory distress.? Breath sounds normal.? Abdomen: Soft and nontender.? Skin: Skin warm and dry.? Normal skin color.? Normal skin turgor.? Extremities: No lower extremity edema.? No calf ttp. 5/5 strength to bilateral upper and lower extremities Back: No midline tenderness, no C-spine tenderness, full range of motion, no CVA tenderness bilaterally Neuro: Oriented X 3.? No motor deficit.? No sensory deficit. CN 2-12 intact Vital Signs: Vital Signs: Last Vital Signs Temp 97.8 F 06/21/25 14:19 Pulse 88 06/21/25 14:19 Resp 16 06/21/25 14:19 BP 138/74 06/21/25 14:19 Pulse Ox 95 06/21/25 14:19 O2 Del Method Room Air 06/21/25 14:19 BMI result Body Mass Index 25.8 vss Course Reevaluation(s) Reevaluation #1: I tried contacting patient's daughter who was on her emergency contacts the phone numbers incorrect. According to police who dropped patient off with a section 12 daughter was at the home and aware of mom situation. Therefore I requested her phone number for clarification of what medications patient is currently taking as this can ultimately affect management [phone]. Time: 13:29 Reevaluation #2: I did speak to daughter who tells me she is not sure exactly what medications her mom take she states she is on a lot of different ?Heart medication ?. She states she will reach out to her brother who will reach out to the hospital Time: 13:32 Reevaluation #3: Nursing contacted poison control that recommends EKG now which is being obtained EKG in 2 hours. Observation and monitoring for [address] hours[address] Seizure precautions in place Time: 16:51 Medical Decision Making Medical Decision Making [facility] Narrative: [id number] Adult female with passive suicidal ideation after intentional ingestion of multiple prescription medications. Problem #1: Intentional medication ingestion / Suicidal ideation Assessment: Ingested ~3?4 trazodone, Ranexa, Ranexolate, lactulose, and several unidentified pills approximately 1 hour prior to arrival. Passive SI without current active plan. Needs medical clearance for potential overdose/psychiatric evaluation. Plan: * Obtain labs as ordered and pending. * EKG to assess for QT prolongation or other arrhythmia. * Consult Psychiatry after medical stabilization/lab results. * Maintain patient safety precautions while in ED. * Poison control Problem #2: Chest pressure / mild nausea Assessment: Likely related to medication ingestion and anxiety; need to rule out ischemia or medication-induced dysrhythmia. Plan: * EKG (pending). * Reassess symptoms following labs/monitoring. Follow-up: Await completion of labs/diagnostic studies. Re-evaluate clinically and with Psychiatry once medically cleared. Differential Diagnosis Differential Diagnoses: The differential diagnosis associated with the presentation includes Admission/Observation Consideration of admission/observation: Escalation of care including admission/observation considered (likely ) Consult Healthcare Provider Management of the patient was discussed with: Commercial Lawn Specialist (poison control ) Lab Data MDM Lab Attestation statement: I reviewed the patient's lab results. 06/21/25 13:38 06/21/25 13:38 Labs: Lab Results 06/21/25 06/21/25 Range/Units 13:38 14:20 WBC 9.2 (4.8-10.8) X10*3/uL RBC 4.14 L (4.20-5.50) X10*6/uL Hgb 13.7 (12.0-16.0) g/dl Hct 39.2 (37.0-47.0) % MCV 94.7 (80.0-98.0) fL MCH 33.1 H (27.0-33.0) pg MCHC 34.9 (31.0-35.0) g/dl RDW 11.9 (11.0-16.0) % Plt Count 193 (160-400) X10*3/uL MPV 9.6 (9.4-12.3) fL Immature Gran % (Auto) 0.3 (0.0-0.4) % Neut % (Auto) 64.0 (45-73) % Lymph % (Auto) 22.4 (20-40) % [place] % (Auto) 8.2 (2-11) % Eos % (Auto) 3.9 (0-4) % Baso % (Auto) 1.2 (0-2) % Lymph # (Auto) 2.1 (1.2-4.9) X10*3/uL [place] # (Auto) 0.8 (0.1-1.2) X10*3/uL Eos # (Auto) 0.4 (0.0-0.4) X10*3/uL Baso # (Auto) 0.1 (0.0-0.2) X10*3/uL Abs Immat Gran (auto) 0.03 (0.00-0.03) X10*3/uL Absolute Neuts (auto) 5.9 (2.0-8.3) x10*3/uL Absolute Nucleated RBC 0.000 (0.0-0.012) X10*3/uL Nucleated RBC % (auto) 0.0 (0.0-0.2) /100WBC Sodium 138 (135-145) mmol/L Potassium 3.8 (3.3-5.1) mmol/L Chloride 110 H (96-108) mmol/L Carbon Dioxide 19 L (22-29) mmol/L Anion Gap 13 (12-20) BUN 17 H (9-16) mg/dL Creatinine 0.74 (0.5-1.4) mg/dL Estim Creat Clear Calc 65.5 Estimated GFR > 60 Random Glucose 91 (60-115) mg/dL Calcium 9.3 (8.4-10.2) mg/dL Magnesium 2.0 (1.6-2.6) mg/dL Total Bilirubin 0.5 (0.0-1.0) mg/dL AST 20 (5-31) U/L ALT 12 (0-31) U/L Alkaline Phosphatase 79 (39-117) U/L Troponin I High Sens < 2.7 (<3.5-17.0) ng/L Total Protein 6.7 (6.5-8.0) g/dL Albumin 4.5 (3.5-5.0) g/dL Urine Color Yellow Urine Appearance Clear Urine pH 5.5 (5.0-9.0) Ur Specific [place] 1.010 (1.005-1.025) Urine Protein Negative (Neg-Trace) mg/dL Urine Glucose (UA) Negative (Negative) mg/dL Urine Ketones Trace (Negative) mg/dL Urine Blood Trace H (Negative) Urine Nitrite Negative (Negative) Ur Leukocyte Esterase Small (1+) H (Negative) Urine RBC 0-2 (0-2) /HPF Urine WBC 6-10 H (0-5) /HPF Ur Squamous Epith Cells 0-2 (0-2) /HPF Urine Bacteria None Seen (None Seen) Hyaline Casts 0-2 (0-2) /LPF Salicylates < 5.0 L (15-30) mg/dL Urine Opiates Screen Not Detected (Not Detect) Ur Buprenorphine Scrn Not Detected (Not Detect) ng/mL Ur Oxycodone Screen Not Detected (Not Detect) ng/mL Urine Methadone Screen Not Detected (Not Detect) ng/mL Urine Fentanyl Screen Not Detected (Not Detect) Acetaminophen < 3 (<30) mcg/mL Ur Barbiturates Screen Not Detected (Not Detect) Ur Phencyclidine Scrn Not Detected (Not Detect) Ur Amphetamines Screen POSITIVE H (Not Detect) U Benzodiazepines Scrn Not Detected (Not Detect) Urine Cocaine Screen Not Detected (Not Detect) U Marijuana (THC) Screen POSITIVE H (Not Detect) Ethyl Alcohol < 10 mg/dL External Record Review External record reviewed: Inpatient record, Office record, Outpatient record, Prior outpatient labs, Prior outpatient radiology, Primary care record and Outside ED record Chronic Conditions Patient?s care impacted by: Other (see hpi ) Critical Care Time Critical Care Time Critical Care Time: Yes Total Critical Care Time: 35 Attestation: I attest to this time spent taking care of the patient, obtaining history, physical, reviewing labs, imaging, treatment of patients condition +/- specialist/hospitalist consult +/- procedure Discharge Plan Discharge Clinical Impression: Suicidal ideation, Depression, Acute anxiety Patient Disposition: Admitted As Inpatient Interventions: [place]-Suicide Risk Severity Scale Last Done: 06/21/25 14:19
[2025-06-21 13:43] LABS: MANUAL DIFF FLAG NO
[2025-06-21 13:44] LABS: Hematocrit 39.2 % (37.0-47.0); Hemoglobin 13.7 g/dl (12.0-16.0); Imm Gran Abs Auto 0.03 X10*3/uL (0.00-0.03); Imm Gran Pct Auto 0.3 % (0.0-0.4); Lymphocytes Absolute Auto 2.1 X10*3/uL (1.2-4.9); Mean Corpuscular HGB Conc 34.9 g/dl (31.0-35.0); Mean Corpuscular Hemoglobin 33.1 pg (27.0-33.0); Mean Corpuscular Volume 94.7 fL (80.0-98.0); NRBC Abs Auto 0.000 X10*3/uL (0.0-0.012); NRBC Pct Auto 0.0 /100WBC (0.0-0.2); Platelet Count 193 X10*3/uL (160-400); Red Blood Count 4.14 X10*6/uL (4.20-5.50); White Blood Count 9.2 X10*3/uL (4.8-10.8)
--- OUTSIDE RECORDS SUMMARY | 2025-06-21 14:12 | XMS_ITS | Encounter Summary ---
Author Organization [employer] [facility] Address [address] 7t [place] [address] Care Team Providers Care Poultry Helper Name Role Phone Jennifer Stewart MD Primary Care Provider [phone] Zayda Rader PharmD Unavailable Alina Lynch Unavailable Moshe Bran MD Unavailable Bhupednra Angel MD Unavailable Encounter Details Date Type Department Care Team (Late st Contact Info) Description 08/12/2022 Abstract [facility] [address] [place] [address] [phone] Jennifer Stewart MD [address] [place] [address] [phone] Social History Tobacco Use Types Packs/Day Years Used Date Smoking Tobacco: Never Assessed Comments Unknown Sex and Gender Information Value Date Recorded Sex Assigned at Female 05/25/2022 10:19 AM EDT Legal Sex Female 10:19 AM EDT Gender Identity Female 05/25/2022 10:19 AM EDT Sexual Orientation Straight 05/25/2022 10 :19 AM EDT documented as of this encounter Plan of Treatment Upcoming Encounters Date Type Department Care Team (Late st Contact Info) Description 08/08/2025 9:30 AM EST Office Visit [facility] [address] [place] [address] [phone] Jennifer Stewart MD [address] [place] [address] [phone] documented as of this encounter Procedures Procedure Name Priority Date/Time Associated Diagnosis Comments MAMMOGRAPHY Routine 05/28/2020 COLONOSCOPY Routine 12/27/2019 PAP SMEAR Routine 09/19/2014 12:00 AM EST documented in this encounter Results * Mammography (05/28/2020) HM Mammogram BIRADS 1 Anatomical Region Laterality Modality Other Historical Provider HEALTH MAINTENANCE Final Result * Colonoscopy (12/27/2019) Colonoscopy Tubular Adenoma with Dr. Angel Historical Provider HEALTH MAINTENANCE Final Result * Pap Smear (09/19/2014 12:00 AM EST) Swab [facility] Provider LAB CYTOLOGY ORDERABLES F inal Result IMAGING documented in this encounter Visit Diagnoses Not on filedocumented in this encounter Care Teams Poultry Helper Relationship Specialty Start Date End Date Jennifer Stewart MD [address] [place] [address] PCP - General Family Medicine 07/26/18 Zayda Rader, RigobertoD [address] [place] [address] Pharmacist Internal Medicine 04/27/24 Alina Lynch [address] [place] [address] Dr [address] [place] [address] Orthopaedic Surgery 09/26/24 Moshe Bran MD [address] [place] [address] Cardiology 09/26/24 Bhupendra Angel MD [address] [place] [address] Gastroenterology 01/24/25 Wade Tyson MD [facility] Eye [address] [address] Ophthalmology 08/22/24 documented as of this encounter
--- OUTSIDE RECORDS SUMMARY | 2025-06-21 14:12 | XMS_ITS | Encounter Summary ---
Author Organization [employer] Address [address] [place] [address] Care Team Providers Care Warehouse Operator Name Role Phone Jennifer Stewart MD Primary Care Provider [phone]- [phone] Zayda Rader PharmD Unavailable [phone]- [phone] Alina Lynch Unavailable Moshe Bran MD Unavailable [phone] Bhupendra Angel MD Unavailable Encounter Details Date Type Department Care Team (Late st Contact Info) Description 02/07/2025 Orders Only [facility] [address] [place] [address] Provider, MD Matti Social History Tobacco Use [...] Description 08/08/2025 9:30 AM EST Office Visit [facility] [address] [place] [address] Jennifer Stewart MD [address] [place] [address] documented as of this encounter Procedures Procedure Name Priority Date/Time Associated Diagnosis Comments TRANSTHORACIC ECHO (TTE) COMPLETE Routine 02/06/2025 10:01 AM EDT documented in this encounter Results * Transthoracic echo (TTE) complete (02/06/2025 10:01 AM EDT) us Historical Provider CV ECHO PROCEDURES Final Result documented in this encounter Visit Diagnoses Not on filedocumented in this encounter Additional Health Concerns Assessment Noted Time PHQ-9 Depression Total Score: 6 11/28/19 25 9:31 AM EDT documented as of this encounter Care Teams Warehouse Operator Relationship Specialty Start Date End Date Jennifer Stewart MD [address] [place] [address] PCP - General Family Medicine 07/26/18 Zayda Rader, RigobertoD [address] [place] [address] Pharmacist Internal Medicine 04/27/24 Alina Lynch [address] [place] [address] Dr [facility] [address] [place] [address] Orthopaedic Surgery 09/26/24 Moshe Bran MD [address] [place] [address] Cardiology 09/26/24 Bhupendra Angel MD [address] [place] [address] Drive [address] [place] [address] Gastroenterology 01/24/25 Wade Tyson MD [facility] [address] [place] [address] Ophthalmology 08/22/24 documented as of this encounter
--- OUTSIDE RECORDS SUMMARY | 2025-06-21 14:12 | XMS_ITS | Encounter Summary ---
Author Organization [employer] Address [address] [facility] 7t [place] [address] Care Team Providers Care Resilient Tile Installer Name Role Phone Jennifer Stewart MD Primary Care Provider +- [phone] Zayda Rader PharmD Unavailable [phone]- [phone] Alina Lynch Unavailable Moshe Bran MD Unavailable [phone] Bhupendra Angel MD Unavailable Encounter Details Date Type Department Care Team (Late st Contact Info) Description 05/04/2024 Orders Only [facility] [address] [place], [place] [phone] Jennifer Stewart MD [address] [place], [place] [phone] Major depressive disorder with single episode, in [...] Description 08/08/2025 9:30 AM EST Office Visit [facility] MEDICINE [address] [place] [address] Jennifer Stewart MD [address] [place] [address] documented as of this encounter Procedures Procedure [...] PM EDT Narrative 05/20/2024 9:36 PM EDT [address] [address] [address] Scan Report Signed Patient: Vivian Hayes MR#: [id number] 879 : 1955 Acct:[id number] Age/Sex: 68 / F ADM Date: 05/20/24 Loc: HO.ED Attending Dr: Ordering Physician: Ondina Rios Date of Service: 05/20/24 Procedure(s): CT cervical spine wo IV con Accession Number(s): [id number] cc: Jennifer Stewart MD; Ondina Rios EXAMINATION: [...] in OV> 05/20/242131 DD/ 21 TD/TT: 05/20/242021 Corporate Travel Coordinator: JEANNETTE Procedure Note Donotuseinterpreter, Image - 05/20/[address] [place] [address] [address] Scan Report Signed Patient: Vivian HayesMR#: [id number] 879 : 1955cct:[id number] Age/Sex: 68 / FADM Date: 05/20/24 Loc: HO.ED Attending Dr: Ordering Physician: Ondina Rios Date of Service: 05/20/24 Procedure(s): CT cervical spine wo IV con Accession Number(s): [id number] cc: Jennifer Stewart MD; Ondina Rios EXAMINATION: [...] in OV> 05/20/242131 DD/ 21 TD/TT: 05/20/242021 Corporate Travel Coordinator: JEANNETTE [facility] External Provider IMG CT PROCEDURES Final Result * CT Head w/o Contrast (05/20/2024 8:22 PM EDT) Anatomical Region Laterality Modality Head, Neck Computed Tomogra phy 05/20/2024 8:22 PM EDT Narrative 05/20/2024 9:30 PM EDT [address] [address] [address] Scan Report Signed Patient: Vivian Hayes MR#: [id number] 879 : 1955 Acct:[id number] Age/Sex: 68 / F ADM Date: 05/20/24 Loc: HO.ED Attending Dr: Ordering Physician: Ondina Rios Date of Service: 05/20/24 Procedure(s): CT head/brain wo IV con Accession Number(s): [id number] cc: Jeninfer Stewart MD; Ondina Rios EXAMINATION: CT HEAD [...] in OV> 05/20/242126 DD/ 21 TD/TT: 05/20/242021 Corporate Travel Coordinator: JEANNETTE Procedure Note Donotuseinterpreter, Image - 05/20/[address] [place] [address] [address] Scan Report Signed Patient: Vivian HayesMR#: [id number] 879 : 6Acct:[id number] Age/Sex: 68 / FADM Date: 05/20/24 Loc: HO.ED Attending Dr: Ordering Physician: Ondina Rios Date of Service: 05/20/24 Procedure(s): CT head/brain wo IV con Accession Number(s): [id number] cc: Jennifer Stewart MD; Ondina Rios EXAMINATION: [...] in OV> 05/20/242126 DD/ 21 TD/TT: 05/20/242021 Corporate Travel Coordinator: JEANNETTE Authorvimal Provider Result Type Result Stat [facility] External Provider IMG CT PROCEDURES Final Result * XR Shoulder 2+ Views Right (05/20/2024 7:48 PM EDT) Anatomical Region Laterality Modality Upper Extremities, Shoulder Right Radi ographic Imaging 05/20/2024 7:48 PM EDT Narrative 05/20/2024 9:40 PM EDT [address] [address] XRay Report Signed Patient: Vivian Hayes MR#: [id number] 879 : 1955 Acct:[id number] Age/Sex: 68 / F ADM Date: 05/20/24 Loc: HO.ED Attending Dr: Ordering Physician: Ondina Rios Date of Service: 05/20/24 Procedure(s): XR shoulder RT min 2V Accession Number(s): [id number] cc: Jennifer Stewart MD; Ondina Rios EXAMINATION: XR SHOULDER, RIGHT CLINICAL INFORMATION: Pain status-post fall. COMPARISON: None available. TECHNIQUE: AP external rotation, Grashey and scapular Y views of the right. FINDINGS: The bones and soft tissues are normal. No fracture. Glenohumeral and acromioclavicular alignment is anatomic with normal joint space. No abnormal soft tissue calcifications. Cervicothoracic orthopedic hardware is incompletely covered in the [id number]. XR/XR shoulder RT min 2V IMPRESSION: Normal right shoulder. Electronically signed by: Fredrick Rao MD 05/20/2024 09:38 PM EDT Dictated By: Fredrick Rao MD Signed By: <Electronically signed by Fredrick Rao MD in OV> 05/20/242137 DD/ 47 TD/TT: 05/20/242032 Corporate Travel Coordinator: JEANNETTE Procedure Note Donotuseinterpreter, Image - 05/20/[address] [address] XRay Report Signed Patient: Vivian HayesMR#: [id number] 879 : 1955cct:[id number] Age/Sex: 68 / FADM Date: 05/20/24 Loc: HO.ED Attending Dr: Ordering Physician: Ondina Rios Date of Service: 05/20/24 Procedure(s): XR shoulder RT min 2V Accession Number(s): [id number] cc: Jennifer Stewart MD; Ondina Rios EXAMINATION: XR SHOULDER, RIGHT CLINICAL INFORMATION: Pain status-post fall. COMPARISON: None available. TECHNIQUE: AP external rotation, Grashey and scapular Y views of the right. FINDINGS: The bones and soft tissues are normal. No fracture. Glenohumeral and acromioclavicular alignment is anatomic with normal joint space. No abnormal soft tissue calcifications. Cervicothoracic orthopedic hardware is incompletely covered in the [id number]. XR/XR shoulder RT min 2V IMPRESSION: Normal right shoulder. Electronically signed by: Fredrick Rao MD 05/20/2024 09:38 PM EDT Dictated By: Fredrick Rao MD Signed By: <Electronically signed by Fredrick Rao MD in OV> 05/20/242137 DD/ 47 TD/TT: 05/20/242032 Corporate Travel Coordinator: JEANNETTE Authorvimal Provider Result Type Result Stat [facility] External Provider IMG XR PROCEDURES Final Result * XR Ankle 3+ Views Right (05/20/2024 7:48 PM EDT) Anatomical Region Laterality Modality Lower Extremities, Ankle Right Radiogr aphic Imaging 05/20/2024 7:48 PM EDT Narrative 05/20/2024 9:38 PM EDT [place] [address] XRay Report Signed Patient: Vivian Hayes MR#: [id number] 879 : 1955 Acct:[id number] Age/Sex: 68 / F ADM Date: 05/20/24 Loc: HO.ED Attending Dr: Ordering Physician: Ondina Rios Date of Service: 05/20/24 Procedure(s): XR ankle RT min 3V Accession Number(s): [id number] cc: Jennifer Stewart MD; Ondina Rios EXAMINATION: [...] in OV> 05/20/242134 DD/ 47 TD/TT: 05/20/242032 Corporate Travel Coordinator: JEANNETTE Procedure Note Donotuseinterpreter, Image - 05/20/2024 [place] [address] XRay Report Signed Patient: Vivian HayesMR#: [id number] 879 : 6Acct:[id number] Age/Sex: 68 / FADM Date: 05/20/24 Loc: HO.ED Attending Dr: Ordering Physician: Ondina Rios Date of Service: 05/20/24 Procedure(s): XR ankle RT min 3V Accession Number(s): [id number] cc: Jennifer Stewart MD; Ondina Rios EXAMINATION: [...] in OV> 05/20/242134 DD/ 47 TD/TT: 05/20/242032 Corporate Travel Coordinator: JEANNETTE Authorvimal Provider Result Type Result Stat [facility] External Provider IMG XR PROCEDURES Final Result documented in this encounter Visit Diagnoses Diagnosis Major depressive disorder with single episode, in full remission (CMS/HCC)- Primary documented in this encounter Additional Health Concerns Assessment Noted Time PHQ-9 Depression Total Score: 0 02/03/20 24 10:01 AM EDT documented as of this encounter Care Teams Resilient Tile Installer Relationship Specialty Start Date End Date Jennifer Stewart MD [address] [place] [address] PCP - General Family Medicine 07/26/18 Zayda Rader, RigobertoD [address] [place] [address] Pharmacist Internal Medicine 04/27/24 Alina Lynch [address] [place] [address] [place] [address] Orthopaedic Surgery 09/26/24 Moshe Bran MD [address] [place] [address] Cardiology 09/26/24 Bhupendra Angel MD [address] [place] [address] Gastroenterology 01/24/25 Wade Tyson MD [facility] Eye [address] [address] Ophthalmology 08/22/24 documented as of this encounter
--- OUTSIDE RECORDS SUMMARY | 2025-06-21 14:12 | XMS_ITS | Patient Health Record ---
Author Organization [facility] Address [address] [place] [address] Care Team Providers Care Shiftman Name Role Phone Jennifer Stewart MD Primary Care Provider Zoila Bhupendra Guzman [phone] Reason For Referral No Information Medications Medication SIG (Take, Route, Frequency, Duration) Notes Start Date End Date Status traZODone HCl 100 MG Tablet 1 tablet at bedtime Orally Once a day Active Wellbutrin SR 150 MG Tablet Extended Release 12 Hour 1 tablet Orally Twice a day Not-Taking/P RN buPROPion HCl ER (SR) 150 MG Tablet Extended Release 12 Hour TAKE 1 TABLET BY MOUTH TWICE DAILY Oral; Duration: 30 Active Metoprolol Succinate ER 25 MG Tablet Extended Release 24 Hour TAKE 1 TABLET BY MOUTH EVERY DAY Oral; Duration: 30 Not-Taking/P RN Isosorbide Mononitrate ER 60 MG Tablet Extended Release 24 Hour 1 tablet in the morning Orally Once a day Active FLUoxetine HCl 20 MG Tablet 2 capsule Orally a day Not-Taking/P RN Aspirin Adult Low Dose 81 MG Tablet Delayed Release 1 tablet Orally Once a day Active Nitrostat 0.3 MG Tablet Sublingual Sublingual Active Ranolazine ER 1000 MG Tablet Extended Release 12 Hour Oral; Duration: 90 Days Active Ranexa 500 MG Tablet Extended Release 12 Hour 1 tablet Orally twice a day Cardiac medication Active Ezetimibe 10 MG Tablet Oral; Duration: 90 Days Active Famotidine 20 MG Tablet Oral; Duration: 90 Days Active amLODIPine Besylate 5 MG Tablet Oral; Duration: 90 Days Active Isosorbide Mononitrate 10 MG Tablet 1 tablet Orally Twice a day Not-Taking/P RN Atorvastatin Calcium 80 MG Tablet Oral; Duration: 90 Days Active Clopidogrel Bisulfate 75 MG Tablet Oral; Duration: 90 Days Active Immunizations Vaccine Route Administration Date Status Comme nts Influenza Unknown 03/26/2019 Administered Influenza Unknown 06/14/2024 Administered Social History Tobacco Use: Social History Observation Description Date Details (start date - stop date) Never Smoker NA - NA Social History Drug/Alcohol: Social Info Question Answer Notes AUDIT-C (Standard) Did you have a drink containing alcohol in the past year? No Points 0 Interpretation Negative Tobacco Use: Social Info Question Answer Notes Tobacco Use/Smoking Patient is a nonsmoker Additional Details Category Social Info Options Details Miscellaneous: Marital status: Occupation: disabled Section Notes: Nonsmoker; no sig alcohol Nonsmoker; no sig alcohol Nonsmoker; no sig alcohol Problems Problem Type SNOMED Code ICD Code Onset Dates Problem Status W/U Status Risk Notes Problem Screening for malignant neoplasm of colon (368882111) Encounter for screening for malignant neoplasm of colon (Z12.11) Active confirmed Problem History of adenomatous polyp of colon (320290162) History of adenomatous polyp of colon (Z86.010) Active confirmed Problem Preprocedural examination (865900640870521) Preprocedural examination (Z01.818) Active confirmed Problem Long-term current use of aspirin (654282965162219) Aspirin long-term use (Z79.82) Active confirmed Problem Long-term current use of antiplatelet drug (016685614230057) Long-term use of aspirin therapy (Z79.82) Active confirmed Problem History of adenomatous polyp of colon (394279627) Hx of adenomatous colonic polyps (Z86.010) Active confirmed Vital Signs Blood pressure diastolic 01 mm Hg 06/14/2025 Height 62.5 in 06/14/2025 Blood pressure systolic 001 mm Hg 06/14/2025 Weight 143.6 lbs 06/14/2025 BMI 25.84 kg/m2 06/14/2025 Procedures Procedure Date Ordered Date Performed Result Body Sit e COLONOSCOPY 06/14/2025 N/A Encounters Encounter Location Date Provider Diagnosis [facility] [address] [place] [address] 06/14/2025 Bhupendra Angel History of adenomato us polyp of colon Z86.010 ; Encounter for screening for malignant neoplasm of colon Z12.11 ; Aspirin long-term use Z79.82 and Preprocedural examination Z01.818 Assessments Encounter Date Diagnosis (ICD Code) Assessment Notes Treatment Notes Treatment Clinical Notes Section Notes 06/14/2025 Encounter for screening for malignant neoplasm [...] care. 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 Raza was comfortable with this plan. Thank you again for allowing me to participate in Raza's care. I shall continue to keep you advised of her progress. 06/14/2025 History of adenomatous polyp of colon [...] care. 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 Raza was comfortable with this plan. Thank you again for allowing me to participate in Raza's care. I shall continue to keep you advised of her progress. Plan Of Treatment Pending Test Test Name Order Date COLONOSCOPY 06/14/2025 Future Test Test Name Order Date COLONOSCOPY 12/23/2016 COLONOSCOPY 12/22/2019 Next Appt Details Provider Name:Bhupendra Angel , 08/20/2025 11:50:00 AM, [address] [place] [address] , [place], [place], [id number], Insurance Providers Payer Name Payer Address Payer Phone Subscriber Number Group Number Insured Name Patient Relationship to Insured Coverage Start Date Coverage End Date MEDICARE OF [place] [address] JESS[place] BOYD [id number] [phone] [id number] RAZA ESTRADA Self - patient is the insured 0 MEDICAID OF [facility] [address] [place] [phone] [id number] RAZA ESTRADA Self - patient is the insured Medical (General) History Medical History History ICD Code Screening Colonoscopy 9-8-20 08- 1 small tubular adenoma removed, diverticulosis, internal hemorrhoids Anxiety/depression Vertigo Hypertension Hypercholesterolemia CHF Afib- resolved LUNG COLLAPSED X 2 Denies DM,CVA,Lung disease,renal disease CAD with previous CABG- Dr. Wong- ETT in 2015- cardiac cath with blockage of 1 graft- -no stent nor angioplasty Takotsubo Cardiomyopathy- Br oken heart syndrome - in 04/2019- no problems since-she reports that her heart has improved since then [place] 01/2024 and in 10/2024- had a new stent placed in 10/2024- Colonoscopy 12/2019 with 2 tubular adenom as removed Surgical History Surgery Date(Month/Year) x 2 Umbilical hernia surgery Anal fissure that was treated surgically C-spine disc 2V-CABG 2012 Right knee Hospitalization History Reason Date(Month/Year) heart attck 10/2024
--- OUTSIDE RECORDS SUMMARY | 2025-06-21 14:12 | XMS_ITS | Encounter Summary ---
Author Organization [email or web address] Address [address] [facility] 7t [place] [address] Care Team Providers Care Programming Equipment Operator Name Role Phone Jennifer Stewart MD Primary Care Provider [phone]- [phone] Zayda Rader PharmD Unavailable Alina Lynch Unavailable Moshe Bran MD Unavailable [phone] Bhupendra Angel MD Unavailable Encounter Details Date Type Department Care Team (Late st Contact Info) Description 04/17/2024 Telephone [facility] MED[facility]INE [address] [place], [place] [phone] Zayda Rader, PharmD [address] [place] [address] Social History Tobacco Use Types Packs/Day Years [...] Description 08/08/2025 9:30 AM EST Office Visit [facility] [address] [place] [address] Jennifer Stewart MD [address] [place], [place] [phone] documented as of this encounter Visit Diagnoses Not on filedocumented in this encounter Additional Health Concerns Assessment Noted Time PHQ-9 Depression Total Score: 0 02/03/20 24 10:01 AM EDT documented as of this encounter Care Teams Programming Equipment Operator Relationship Specialty Start Date End Date Jennifer Stewart MD [address] [place] [address] PCP - General Family Medicine 07/26/18 Zayda Rader, RigobertoD [address] [place] [address] Pharmacist Internal Medicine 04/27/24 Alina Lynch [address] [place] [address] Dr [facility] [address] [place] [address] Orthopaedic Surgery 09/26/24 Moshe Bran MD [address] [place] [address] Cardiology 09/26/24 Bhupendra Angel MD [address] [place] [address] Drive [address] [place] [address] Gastroenterology 01/24/25 Wade Tyson MD [facility] [address] [place] [address] Ophthalmology 08/22/24 documented as of this encounter
--- OUTSIDE RECORDS SUMMARY | 2025-06-21 14:12 | XMS_ITS | Encounter Summary ---
Author Organization [email or web address] Address [address] [facility] 7t [place] [address] Care Team Providers Care Operations Project Manager Name Role Phone Jennifer Stewart MD Primary Care Provider +- [phone] Zayda Rader PharmD Unavailable [phone] Alina Lynch Unavailable Moshe Bran MD Unavailable [phone] Bhupendra Angel MD Unavailable Reason for Visit * Reason Comments Med Refill Encounter Details Date Type Department Care Team (Late st Contact Info) Description 03/07/2025 Refill [facility] MED[facility]INE [address] [place] [address] Juanita Gonsalez MD [address] [place] [address] Hyperlipidemia, unspecified hyperlipidemia type Social History Tobacco [...] Description 08/08/2025 9:30 AM EST Office Visit [facility] [address] [place] [address] Jennifer Stewart MD [address] [place] [address] documented as of this encounter Visit Diagnoses Diagnosis Hyperlipidemia, unspecified hyperlipidemia type documented in this encounter Additional Health Concerns Assessment Noted Time PHQ-9 Depression Total Score: 6 11/28/19 25 9:31 AM EDT documented as of this encounter Care Teams Operations Project Manager Relationship Specialty Start Date End Date Jennifer Stewart MD [address] [place] [address] PCP - General Family Medicine 1/1/19 Zayda Rader, Georgie [address] [place] [address] Pharmacist Internal Medicine 04/27/24 Alina Lynch [address] [place] [address] [address] [place] [address] Orthopaedic Surgery 09/26/24 Moshe Bran MD [address] [place] [address] Cardiology 09/26/24 Bhupendra Angel MD [address] [place] [address] Drive [address] [place] [address] Gastroenterology 01/24/25 Wade Tyson MD [facility] [address] [place] [address] Ophthalmology 08/22/24 documented as of this encounter
--- OUTSIDE RECORDS SUMMARY | 2025-06-21 14:12 | XMS_ITS | Encounter Summary ---
Author Organization [employer] Address [address] [facility] 7t [place] [address] Care Team Providers Care [facility] Shift Lead Name Role Phone Jennifer Stewart MD Primary Care Provider [phone] Zayda Rader PharmD Unavailable Alina Lynch Unavailable Moshe Bran MD Unavailable [phone] Bhupendra Angel MD Unavailable Reason for Visit * Reason Onset Date Comments Hospital Follow-up 11/16/2024 Encounter Details Date Type Department Care Team (Late st Contact Info) Description 11/16/2024 Telephone [facility] MED[facility]INE [address] [place], [place] [phone] Jennifer Stewart MD [address] [place], [place] [phone] Hospital Follow-up Social History Tobacco Use Types [...] from pt requesting a HDF appt. Hospital: [facility] [place] Date of admission: 11/11 Discharge date: 11/15 Diagnosed: Heart problems (Heart Attack) *Send message to [place] Clinical Care Coordinators documented in this encounter Plan of Treatment Upcoming Encounters Date Type Department Care Team (Late st Contact Info) Description 08/08/2025 9:30 AM EST Office Visit [facility] [address] [place] [address] Jennifer Stewart MD [address] [place] [address] documented as of this encounter Visit Diagnoses Not on filedocumented in this encounter Additional Health Concerns Assessment Noted Time PHQ-9 Depression Total Score: 0 02/03/20 24 10:01 AM EDT documented as of this encounter Care Teams [facility] Shift Lead Relationship Specialty Start Date End Date Jennifer Stewart MD [address] [place] [address] PCP - General Family Medicine 07/26/18 Zayda Rader, RigobertoD [address] [place] [address] Pharmacist Internal Medicine 04/27/24 Alina Lynch [address] [place] [address] Dr [address] [place] [address] Orthopaedic Surgery 09/26/24 Moshe Bran MD [address] [place] [address] Cardiology 09/26/24 Bhupendra Angel MD [address] [place] [address] Drive [address] [place] [address] Gastroenterology 01/24/25 Wade Tyson MD [facility] [address] [place] [address] Ophthalmology 08/22/24 documented as of this encounter
--- OUTSIDE RECORDS SUMMARY | 2025-06-21 14:12 | XMS_ITS | Encounter Summary ---
Author Organization [employer] Address [address] [facility] 7t [place] [address] Care Team Providers Care Professor Of Kinesiology Name Role Phone Jennifer Stewrat MD Primary Care Provider [phone] Zayda Rader PharmD Unavailable Alina Lynch Unavailable Msohe Bran MD Unavailable [phone] Bhupendra Angel MD Unavailable Encounter Details Date Type Department Care Team (Late st Contact Info) Description 03/16/2024 Orders Only [facility] MEDICINE [address] [place], [place] [phone] Jennifer Stewart MD [address] [place] [address] Social History Tobacco Use Types Packs/Day Years [...] Description 08/08/2025 9:30 AM EST Office Visit [facility] [address] [place] [address] Jennifer Stewart MD [address] [place] [address] documented as of this encounter Visit Diagnoses Not on filedocumented in this encounter Additional Health Concerns Assessment Noted Time PHQ-9 Depression Total Score: 0 02/03/20 24 10:01 AM EDT documented as of this encounter Care Teams Professor Of Kinesiology Relationship Specialty Start Date End Date Jennifer Stewart MD [address] [place] [address] PCP - General Family Medicine 07/26/18 Zayda Rader, Georgie [address] [place] [address] Pharmacist Internal Medicine 04/27/24 Alina Lynch [address] [place] [address] Dr [address] [place] [address] Orthopaedic Surgery 09/26/24 Moshe Bran MD [address] [place] [address] Cardiology 09/26/24 Bhupendra Angel MD [address] [place] [address] Drive [address] [place] [address] Gastroenterology 01/24/25 Wade Tyson MD [facility] [address] [place] [address] Ophthalmology 08/22/24 documented as of this encounter
--- OUTSIDE RECORDS SUMMARY | 2025-06-21 14:12 | XMS_ITS | Encounter Summary ---
Author Organization [employer] Address [address] [facility] 7t [place] [address] Care Team Providers Care Speech And Language Clinician Name Role Phone Jennifer Stewart MD Primary Care Provider +- [phone] Zayda Rader PharmD Unavailable Alina Lynch Unavailable Moshe Bran MD Unavailable [phone] Bhupendra Angel MD Unavailable Reason for Visit * Reason Onset Date Comments Appointment Request 07/31/2024 Encounter Details Date Type Department Care Team (Late st Contact Info) Description 07/31/2024 Telephone [facility] MEDICINE [address] [place], [place] [phone] Jennifer Stewart MD [address] [place], [place] [phone] Appointment Request Social History Tobacco Use Types [...] from 07/31. Contact pt to R/s at [phone] documented in this encounter Plan of Treatment Upcoming Encounters Date Type Department Care Team (Late st Contact Info) Description 08/08/2025 9:30 AM EST Office Visit [facility] [address] [place] [address] Jennifer Stewart MD [address] [place] [address] documented as of this encounter Visit Diagnoses Not on filedocumented in this encounter Additional Health Concerns Assessment Noted Time PHQ-9 Depression Total Score: 0 02/03/20 10:01 AM EDT documented as of this encounter Care Teams Speech And Language Clinician Relationship Specialty Start Date End Date Jennifer Stewart MD [address] [place], [place] [phone] PCP - General Family Medicine 07/26/18 Zayda Rader, RigobertoD [address] [place] [address] Pharmacist Internal Medicine 04/27/24 Alina Lynch [address] [place] [address] Dr [facility] 203 [place] [address] Orthopaedic Surgery 09/26/24 Moshe Bran MD [address] [place] [address] Cardiology 09/26/24 Bhupendra Angel MD [address] [place] [address] Drive [address] [place] [address] Gastroenterology 01/24/25 Wade Tyson MD [facility] [address] [place] [address] Ophthalmology 08/22/24 documented as of this encounter
--- OUTSIDE RECORDS SUMMARY | 2025-06-21 14:12 | XMS_ITS | Clinical Summary ---
Author Organization [employer] Address [address] [facility] 7t [place] [address] Care Team Providers Care Director Cloud Transformation Name Role Phone Jennifer Stewart MD Primary Care Provider +- [phone] Zayda Rader PharmD Unavailable [phone] Alina Lynch Unavailable Moshe Bran MD Unavailable [phone] Bhupendra Angel MD Unavailable Allergies No known active allergies Medications * This document contains information received from the source organization and may not represent a complete record from that organization. isosorbide mononitrate ER (Imdur) 60 MG 24 hr tabletIndications: Hypertension, unspecified type,Coronary artery disease, unspecified vessel or lesion type, unspecified whether angina present, unspecified whether muckleshoot or transplanted heart Take 1 tablet (60 mg) by mouth Once per day. 90 tablet 3 4 Active clopidogrel (Plavix) 75 MG tabletIndications: Coronary artery disease, unspecified vessel or lesion type, unspecified whether angina present, unspecified whether [place] or transplanted heart Take 75 mg by mouth 2 times daily. Per cardiology Active nitroglycerin (Nitrostat) 0.4 MG SL tabletIndications: Coronary artery disease, unspecified vessel or lesion type, unspecified whether angina present, unspecified whether [place]lesh[place] or transplanted heart Place 1 tablet (0.4 mg) under the tongue every 5 (five) minutes if needed for chest pain. 25 tablet 5 Active metoprolol succinate XL (Toprol-XL) 25 MG 24 hr tabletIndications: Hypertension, unspecified type TAKE 1 TABLET BY MOUTH EVERY DAY Oral for 30 9 Active FLUoxetine (PROzac) 20 MG tabletIndications: [...] type, unspecified whether angina present, unspecified whether [place] or transplanted heart TAKE 1 TABLET BY [...] Diclofenac Sodium (Voltaren Arthritis Pain) 1 % gelIndications:Acu te pain of right knee Apply topically to the right knee pain 4 times daily as needed 20 g 5 Active Active Problems Problem Noted Date Diagnosed Date Periodontal disease 02/14/2025 Pain, dental 02/14/2025 Osteoarthritis of right knee 09/25/2024 History of fall 04/19/2024 Overview (04/19/2024): -seen in [facility] ER 04/19/24 for fall Gastroesophageal reflux [...] isosorbide, ranolazine, atrovastatin, ezetimbine -NSTEMI 11/11/24 at [facility] -note from Dr. Carias 12/12/24 isosorbide increased to 60mg daily Assessment & Plan (01/24/2025 10:39 AM EDT): -s/p NSTEMI s/p LMCA atherectomy and ERWIN 01/2024 Dr Diop -continue ASA, plavix, amlodipine, isosorbide, ranolazine, atrovastatin, ezetimbine -NSTEMI 11/11/24 at [facility] -note from Dr. Carias 12/12/24 isosorbide increased to 60mg daily Assessment & Plan (11/27/2024 10:16 PM EDT): - Cardiac cath on 11/13/24 showed patent graft vessels and stents, showing mid to distal LAD disease 60-65% but with normal flow. Non-obstructive RCA disease. - Continue isosorbide 30 mg daily; decreased from 90 mg during hospitalization. Advised to inform her occupational health and safety manager or us if she is having angina [...] due after 01/24/26 -eye care facilitated by [facility] -health care proxy filed 02/03/24 Assessment & Plan (01/24/2025 10:39 AM EDT): -next comprehensive annual evaluation due after 01/24/26 -eye care facilitated by [facility] is [facility] -health care proxy filed 02/03/24 Assessment & Plan (02/04/2024 8:41 AM EDT): -next physical exam due after 05/19/2024 -eye care facilitated by [facility] -dental home is [facility] -health care proxy filed 02/03/24 Assessment & Plan (05/19/2023 10:47 AM EDT): -next physical exam due after -eye care facilitated by [facility] -dental home is [facility] Dyspnea 01/31/2018 Overview (05/19/2023): Likely multifactorial, I [...] coronary artery bypass surgery 2014 Atrial fibrillation ([facility]/HCC) 08/28/2013 Overview (04/21/2023): New onset during hospitalization [...] disease 08/23/2013 Overview (02/22/2025): Patient followed at [facility] with Dr. Judah Bran, DO. Note from 03/30/24 refoewed/ -s/p CABG x [address] 06/[address] Cho -s/p NSTEMI s/p LMCA atherectomy and ERWIN 01/2024 Dr Diop -grade 1 diastolic congestive heart failure with LVEF 50-55% JESI -admitted for chest pain to [facility] 03/18/24 neg for ACS -continue ASA, plavix, amlodipine, isosorbide, ranolazine, atrovastatin, ezetimbine -Per Dr Bran at cardiology (per TAMERA Martin), patient to first take HR and if >50 BPM, to take metoprolol. Metoprolol previously decreased to ER 12.5mg once daily by [facility]. Per Mraio, no response regarding losartan so to hold in the meantime. Cardiology follow up scheduled 03/30/24 1pm and holter monitor application appointment 03/31/24 at 11:45am. Pulse ox prescribed by [facility]. Patient made aware of this plan and stated understanding. -note from cardiology Dr. Bran from 10/17/24 veiwed -NSTEMI 11/11/24 at [facility] -note from Dr. Carias 12/12/24 isosorbide increased to 60mg daily -trans thoracic echo 02/06/25 normal EF 50-55%, grade 1 diastolic dysfunction , normal left atrial pressure , no change compared with 11/14/24 -note from Dr. Bran 02/22/25 reviewed Assessment & Plan (01/24/2025 10:39 AM EDT): Patient followed at [facility] with Dr. Judah Bran DO. Note from 03/30/24 refoewed/ -s/p CABG x [address] 06/[address] Cho -s/p NSTEMI s/p LMCA atherectomy and ERWIN 01/2024 Dr Diop -grade 1 diastolic congestive heart failure with LVEF 50-55% JESI -admitted for chest pain to [facility] 03/18/24 neg for ACS -continue ASA, plavix, amlodipine, isosorbide, ranolazine, atrovastatin, ezetimbine -Per Dr Bran at cardiology (per TAMERA Martin), patient to first take HR and if >50 BPM, to take metoprolol. Metoprolol previously decreased to ER 12.5mg once daily by [facility]. Per Mario, no response regarding losartan so to hold in the meantime. Cardiology follow up scheduled 03/30/24 1pm and holter monitor application appointment 03/31/24 at 11:45am. Pulse ox prescribed by [facility]. Patient made aware of this plan and stated understanding. -note from cardiology Dr. Bran from 10/17/24 veiwed -NSTEMI 11/11/24 at [facility] -note from Dr. Carias 12/12/24 isosorbide increased to 60mg daily Assessment & Plan (04/05/2024 9:21 AM EDT): Patient followed at [facility] with Dr. Judah Bran DO. Note from 03/30/24 refoewed/ -s/p CABG x [address] 06/[address] Cho -s/edel NSTEMI s/p LMCA atherectomy and ERWIN Dr Diop -grade 1 diastolic congestive heart failure with LVEF 50-55% JESI -admitted for chest pain to [facility] 03/18/24 neg for ACS -continue ASA, plavix, amlodipine, isosorbide, ranolazine, atrovastatin, ezetimbine -Per Dr Bran at cardiology (per TAMERA Martin), patient to first take HR and if >50 BPM, to take metoprolol. Metoprolol previously decreased to ER 12.5mg once daily by CD[facility]. Per Mario, no response regarding losartan so [...] of CHF Jul 2013. Repeat cath at [facility] 02/2016 revealed very short left main stenosis [...] main disease. Hospitalized 04/2019 for non-ST elevation PR. Continue ASA, bisoprolol, statin, and ranolazine and [...] Encounters Date Type Department Care Team Description 05/30/2025 Telephone [facility] [address] [place] [phone] Darcy Ordonez FNP 05/25/[address] [address] Jennifer Stewart MD July Recalls 05/25/2025 Travel 05/23/2025 3:45 PM EDT Office Visit [facility] [address] [place] [address] Darcy Ordonez FNP Acute pain of right knee (Primary Dx) 05/23/2025 Travel 05/23/[address] [address] Jennifer Stewart MD Nurse Triage 04/27/2025 Patient Outreach [address] [address] Jennifer Stewart MD Medicare Annual Wellness Visit Initial (AWV scheduled) 04/18/2025 Refill [facility] [address] [place] [address] Jennifer Stewart MD Gastroesophageal reflux disease without esophagitis from Last 3 Months Immunizations Immunization Administration [...] 05/23/2025 4:13 PM EDT Plan of Treatment Upcoming Encounters Date Type Department Care Team (Late st Contact Info) Description 08/08/2025 9:30 AM EST Office Visit [facility] [address] [place] [address] Jennifer Stewart MD [address] [place] [address] Health Maintenance Due Date Last Done Comments [...] 4+ VIEWS RIGHT Routine 2:20 PM EDT Acute pain of right knee LIPID PANEL, STANDARD Routine 03/17/2024 11:32 AM [...] PM EDT Narrative 05/24/2025 2:36 PM EDT [address] [address] XRay Report Signed Patient: Vivian Hayes MR#: [id number] : 1955 Acct:[id number] Age/Sex: 69 / F ADM Date: 05/24/25 Loc: HO.HHCX Attending Dr: Darcy UPTON Ordering Physician: Darcy Ordonez Date of Service: 05/24/25 Procedure(s): XR knee RT 4V Accession Number(s): [id number] cc: Jennifer Stewart MD; Darcy Ordonez Reason [...] 05/24/25 1433 DD/ 1420 TD/TT: 05/24/25 1429 Restaurant Expeditor: Procedure Note Donotuseinterpreter, Image - 05/24/2025 [place] [address] XRay Report Signed Patient: Vivian Hayes RMR#: [id number] : 6Acct:[id number] Age/Sex: 69 / FADM Date: 05/24/25 Loc: HO.HHCX Attending Dr: Darcy UPTON Ordering Physician: Darcy Ordonez Date of Service: 05/24/25 Procedure(s): XR knee RT 4V Accession Number(s): [id number] cc: Jennifer Stewart MD; Darcy Ordonez Reason [...] OV> 05/24/25 1433 DD/ 1420 TD/TT: 05/24/25 142 Restaurant Expeditor: us Darcy Okhipo WIRING INSPECTOR IMG XR PROCEDURES Final Result * Lipid Panel, Standard (03/17/2024 11:32 AM EDT) Triglycerides 92 <150 mg/dL [facility] Comment:Desirable Triglyceri de: less than 150 mg/dLBorderline High Triglyceride 150-199 mg/dLHigh Triglyceride: 200-499 mg/dLVery High Triglyceride: greater than or equal to 5OO mg/dL Cholesterol 138 <200 mg/dL [facility] Comment:Desirable Cholestero l: less than 200 mg/dLBorderline High Cholesterol: 200-239 mg/dLHigh Cholesterol: greater than 239 mg/dL LDL Cholesterol Calculated 63 <100 mg/dL [facility] Comment:Desirable LDL: less than 100 mg/dLNear Optimal/Above Optimal LDL: 110- 129 mg/dLBorderline High LDL: 130-159 mg/dLHigh LDL: 160-189 mg/dLVery High LDL: greater than or equal to 190 mg/dL HDL Cholesterol 57 >40 mg/dL [facility] Comment:Desirable HDL: great er than 40 mg/dL Note: This HDL assay may give artificially low results in patients with liver disease. 03/17/2024 11:3 2 AM EDT 03/17/2024 1:15 PM EDT Jennifer Stewart MD LAB BLOOD ORDERABLES Final Result Performing Organization Address City/[facility]/ZIP Co de Phone Number [facility] [address] [place] [address] [phone] * Hepatitis C Ab (05/17/2023 11:01 AM EDT) Hepatitis C Antibody Nonreactive Nonreactive [facility] Comment:Antibodies to HCV no t detected; does not exclude early acuteHCV infection. Blood 05/17/2023 11:0 1 AM EDT 05/17/2023 1:28 PM EDT Jennifer Stewart MD LAB BLOOD ORDERABLES Final Result Performing Organization Address [facility] Co de Phone Number [facility] [address] [place] [address] [phone] * Mammography (05/28/2020) Mammogram BIRADS 1 Anatomical Region Laterality Modality Other Historical Provider HEALTH MAINTENANCE Final Result * Colonoscopy (12/27/2019) Colonoscopy Tubular Adenoma with Dr. Angel Historical Provider HEALTH MAINTENANCE Final Result from Last 3 Months or Most Recently Relevant to Health Maintenance Insurance MEDICARE HSN FULL [facility] SENIOR BUY-IN/MSP DENTAL - HSN FULL (MEDICAID) Advance Directives Documents on File Type Date Recorded Patient Mgmt Analyst Expl anation Advance Directives and Living Will 02/02/2024 Health Care Proxy 02/02/24 Care Teams Director Cloud Transformation Relationship Specialty Start Date End Date Jennifer Stewart MD [address] [place] [address] PCP - General Family Medicine 07/26/18 Zayda Rader, RigobertoD [address] [place] [address] Pharmacist Internal Medicine 04/27/24 Alina Lynch [address] [place] [address] Dr [address] [place] [address] Orthopaedic Surgery 09/26/24 Moshe Bran MD [address] [place] [address] Cardiology 09/26/24 Bhupendra Angel MD [address] [place] [address] Gastroenterology 01/24/25 Wade Tyson MD [facility] [address] [place] [phone] Ophthalmology 08/22/24
--- OUTSIDE RECORDS SUMMARY | 2025-06-21 14:12 | XMS_ITS | Encounter Summary ---
Author Organization [facility] Address [address] [facility] [address] [place] [phone] Phone Care Team Providers Care Golf Course Keeper Name Role Phone Jennifer Stewart MD Primary Care Provi sharmila Encounter Details Date Type Department Care Team (Late st Contact Info) Description 12/28/2017 Transcribe Orders [facility] [address] [place] [address] Abhinav Ledesma MD, [place] [address] [address] [email or web address] Social History Tobacco Use Types Packs/Day Years [...] on filedocumented in this encounter Care Teams Golf Course Keeper Relationship Specialty Start Date End Date Jennifer Stewart MD [address] [place] [address] PCP - General 07/29/17 documented as of this encounter Additional Source Comments The information contained in this document represents components of the legal health record. It is not the complete legal health record.[facility]
--- OUTSIDE RECORDS SUMMARY | 2025-06-21 14:12 | XMS_ITS | Encounter Summary ---
Author Organization [employer] Address [address] [facility] 7t [place] [address] Care Team Providers Care Paper Final Inspector Name Role Phone Jennifer Stewart MD Primary Care Provider [phone]- [phone] Zayda Rader PharmD Unavailable Alina Lynch Unavailable Moshe Bran MD Unavailable [phone] Bhupendra Angel MD Unavailable Reason for Visit * Reason Onset Date Comments appt Oral Surgery 06/01/2023 Encounter Details Date Type Department Care Team (Late st Contact Info) Description 06/01/2023 Telephone [facility] [address] [place], [place] [phone] Osmin Correia, DMD [address] [place], [place] [phone] appt Oral Surgery Social History Tobacco Use [...] with Dr. Correia since November through the [place] office. She didhave to have an emergency ext done but is now still waiting for the other appts for continued treatment DR documented in this encounter Plan of Treatment Upcoming Encounters Date Type Department Care Team (Late st Contact Info) Description 08/08/2025 9:30 AM EST Office Visit [facility] [address] [place] [address] Jennifer Stewart MD [address] [place] [address] documented as of this encounter Visit Diagnoses Not on filedocumented in this encounter Additional Health Concerns Assessment Noted Time PHQ-9 Depression Total Score: 0 09/25/19 10:58 AM EST documented as of this encounter Care Teams Paper Final Inspector Relationship Specialty Start Date End Date Jennifer Stewart MD [address] [place] [address] PCP - General Family Medicine 07/26/18 Zayda Rader PharmD [address] [place] [address] Pharmacist Internal Medicine 04/27/24 Alina Lynch [address] [place] [address] Dr [address] [place] [address] Orthopaedic Surgery 09/26/24 Moshe Bran MD [address] [place] [address] Cardiology 09/26/24 Bhupendra Angel MD [address] [place] [address] Gastroenterology 01/24/25 Wade Tyson MD [facility] [address] [place] [address] Ophthalmology 08/22/24 documented as of this encounter
--- OUTSIDE RECORDS SUMMARY | 2025-06-21 14:12 | XMS_ITS | Clinical Summary ---
Author Organization [facility] Address [address] [address] Phone Care Team Providers Care Apricot Packer Name Role Phone Jennifer Stewart MD Primary [...] B FULL MEDICARE PART A & B [employer] NET FULL MEDICARE PART A & B [employer] NET FULL MEDICARE PART A & B [employer] FULL MEDICARE PART A & B [employer] NET FULL MEDICARE PART A & B Member Subscriber Plan / Payer (Ef fective 2010-Present) Name:Vivian Hayes Member ID:[id number] Relation to Subscriber:Self Name:Vivian Hayes Subscriber ID:[id number] Payer ID:[id number] Group ID:Not on file Type:Medicare Address: [employer] [facility].[address] [id number] [facility] FULL MEDICARE PART A & B HEALTH SAFETY NET FULL MEDICARE PART A & B [employer] SAFETY NET FULL Care Teams Apricot Packer Relationship Specialty Start Date End Date Terry, Jennifer Blackman MD [address] [place] [address] PCP - General 07/29/17 Additional Source Comments The information contained in this document represents components of the legal health record. It is not the complete legal health record.[facility]
--- OUTSIDE RECORDS SUMMARY | 2025-06-21 14:12 | XMS_ITS | Encounter Summary ---
Author Organization [employer] Address [address] [facility] 7t [place] [address] Care Team Providers Care Solutions Developer Name Role Phone Jennifer Stewart MD Primary Care Provider [phone] Zayda Rader PharmD Unavailable Alina Lynch Unavailable Moshe Bran MD Unavailable [phone] Bhupendra Angel MD Unavailable Reason for Visit * Reason Onset Date Comments Appointment 01/21/2023 Encounter Details Date Type Department Care Team (Late st Contact Info) Description 01/21/2023 Telephone [facility] [address] [place], [place] [phone] Alma March, DDS [address] [place], [place] [phone] Appointment Social History Tobacco Use Types Packs/Day [...] Description 08/08/2025 9:30 AM EST Office Visit [facility] [address] [place] [address] Jennifer Stewart MD [address] [place] [address] documented as of this encounter Visit Diagnoses Not on filedocumented in this encounter Additional Health Concerns Assessment Noted Time PHQ-9 Depression Total Score: 0 09/25/19 10:58 AM EST documented as of this encounter Care Teams Solutions Developer Relationship Specialty Start Date End Date Jennifer Stewart MD [address] [place] [address] PCP - General Family Medicine 07/26/18 Zayda Rader, Georgie [address] [place] [address] Pharmacist Internal Medicine 04/27/24 Alina Lynch [address] [place] [address] [address] [place] [address] Orthopaedic Surgery 09/26/24 Moshe Bran MD [address] [place] [address] Cardiology 09/26/24 Bhupendra Angel MD [address] [place] [address] Drive [address] [place] [address] Gastroenterology 01/24/25 Wade Tyson MD [facility] [address] [place] [address] Ophthalmology 08/22/24 documented as of this encounter
[2025-06-21 14:19] VITALS: BP 138/74; PULSE 88; RESP 16; TEMP 36.6; O2SAT 95
[2025-06-21 14:29] LABS: Acetaminophen LAB < 3 mcg/mL (<30); Alanine Aminotransferase 12 U/L (0-31); Albumin Level 4.5 g/dL (3.5-5.0); Alkaline Phosphatase 79 U/L (39-117); Anion Gap 13 (12-20); Aspartate Amino Transferase 20 U/L (5-31); Blood Urea Nitrogen 17 mg/dL (9-16); Calcium 9.3 mg/dL (8.4-10.2); Carbon Dioxide 19 mmol/L (22-29); Chloride 110 mmol/L (96-108); Creatinine Clr Calc Pharmacy 65.5; Estimated Glomerular Filt Rate > 60; Magnesium 2.0 mg/dL (1.6-2.6); Potassium 3.8 mmol/L (3.3-5.1); Salicylate < 5.0 mg/dL (15-30); Sodium 138 mmol/L (135-145); Total Protein 6.7 g/dL (6.5-8.0)
[2025-06-21 14:29] LABS: Appearance Urine Clear; Glucose Urine UA Negative (Negative); PH 5.5 (5.0-9.0); Specific Gravity - Urine 1.010 (1.005-1.025); UMIC TRIGGER UACC YES
[2025-06-21 14:34] LABS: UACC Culture Trigger YES
[2025-06-21 14:38] LABS: Cannabinoid Screen Urine POSITIVE (Not Detect)
[2025-06-21 14:48] LABS: Troponin-I High Sensitivity < 2.7 ng/L (<3.5-17.0)
--- NOTE | 2025-06-21 15:46 | PC.NURSE ---
Pt awake and alert, resting in bed. Breathing equal and unlabored. Denies pain. States I am just very tired . Awaiting CRISIS eval. 1:[address]
--- NOTE | 2025-06-21 16:00 | ECG_ITS ---
Test Reason : OVERDOSE Blood Pressure : */* mmHG Vent. Rate : 59 BPM Atrial Rate : 59 BPM P-R Int : 164 ms QRS Dur : 96 ms QT Int : 482 ms P-R-T Axes : 70 5 64 degrees QTcB Int : 477 ms Sinus bradycardia Possible Left atrial enlargement Borderline ECG When compared with ECG of 21-Jun-2025 13:27, No significant change was found Referred By: Anatoly Gaytan Electronically Signed By: Vincent Edwards
--- NOTE | 2025-06-21 16:15 | PC.NURSE ---
This RN spoke to poison control rep Justin. Based on patient's report of ingestion of medications recommendation is 24 hours of observation with concern for seizure. Recommedation of serial EKGs, one now and then a 3rd about 2 hours from second.
--- NOTE | 2025-06-21 17:00 | HO.NURTONUR ---
69 year old female presented to ED after ingesting approx 3-4 Trazadone pills, other pills and morning pills in suicide attempt. Pt awake and alert, appropriate. Breathing equal and unlabored. Skin warm and well perfused. Vitals and labs stable. Admit for 24 obs per poison control for concern for seizure potential/repeat EKGs. Ambulatory with steady gait. PIV placed.
--- NOTE | 2025-06-21 17:00 | PHA.MEDREC ---
Pharmacy Consult ? Medication Reconciliation Pharmacy has completed the medication reconciliation.Med rec complete, spoke to patient and compared with recent pharmacy claims history
--- NOTE | 2025-06-21 17:02 | PM.IMHP ---
History of Present Illness Date of Service: 06/21/25 Attending physician on admission: Kevin Phillip Chief Complaint: drug ingestion This is a 69-year-old female with history of coronary artery disease, depression, PTSD who presents to the emergency department after intentional drug ingestion. Patient states that she has been feeling increasingly depressed, anxious and overwhelmed. She feels that she is a burden to her family, her sister recently and she had a fight with her daughter. She took 3-4 trazodone pills and then a 6-7 pills other pills of which she is prescribed but she is unsure which pills they were. She texted SI statements to her daughter and she was brought to the hospital on section 12. The emergency room provider discussed her case with poison control who recommended observation for 24 hours. Review of Systems Review of Systems: Yes all other systems are reviewed and are negative Constitutional: Constitutional: Denies chills and Denies fever(s) Gastrointestinal: Gastrointestinal: Denies abdominal pain, Denies diarrhea, Denies nausea and Denies vomiting [facility] Medical History CAD (coronary artery disease) Depression High cholesterol Hypertension Insomnia Heart disease Surgical History Hx of CABG Social History Comment: independently ambulate Patient Tobacco Use Status: Never used Tobacco Smoked in Last 30 Days: No Use of substances other than those prescribed or required for medical reasons: No Advance Directives: Yes Advance Directives on File: Yes Advance Directives Date on File: 07/05/23 Do you have a plan to hurt others: No Plan service: No Meds Allergies Allergy/AdvReac Type Severity Reaction Status Date / Time No Known Allergies Allergy Mild N/A Verified 06/21/25 13:22 Home Medications ?Medication ?Instructions ?Recorded ?Confirmed ?Last Taken ?Type amlodipine 5 mg tablet 5 mg PO DAILY 03/09/22 06/21/25 06/21/25 History atorvastatin 80 mg tablet 80 mg PO DAILY 03/09/22 06/21/25 06/21/25 History bupropion HCl 150 mg tablet,12 hr 150 mg PO BID 03/09/22 06/21/25 06/21/25 History sustained-release ranolazine 1,000 mg 1,000 mg PO BID 03/09/22 06/21/25 06/21/25 History tablet,extended release,12 hr trazodone 100 mg tablet 100 mg PO BEDTIME 03/09/22 06/21/25 06/30/23 History aspirin 81 mg tablet,delayed 81 mg PO DAILY 07/01/23 06/21/25 06/21/25 History release clopidogrel 75 mg tablet 75 mg PO DAILY 06/21/25 06/21/25 06/21/25 History diclofenac sodium 1 % topical gel 2 g topical QID PRN RIGHT KNEE PAIN 06/21/25 06/21/25 Unknown History ezetimibe 10 mg tablet 10 mg PO DAILY 06/21/25 06/21/25 06/21/25 History famotidine 20 mg tablet 20 mg PO BID 06/21/25 06/21/25 06/21/25 History isosorbide mononitrate 30 mg 30 mg PO DAILY 06/21/25 06/21/25 06/21/25 History tablet,extended release 24 hr isosorbide mononitrate 60 mg 60 mg PO DAILY 06/21/25 06/21/25 06/21/25 History tablet,extended release 24 hr nitroglycerin 0.4 mg sublingual 0.4 mg sublingual Q5M PRN Chest 06/21/25 06/21/25 Unknown History tablet Pain Physical Exam Vital Signs and Narrative: Vital Signs: Last Vital Signs Temp 97.8 F 06/21/25 14:19 Pulse 88 06/21/25 14:19 Resp 16 06/21/25 14:19 BP 138/74 06/21/25 14:19 Pulse Ox 95 06/21/25 14:19 O2 Del Method Room Air 06/21/25 14:19 BMI result Body Mass Index 25.8 Const: General: cooperative, comfortable, no acute distress, alert and awake Nutritional Appearance: average body habitus Orientation/consciousness: patient oriented x3 Resp: Effort & Inspection: normal respiratory effort, able to speak in complete sentences, no respiratory distress and no use of accessory muscles Cardio: Rate: regular rate GI: Inspection: No distended Palpation (GI): Soft to palpation and nontender Neuro: General: patient oriented x3, moves all extremities and CN's II-XI intact bilaterally Extrem: General: No pedal edema Results Labs 06/21/25 13:38 06/21/25 13:38 Labs: Laboratory Results - last 24 hr 06/21/25 06/21/25 13:38 14:20 MCV 94.7 MCH 33.1 H MCHC 34.9 RDW 11.9 Plt Count 193 MPV 9.6 Immature Gran % (Auto) 0.3 Neut % (Auto) 64.0 Lymph % (Auto) 22.4 [place] % (Auto) 8.2 Eos % (Auto) 3.9 Baso % (Auto) 1.2 Lymph # (Auto) 2.1 [place] # (Auto) 0.8 Eos # (Auto) 0.4 Baso # (Auto) 0.1 Abs Immat Gran (auto) 0.03 Absolute Neuts (auto) 5.9 Absolute Nucleated RBC 0.000 Nucleated RBC % (auto) 0.0 Anion Gap 13 Estim Creat Clear Calc 65.5 Estimated GFR > 60 Random Glucose 91 Calcium 9.3 Magnesium 2.0 Total Bilirubin 0.5 AST 20 ALT 12 Alkaline Phosphatase 79 Troponin I High Sens < 2.7 Total Protein 6.7 Albumin 4.5 Urine Color Yellow Urine Appearance Clear Urine pH 5.5 Ur Specific [place] 1.010 Urine Protein Negative Urine Glucose (UA) Negative Urine Ketones Trace Urine Blood Trace H Urine Nitrite Negative Ur Leukocyte Esterase Small (1+) H Urine RBC 0-2 Urine WBC 6-10 H Ur Squamous Epith Cells 0-2 Urine Bacteria None Seen Hyaline Casts 0-2 Salicylates < 5.0 L Urine Opiates Screen Not Detected Ur Buprenorphine Scrn Not Detected Ur Oxycodone Screen Not Detected Urine Methadone Screen Not Detected Urine Fentanyl Screen Not Detected Acetaminophen < 3 Ur Barbiturates Screen Not Detected Ur Phencyclidine Scrn Not Detected Ur Amphetamines Screen POSITIVE H U Benzodiazepines Scrn Not Detected Urine Cocaine Screen Not Detected U Marijuana (THC) Screen POSITIVE H Ethyl Alcohol < 10 Assessment and Plan (1) Depression: Status: Acute (2) Suicidal ideation: Status: Acute (3) Suicide attempt by drug ingestion: Status: Acute Plan This is a 69-year-old female with a history of HTN, HLD, CAD status post CABG and recent NSTEMI status post PCI with stent placement, anxiety, depression who was brought to the emergency department on section 12 due to suicidal statements and intentional drug ingestion Intentional drug ingestion ingestion of trazodone and 6-7 other pills (her own baseline medications but she isn't sure which of her meds she took) repeat EKG in 2 hours (7pm) and 24 monitoring on tele recommended monitor for sedation seizure precautions will hold baseline meds as it is unclear which meds she took extra of will need care team eval prior to d/c sitter for safety CAD s/p CABG PCI w/ stent placement in October continue asa, plavix hold Imdur, nitro, ranolazine HTN hold baseline meds to prevent possible hypotension mood hold meds for now to prevent sedation/prolonged qt tox screen positive for marijuana and amphetamines pt endorses taking marijuana gummies in the past Amphetamines likely false-positive, discussed with pharmacy both bupropion and trazodone can cause false positive testing for amphetamines No need for addiction Medicine evaluation at this time DVT prophylaxis- early ambulation, mechanical devices Quality Stroke Does the patient have a stroke diagnosis?: No VTE Prior VTE?: No VTE Risk Level:: Medical - moderate - high VTE Device Contraindication: N/A - Device Ordered VTE Drug Contraindication: N/A - Med Ordered
--- NOTE | 2025-06-21 19:00 | ECG_ITS ---
Test Reason : QTC CHECK Blood Pressure : */* mmHG Vent. Rate : 60 BPM Atrial Rate : 60 BPM P-R Int : 160 ms QRS Dur : 96 ms QT Int : 464 ms P-R-T Axes : 81 10 56 degrees QTcB Int : 464 ms Normal sinus rhythm Possible Left atrial enlargement Borderline ECG When compared with ECG of 21-Jun-2025 16:16, No significant change was found Referred By: Jennifer Contreras Electronically Signed By: Vincent Edwards
[2025-06-21 19:43] VITALS: BP 122/60; PULSE 63; RESP 12; TEMP 36.5; O2SAT 96
[2025-06-21 21:09] VITALS: BP 125/73; PULSE 63; RESP 16; TEMP 37.1; O2SAT 96
[2025-06-21] MEDS: 0.9 % Sodium Chloride Flush 3 ML SYRINGE IVFLUSH (21:10)
[2025-06-21 23:51] VITALS: BP 147/65; PULSE 58; RESP 18; TEMP 36.2; O2SAT 98
--- NOTE | 2025-06-22 | ECG_ITS ---
Test Reason : unknown ingestion Blood Pressure : */* mmHG Vent. Rate : 66 BPM Atrial Rate : 66 BPM P-R Int : 164 ms QRS Dur : 96 ms QT Int : 456 ms P-R-T Axes : 76 19 53 degrees QTcB Int : 478 ms Normal sinus rhythm Possible Left atrial enlargement Borderline ECG When compared to the previous EKG of No significant changes seen Referred By: Kevin Phillip Electronically Signed By: Vincent Edwards
[2025-06-22 03:10] VITALS: BP 142/66; PULSE 62; RESP 18; TEMP 36.7; O2SAT 97
[2025-06-22 07:26] LABS: Anion Gap 13 (12-20); Blood Urea Nitrogen 13 mg/dL (9-16); Calcium 9.2 mg/dL (8.4-10.2); Carbon Dioxide 19 mmol/L (22-29); Chloride 112 mmol/L (96-108); Creatinine Clr Calc Pharmacy 72.3; Estimated Glomerular Filt Rate > 60; Potassium 4.2 mmol/L (3.3-5.1); Sodium 140 mmol/L (135-145)
[2025-06-22 08:00] VITALS: BP 141/65; PULSE 65; RESP 18; TEMP 36.9; O2SAT 98
[2025-06-22] MEDS: Aspirin Enteric Coated 81 MG TABLET.DR PO (08:50)
[2025-06-22] MEDS: Lactated Ringers 1,000 ML 999 ML IV (08:54)
[2025-06-22] MEDS: 0.9 % Sodium Chloride Flush 3 ML SYRINGE IVFLUSH (08:56)
--- NOTE | 2025-06-22 11:07 | MHC.CM.PN ---
PT LIVES ALONE GHAS A SITTER WILL BE SEEN BY CARE TEAM PRIOR TO DC PT HAD NO PRVIOUS SERVICES
[2025-06-22 12:00] VITALS: BP 138/66; PULSE 59; RESP 18; TEMP 36.8; O2SAT 97
[2025-06-22 13:28] LABS: Anion Gap 14 (12-20); Blood Urea Nitrogen 11 mg/dL (9-16); Calcium 9.4 mg/dL (8.4-10.2); Carbon Dioxide 23 mmol/L (22-29); Chloride 109 mmol/L (96-108); Creatinine Clr Calc Pharmacy 68.3; Estimated Glomerular Filt Rate > 60; Potassium 4.1 mmol/L (3.3-5.1); Sodium 142 mmol/L (135-145)
--- NOTE | 2025-06-22 14:30 | P.DS_ITS ---
DS: Providers Provider Date of Service: 06/22/25 Date of admission: 06/21/25 16:27 Date of discharge: 06/22/25 Primary care physician: Unknown Physician Consults: 06/21/25 14:49 ED CARE Team Crisis Consult Stat Comment: Reason for consultation: si attempt 06/21/25 17:10 Consult for Sitter Routine Reason for consultation: SI Has provider been notified: No 06/22/25 13:11 Inpt CARE Team Crisis Consult Routine Comment: Reason for consultation: suicidal attempt by ingestion of pills, medically cleared DS: Diagnosis Discharge Diagnosis (1) Depression: Status: Acute (2) Suicidal ideation: Status: Acute (3) Suicide attempt by drug ingestion: Status: Acute DS: Summary Hospital Course Hospital Course: From the history and physical by the admitting hospitalist, KB Harris, 06/21/25: 'This is a 69-year-old female with history of coronary artery disease, depression, PTSD who presents to the emergency department after intentional drug ingestion. Patient states that she has been feeling increasingly depressed, anxious and overwhelmed. She feels that she is a burden to her family, her sister recently and she had a fight with her daughter. She took 3-4 trazodone pills and then a 6-7 pills other pills of which she is prescribed but she is unsure which pills they were. She texted SI statements to her daughter and she was brought to the hospital on section 12. The emergency room provider discussed her case with poison control who recommended observation for 24 hours. ' She was observed on telemetry for 24 hours with no EKG changes and no specific toxidrome. She met with the CARE Team and expressed regret about her actions and had an appropriate future orientation. She was deemed not to need inpatient psychiatric care. She was provided resources for the crisis hotline and for self-care and discharged home. Time Attestation Discharge Coordination Time (in mins): 35 Quality: Safe Use of Opioids Does Pt have an Active Cancer Diagnosis on the Problem List?: No Quality: Stroke Does the patient have a stroke diagnosis?: No Physical Exam Vital Signs: Vital Signs: Last Vital Signs Temp 98.2 F 06/22/25 12:00 Pulse 59 06/22/25 12:00 Resp 18 06/22/25 12:00 BP 138/66 06/22/25 12:00 Pulse Ox 97 06/22/25 12:00 O2 Del Method Room Air 06/22/25 12:00 BMI result Body Mass Index 25.8 Gen: in no acute distress HEENT: sclera anicteric, moist mucus membranes Neck: supple Lungs: clear to auscultation bilaterally Heart: regular rate and rhythm, no murmurs Abd: soft, non-tender, non-distended Ext: no edema Skin: warm/well-perfused Neuro: alert and oriented x3, no focal findings Psych: appropriate affect DS: Data Data Completed and Pending Completed studies during hospitalization [Text1]: Laboratory Results WBC 9.2 X10*3/uL (4.8-10.8) 06/21/25 13:38 RBC 4.14 X10*6/uL (4.20-5.50) L 06/21/25 13:38 Hgb 13.7 g/dl (12.0-16.0) 06/21/25 13:38 Hct 39.2 % (37.0-47.0) 06/21/25 13:38 MCV 94.7 fL (80.0-98.0) 06/21/25 13:38 MCH 33.1 pg (27.0-33.0) H 06/21/25 13:38 MCHC 34.9 g/dl (31.0-35.0) 06/21/25 13:38 RDW 11.9 % (11.0-16.0) 06/21/25 13:38 Plt Count 193 X10*3/uL (160-400) 06/21/25 13:38 MPV 9.6 fL (9.4-12.3) 06/21/25 13:38 Immature Gran % (Auto) 0.3 % (0.0-0.4) 06/21/25 13:38 Neut % (Auto) 64.0 % (45-73) 06/21/25 13:38 Lymph % (Auto) 22.4 % (20-40) 06/21/25 13:38 [place] % (Auto) 8.2 % (2-11) 06/21/25 13:38 Eos % (Auto) 3.9 % (0-4) 06/21/25 13:38 Baso % (Auto) 1.2 % (0-2) 06/21/25 13:38 Lymph # (Auto) 2.1 X10*3/uL (1.2-4.9) 06/21/25 13:38 [place] # (Auto) 0.8 X10*3/uL (0.1-1.2) 06/21/25 13:38 Eos # (Auto) 0.4 X10*3/uL (0.0-0.4) 06/21/25 13:38 Baso # (Auto) 0.1 X10*3/uL (0.0-0.2) 06/21/25 13:38 Abs Immat Gran (auto) 0.03 X10*3/uL (0.00-0.03) 06/21/25 13:38 Absolute Neuts (auto) 5.9 x10*3/uL (2.0-8.3) 06/21/25 13:38 Absolute Nucleated RBC 0.000 X10*3/uL (0.0-0.012) 06/21/25 13:38 Nucleated RBC % (auto) 0.0 /100WBC (0.0-0.2) 06/21/25 13:38 Hold Purple Top SEE NOTE 06/22/25 06:37 Sodium 142 mmol/L (135-145) 06/22/25 13:04 Potassium 4.1 mmol/L (3.3-5.1) 06/22/25 13:04 Chloride 109 mmol/L (96-108) H 06/22/25 13:04 Carbon Dioxide 23 mmol/L (22-29) 06/22/25 13:04 Anion Gap 14 (12-20) 06/22/25 13:04 BUN 11 mg/dL (9-16) 06/22/25 13:04 Creatinine 0.71 mg/dL (0.5-1.4) 06/22/25 13:04 Estim Creat Clear Calc 68.3 06/22/25 13:04 Estimated GFR > 60 06/22/25 13:04 Random Glucose 85 mg/dL (60-115) 06/22/25 13:04 Calcium 9.4 mg/dL (8.4-10.2) 06/22/25 13:04 Magnesium 2.0 mg/dL (1.6-2.6) 06/21/25 13:38 Total Bilirubin 0.5 mg/dL (0.0-1.0) 06/21/25 13:38 AST 20 U/L (5-31) 06/21/25 13:38 ALT 12 U/L (0-31) 06/21/25 13:38 Alkaline Phosphatase 79 U/L (39-117) 06/21/25 13:38 Troponin I High Sens < 2.7 ng/L (<3.5-17.0) 06/21/25 13:38 Total Protein 6.7 g/dL (6.5-8.0) 06/21/25 13:38 Albumin 4.5 g/dL (3.5-5.0) 06/21/25 13:38 Urine Color Yellow 06/21/25 14:20 Urine Appearance Clear 06/21/25 14:20 Urine pH 5.5 (5.0-9.0) 06/21/25 14:20 Ur Specific [place] 1.010 (1.005-1.025) 06/21/25 14:20 Urine Protein Negative mg/dL (Neg-Trace) 06/21/25 14:20 Urine Glucose (UA) Negative mg/dL (Negative) 06/21/25 14:20 Urine Ketones Trace mg/dL (Negative) 06/21/25 14:20 Urine Blood Trace (Negative) H 06/21/25 14:20 Urine Nitrite Negative (Negative) 06/21/25 14:20 Ur Leukocyte Esterase Small (1+) (Negative) H 06/21/25 14:20 Urine RBC 0-2 /HPF (0-2) 06/21/25 14:20 Urine WBC 6-10 /HPF (0-5) H 06/21/25 14:20 Ur Squamous Epith Cells 0-2 /HPF (0-2) 06/21/25 14:20 Urine Bacteria None Seen (None Seen) 06/21/25 14:20 Hyaline Casts 0-2 /LPF (0-2) 06/21/25 14:20 Salicylates < 5.0 mg/dL (15-30) L 06/21/25 13:38 Urine Opiates Screen Not Detected (Not Detect) 06/21/25 14:20 Ur Buprenorphine Scrn Not Detected ng/mL (Not Detect) 06/21/25 14:20 Ur Oxycodone Screen Not Detected ng/mL (Not Detect) 06/21/25 14:20 Urine Methadone Screen Not Detected ng/mL (Not Detect) 06/21/25 14:20 Urine Fentanyl Screen Not Detected (Not Detect) 06/21/25 14:20 Acetaminophen < 3 mcg/mL (<30) 06/21/25 13:38 Ur Barbiturates Screen Not Detected (Not Detect) 06/21/25 14:20 Ur Phencyclidine Scrn Not Detected (Not Detect) 06/21/25 14:20 Ur Amphetamines Screen POSITIVE (Not Detect) H 06/21/25 14:20 U Benzodiazepines Scrn Not Detected (Not Detect) 06/21/25 14:20 Urine Cocaine Screen Not Detected (Not Detect) 06/21/25 14:20 U Marijuana (THC) Screen POSITIVE (Not Detect) H 06/21/25 14:20 Ethyl Alcohol < 10 mg/dL 06/21/25 13:38 Discharge Plan Discharge Patient Disposition: Home, Self-Care Discharge Diagnosis: depression, anxiety, intentional drug ingestion Referrals: Physician,Unknown J [Primary Care Provider, Medical] - 1 Week Discharge Medications: Continued acetaminophen [Tylenol Extra Strength] 500 mg tablet 500 mg PO Q6H PRN (Reason: fever or pain) Qty: 14 0RF aspirin 81 mg tablet,delayed release (DR/EC) 81 mg PO DAILY isosorbide mononitrate 30 mg Tablet Extended Release 24 Hr 30 mg PO DAILY Rx Instructions: TAKES IN COMBINATION WITH ISOSORBIDE ER 60 MG FOR TTD OF 90 MG clopidogrel 75 mg Tablet 75 mg PO DAILY ezetimibe 10 mg Tablet 10 mg PO DAILY diclofenac sodium 1 % Gel 2 g TOPICAL QID PRN (Reason: RIGHT KNEE PAIN) Rx Instructions: apply to single elbow, wrist or hand; for hand includes palm/fingers/back of hand famotidine 20 mg Tablet 20 mg PO BID isosorbide mononitrate 60 mg Tablet Extended Release 24 Hr 60 mg PO DAILY Rx Instructions: TAKE IN COMBINATION WITH ISOSORBIDE 30 MG FOR TTD = 90 MG nitroglycerin 0.4 mg Tablet, Sublingual 0.4 mg SUBLINGUAL Q5M PRN (Reason: Chest Pain) Rx Instructions: do not exceed 3 doses per episode bupropion HCl 150 mg tablet sustained-release 12 hr 150 mg PO BID trazodone 100 mg tablet 100 mg PO BEDTIME ranolazine 1,000 mg tablet extended release 12 hr 1,000 mg PO BID atorvastatin 80 mg tablet 80 mg PO DAILY amlodipine 5 mg tablet 5 mg PO DAILY Discharge Orders: Discharge Order (Routine); Ordered 06/22/25 Ordered By: Kevin Phillip Diet: Advance to usual diet Activity on Discharge: As tolerated Stand Alone Forms: Patient Portal Discharge page Print Language: Ukrainian Care Plan Goals: mental health Health Concerns: depression, anxiety, intentional drug ingestion Plan of Treatment: resume prior medications self-care strategies crisis resources provided Please follow up with your primary care doctor within 1 week. [facility] if you experience recurrent or worsening symptoms. Assessment: See Discharge Summary.
[2025-06-22 15:13] VITALS: BP 139/66; PULSE 63; RESP 16; TEMP 36.4; O2SAT 97
== END 2025-06-22 15:55 | disposition home or self-care (01) ==
LOC: HO.ED 14:09 → HO.EDOVER 16:47 → HO.IMC 19:15
PROVIDERS: Physician Assistant; Admitting Provider Physician Assistant Medical; Emergency Provider Emergency Medicine; PCP Family Medicine; Visit Provider Family Medicine
DX: F32.A Depression, unspecified (principal); R45.851 Suicidal ideations; T50.902A Poisoning by unspecified drugs, medicaments and biological substances, intentional self-harm, initial encounter; F41.9 Anxiety disorder, unspecified; R94.31 Abnormal electrocardiogram [ECG] [EKG]; R00.1 Bradycardia, unspecified; I10 Essential (primary) hypertension; E78.00 Pure hypercholesterolemia, unspecified; I25.10 Atherosclerotic heart disease of native coronary artery without angina pectoris; G47.00 Insomnia, unspecified; Z79.899 Other long term (current) drug therapy
CPT/HCPCS: 36415; 80048; 80053; 80143; 80179; 80307; 81001; 83735; 84484; 85025; 87086; 87088; 87186; 93005; 96360; 99222; 99285; J7120; S9485

== ENCOUNTER → 2025-06-21 13:12 | Outpatient (BNV) | payer MEDICARE, MEDICAID, SELFPAY | PROVIDERS: Admitting Provider Physician Assistant Medical; Emergency Provider Emergency Medicine; Visit Provider Internal Medicine Cardiovascular Disease | DX: I51.7 Cardiomegaly (principal); R00.1 Bradycardia, unspecified; Z13.6 Encounter for screening for cardiovascular disorders | CPT/HCPCS: 93010 ==

== ENCOUNTER 2025-06-21 16:27 | Outpatient (BNV) | payer MEDICARE, MEDICAID, SELFPAY | END 2025-06-22 09:04 | PROVIDERS: Admitting Provider Physician Assistant Medical; Emergency Provider Emergency Medicine; Visit Provider Internal Medicine Cardiovascular Disease | DX: T50.901A Poisoning by unspecified drugs, medicaments and biological substances, accidental (unintentional), initial encounter (principal) | CPT/HCPCS: 93010 ==

== ENCOUNTER → 2025-06-21 16:27 | Outpatient (BNV) | payer MEDICARE, MEDICAID, SELFPAY | PROVIDERS: Admitting Provider Physician Assistant Medical; Emergency Provider Emergency Medicine; Visit Provider Physician Assistant Medical | DX: F32.A Depression, unspecified (principal); R45.851 Suicidal ideations; T50.902A Poisoning by unspecified drugs, medicaments and biological substances, intentional self-harm, initial encounter | CPT/HCPCS: 99223 ==